=== PATIENT | male | born 1990 | race Caucasian/White ===

== ENCOUNTER 2017-05-04 21:24 | Emergency (ER) | payer SELFPAY ==
[~2017-05-04] VITALS: Ht 167.6 cm; Wt 65.8 kg
[~2017-05-04 21:24] MED LIST: CEPH500C PO; CIPR500T78 PO; FAMO20TA13 PO; HYDR-3812 PO; HYDR1TAB8 OP; ONDA-42 SL; TMSL.4C PO
[2017-05-04] MEDS ORDERED: BUPR1FIL3 (21:39)
--- NOTE | 2017-05-04 21:51 | ED Abdominal Pain ---
General Chief Complaint: Abdominal/GI Problems Stated Complaint: STOMACH PAIN Nursing Triage Note: RLQ PAIN SINCE WEDNESDAY, CONSTIPATION, WORSE AFTER EATING, WITH URINATION. HX GALLSTONES. Sepsis Screen: No Definite Risk Source of Information: Patient, RN Notes Reviewed Exam Limitations: No Limitations History of Present Illness Time Seen By Provider: 21:51 Initial Comments Patient presents c/ c/o persistent RLQ abdominal pain since Wednesday. Denies any known fever. NO N/V/D. More on the constipated side. States eating and urinating make the pain worse. Has known gallstones. (+) previous hx of kidneys stones as well. Timing/Duration: 2-3 Days Severity/Quality: Moderate (Told RN 03/31; told me 01/01) Location: RLQ Radiation: No Radiation Activities at Onset: None Modifying Factors: Worsens With Eating, Worsens With Urinating Associated Symptoms: No Fever/Chills, No Nausea/Vomiting Allergies and Home Medications Allergies Coded Allergies: No Known Drug Allergies (Unverified , 06/11/09) Home Medications Buprenorphine HCl/Naloxone HCl 1 Each Film, #21 (Reported) Diclofenac Sodium 50 Mg Tablet.dr, 50 MG PO Q6H PRN for ABDOMINAL PAIN, #30 Ref 0 Prescribed by: MIKE BRAVO on 05/04/172304 Tamsulosin HCl 0.4 Mg Cap, 0.4 MG PO DAILY, #10 Ref 0 Prescribed by: MIKE BRAVO on 05/04/172304 Review of Systems Constitutional: see HPI Gastrointestinal: See HPI, Abdominal Pain, Constipated, Denies Diarrhea, Denies Nausea, Denies Vomiting All Other Systems Reviewed Negative Unless Noted: Yes (Negative excepted noted.) Past Bbweqrb-Fegjka-Vhsevo Hx Patient Social History Alcohol Use: Denies Use Recreational Drug Use: No Type Used: Cigarettes 2nd Hand Smoke Exposure: Yes Recent Foreign Travel: No Contact w/Someone Who Travel: No Recent Infectious Disease Expo: No Recent Hopitalizations: No Immunizations Up To Date Tetanus Booster (TDap): Unknown Date of Influenza Vaccine: Sep 09, 2016 Seasonal Allergies Seasonal Allergies: No Surgeries HX Surgeries: Yes (KIDNEY STONE REMOVAL, URETERAL STENT,colonoscopy) Surgeries: Renal Respiratory Hx Respiratory Disorders: No Cardiovascular Hx Cardiac Disorders: No Neurological Hx Neurological Disorders: No Genitourinary Hx Genitourinary Disorders: Yes Genitourinary Disorders: Kidney Stones Gastrointestinal Hx Gastrointestinal Disorders: Yes Gastrointestinal Disorders: Gastroesophageal Reflux Musculoskeletal Hx Musculoskeletal Disorders: No Endocrine Hx Endocrine Disorders: No HEENT HX ENT Disorders: No Cancer Hx Cancer: No Psychosocial Hx Psychiatric Problems: No Integumentary HX Skin/Integumentary Disorder: No Blood Transfusions Hx Blood Disorders: No Adverse Reaction to a Blood Tr: No Family Medical History Significant Family History: No Pertinent Family Hx Physical Exam Vital Signs VS - Last 72 Hours, by Label 05/04/17 05/04/17 21:39 23:38 Temp 99.1 Pulse 85 81 Resp 18 18 B/P (MAP) 150/96 Pulse Ox 100 99 O2 Delivery Room Air Room Air Capillary Refill : Less Than 3 Seconds General Appearance: WD/WN, no apparent distress Respiratory: no respiratory distress Cardiovascular: regular rate, rhythm Gastrointestinal: No distended, No guarding, No rebound, tenderness (mild very low RLQ) Rectal: deferred Back: No CVA tenderness (R), No CVA tenderness (L) Neurologic/Psychiatric: no motor/sensory deficits, alert, normal mood/affect, oriented x 3 Skin: warm/dry, tattoos/piercings (extensive BUE) Progress/Results/Core Measures Results/Orders Lab Results Laboratory Tests Test 05/04/17 22:05 05/04/17 22:46 Range/Units White Blood Count 8.7 4.3-11.0 10^3/uL Red Blood Count 5.57 4.35-5.85 10^6/uL Hemoglobin 15.9 13.3-17.7 G/DL Hematocrit 46 40-54 % Mean Corpuscular Volume 83 80-99 FL Mean Corpuscular Hemoglobin 29 25-34 PG Mean Corpuscular Hemoglobin Concent 34 32-36 G/DL Red Cell Distribution Width 12.8 10.0-14.5 % Platelet Count 239 130-400 10^3/uL Mean Platelet Volume 11.7 H 7.4-10.4 FL Neutrophils (%) (Auto) 51 42-75 % Lymphocytes (%) (Auto) 39 12-44 % Monocytes (%) (Auto) 7 0-12 % Eosinophils (%) (Auto) 4 0-10 % Basophils (%) (Auto) 0 0-10 % Neutrophils # (Auto) 4.4 1.8-7.8 X 10^3 Lymphocytes # (Auto) 3.4 1.0-4.0 X 10^3 Monocytes # (Auto) 0.6 0.0-1.0 X 10^3 Eosinophils # (Auto) 0.4 H 0.0-0.3 10^3/uL Basophils # (Auto) 0.0 0.0-0.1 10^3/uL Sodium Level 144 135-145 MMOL/L Potassium Level 3.7 3.6-5.0 MMOL/L Chloride Level 106 98-107 MMOL/L Carbon Dioxide Level 26 21-32 MMOL/L Anion Gap 12 5-14 MMOL/L Blood Urea Nitrogen 10 7-18 MG/DL Creatinine 0.90 0.60-1.30 MG/DL Estimat Glomerular Filtration Rate > 60 BUN/Creatinine Ratio 11 0-20 Glucose Level 61 L 70-105 MG/DL Calcium Level 10.0 8.5-10.1 MG/DL Total Bilirubin 0.3 0.1-1.0 MG/DL Aspartate Amino Transf (AST/SGOT) 21 5-34 U/L Alanine Aminotransferase (ALT/SGPT) 14 0-55 U/L Alkaline Phosphatase 74 40-136 U/L Total Protein 8.3 H 6.4-8.2 GM/DL Albumin 4.8 H 3.2-4.5 GM/DL Urine Color YELLOW Urine Clarity CLEAR Urine pH 6.5 5-9 Urine Specific [place] 1.015 L 1.016-1.022 Urine Protein NEGATIVE NEGATIVE Urine Glucose (UA) NEGATIVE NEGATIVE Urine Ketones NEGATIVE NEGATIVE Urine Nitrite NEGATIVE NEGATIVE Urine Bilirubin NEGATIVE NEGATIVE Urine Urobilinogen NORMAL NORMAL MG/DL Urine Leukocyte Esterase NEGATIVE NEGATIVE Urine RBC (Auto) 2+ H NEGATIVE Urine RBC 10-25 H /HPF Urine WBC NONE /HPF Urine Squamous Epithelial Cells RARE /HPF Urine Crystals NONE /LPF Urine Bacteria NONE /HPF Urine Casts NONE /LPF Urine Mucus NEGATIVE /LPF Urine Culture Indicated NO My Orders Orders - MIKE BRAVO DO Ua Culture If Indicated (05/04/17 21:50) Saline Lock/Iv-Start (05/04/17 21:58) Cbc With Automated Diff (05/04/17 21:58) Comprehensive Metabolic Panel (05/04/17 21:58) Ns Iv 1000 Ml (Sodium Chloride 0.9%) (05/04/17 22:06) Ct Abdomen/Pelvis Wo (05/04/17 22:19) Ketorolac Injection (Toradol Injection) (05/04/17 23:15) Tamsulosin Capsule (Flomax Capsule) (05/04/17 23:15) Alfuzosin Tablet (Uroxatral Tablet) (05/05/17 18:00) Alfuzosin Tablet (Uroxatral Tablet) (05/04/17 23:08) Medications Given in ED Vital Signs/I&O Vital Sign - Last 12Hours 05/04/17 05/04/17 21:39 23:38 Temp 99.1 Pulse 85 81 Resp 18 18 B/P (MAP) 150/96 Pulse Ox 100 99 O2 Delivery Room Air Room Air Intake and Output 05/05/17 00:00 Intake Total 1000 ml Balance 1000 ml Blood Pressure Mean: 114 Diagnostic Imaging Diagonstic Imaging: CT Plain Films/CT/US/NM/MRI: abdomen, c-spine Reviewed: Reviewed [place] Study (right proximal 2 mm ureterolithiasis c / mild hydro; (+) cholelithiasis s/ cholecystitis) Departure Impression Impression: Primary Impression: Right ureteral stone Disposition: HOME, SELF-CARE Condition: Stable Departure-Patient Inst. Decision time for Depature: 23:02 Referrals: PB TELLES MD Patient Instructions: Kidney Stones in Adults Add. Discharge Instructions: All discharge instructions reviewed with patient and/or family. Voiced understanding. RECOMMEND FOLLOW UP WITH DR. TELLES FOR FURTHER EVALUATION OF ALL YOUR KIDNEY STONES. Scripts Diclofenac Sodium (Diclofenac Sodium) 50 Mg Tablet. 50 MG PO Q6H Y for ABDOMINAL PAIN, #30 TAB 0 Refills Prov: MIKE BRAVO DO 05/04/17 Tamsulosin HCl (Flomax) 0.4 Mg Cap 0.4 MG PO DAILY for KIDNEY STONE, #10 CAP 0 Refills Prov: MIKE BRAVO DO 05/04/17 MIKE BRAVO DO May 04, 2017 21:51
[2017-05-04] MEDS ORDERED: NS IV 1000 ML 1,000 ML IV ONE (22:06)
[2017-05-04 22:12] LABS: BASOPHILS % (AUTO) 0 % (0-10); EOSINOPHILS # (AUTO) 0.4 10^3/uL (0.0-0.3); EOSINOPHILS % (AUTO) 4 % (0-10); LYMPHOCYTES # (AUTO) 3.4 X 10^3 (1.0-4.0); LYMPHOCYTES % (AUTO) 39 % (12-44); MEAN CORPUSCULAR HEMOGLOBIN 29 PG (25-34); MEAN CORPUSCULAR HGB CONC 34 G/DL (32-36); MEAN CORPUSCULAR VOLUME 83 FL (80-99); MEAN PLATELET VOLUME 11.7 FL (7.4-10.4); MONOCYTES # (AUTO) 0.6 X 10^3 (0.0-1.0); MONOCYTES % (AUTO) 7 % (0-12); NEUTROPHILS # (AUTO) 4.4 X 10^3 (1.8-7.8); NEUTROPHILS % (AUTO) 51 % (42-75); PLATELET COUNT 239 10^3/uL (130-400); RED BLOOD COUNT 5.57 10^6/uL (4.35-5.85); RED CELL DISTRIBUTION WIDTH 12.8 % (10.0-14.5); WHITE BLOOD COUNT 8.7 10^3/uL (4.3-11.0)
[2017-05-04 22:34] LABS: ALANINE AMINOTRANSFERASE 14 U/L (0-55); ALBUMIN 4.8 GM/DL (3.2-4.5); ANION GAP 12 MMOL/L (5-14); ASPARTATE AMINO TRANSFERASE 21 U/L (5-34); BILIRUBIN,TOTAL 0.3 MG/DL (0.1-1.0); BLOOD UREA NITROGEN 10 MG/DL (7-18); BUN/CREATININE RATIO 11 (0-20); CARBON DIOXIDE 26 MMOL/L (21-32); CHLORIDE 106 MMOL/L (98-107); GFR ESTIMATED > 60; GLUCOSE 61 MG/DL (70-105); POTASSIUM 3.7 MMOL/L (3.6-5.0); SODIUM 144 MMOL/L (135-145); TOTAL PROTEIN 8.3 GM/DL (6.4-8.2)
[2017-05-04 22:56] LABS: BILIRUBIN,URINE NEGATIVE (NEGATIVE); KETONES,URINE NEGATIVE (NEGATIVE); LEUKOCYTE ESTERASE ,URINE NEGATIVE (NEGATIVE); NITRITE,URINE NEGATIVE (NEGATIVE); PH,URINE 6.5 (5-9); PROTEIN,URINE NEGATIVE (NEGATIVE); UROBILINOGEN,URINE NORMAL (NORMAL)
[2017-05-04] MEDS ORDERED: DICL50TA6 PO (23:05)
[2017-05-04] MEDS ORDERED: TAMS0.4C98 PO (23:05)
[2017-05-04 23:06] LABS: SQUAMOUS EPITHELIAL CELL,UR RARE /HPF
[2017-05-04] MEDS ORDERED: ALFUZOSIN HCL 10 MG TAB (UROXATRAL) PO ONE (23:08)
[2017-05-04] MEDS ORDERED: KETOROLAC 30 MG/ML VIAL IVP ONE (23:15)
[2017-05-04] MEDS ORDERED: TAMSULOSIN 0.4 MG (FLOMAX) CAP PO ONE (23:15)
[2017-05-04 23:38] VITALS: BP 126/84
--- NOTE | 2017-05-05 06:35 | Diagnostic Imaging Report ---
PROCEDURE: CT abdomen and pelvis without contrast. TECHNIQUE: Multiple contiguous axial images were obtained through the abdomen and pelvis without the use of intravenous contrast. INDICATION: Abdominal pain. COMPARISON: 04/17/2015. FINDINGS: Lung bases are clear. There are multiple sub-3 mm calculi present bilaterally. There is a 2 mm calculus in the proximal right ureter which is causing very mild hydronephrosis. Renal outlines are smooth. No perinephric fluid. The liver appears normal. Gallbladder and bile ducts show no obstruction or wall thickening. There are gallstones present. Bowel gas pattern appears normal. There is stool and gas throughout the colon to rectum. The appendix is visualized and normal. There is no free air or free fluid. IMPRESSION: 1. Nephrolithiasis bilaterally with mild hydronephrosis noted on the right. Overall appearance is quite similar to previous exam. 2. Cholelithiasis with no evidence of acute cholecystitis. These findings are in agreement with the preliminary report. Dictated by: Dictated on workstation # [id number]
[2017-05-05] MEDS ORDERED: ALFUZOSIN HCL 10 MG TAB (UROXATRAL) PO SCH (18:00)
== END 2017-05-04 23:38 | disposition home or self-care (01) ==
LOC: EDUNIT# 21:24 → ER 21:27
DX: N20.1 Calculus of ureter (principal); F17.210 Nicotine dependence, cigarettes, uncomplicated; Z87.442 Personal history of urinary calculi; Z96.0 Presence of urogenital implants
CPT/HCPCS: 36415; 74176; 80053; 81000; 85025

== ENCOUNTER 2017-05-09 23:55 | Emergency (ER) | payer SELFPAY ==
[~2017-05-09] VITALS: Ht 170.2 cm; Wt 68.0 kg
[~2017-05-09 23:55] MED LIST changes: +BUPR1FIL3; +DICL50TA6 PO; +TAMS0.4C98 PO
[2017-05-10 00:56] LABS: BILIRUBIN,URINE NEGATIVE (NEGATIVE); KETONES,URINE NEGATIVE (NEGATIVE); LEUKOCYTE ESTERASE ,URINE NEGATIVE (NEGATIVE); NITRITE,URINE NEGATIVE (NEGATIVE); PH,URINE 7 (5-9); PROTEIN,URINE NEGATIVE (NEGATIVE); UROBILINOGEN,URINE NORMAL (NORMAL)
--- NOTE | 2017-05-10 00:56 | ED General ---
General Chief Complaint: General Problems/Pain Stated Complaint: L HAND NUMBNESS TASTE OF IRON, FEELING HOT Nursing Triage Note: PT STATES HE STARTED HAVING L ARM NUMBNESS ABOUT 30 [employer]. ALSO STATES THAT SINCE HE GOT HERE HE HAS HAD SOME MID STERNAL CHEST PAIN AND L LEG NUMBNESS. Nursing Sepsis Screen: No Definite Risk Source of Information: Patient History of Present Illness Time Seen by Provider: 00:30 Initial Comments PT HAS A MULTITUDE OF COMPLAINTS, AND IS DEVELOPING MORE COMPLAINTS SINCE ARRIVAL TO ER, AND DURING EXAM PT SPEAKING VERY RAPIDLY, NON-STOP PT STATES IMMEDIATELY PRIOR TO ARRIVAL, HE WAS SITTING IN A CHAIR AND HIS ARMS "FELL ASLEEP" STARTED MOVING HIS ARM AND THE FEELING STARTED TO COME BACK, THEN IT STARTED TINGLING THE HE STARTED FEELING REALLY HOT, THEN HE STARTED HAVING AN IRON TASTE IN HIS MOUTH, THEN HE STARTED HAVING A STRONG URGE TO URINATE THEN HE STARTED FEELING REAL SHAKEY ALL OVER THEN WHILE IN WAITING ROOM, HE WHEN HE STOOD UP, HE HAD SOME TINGLING IN HIS LEFT LEG THEN HE STARTED HAVING KIDNEY STONE PAIN--PT STATES HE HAS BEEN PASSING A KIDNEY STONE, AND HAS BEEN ON FLOMAX FOR THE LAST 5 DAYS--SEEN HERE 05/04/17 FOR KIDNEY STONE THEN HE STARTED TO HAVE PAIN IN HIS CHEST AND FEELING SHORT OF BREATH PT STATES ALL SYMPTOMS HAVE RESOLVED, JUST FEELS SHAKEY AND STIFF AND SORE ALL OVER NOW. NO HISTORY OF SIMILAR NO RECENT ILLNESS FELT FINE ALL DAY--WORKED TODAY AND WAS FINE. PCP: EMELI Allergies and Home Medications Allergies Coded Allergies: No Known Drug Allergies (Unverified , 06/11/09) Home Medications Buprenorphine HCl/Naloxone HCl 1 Each Film, #21 (Reported) Diclofenac Sodium 50 Mg Tablet.dr, 50 MG PO Q6H PRN for ABDOMINAL PAIN, #30 Ref 0 Prescribed by: MIKE BRAVO on 05/04/172304 Tamsulosin HCl 0.4 Mg Cap, 0.4 MG PO DAILY, #10 Ref 0 Prescribed by: MIKE BRAVO on 05/04/172304 Constitutional: see HPI EENTM: no symptoms reported Respiratory: see HPI, short of breath Cardiovascular: see HPI, chest pain Gastrointestinal: no symptoms reported Genitourinary: see HPI Musculoskeletal: see HPI Skin: no symptoms reported Psychiatric/Neurological: See HPI, Anxiety Hematologic/Lymphatic: No Symptoms Reported Immunological/Allergic: no symptoms reported Past Rhmfcxb-Nvlfgt-Cszxvj Hx Patient Social History Alcohol Use: Occasionally Uses Recreational Drug Use: Yes (THC, RX MEDICATION ABUSE--PAIN PILLS, VYVANSE/ ADDERALL) Smoking Status: Current Everyday Smoker (1 PPD) Type Used: Cigarettes 2nd Hand Smoke Exposure: Yes Recent Foreign Travel: No Contact w/Someone Who Travel: No Recent Infectious Disease Expo: No Recent Hopitalizations: No Immunizations Up To Date Tetanus Booster (TDap): Unknown Date of Influenza Vaccine: Sep 09, 2016 Seasonal Allergies Seasonal Allergies: No Surgeries HX Surgeries: Yes (KIDNEY STONE REMOVAL, URETERAL STENT, COLONOSCOPY) Surgeries: Renal Respiratory Hx Respiratory Disorders: No Cardiovascular Hx Cardiac Disorders: No Neurological Hx Neurological Disorders: No Genitourinary Hx Genitourinary Disorders: Yes (KIDNEY 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 15) Genitourinary Disorders: Kidney Stones Gastrointestinal Hx Gastrointestinal Disorders: Yes (GALLSTONES NOTED ON CT SCAN) Gastrointestinal Disorders: Gastroesophageal Reflux, Gall Bladder Disease Musculoskeletal Hx Musculoskeletal Disorders: No Endocrine Hx Endocrine Disorders: No HEENT HX ENT Disorders: No Cancer Hx Cancer: No Psychosocial Hx Psychiatric Problems: Yes (SUBSTANCE ABUSE) Integumentary HX Skin/Integumentary Disorder: No Blood Transfusions Hx Blood Disorders: No Adverse Reaction to a Blood Tr: No Physical Exam Vital Signs Vital Sign - Last 12Hours 05/10/17 00:27 Pulse 108 Resp 16 B/P (MAP) 138/98 Capillary Refill : Less Than 3 Seconds General Appearance: No Apparent Distress, Anxious, Thin, Other (TALKS VERY RAPIDLY, NON-STOP) HEENT: PERRL/EOMI Neck: Full Range of Motion, Normal Inspection, Non Tender, Supple, Carotid Bruit Respiratory: Normal Breath Sounds, No Accessory Muscle Use, No Respiratory Distress, Other (MILD LOWER STERNAL TENDERNESS) Cardiovascular: No Edema, No JVD, No Murmur, Normal Peripheral Pulses, Tachycardia Gastrointestinal: Normal Bowel Sounds, No Organomegaly, No Pulsatile Mass, Non Tender, Soft Back: Normal Inspection Extremity: Normal Capillary Refill, Normal Inspection, Normal Range of Motion, Non Tender, No Calf Tenderness, No Pedal Edema Neurologic/Psychiatric: Alert, Oriented x3, No Motor/Sensory Deficits, clinical laboratory assistant II- XII Norm as Tested, No Abnormal Cerebellar Tests, Other (ANXIOUS) Skin: Normal Color, Warm/Dry, Tattoos/Piercings (EXTENSIVE TATTOOS) Progress/Results/Core Measures Results/Orders Lab Results Laboratory Tests Test 05/10/17 00:47 05/10/17 00:53 Range/Units Urine Color YELLOW Urine Clarity CLEAR Urine pH 7 5-9 Urine Specific [place] 1.010 L 1.016-1.022 Urine Protein NEGATIVE NEGATIVE Urine Glucose (UA) NEGATIVE NEGATIVE Urine Ketones NEGATIVE NEGATIVE Urine Nitrite NEGATIVE NEGATIVE Urine Bilirubin NEGATIVE NEGATIVE Urine Urobilinogen NORMAL NORMAL MG/DL Urine Leukocyte Esterase NEGATIVE NEGATIVE Urine RBC (Auto) NEGATIVE NEGATIVE Urine RBC NONE /HPF Urine WBC NONE /HPF Urine Squamous Epithelial Cells 0-2 /HPF Urine Crystals NONE /LPF Urine Bacteria NEGATIVE /HPF Urine Casts NONE /LPF Urine Mucus NEGATIVE /LPF Urine Culture Indicated NO Urine Opiates Screen NEGATIVE NEGATIVE Urine Oxycodone Screen NEGATIVE NEGATIVE Urine Methadone Screen NEGATIVE NEGATIVE Urine Propoxyphene Screen NEGATIVE NEGATIVE Urine Barbiturates Screen NEGATIVE NEGATIVE Ur Tricyclic Antidepressants Screen NEGATIVE NEGATIVE Urine Phencyclidine Screen NEGATIVE NEGATIVE Urine Amphetamines Screen NEGATIVE NEGATIVE Urine Methamphetamines Screen NEGATIVE NEGATIVE Urine Benzodiazepines Screen NEGATIVE NEGATIVE Urine Cocaine Screen NEGATIVE NEGATIVE Urine Cannabinoids Screen NEGATIVE NEGATIVE White Blood Count 7.4 4.3-11.0 10^3/uL Red Blood Count 5.06 4.35-5.85 10^6/uL Hemoglobin 14.5 13.3-17.7 G/DL Hematocrit 43 40-54 % Mean Corpuscular Volume 84 80-99 FL Mean Corpuscular Hemoglobin 29 25-34 PG Mean Corpuscular Hemoglobin Concent 34 32-36 G/DL Red Cell Distribution Width 12.8 10.0-14.5 % Platelet Count 196 130-400 10^3/uL Mean Platelet Volume 11.4 H 7.4-10.4 FL Neutrophils (%) (Auto) 51 42-75 % Lymphocytes (%) (Auto) 35 12-44 % Monocytes (%) (Auto) 8 0-12 % Eosinophils (%) (Auto) 6 0-10 % Basophils (%) (Auto) 1 0-10 % Neutrophils # (Auto) 3.7 1.8-7.8 X 10^3 Lymphocytes # (Auto) 2.6 1.0-4.0 X 10^3 Monocytes # (Auto) 0.6 0.0-1.0 X 10^3 Eosinophils # (Auto) 0.4 H 0.0-0.3 10^3/uL Basophils # (Auto) 0.0 0.0-0.1 10^3/uL Sodium Level 142 135-145 MMOL/L Potassium Level 3.4 L 3.6-5.0 MMOL/L Chloride Level 106 98-107 MMOL/L Carbon Dioxide Level 23 21-32 MMOL/L Anion Gap 13 5-14 MMOL/L Blood Urea Nitrogen 8 7-18 MG/DL Creatinine 0.85 0.60-1.30 MG/DL Estimat Glomerular Filtration Rate > 60 BUN/Creatinine Ratio 9 0-20 Glucose Level 106 H 70-105 MG/DL Calcium Level 9.6 8.5-10.1 MG/DL Magnesium Level 2.1 1.8-2.4 MG/DL Total Bilirubin 0.5 0.1-1.0 MG/DL Aspartate Amino Transf (AST/SGOT) 24 5-34 U/L Alanine Aminotransferase (ALT/SGPT) 16 0-55 U/L Alkaline Phosphatase 81 40-136 U/L Total Protein 7.7 6.4-8.2 GM/DL Albumin 4.8 H 3.2-4.5 GM/DL TSH [place] Testing 3.02 0.35-4.94 UIU/ML Serum Alcohol < 10 <10 MG/DL My Orders Orders - GALA ARMAS DO Alcohol (05/10/17 00:45) Cbc With Automated Diff (05/10/17 00:45) Comprehensive Metabolic Panel (05/10/17 00:45) Drug Screen Stat (Urine) (05/10/17 00:45) Magnesium (05/10/17 00:45) Thyroid Analyzer (05/10/17 00:45) Ua Culture If Indicated (05/10/17 00:45) Ekg Tracing (05/10/17 00:45) Vital Signs/I&O Vital Sign - Last 12Hours 05/10/17 00:27 Pulse 108 Resp 16 B/P (MAP) 138/98 Blood Pressure Mean: 111 Progress Note : Progress Note NO SYMPTOMS AT DISMISSAL AND PT IS CALMER, AND PT AGREES THAT OTHER SYMPTOMS WERE LIKELY DUE TO ANXIETY 'STATES INITIAL NUMBNESS AND TINGLING IN HIS ARM BEGAN WHILE HE WAS SITTING IN CHAIR AND HAD ELBOWS RESTING ON ARM RESTS AND HE WAS PLAYING WITH HIS PHONE FOR SOME TIME, WITH ARMS IN SAME POSITION ECG Initial ECG Impression Time: 01:01 Initial ECG Rate: 91 Initial ECG Rhythm: Normal Sinus Initial ECG Impression: Normal Initial ECG Comparisson: Unchanged Departure Impression Impression: Primary Impression: Anxiety Additional Impression: TRANSIENT ARM PARESTHESIA Disposition: 01 HOME, SELF-CARE Condition: Improved Departure-Patient Inst. Referrals: [facility] Patient Instructions: Anxiety, Adult (DC), Paresthesias (DC) Add. Discharge Instructions: FOLLOW UP WITH [facility] IF SYMPTOMS CONTINUE All discharge instructions reviewed with patient and/or family. Voiced understanding. GALA ARMAS DO May 10, 2017 00:56
[2017-05-10 01:01] LABS: BASOPHILS % (AUTO) 1 % (0-10); EOSINOPHILS # (AUTO) 0.4 10^3/uL (0.0-0.3); EOSINOPHILS % (AUTO) 6 % (0-10); LYMPHOCYTES # (AUTO) 2.6 X 10^3 (1.0-4.0); LYMPHOCYTES % (AUTO) 35 % (12-44); MEAN CORPUSCULAR HEMOGLOBIN 29 PG (25-34); MEAN CORPUSCULAR HGB CONC 34 G/DL (32-36); MEAN CORPUSCULAR VOLUME 84 FL (80-99); MEAN PLATELET VOLUME 11.4 FL (7.4-10.4); MONOCYTES # (AUTO) 0.6 X 10^3 (0.0-1.0); MONOCYTES % (AUTO) 8 % (0-12); NEUTROPHILS # (AUTO) 3.7 X 10^3 (1.8-7.8); NEUTROPHILS % (AUTO) 51 % (42-75); PLATELET COUNT 196 10^3/uL (130-400); RED BLOOD COUNT 5.06 10^6/uL (4.35-5.85); RED CELL DISTRIBUTION WIDTH 12.8 % (10.0-14.5); WHITE BLOOD COUNT 7.4 10^3/uL (4.3-11.0)
[2017-05-10 01:09] LABS: SQUAMOUS EPITHELIAL CELL,UR 0-2 /HPF
[2017-05-10 01:22] LABS: ALANINE AMINOTRANSFERASE 16 U/L (0-55); ALBUMIN 4.8 GM/DL (3.2-4.5); ANION GAP 13 MMOL/L (5-14); ASPARTATE AMINO TRANSFERASE 24 U/L (5-34); BILIRUBIN,TOTAL 0.5 MG/DL (0.1-1.0); BLOOD UREA NITROGEN 8 MG/DL (7-18); BUN/CREATININE RATIO 9 (0-20); CALCIUM 9.6 MG/DL (8.5-10.1); CARBON DIOXIDE 23 MMOL/L (21-32); CHLORIDE 106 MMOL/L (98-107); CREATININE SERUM 0.85 MG/DL (0.60-1.30); GFR ESTIMATED > 60; GLUCOSE 106 MG/DL (70-105); HEMOLYSIS 11 (-100-29); ICTERUS 0.4 (-100-1.9); LIPEMIA 10 (-100-49); MAGNESIUM 2.1 MG/DL (1.8-2.4); POTASSIUM 3.4 MMOL/L (3.6-5.0); SODIUM 142 MMOL/L (135-145); TOTAL PROTEIN 7.7 GM/DL (6.4-8.2)
[2017-05-10 01:23] LABS: ALCOHOL < 10 MG/DL (<10)
[2017-05-10 02:10] VITALS: BP 138/98
== END 2017-05-10 02:09 | disposition home or self-care (01) ==
LOC: EDUNIT# 23:55 → ER 23:58
DX: R20.2 Paresthesia of skin (principal); F17.210 Nicotine dependence, cigarettes, uncomplicated
CPT/HCPCS: 36415; 80053; 80306; 80320; 81000; 83735; 84443; 85025; 93005

== ENCOUNTER 2017-06-07 17:30 | Emergency (ER) | payer SELFPAY ==
[~2017-06-07] VITALS: Ht 170.2 cm; Wt 68.0 kg
[2017-06-07 17:51] LABS: BILIRUBIN,URINE NEGATIVE (NEGATIVE); KETONES,URINE NEGATIVE (NEGATIVE); LEUKOCYTE ESTERASE ,URINE NEGATIVE (NEGATIVE); NITRITE,URINE NEGATIVE (NEGATIVE); PH,URINE 7 (5-9); PROTEIN,URINE NEGATIVE (NEGATIVE); UROBILINOGEN,URINE NORMAL (NORMAL)
[2017-06-07 18:10] LABS: BASOPHILS # (AUTO) 0.1 10^3/uL (0.0-0.1); BASOPHILS % (AUTO) 0 % (0-10); EOSINOPHILS # (AUTO) 0.5 10^3/uL (0.0-0.3); EOSINOPHILS % (AUTO) 3 % (0-10); LYMPHOCYTES # (AUTO) 3.1 X 10^3 (1.0-4.0); LYMPHOCYTES % (AUTO) 18 % (12-44); MEAN CORPUSCULAR HEMOGLOBIN 29 PG (25-34); MEAN CORPUSCULAR HGB CONC 34 G/DL (32-36); MEAN CORPUSCULAR VOLUME 83 FL (80-99); MEAN PLATELET VOLUME 11.5 FL (7.4-10.4); MONOCYTES % (AUTO) 6 % (0-12); NEUTROPHILS # (AUTO) 12.9 X 10^3 (1.8-7.8); NEUTROPHILS % (AUTO) 73 % (42-75); PLATELET COUNT 231 10^3/uL (130-400); RED BLOOD COUNT 5.37 10^6/uL (4.35-5.85); RED CELL DISTRIBUTION WIDTH 12.8 % (10.0-14.5); WHITE BLOOD COUNT 17.5 10^3/uL (4.3-11.0)
[2017-06-07 18:30] LABS: ALANINE AMINOTRANSFERASE 16 U/L (0-55); ALBUMIN 4.9 GM/DL (3.2-4.5); ANION GAP 12 MMOL/L (5-14); ASPARTATE AMINO TRANSFERASE 21 U/L (5-34); BILIRUBIN,TOTAL 0.7 MG/DL (0.1-1.0); BLOOD UREA NITROGEN 6 MG/DL (7-18); BUN/CREATININE RATIO 7; CALCIUM 9.8 MG/DL (8.5-10.1); CARBON DIOXIDE 26 MMOL/L (21-32); CHLORIDE 102 MMOL/L (98-107); CREATININE SERUM 0.92 MG/DL (0.60-1.30); GFR ESTIMATED > 60; GLUCOSE 62 MG/DL (70-105); LIPASE 17 U/L (8-78); MAGNESIUM 1.9 MG/DL (1.8-2.4); POTASSIUM 3.1 MMOL/L (3.6-5.0); SODIUM 140 MMOL/L (135-145); TOTAL PROTEIN 8.2 GM/DL (6.4-8.2)
--- NOTE | 2017-06-07 18:34 | Diagnostic Imaging Report ---
EXAM: CHEST PA/LAT (2 VIEW) INDICATION: Chest pain. Shortness breath. COMPARISON: Chest radiograph 06/11/2009. FINDINGS: Normal heart size and pulmonary vascularity. No focal pulmonary opacity, pleural effusion or pneumothorax. No acute osseous findings. No significant change. IMPRESSION: Negative chest. Dictated by: Dictated on workstation # [id number]
[2017-06-07 18:35] LABS: BAND NEUTROPHILS 2 %; BASOPHILS % (MANUAL) 1 %; EOSINOPHILS % (MANUAL) 7 %; LYMPHOCYTES % (MANUAL) 19 %; NEUTROPHILS % (MANUAL) 65 %
[2017-06-07] MEDS ORDERED: NS IV 1000 ML 1,000 ML IV ONE (18:36)
--- NOTE | 2017-06-07 18:37 | ED General ---
General Chief Complaint: General Problems/Pain Stated Complaint: LOWER BACK AND ABDOMINAL PAINS Nursing Triage Note: PT AMBUALTED TO ROOM. PT STATES HE HAD A KIDNEY STONE APPROX 3 WEEKS AGO. TODAY PT COMPLAINS OF LOWER BACK AND ABD PAIN. SIMPSON FOR APPROX. 3 DAYS STRAIGHT. Nursing Sepsis Screen: No Definite Risk Source of Information: Patient Exam Limitations: No Limitations (ROCHELLE PHAN MD) History of Present Illness Time Seen by Provider: 17:42 Initial Comments This patient presents with complaints as outlined below. 1. Patient was diagnosed about 3 weeks ago with ureteral stone. He was diagnosed by CT. About 5 days after diagnosis he developed fever and felt like he passed the stone. He then developed some bilateral lower back pain that radiated around into the abdomen. That pain has persisted since then. He reports having significant discomfort especially with riding in a car. The fever only lasted one night. Patient also reports having a history of gallstones and has some pain and tenderness in the right upper quadrant and epigastrium on exam. He denies any hematuria or dysuria at present. He did have hematuria and dysuria around the time of his ureteral stone diagnosis. 2. Patient has been experiencing headache for about 3-4 days. It is unusual for him to have a headache for this long. 3. Over the past 3-4 days patient has had intermittent problems with left upper quadrant and left lower chest pain. He can identify no particular triggers or exacerbating factors. He has associated lightheadedness and dyspnea. Patient reports driving to [place] and returning about a week ago. He denies any lower extremity symptoms such as pain, swelling, or erythema. 4. Patient has a significant history of narcotic abuse. He is currently in the substance abuse treatment program at [facility] and is on Suboxone. He reports having some worsening issues with anxiety since discontinuing narcotics. 5. Review of patient's chart shows that the diagnosis of ureteral stone was actually made on May 04. He was seen in the ER for anxiety in the interim. (ROCHELLE PHAN MD) Initial Comments Patient also admits that his use of Colace as improved his constipation but he still only having a bowel movement every 3-4 days and it is usually rabbit pellet hardened in appearance. (ALICIA PARSONS) Allergies and Home Medications Allergies Coded Allergies: No Known Drug Allergies (Unverified , 06/11/09) Home Medications Buprenorphine HCl/Naloxone HCl 1 Each Film, #21 (Reported) Diclofenac Sodium 50 Mg Tablet.dr, 50 MG PO Q6H PRN for ABDOMINAL PAIN, #30 Ref 0 Prescribed by: MIKE BRAVO on 05/04/172304 Tamsulosin HCl 0.4 Mg Cap, 0.4 MG PO DAILY, #10 Ref 0 Prescribed by: MIKE BRAVO on 05/04/172304 Constitutional: see HPI EENTM: no symptoms reported Respiratory: see HPI Cardiovascular: see HPI Gastrointestinal: see HPI Genitourinary: see HPI Musculoskeletal: see HPI Skin: no symptoms reported Psychiatric/Neurological: See HPI Hematologic/Lymphatic: No Symptoms Reported (ROCHELLE PHAN MD) Past Xdsxpcp-Gkgphr-Sybvkh Hx Patient Social History Alcohol Use: Denies Use Recreational Drug Use: Yes (PAST HISTORY OF NARCOTIC DRUG USE) Smoking Status: Current Everyday Smoker Type Used: Cigarettes 2nd Hand Smoke Exposure: Yes Recent Foreign Travel: No Contact w/Someone Who Travel: No Recent Infectious Disease Expo: No Recent Hopitalizations: No (ROCHELLE PHAN MD) Immunizations Up To Date Tetanus Booster (TDap): Unknown Date of Influenza Vaccine: Sep 09, 2016 (ROCHELLE PHAN MD) Seasonal Allergies Seasonal Allergies: No (ROCHELLE PHAN MD) Surgeries HX Surgeries: Yes (KIDNEY STONE REMOVAL, URETERAL STENT, COLONOSCOPY) Surgeries: Renal (ROCHELLE PHAN MD) Respiratory Hx Respiratory Disorders: No (ROCHELLE PHAN MD) Cardiovascular Hx Cardiac Disorders: No (ROCHELLE PHAN MD) Neurological Hx Neurological Disorders: No (ROCHELLE PHAN MD) Genitourinary Hx Genitourinary Disorders: Yes (KIDNEY 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 15, ureteral stent placement and removal) Genitourinary Disorders: Kidney Stones (ROCHELLE PHAN MD) Gastrointestinal Hx Gastrointestinal Disorders: Yes (GALLSTONES NOTED ON CT SCAN) Gastrointestinal Disorders: Gastroesophageal Reflux, Gall Bladder Disease (ROCHELLE PHAN MD) Musculoskeletal Hx Musculoskeletal Disorders: No (ROCHELLE PHAN MD) Endocrine Hx Endocrine Disorders: No (ROCHELLE PHAN MD) HEENT HX ENT Disorders: No (ROCHELLE PHAN MD) Cancer Hx Cancer: No (ROCHELLE PHAN MD) Psychosocial Hx Psychiatric Problems: Yes (SUBSTANCE ABUSE) Behavioral Health Disorders: Anxiety (ROCHELLE PHAN MD) Integumentary HX Skin/Integumentary Disorder: No (ROCHELLE PHAN MD) Blood Transfusions Hx Blood Disorders: No Adverse Reaction to a Blood Tr: No (ROCHELLE PHAN MD) Physical Exam Vital Signs Vital Sign - Last 12Hours 06/07/17 17:42 Temp 98.6 Pulse 98 Resp 20 B/P (MAP) 135/90 Pulse Ox 100 O2 Delivery Room Air (ALICIA PARSONS) Vital Signs Capillary Refill : Less Than 3 Seconds (ROCHELLE PHAN MD) General Appearance: No Apparent Distress, WD/WN HEENT: PERRL/EOMI, Normal ENT Inspection Neck: Normal Inspection Respiratory: Chest Non Tender, Lungs Clear, Normal Breath Sounds, No Accessory Muscle Use, No Respiratory Distress Cardiovascular: Regular Rate, Rhythm, No Edema, No Murmur Gastrointestinal: Normal Bowel Sounds, No Organomegaly, Soft, Tenderness ( epigastrium and right upper quadrant) Extremity: Normal Capillary Refill, Normal Inspection, Non Tender, No Calf Tenderness, Other (negative Red) Neurologic/Psychiatric: Alert, Oriented x3, No Motor/Sensory Deficits, Normal Mood/Affect, melter loader II-XII Norm as Tested Skin: Normal Color, Warm/Dry, Tattoos/Piercings (heavily tattooed) (ROCHELLE PHAN MD) Gastrointestinal: Tenderness (epigastrium and right upper quadrant), Other (on exam right upper quadrant is mildly tender but Bauman sign negative. Lower right quadrant however is tender to deep palpation but no rebound tenderness. Epigastrium is only mildly tender.) (ALICIA PARSONS) Progress/Results/Core Measures Results/Orders Lab Results Laboratory Tests Test 06/07/17 17:45 06/07/17 18:02 Range/Units Urine Color YELLOW Urine Clarity CLEAR Urine pH 7 5-9 Urine Specific Parshall 1.010 L 1.016-1.022 Urine Protein NEGATIVE NEGATIVE Urine Glucose (UA) NEGATIVE NEGATIVE Urine Ketones NEGATIVE NEGATIVE Urine Nitrite NEGATIVE NEGATIVE Urine Bilirubin NEGATIVE NEGATIVE Urine Urobilinogen NORMAL NORMAL MG/DL Urine Leukocyte Esterase NEGATIVE NEGATIVE Urine RBC (Auto) NEGATIVE NEGATIVE Urine RBC NONE /HPF Urine WBC NONE /HPF Urine Crystals PRESENT H /LPF Urine Amorphous Sediment RARE GWENDOLYN URATES H /LPF Urine Bacteria NONE /HPF Urine Casts NONE /LPF Urine Mucus NEGATIVE /LPF Urine Culture Indicated NO White Blood Count 17.5 H 4.3-11.0 10^3/uL Red Blood Count 5.37 4.35-5.85 10^6/uL Hemoglobin 15.3 13.3-17.7 G/DL Hematocrit 45 40-54 % Mean Corpuscular Volume 83 80-99 FL Mean Corpuscular Hemoglobin 29 25-34 PG Mean Corpuscular Hemoglobin Concent 34 32-36 G/DL Red Cell Distribution Width 12.8 10.0-14.5 % Platelet Count 231 130-400 10^3/uL Mean Platelet Volume 11.5 H 7.4-10.4 FL Neutrophils (%) (Auto) 73 42-75 % Lymphocytes (%) (Auto) 18 12-44 % Monocytes (%) (Auto) 6 0-12 % Eosinophils (%) (Auto) 3 0-10 % Basophils (%) (Auto) 0 0-10 % Neutrophils # (Auto) 12.9 H 1.8-7.8 X 10^3 Lymphocytes # (Auto) 3.1 1.0-4.0 X 10^3 Monocytes # (Auto) 1.0 0.0-1.0 X 10^3 Eosinophils # (Auto) 0.5 H 0.0-0.3 10^3/uL Basophils # (Auto) 0.1 0.0-0.1 10^3/uL Neutrophils % (Manual) 65 % Lymphocytes % (Manual) 19 % Monocytes % (Manual) 6 % Eosinophils % (Manual) 7 % Basophils % (Manual) 1 % Band Neutrophils 2 % Blood Morphology Comment NORMAL D-Dimer < 0.27 0.00-0.49 UG/ML Sodium Level 140 135-145 MMOL/L Potassium Level 3.1 L 3.6-5.0 MMOL/L Chloride Level 102 98-107 MMOL/L Carbon Dioxide Level 26 21-32 MMOL/L Anion Gap 12 5-14 MMOL/L Blood Urea Nitrogen 6 L 7-18 MG/DL Creatinine 0.92 0.60-1.30 MG/DL Estimat Glomerular Filtration Rate > 60 BUN/Creatinine Ratio 7 Glucose Level 62 L 70-105 MG/DL Calcium Level 9.8 8.5-10.1 MG/DL Magnesium Level 1.9 1.8-2.4 MG/DL Total Bilirubin 0.7 0.1-1.0 MG/DL Aspartate Amino Transf (AST/SGOT) 21 5-34 U/L Alanine Aminotransferase (ALT/SGPT) 16 0-55 U/L Alkaline Phosphatase 81 40-136 U/L Total Protein 8.2 6.4-8.2 GM/DL Albumin 4.9 H 3.2-4.5 GM/DL Lipase 17 8-78 U/L (ALICIA PARSONS) My Orders Orders - ALICIA PARSONS Ct Abdomen/Pelvis W (06/07/17 18:36) Saline Lock/Iv-Start (06/07/17 18:36) Ns Iv 1000 Ml (Sodium Chloride 0.9%) (06/07/17 18:36) (ALICIA PARSONS) Medications Given in ED Current Medications Medications Dose Ordered Sig/Juan Route Start Time Stop Time Status Last Admin Dose Admin Iohexol 100 ml ONCE ONCE IV 06/07/17 18:45 06/07/17 18:51 DC 06/07/17 19:08 100 ML Sodium Chloride 100 ml ONCE ONCE IV 06/07/17 18:45 06/07/17 18:51 DC 06/07/17 19:08 80 ML Sodium Chloride 1,000 ml @ 0 mls/hr Q0M ONCE IV 06/07/17 18:36 06/07/17 18:38 DC 06/07/17 18:44 1,000 MLS/HR (ALICIA PARSONS) Vital Signs/I&O Vital Sign - Last 12Hours 06/07/17 17:42 Temp 98.6 Pulse 98 Resp 20 B/P (MAP) 135/90 Pulse Ox 100 O2 Delivery Room Air (ALICIA PARSONS) Blood Pressure Mean: 105 Progress Note : Time: 18:43 Progress Note Chest x-ray, labs, EKG, and telemetry were ordered. Care of this patient was transitioned to Dr. Parsons at shift change. A liter of IV fluids has been ordered as well. (ROCHELLE PHAN MD) Progress Note #1: Time: 19:15 Progress Note D-dimer rules out any kind of embolism however with his migrating pain and right quadrant tenderness the differential would be between possibly constipation or some other intra-abdominal process such as appendicitis. He has known cholelithiasis. He is not having any nausea however. His white count over 17 K with 73 neutrophils is marginally concerning so we will get a CT of his abdomen pelvis with contrast. Progress Note #2: Time: 20:31 Progress Note Patient has right upper quadrant pain without nausea and known cholelithiasis which seen again today on CT scan with mild dilatation of the duct 7 mm and some possible thickening as well as possible fluid in the pericolic gutter. He is willing to follow this up outpatient and has an appointment in 2 days on the with his PCP. We'll get an ultrasound to further characterize his gallbladder and bile duct. He has a white count of 17,000 but is otherwise very stable afebrile aseptic. We will send him home with some Bentyl. (ALICIA PARSONS) ECG Initial ECG Impression Date: Jun 07, 2017 Initial ECG Impression Time: 18:08 Initial ECG Rate: 95 Initial ECG Intervals: Normal Comment Normal sinus rhythm with no ST elevation or depression. No abnormal intervals or axis deviation. Probable LVH by automated read. (ROCHELLE PHAN MD) Diagnostic Imaging Diagonstic Imaging: Xray Plain Films/CT/US/NM/MRI: chest Comments VIA [facility]. [place], [place] NAME: TAVARES CRAIG [facility] REC#: [id number] PT STATUS: REG ER : 1990 PHYSICIAN: ROCHELLE PHAN MD ADMIT DATE: 06/07/17/ER Draft Date of Exam:06/07/17 CHEST PA/LAT (2 VIEW) EXAM: CHEST PA/LAT (2 VIEW) INDICATION: Chest pain. Shortness breath. COMPARISON: Chest radiograph 06/11/2009. FINDINGS: Normal heart size and pulmonary vascularity. No focal pulmonary opacity, pleural effusion or pneumothorax. No acute osseous findings. No significant change. IMPRESSION: Negative chest. Dictated on workstation # [id number] Dict: 06/07/17 183 Trans: 06/07/17 1834 [facility] [id number] Interpreted by: KAILASH OLIVEIRA MD Electronically signed by: Reviewed: Reviewed by Me Diagonstic Imaging: CT Plain Films/CT/US/NM/MRI: abdomen (pelvis with contrast) Comments NAME: TAVARES CRAIG [facility] REC#: [id number] PT STATUS: REG ER : 1990 PHYSICIAN: ALICIA PARSONS MD ADMIT DATE: 06/07/17/ER Draft Date of Exam:06/07/17 CT ABDOMEN/PELVIS W PROCEDURE: CT abdomen and pelvis with contrast. TECHNIQUE: Multiple contiguous axial images were obtained through the abdomen and pelvis after administration of intravenous contrast. INDICATION: Right lower quadrant pain. COMPARISON: 05/04/17. FINDINGS: Lower chest: The lung bases are clear. No pericardial or pleural effusion. Peritoneum: No free intraperitoneal air or fluid. Liver and biliary system: The liver is normal. Gallbladder is contracted with numerous gallstones present. Possible trace gallbladder wall thickening versus pericholecystic fluid. Common bile duct is borderline dilated measuring 0.7 cm. Spleen and Pancreas: Spleen is normal. The pancreas enhances normally without mass lesion or peripancreatic inflammatory changes. Adrenals: Normal. tract: The kidneys enhance normally without suspicious mass or obstruction. Urinary bladder is distended without wall thickening. Prostate is not enlarged. GI tract: Stomach is decompressed. No bowel obstruction. No pericolonic inflammatory changes. Normal appendix. Vasculature and Lymph nodes: Normal caliber aorta. No abdominal or pelvic lymphadenopathy. Musculoskeletal: No concerning osseous lesion. IMPRESSION: 1. Cholelithiasis with questionable pericholecystic fluid or gallbladder wall thickening. Consider right upper quadrant ultrasound for further characterization. 2. Borderline dilation of the common bile duct. ultrasound is suggested. 3. Normal appendix. 4. No bowel obstruction. Dictated on workstation # [id number] Dict: 06/07/171924 Trans: 06/07/171933 [facility] [id number] Interpreted by: OTONIEL BAY MD Electronically signed by: Reviewed: Reviewed by Me (ALICIA PARSONS) Departure Impression Impression: Primary Impression: Cholelithiasis Qualified Codes: K80.12 - Calculus of gallbladder with acute and chronic cholecystitis without obstruction Disposition: 01 HOME, SELF-CARE Condition: Stable Departure-Patient Inst. Decision time for Depature: 20:33 (ALICIA PARSONS) Referrals: [facility] (PCP/Family) Primary Care Physician Patient Instructions: Gallstones (DC) Add. Discharge Instructions: You should consider getting an ultrasound to further characterize whether or not your gallbladder needs to come out. Your white count could be associated with your tooth that has been hurting you for a few weeks or could be related to your gallbladder. I highly encourage you to drink plenty of fluids and keep your follow-up appointment with your doctor in 2 days. I spoke briefly to Dr. Clinton about your case and he would be more than willing to see you in the clinic. Call ultrasound at [facility] tomorrow morning after 8 to get a time to do the ultrasound or have your primary care physician set this up for you. Take the Bentyl half an hour before meals and one at night before he go to bed. Let your PCP or the surgeon know whether or not you felt this medicine has helped your symptoms. All discharge instructions reviewed with patient and/or family. Voiced understanding. Scripts Dicyclomine HCl (Bentyl) 10 Mg Capsule 10 MG PO QIDACHS for 14 Days, #60 CAP 0 Refills Prov: ALICIA PARSONS 06/07/17 Copy Copies To 1: EVA RIZZO JOSHUA T MD Jun 07, 2017 18:36 ALICIA PARSONS Jun 07, 2017 19:16
[2017-06-07] MEDS ORDERED: IOHEXOL 350 MG/ML 100 ML (OMNIPAQUE 350) VIAL IV ONE (18:45)
[2017-06-07] MEDS ORDERED: NS 100 ML (IVPB) BAG IV ONE (18:45)
--- NOTE | 2017-06-07 19:34 | Diagnostic Imaging Report ---
PROCEDURE: CT abdomen and pelvis with contrast. TECHNIQUE: Multiple contiguous axial images were obtained through the abdomen and pelvis after administration of intravenous contrast. INDICATION: Right lower quadrant pain. COMPARISON: 05/04/17. FINDINGS: Lower chest: The lung bases are clear. No pericardial or pleural effusion. Peritoneum: No free intraperitoneal air or fluid. Liver and biliary system: The liver is normal. Gallbladder is contracted with numerous gallstones present. Possible trace gallbladder wall thickening versus pericholecystic fluid. Common bile duct is borderline dilated measuring 0.7 cm. Spleen and Pancreas: Spleen is normal. The pancreas enhances normally without mass lesion or peripancreatic inflammatory changes. Adrenals: Normal. tract: The kidneys enhance normally without suspicious mass or obstruction. Urinary bladder is distended without wall thickening. Prostate is not enlarged. GI tract: Stomach is decompressed. No bowel obstruction. No pericolonic inflammatory changes. Normal appendix. Vasculature and Lymph nodes: Normal caliber aorta. No abdominal or pelvic lymphadenopathy. Musculoskeletal: No concerning osseous lesion. IMPRESSION: 1. Cholelithiasis with questionable pericholecystic fluid or gallbladder wall thickening. Consider right upper quadrant ultrasound for further characterization. 2. Borderline dilation of the common bile duct. Attention on ultrasound is suggested. 3. Normal appendix. 4. No bowel obstruction. Dictated by: Dictated on workstation # [id number]
[2017-06-07] MEDS ORDERED: DICY10CA59 PO (20:36)
[2017-06-07] MEDS ORDERED: KCL 20 MEQ TAB (K-DUR) PO ONE (20:45)
[2017-06-07 20:46] VITALS: BP 126/88
[2017-07-08] MEDS ORDERED: NAPR500T4 PO (03:03)
== END 2017-06-07 20:46 | disposition home or self-care (01) ==
LOC: EDUNIT# 17:30 → ER 17:32
DX: K80.20 Calculus of gallbladder without cholecystitis without obstruction (principal); F41.9 Anxiety disorder, unspecified; K21.9 Gastro-esophageal reflux disease without esophagitis; F17.210 Nicotine dependence, cigarettes, uncomplicated; Z87.19 Personal history of other diseases of the digestive system; Z87.442 Personal history of urinary calculi; Z96.0 Presence of urogenital implants
CPT/HCPCS: 36415; 71020; 74177; 80053; 81000; 83690; 83735; 85007; 85027; 85379; 93005; 93041; 96360

== ENCOUNTER 2017-06-12 00:31 | Emergency (ER) | payer SELFPAY ==
[~2017-06-12] VITALS: Ht 170.2 cm; Wt 68.0 kg
[~2017-06-12 00:31] MED LIST changes: +DICY10CA59 PO
[2017-06-12 02:19] LABS: BASOPHILS % (AUTO) 0 % (0-10); EOSINOPHILS # (AUTO) 0.6 10^3/uL (0.0-0.3); EOSINOPHILS % (AUTO) 6 % (0-10); LYMPHOCYTES # (AUTO) 3.2 X 10^3 (1.0-4.0); LYMPHOCYTES % (AUTO) 36 % (12-44); MEAN CORPUSCULAR HEMOGLOBIN 29 PG (25-34); MEAN CORPUSCULAR HGB CONC 34 G/DL (32-36); MEAN CORPUSCULAR VOLUME 84 FL (80-99); MEAN PLATELET VOLUME 11.4 FL (7.4-10.4); MONOCYTES # (AUTO) 0.6 X 10^3 (0.0-1.0); MONOCYTES % (AUTO) 7 % (0-12); NEUTROPHILS # (AUTO) 4.6 X 10^3 (1.8-7.8); NEUTROPHILS % (AUTO) 51 % (42-75); PLATELET COUNT 189 10^3/uL (130-400); RED BLOOD COUNT 4.98 10^6/uL (4.35-5.85); RED CELL DISTRIBUTION WIDTH 12.5 % (10.0-14.5)
[2017-06-12 02:37] LABS: ALANINE AMINOTRANSFERASE 10 U/L (0-55); ALBUMIN 4.3 GM/DL (3.2-4.5); ANION GAP 11 MMOL/L (5-14); ASPARTATE AMINO TRANSFERASE 15 U/L (5-34); BILIRUBIN,TOTAL 0.3 MG/DL (0.1-1.0); BLOOD UREA NITROGEN 10 MG/DL (7-18); BUN/CREATININE RATIO 12; CALCIUM 9.5 MG/DL (8.5-10.1); CARBON DIOXIDE 24 MMOL/L (21-32); CHLORIDE 106 MMOL/L (98-107); CREATININE SERUM 0.83 MG/DL (0.60-1.30); GFR ESTIMATED > 60; GLUCOSE 91 MG/DL (70-105); POTASSIUM 3.8 MMOL/L (3.6-5.0); SODIUM 141 MMOL/L (135-145); TOTAL PROTEIN 7.1 GM/DL (6.4-8.2)
[2017-06-12 02:43] LABS: TROPONIN I < 0.30 NG/ML (<0.30)
[2017-06-12] MEDS ORDERED: CYCL10TA9 PO (03:11)
[2017-06-12] MEDS ORDERED: RX-CYCLOBENZAPRINE 10 MG (FLEXERIL) TAB PPK#3 PO STA (03:11)
--- NOTE | 2017-06-12 03:11 | ED Chest Pain ---
General Chief Complaint: Chest Pain Stated Complaint: CP,PAIN IN LEFT ARM Nursing Triage Note: C/O CHEST PAIN, HEADACHE AND L ARM PAIN X 1 WEEK Nursing Sepsis Screen: No Definite Risk Exam Limitations: no limitations History of Present Illness Time seen by provider: 02:00 Initial Comments Here with complaint of left upper lateral chest wall pain that radiates to her shoulder, arm and neck. This is been going on over the last week. The pain that radiates of the neck also causes some posterior headache. Better with ibuprofen and rest. Denies any recent injury. Denies breathing problems, vomiting, sweating or other concerns. Timing/Duration: 1 week, intermittent Severity/Quality: moderate, aching Location: shoulder Radiation: arms, neck Activities at Onset: none Prior CP/Workup: no prior chest pain Modifying Factors: improves with other (ibuprofen) ASA po CHANNEL MARKETING SPECIALIST: No NTG SL CHANNEL MARKETING SPECIALIST: No Associated Symptoms: No abdominal pain, No diaphoresis, No nausea/vomiting, No shortness of breath, No weakness Allergies and Home Medications Allergies Coded Allergies: No Known Drug Allergies (Unverified , 06/11/09) Home Medications Buprenorphine HCl/Naloxone HCl 1 Each Film, #21 (Reported) Dicyclomine HCl 10 Mg Capsule, 10 MG PO QIDACHS for 14 Days, #60 Ref 0 Prescribed by: ALICIA HARRY on 06/07/172035 Review of Systems Constitutional: see HPI, No chills, No fever EENTM: No Symptoms Reported Respiratory: No Symptoms Reported Cardiovascular: See HPI Gastrointestinal: No Symptoms Reported Musculoskeletal: see HPI, joint pain, muscle pain, muscle stiffness Skin: no symptoms reported Psychiatric/Neurological: No Symptoms Reported Past Gulnrqa-Lkehbo-Znvrzi Hx Patient Social History Alcohol Use: Denies Use Recreational Drug Use: Yes Drug of Choice: HISTORY OF OPIATES Type Used: Cigarettes 2nd Hand Smoke Exposure: Yes Recent Foreign Travel: No Contact w/Someone Who Travel: No Recent Infectious Disease Expo: No Recent Hopitalizations: No Immunizations Up To Date Tetanus Booster (TDap): Unknown Date of Influenza Vaccine: Sep 09, 2016 Seasonal Allergies Seasonal Allergies: No Surgeries HX Surgeries: Yes (KIDNEY STONE REMOVAL, URETERAL STENT, COLONOSCOPY) Surgeries: Renal Respiratory Hx Respiratory Disorders: No Cardiovascular Hx Cardiac Disorders: No Neurological Hx Neurological Disorders: No Genitourinary Hx Genitourinary Disorders: Yes (KIDNEY 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 15, ureteral stent placement and removal) Genitourinary Disorders: Kidney Stones Gastrointestinal Hx Gastrointestinal Disorders: Yes (GALLSTONES NOTED ON CT SCAN) Gastrointestinal Disorders: Gastroesophageal Reflux, Gall Bladder Disease Musculoskeletal Hx Musculoskeletal Disorders: No Endocrine Hx Endocrine Disorders: No HEENT HX ENT Disorders: No Cancer Hx Cancer: No Psychosocial Hx Psychiatric Problems: Yes (SUBSTANCE ABUSE) Behavioral Health Disorders: Anxiety Integumentary HX Skin/Integumentary Disorder: No Blood Transfusions Hx Blood Disorders: No Adverse Reaction to a Blood Tr: No Reviewed Nursing Assessment Reviewed/Agree w Nursing PMH: Yes Family Medical History Significant Family History: No Pertinent Family Hx Physical Exam Vital Signs Vital Sign - Last 12Hours 06/12/17 00:38 Temp 98.6 Pulse 83 Resp 18 B/P (MAP) 144/94 Pulse Ox 99 Capillary Refill : Less Than 3 Seconds General Appearance: No Apparent Distress, WD/WN Neck: Non Tender, Supple Respiratory: Lungs Clear, Normal Breath Sounds Cardiovascular: Regular Rate, Rhythm, No Murmur Gastrointestinal: Non Tender, Soft Extremity: Normal Range of Motion, No Calf Tenderness, Other (mild tenderness to the pectoralis muscle and shoulder area on the left) Neurologic/Psychiatric: Alert, Oriented x3 Skin: Normal Color, Warm/Dry Progress/Results/Core Measures Results/Orders Lab Results Laboratory Tests Test 06/12/17 02:11 Range/Units White Blood Count 9.0 4.3-11.0 10^3/uL Red Blood Count 4.98 4.35-5.85 10^6/uL Hemoglobin 14.4 13.3-17.7 G/DL Hematocrit 42 40-54 % Mean Corpuscular Volume 84 80-99 FL Mean Corpuscular Hemoglobin 29 25-34 PG Mean Corpuscular Hemoglobin Concent 34 32-36 G/DL Red Cell Distribution Width 12.5 10.0-14.5 % Platelet Count 189 130-400 10^3/uL Mean Platelet Volume 11.4 H 7.4-10.4 FL Neutrophils (%) (Auto) 51 42-75 % Lymphocytes (%) (Auto) 36 12-44 % Monocytes (%) (Auto) 7 0-12 % Eosinophils (%) (Auto) 6 0-10 % Basophils (%) (Auto) 0 0-10 % Neutrophils # (Auto) 4.6 1.8-7.8 X 10^3 Lymphocytes # (Auto) 3.2 1.0-4.0 X 10^3 Monocytes # (Auto) 0.6 0.0-1.0 X 10^3 Eosinophils # (Auto) 0.6 H 0.0-0.3 10^3/uL Basophils # (Auto) 0.0 0.0-0.1 10^3/uL D-Dimer < 0.27 0.00-0.49 UG/ML Sodium Level 141 135-145 MMOL/L Potassium Level 3.8 3.6-5.0 MMOL/L Chloride Level 106 98-107 MMOL/L Carbon Dioxide Level 24 21-32 MMOL/L Anion Gap 11 5-14 MMOL/L Blood Urea Nitrogen 10 7-18 MG/DL Creatinine 0.83 0.60-1.30 MG/DL Estimat Glomerular Filtration Rate > 60 BUN/Creatinine Ratio 12 Glucose Level 91 70-105 MG/DL Calcium Level 9.5 8.5-10.1 MG/DL Total Bilirubin 0.3 0.1-1.0 MG/DL Aspartate Amino Transf (AST/SGOT) 15 5-34 U/L Alanine Aminotransferase (ALT/SGPT) 10 0-55 U/L Alkaline Phosphatase 76 40-136 U/L Troponin I < 0.30 <0.30 NG/ML Total Protein 7.1 6.4-8.2 GM/DL Albumin 4.3 3.2-4.5 GM/DL My Orders Orders - MALCOLM HENRY MD Ekg Tracing (06/12/17 01:58) Cbc With Automated Diff (06/12/17 01:58) Comprehensive Metabolic Panel (06/12/17 01:58) Troponin I (06/12/17 01:58) Chest Pa/Lat (2 View) (06/12/17 01:58) Fibrin Degradation Products (06/12/17 02:16) Vital Signs/I&O Vital Sign - Last 12Hours 06/12/17 00:38 Temp 98.6 Pulse 83 Resp 18 B/P (MAP) 144/94 Pulse Ox 99 Blood Pressure Mean: 111 Progress Note : Progress Note Seen and evaluated. X-ray, EKG and labs ordered. Patient took ibuprofen approximately 6 hours prior to arrival (800 mg). Monitor patient. 0305: No acute findings. Discharged home with return precautions. Patient verbalize understanding instructions and agreement with plan. ECG Initial ECG Impression Date: Jun 12, 2017 Initial ECG Impression Time: 02:05 Initial ECG Rate: 69 Initial ECG Rhythm: Normal Sinus Initial ECG Impression: Normal Initial ECG Comparisson: Unchanged Comment Sinus rhythm with normal axis. No evidence of ST elevation [place]. Similar to previous but improved rate. Interpreted by me. Diagnostic Imaging Diagonstic Imaging: Xray Plain Films/CT/US/NM/MRI: chest Comments No acute findings. Departure Impression Impression: Primary Impression: Left shoulder pain Qualified Codes: M25.512 - Pain in left shoulder Additional Impression: Chest pain Qualified Codes: R07.89 - Other chest pain Disposition: HOME, SELF-CARE Condition: Improved Departure-Patient Inst. Decision time for Depature: 03:10 Referrals: [facility] (PCP/Family) Primary Care Physician Patient Instructions: Chest Pain That Is Not Caused by the Heart (DC), Muscle Strain (DC) Add. Discharge Instructions: All discharge instructions reviewed with patient and/or family. Voiced understanding. You may take ibuprofen 800 mg every 8 hours as needed for pain. You may take Tylenol 1000 mg every 8 hours as needed for pain. Take other medications as prescribed. Follow-up with your Dr. in a few days for recheck. Return for worse pain, fever, vomiting, weakness, breathing problems or other concerns as needed. Scripts Cyclobenzaprine HCl (Cyclobenzaprine HCl) 10 Mg Tablet 10 MG PO Q8H Y for SPASMS, #10 TAB 0 Refills Prov: MALCOLM HENRY MD 06/12/17 MALCOLM HENRY MD Jun 12, 2017 03:11
[2017-06-12 03:18] VITALS: BP 140/90
--- NOTE | 2017-06-12 06:32 | Diagnostic Imaging Report ---
INDICATION: Left arm and chest pain x1 week PA and lateral chest Heart size and pulmonary vascularity are normal. Lungs are clear. There are no effusions or pneumothoraces. IMPRESSION: Negative chest Dictated by: Dictated on workstation # [id number]
== END 2017-06-12 03:17 | disposition home or self-care (01) ==
LOC: EDUNIT# 00:31 → ER 00:33
DX: R07.89 Other chest pain (principal); M25.512 Pain in left shoulder; K21.9 Gastro-esophageal reflux disease without esophagitis; F41.9 Anxiety disorder, unspecified; Z77.22 Contact with and (suspected) exposure to environmental tobacco smoke (acute) (chronic); Z87.442 Personal history of urinary calculi; Z96.0 Presence of urogenital implants
CPT/HCPCS: 36415; 71020; 80053; 84484; 85025; 85379; 93005

== ENCOUNTER 2017-06-12 18:26 | Emergency (ER) | payer SELFPAY ==
[~2017-06-12] VITALS: Ht 170.2 cm; Wt 65.8 kg
[~2017-06-12 18:26] MED LIST changes: +CYCL10TA9 PO
--- NOTE | 2017-06-12 18:44 | ED General ---
General Stated Complaint: L SIDE NUMBNESS/TINGLING Source of Information: Patient, EMS Exam Limitations: No Limitations History of Present Illness Time Seen by Provider: 18:42 Initial Comments To ER per EMS with reports of numbness and tingling affecting his whole body. This will be his third ER visit this week. He states he was driving home from [place] when he felt a cold sensation in the back of his head. Then his left arm went numb in his left leg went numb and felt cold as well. This then spread to the right side of his leg and then the right side of his chest and across his back. He also reports that he had some shortness of breath at the onset of this when he summoned EMS. At this time he feels back to normal from a respiratory standpoint without dyspnea, a little anxious and still slightly tingly. He does report Suboxone use filled at [facility] by Dr Watson as part of his outpatient treatment program and states he's not run out of any of these. Timing/Duration: 1-2 Days Severity: Moderate Allergies and Home Medications Allergies Coded Allergies: No Known Drug Allergies (Unverified , 06/11/09) Home Medications Buprenorphine HCl/Naloxone HCl 1 Each Film, #21 (Reported) Cyclobenzaprine HCl 10 Mg Tablet, 10 MG PO Q8H PRN for SPASMS, #10 Ref 0 Prescribed by: MALCOLM HENRY on 06/12/171 Dicyclomine HCl 10 Mg Capsule, 10 MG PO QIDACHS for 14 Days, #60 Ref 0 Prescribed by: ALICIA HARRY on 06/07/172035 Constitutional: see HPI EENTM: see HPI Respiratory: no symptoms reported Cardiovascular: no symptoms reported Genitourinary: no symptoms reported Musculoskeletal: no symptoms reported Skin: no symptoms reported Psychiatric/Neurological: See HPI Past Qbxoxwj-Lastyu-Osialr Hx Patient Social History Drug of Choice: HISTORY OF OPIATES Type Used: Cigarettes 2nd Hand Smoke Exposure: Yes Recent Hopitalizations: No Immunizations Up To Date Tetanus Booster (TDap): Unknown Date of Influenza Vaccine: Sep 09, 2016 Seasonal Allergies Seasonal Allergies: No Surgeries HX Surgeries: Yes (KIDNEY STONE REMOVAL, URETERAL STENT, COLONOSCOPY) Surgeries: Renal Respiratory Hx Respiratory Disorders: No Cardiovascular Hx Cardiac Disorders: No Neurological Hx Neurological Disorders: No Genitourinary Hx Genitourinary Disorders: Yes (KIDNEY 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 15, ureteral stent placement and removal) Genitourinary Disorders: Kidney Stones Gastrointestinal Hx Gastrointestinal Disorders: Yes (GALLSTONES NOTED ON CT SCAN) Gastrointestinal Disorders: Gastroesophageal Reflux, Gall Bladder Disease Musculoskeletal Hx Musculoskeletal Disorders: No Endocrine Hx Endocrine Disorders: No HEENT HX ENT Disorders: No Cancer Hx Cancer: No Psychosocial Hx Psychiatric Problems: Yes (SUBSTANCE ABUSE) Behavioral Health Disorders: Anxiety Integumentary HX Skin/Integumentary Disorder: No Blood Transfusions Hx Blood Disorders: No Adverse Reaction to a Blood Tr: No Family Medical History Significant Family History: No Pertinent Family Hx Physical Exam Vital Signs Vital Sign - Last 12Hours 06/12/17 19:20 Temp 98.1 Pulse 81 Resp 20 B/P (MAP) 135/93 Pulse Ox 100 O2 Delivery Room Air Capillary Refill : General Appearance: No Apparent Distress, WD/WN Eyes: Bilateral Eye EOMI, Bilateral Eye Normal Inspection, Bilateral Eye PERRL HEENT: PERRL/EOMI, TMs Normal Neck: Full Range of Motion, Normal Inspection Respiratory: No Accessory Muscle Use, No Respiratory Distress Cardiovascular: Regular Rate, Rhythm, Normal Peripheral Pulses Gastrointestinal: Non Tender, Soft Extremity: Normal Capillary Refill, Normal Inspection Neurologic/Psychiatric: Alert, Oriented x3 Skin: Normal Color, Warm/Dry Progress/Results/Core Measures Results/Orders Lab Results Laboratory Tests Test 06/12/17 19:00 06/12/17 19:31 Range/Units White Blood Count 11.2 H 4.3-11.0 10^3/uL Red Blood Count 4.93 4.35-5.85 10^6/uL Hemoglobin 14.2 13.3-17.7 G/DL Hematocrit 41 40-54 % Mean Corpuscular Volume 83 80-99 FL Mean Corpuscular Hemoglobin 29 25-34 PG Mean Corpuscular Hemoglobin Concent 35 32-36 G/DL Red Cell Distribution Width 12.6 10.0-14.5 % Platelet Count 195 130-400 10^3/uL Mean Platelet Volume 11.7 H 7.4-10.4 FL Neutrophils (%) (Auto) 77 H 42-75 % Lymphocytes (%) (Auto) 15 12-44 % Monocytes (%) (Auto) 6 0-12 % Eosinophils (%) (Auto) 2 0-10 % Basophils (%) (Auto) 0 0-10 % Neutrophils # (Auto) 8.6 H 1.8-7.8 X 10^3 Lymphocytes # (Auto) 1.7 1.0-4.0 X 10^3 Monocytes # (Auto) 0.7 0.0-1.0 X 10^3 Eosinophils # (Auto) 0.2 0.0-0.3 10^3/uL Basophils # (Auto) 0.0 0.0-0.1 10^3/uL Sodium Level 140 135-145 MMOL/L Potassium Level 3.6 3.6-5.0 MMOL/L Chloride Level 106 98-107 MMOL/L Carbon Dioxide Level 23 21-32 MMOL/L Anion Gap 11 5-14 MMOL/L Blood Urea Nitrogen 7 7-18 MG/DL Creatinine 0.82 0.60-1.30 MG/DL Estimat Glomerular Filtration Rate > 60 BUN/Creatinine Ratio 9 Glucose Level 94 70-105 MG/DL Calcium Level 9.5 8.5-10.1 MG/DL Total Bilirubin 0.6 0.1-1.0 MG/DL Aspartate Amino Transf (AST/SGOT) 17 5-34 U/L Alanine Aminotransferase (ALT/SGPT) 11 0-55 U/L Alkaline Phosphatase 73 40-136 U/L Total Protein 7.4 6.4-8.2 GM/DL Albumin 4.5 3.2-4.5 GM/DL Thyroid Stimulating Hormone (TSH) 2.75 0.35-4.94 UIU/ML Urine Color YELLOW Urine Clarity CLEAR Urine pH 8 5-9 Urine Specific [place] 1.015 L 1.016-1.022 Urine Protein NEGATIVE NEGATIVE Urine Glucose (UA) NEGATIVE NEGATIVE Urine Ketones NEGATIVE NEGATIVE Urine Nitrite NEGATIVE NEGATIVE Urine Bilirubin NEGATIVE NEGATIVE Urine Urobilinogen NORMAL NORMAL MG/DL Urine Leukocyte Esterase NEGATIVE NEGATIVE Urine RBC (Auto) NEGATIVE NEGATIVE Urine RBC NONE /HPF Urine WBC NONE /HPF Urine Squamous Epithelial Cells RARE /HPF Urine Crystals NONE /LPF Urine Bacteria NONE /HPF Urine Casts NONE /LPF Urine Mucus NEGATIVE /LPF Urine Culture Indicated NO Urine Opiates Screen NEGATIVE NEGATIVE Urine Oxycodone Screen NEGATIVE NEGATIVE Urine Methadone Screen NEGATIVE NEGATIVE Urine Propoxyphene Screen NEGATIVE NEGATIVE Urine Barbiturates Screen NEGATIVE NEGATIVE Ur Tricyclic Antidepressants Screen NEGATIVE NEGATIVE Urine Phencyclidine Screen NEGATIVE NEGATIVE Urine Amphetamines Screen NEGATIVE NEGATIVE Urine Methamphetamines Screen NEGATIVE NEGATIVE Urine Benzodiazepines Screen NEGATIVE NEGATIVE Urine Cocaine Screen NEGATIVE NEGATIVE Urine Cannabinoids Screen NEGATIVE NEGATIVE My Orders Orders - WILLIAM CRAIG APRN Cbc With Automated Diff (06/12/17 18:31) Thyroid Stimulating Hormone (06/12/17 18:31) Ua Culture If Indicated (06/12/17 18:31) Drug Screen Stat (Urine) (06/12/17 18:31) Saline Lock/Iv-Start (06/12/17 18:31) Comprehensive Metabolic Panel (06/12/17 18:31) Lorazepam Injection (Ativan Injection) (06/12/17 18:45) Ekg Tracing (06/12/17 19:35) Ct Head Wo (06/12/17 19:37) Vital Signs/I&O Vital Sign - Last 12Hours 06/12/17 19:20 Temp 98.1 Pulse 81 Resp 20 B/P (MAP) 135/93 Pulse Ox 100 O2 Delivery Room Air Departure Impression Impression: Primary Impression: Anxiety Additional Impression: Paresthesia Disposition: 01 HOME, SELF-CARE Condition: Stable Departure-Patient Inst. Decision time for Depature: 20:12 Referrals: [facility] (PCP/Family) Primary Care Physician Patient Instructions: NO INSTRUCTIONS GIVEN Add. Discharge Instructions: 1. Return to ER for any concerns 2. Follow-up with your doctor on Wednesday WILLIAM CRAIG APRN Jun 12, 2017 18:44
[2017-06-12] MEDS ORDERED: LORazepam INJ 2 MG/ML (ATIVAN) VIAL IVP ONE (18:45)
[2017-06-12 19:09] LABS: BASOPHILS % (AUTO) 0 % (0-10); EOSINOPHILS # (AUTO) 0.2 10^3/uL (0.0-0.3); EOSINOPHILS % (AUTO) 2 % (0-10); LYMPHOCYTES # (AUTO) 1.7 X 10^3 (1.0-4.0); LYMPHOCYTES % (AUTO) 15 % (12-44); MEAN CORPUSCULAR HEMOGLOBIN 29 PG (25-34); MEAN CORPUSCULAR HGB CONC 35 G/DL (32-36); MEAN CORPUSCULAR VOLUME 83 FL (80-99); MEAN PLATELET VOLUME 11.7 FL (7.4-10.4); MONOCYTES # (AUTO) 0.7 X 10^3 (0.0-1.0); MONOCYTES % (AUTO) 6 % (0-12); NEUTROPHILS # (AUTO) 8.6 X 10^3 (1.8-7.8); NEUTROPHILS % (AUTO) 77 % (42-75); PLATELET COUNT 195 10^3/uL (130-400); RED BLOOD COUNT 4.93 10^6/uL (4.35-5.85); RED CELL DISTRIBUTION WIDTH 12.6 % (10.0-14.5); WHITE BLOOD COUNT 11.2 10^3/uL (4.3-11.0)
[2017-06-12 19:37] LABS: BILIRUBIN,URINE NEGATIVE (NEGATIVE); KETONES,URINE NEGATIVE (NEGATIVE); LEUKOCYTE ESTERASE ,URINE NEGATIVE (NEGATIVE); NITRITE,URINE NEGATIVE (NEGATIVE); PH,URINE 8 (5-9); PROTEIN,URINE NEGATIVE (NEGATIVE); UROBILINOGEN,URINE NORMAL (NORMAL)
[2017-06-12 19:41] LABS: ALANINE AMINOTRANSFERASE 11 U/L (0-55); ALBUMIN 4.5 GM/DL (3.2-4.5); ANION GAP 11 MMOL/L (5-14); ASPARTATE AMINO TRANSFERASE 17 U/L (5-34); BILIRUBIN,TOTAL 0.6 MG/DL (0.1-1.0); BLOOD UREA NITROGEN 7 MG/DL (7-18); BUN/CREATININE RATIO 9; CALCIUM 9.5 MG/DL (8.5-10.1); CARBON DIOXIDE 23 MMOL/L (21-32); CHLORIDE 106 MMOL/L (98-107); CREATININE SERUM 0.82 MG/DL (0.60-1.30); GFR ESTIMATED > 60; GLUCOSE 94 MG/DL (70-105); POTASSIUM 3.6 MMOL/L (3.6-5.0); SODIUM 140 MMOL/L (135-145); TOTAL PROTEIN 7.4 GM/DL (6.4-8.2)
[2017-06-12 19:46] LABS: SQUAMOUS EPITHELIAL CELL,UR RARE /HPF
--- NOTE | 2017-06-12 20:00 | Diagnostic Imaging Report ---
PROCEDURE: CT head without contrast. TECHNIQUE: Multiple contiguous axial images were obtained through the brain without the use of intravenous contrast. INDICATION: Numbness and tingling in the left upper extremity radiating down the left leg. No priors. FINDINGS: There is no intracranial hemorrhage. There is no hydrocephalus. No cerebral edema, mass or mass effect. The ventricular system is nondilated and nondisplaced. There are no abnormal extra-axial fluid collections. The visualized orbits, sinuses and calvarium are unremarkable. There were no findings of focal or generalized cerebral edema. The ayoub-white matter differentiations are maintained. IMPRESSION: Unremarkable non contrast-enhanced CT head. Dictated by: Dictated on workstation # [id number]
[2017-06-12 20:01] LABS: THYROID STIMULATING HORMONE 2.75 UIU/ML (0.35-4.94)
[2017-06-12 20:19] VITALS: BP 134/100
== END 2017-06-12 20:19 | disposition home or self-care (01) ==
LOC: EDUNIT# 18:26 → ER 18:28
DX: F41.9 Anxiety disorder, unspecified (principal); R20.2 Paresthesia of skin; K21.9 Gastro-esophageal reflux disease without esophagitis; Z77.22 Contact with and (suspected) exposure to environmental tobacco smoke (acute) (chronic); Z87.442 Personal history of urinary calculi; Z96.0 Presence of urogenital implants
CPT/HCPCS: 36415; 70450; 80053; 80306; 81000; 84443; 85025; 93005

== ENCOUNTER 2017-06-19 05:25 | Emergency (ER) | payer SELFPAY ==
[~2017-06-19] VITALS: Ht 170.2 cm; Wt 65.8 kg
[2017-06-19] MEDS ORDERED: CITA20TA7 (05:40)
--- NOTE | 2017-06-19 06:36 | ED Lower Extremity ---
General Chief Complaint: Lower Extremity Stated Complaint: OVERALL BODY NUMBNESS,GETTING WORSE,PAINFUL Nursing Triage Note: PT DROVE SELF AND AMBULATED TO ED 7 REPORTING FEELING HIS NUMBNESS IN LEFT LEG IS NOT RESOLVING. 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 Instead he had a drive all the way back to [place] and get the other van. This made him very upset but as he was driving back to [place] he started having narrowed vision numbness in both his legs and hands felt rising up towards his chest with a cool tingling sensation. This made him very frightened so he had a washing machine loader and puller the van and sit for several minutes before he called back down given the van and resume driving. He says he was breathing fast and felt his heart was racing. He denies any chest pain or shortness of breath presently. He said he also noticed some times when riding in a van that his legs will start to feel numb with tingling sensations first his left than his right. He is concerned because he had a recent car trip for 15 hours. 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 He does smoke half pack per day no history of DVTs pulmonary embolisms in him or his immediate family. He is not on any blood thinners. He is not having any pain in the back of his calves. He says occasionally he does get some tenderness in his calves and they feel little swollen left more than right. He's been followed by his arm or care physician as well as last week was seen in the ER for this sensation and was ruled out for a DVT or other concerning symptoms and was told he might have a radiculopathy or other compressive neuropathy. He was seen this Wednesday by his PCP and started on citalopram which he started last night. He sees a counselor and she has been talking to him about panic disorder out of recognize and treat it with CBT. Allergies and Home Medications Allergies Coded Allergies: No Known Drug Allergies (Unverified , 06/11/09) Home Medications Buprenorphine HCl/Naloxone HCl 1 Each Film, #21 (Reported) Citalopram Hydrobromide 20 Mg Tablet, #30 (Reported) Dicyclomine HCl 10 Mg Capsule, 10 MG PO QIDACHS for 14 Days, #60 Ref 0 Prescribed by: ALICIA HARRY on 06/07/172035 Constitutional: No chills, No diaphoresis EENTM: No blurred vision, No double vision, No eye pain Respiratory: No short of breath, No wheezing Cardiovascular: No chest pain, No edema, No Hx of Intervention, No palpitations Gastrointestinal: No constipation, No diarrhea, No nausea Genitourinary: No discharge, No dysuria Musculoskeletal: No back pain, No joint pain Skin: No pruritus, No rash Psychiatric/Neurological: See HPI, Anxiety, Denies Headache, Denies Numbness, Paresthesia, Tingling Past Zijnkps-Poykdn-Zosxpi Hx Patient Social History Alcohol Use: Denies Use Recreational Drug Use: No (DENIES CURRENTLY) Drug of Choice: HISTORY OF OPIATES Type Used: Cigarettes 2nd Hand Smoke Exposure: Yes Recent Foreign Travel: No Contact w/Someone Who Travel: No Recent Infectious Disease Expo: No Recent Hopitalizations: No Immunizations Up To Date Tetanus Booster (TDap): Unknown Date of Influenza Vaccine: Sep 09, 2016 Seasonal Allergies Seasonal Allergies: No Surgeries HX Surgeries: Yes (KIDNEY STONE REMOVAL, URETERAL STENT, COLONOSCOPY) Surgeries: Renal Respiratory Hx Respiratory Disorders: No Cardiovascular Hx Cardiac Disorders: No Neurological Hx Neurological Disorders: No Genitourinary Hx Genitourinary Disorders: Yes (KIDNEY 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 15, ureteral stent placement and removal) Genitourinary Disorders: Kidney Stones Gastrointestinal Hx Gastrointestinal Disorders: Yes (GALLSTONES NOTED ON CT SCAN) Gastrointestinal Disorders: Gastroesophageal Reflux, Gall Bladder Disease Musculoskeletal Hx Musculoskeletal Disorders: No Endocrine Hx Endocrine Disorders: No HEENT HX ENT Disorders: No Cancer Hx Cancer: No Psychosocial Hx Psychiatric Problems: Yes (SUBSTANCE ABUSE) Behavioral Health Disorders: Anxiety Integumentary HX Skin/Integumentary Disorder: No Blood Transfusions Hx Blood Disorders: No Adverse Reaction to a Blood Tr: No Family Medical History Significant Family History: No Pertinent Family Hx Physical Exam Vital Signs Vital Sign - Last 12Hours 06/19/17 05:33 Temp 98.3 Pulse 88 Resp 16 B/P (MAP) 158/98 Pulse Ox 100 O2 Delivery Room Air Capillary Refill : Less Than 3 Seconds General Appearance: WD/WN, no apparent distress HEENT: PERRL/EOMI, pharynx normal Neck: non-tender, normal inspection Cardiovascular: normal peripheral pulses, regular rate, rhythm, no edema Respiratory: lungs clear, normal breath sounds Gastrointestinal: non tender, soft Back: normal inspection, no vertebral tenderness Hips: bilateral hip non-tender, bilateral hip normal inspection, bilateral hip normal range of motion Legs: bilateral leg non-tender, bilateral leg normal inspection, bilateral leg normal range of motion (Red sign negative, calves without tenderness or not he appearance. No erythema or discoloration.), bilateral leg no evidence of injury (left leg 34 cm at the calf and right calf is 34.5 cm.) Knees: bilateral knee non-tender, bilateral knee normal inspection, bilateral knee normal range of motion Ankles: bilateral ankle non-tender, bilateral ankle normal inspection, bilateral ankle normal range of motion Neurologic/Tendon: normal sensation, normal motor functions, normal tendon functions, responds to pain Neurologic/Psychiatric: no motor/sensory deficits, alert, oriented x 3, other ( mildly anxious) Skin: normal color, warm/dry Progress/Results/Core Measures Results/Orders Vital Signs/I&O Vital Sign - Last 12Hours 06/19/17 05:33 Temp 98.3 Pulse 88 Resp 16 B/P (MAP) 158/98 Pulse Ox 100 O2 Delivery Room Air Blood Pressure Mean: 118 Progress Note : Time: 06:37 Progress Note Extremely low clinical suspicion or likelihood of DVT. This been going on for over a week and there is no respiratory symptoms. He does however have a background of generalized anxiety disorder probable panic disorder. He has been initiated on citalopram for 1 day and we have encouraged him to continue this for several weeks before expecting great results. In the meantime we will give him an abortifacient for his panic disorder, Vistaril. He has been given appropriate return precautions and has already an appointment on the third, approximately 4-5 days from now with his PCP. It is not felt that he will benefit from a d-dimer or further testing as clinical symptoms are negative and there is no evidence of a hemodynamically significant clot that would be passing his lungs given he is satting 100% on room air and without chest pain or shortness of breath. The patient after being discussed and counseled is very satisfied with these explanations and willing to trial Vistaril and follow-up with his PCP. We have also recommended he get a pillow for his seat and the van as it seems that his symptoms of numbness and compressive neuropathy only occur while sitting on the van or toilet seat. They do not seem to occur in his own private vehicle. Finally because he is having increased incidence of tingling sensation in his legs we will trial him on 2 weeks of NSAIDs scheduled just to bring down any kind of inflammation that may have been excited and leading to his higher incidence of radiculopathy versus neuropathy. Departure Impression Impression: Primary Impression: Generalized anxiety disorder Additional Impressions: Panic attack as reaction to stress Compression neuropathy of left lower extremity Disposition: 01 HOME, SELF-CARE Condition: Stable Departure-Patient Inst. Decision time for Depature: 06:41 Referrals: [facility] (PCP/Family) Primary Care Physician Patient Instructions: Panic Disorder (DC) Add. Discharge Instructions: You appear to be experiencing generalized anxiety with occasional panic disorder. You should continue taking the citalopram as prescribed by your doctor and not expect great benefits for several weeks. In the meantime if you' re having a panic attack as denoted by narrowing tunnel vision, shortness of breath, heart racing, numbness and tingling in all 4 extremities then you should take a Vistaril (1) tablet every 6 hours as needed. If this makes you too sleepy you may also cut the tablet in half. Discuss this with your primary care physician at your June 24, 2017 appointment. If you're having numbness, tingling, and coolness in your lower extremities from sitting on an uncomfortable seat for too long then you should try using a pillow or changing position every 2-5 minutes. To try and combat this from happening we will start you on Naprosyn [id number] (220 mg) one capsule twice a day by mouth for the next 2 weeks. This should lower the incidence of your symptoms. I also encouraged you to stop smoking when you feel you can as this will decrease the inflammation in your body and hopefully lead to less of these compression neuropathy symptoms. He should return to the ER if you feel you're having an emergency such as a deep vein clot such as extreme pain, redness, knotty feeling in the back of your calf, shortness of breath or chest pain. This is not a symptom that will come and go. The best thing you can do to prevent clots in your leg is drink plenty of fluids and smoking. Finally I encouraged you to initiate an exercise program with a goal of getting 30 minutes of cardiovascular exercise a day for at least 5 days a week. This will increase your ability to tolerate your panic attacks as well as recover quicker from them. This will also help you with your compression neuropathy symptoms. There is also strong evidence to demonstrate that a routine exercise program will help with anxiety and depression symptoms. All discharge instructions reviewed with patient and/or family. Voiced understanding. Scripts Hydroxyzine Pamoate (Vistaril) 25 Mg Capsule 25 MG PO Q6H Y for ANXIETY for 14 Days, #10 CAP 0 Refills Prov: ALICIA HARRY 06/19/17 Copy Copies To 1: EVA RIZZO DO ALICIA HARRY Jun 19, 2017 06:36
[2017-06-19] MEDS ORDERED: HYDR25CA PO (06:50)
[2017-06-19 06:54] VITALS: BP 118/89
== END 2017-06-19 06:54 | disposition home or self-care (01) ==
LOC: EDUNIT# 05:25 → ER 05:28
DX: F41.0 Panic disorder [episodic paroxysmal anxiety] (principal); F43.9 Reaction to severe stress, unspecified; G57.92 Unspecified mononeuropathy of left lower limb; K21.9 Gastro-esophageal reflux disease without esophagitis; Z77.22 Contact with and (suspected) exposure to environmental tobacco smoke (acute) (chronic); Z87.442 Personal history of urinary calculi; Z96.0 Presence of urogenital implants
CPT/HCPCS: 99283

== ENCOUNTER 2017-07-08 02:49 | Emergency (ER) | payer SELFPAY ==
[~2017-07-08] VITALS: Ht 170.2 cm; Wt 65.8 kg
[~2017-07-08 02:49] MED LIST changes: +CITA20TA7; +HYDR25CA PO
[2017-07-08] MEDS ORDERED: LIDOCAINE 2% VISCOUS 15 ML UDC MM ONE (03:00)
[2017-07-08] MEDS ORDERED: RX-PENICILLIN V K 250MG TAB PPK#4 PO STA (03:00)
[2017-07-08] MEDS ORDERED: RX-NAPROXEN (NAPROSYN) 250 MG TAB PPK#4 PO STA (03:00)
[2017-07-08] MEDS ORDERED: LIDO15SO2 MM (03:03)
[2017-07-08] MEDS ORDERED: NAPR500T3 PO (03:03)
[2017-07-08] MEDS ORDERED: PENI500T PO (03:03)
--- NOTE | 2017-07-08 03:04 | ED EENT ---
History of Present Illness General Chief Complaint: Dental Problems/Pain Stated Complaint: DENTAL PAIN Source: patient, old records History of Present Illness Time seen by provider: 02:53 Initial Comments PT C/O AT LEAST 2 UPPER LEFT / BACK TEETH HURTING FOR A COUPLE OF DAYS, WORSE SINCE 1999 MISAEL HAS CHRONIC DENTAL PROBLEMS AND STATES THAT " COUPLE OF PIECES HAVE BROKE OFF FROM A COUPLE OF TEETH" DOES NOT HAVE A DENTIST AND HAS NOT SOUGHT DENTAL CARE AT ANY TIME, EVEN THOUGH HE IS ESTABLISHED IN [facility], BUT STATES HE HAS NEVER BEEN TO THE [facility] HAS NOT TAKEN ANYTHING FOR PAIN STATES PAIN IS A "9/10" AND "CAN'T SLEEP" DUE TO PAIN PT WITH 7 VISITS HERE IN 2017, AND THIS IS 4TH VISIT IN LAST MONTH, BUT FOR VARIOUS OTHER COMPLAINTS--MANY ANXIETY-RELATED. PCP: [facility] Allergies and Home Medications Allergies Coded Allergies: No Known Drug Allergies (Unverified , 06/11/09) Home Medications Buprenorphine HCl/Naloxone HCl 1 Each Film, #21 (Reported) Citalopram Hydrobromide 20 Mg Tablet, #30 (Reported) Dicyclomine HCl 10 Mg Capsule, 10 MG PO QIDACHS for 14 Days, #60 Ref 0 Prescribed by: ALICIA HARRY on 06/07/17 2036 Hydroxyzine Pamoate 25 Mg Capsule, 25 MG PO Q6H PRN for ANXIETY for 14 Days, # 10 Ref 0 Prescribed by: ALICIA HARRY on 06/19/17 0650 Lidocaine HCl 15 Ml Solution, 1-2 ML MM Q 1-2 HOURS, #100 Prescribed by: GALA ARMAS on 07/08/17 0303 Naproxen 500 Mg Tablet, 500 MG PO BID, #20 Prescribed by: GALA ARMAS on 07/08/17 0303 Penicillin V Potassium 500 Mg Tablet, 500 MG PO QID, #40 Prescribed by: GALA ARMAS on 07/08/17 0303 Review of Systems Constitutional: no symptoms reported Eyes: No Symptoms Reported Ears: No Symptoms Reported Nose: no symptoms reported Mouth: see HPI Throat: no symptoms reported Respiratory: no symptoms reported Cardiovascular: no symptoms reported Musculoskeletal: no symptoms reported Skin: no symptoms reported Neurological: No Symptoms Reported Past Slbfyuv-Hisffb-Kvqbsi Hx Patient Social History Alcohol Use: Denies Use Recreational Drug Use: Yes (THC, RX MEDS--OPIATES, VYVANSE/ADDERALL) 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, THC, VYVANSE/ADDERALL ABUSE Smoking Status: Current Everyday Smoker (1 PPD) Type Used: Cigarettes 2nd Hand Smoke Exposure: Yes Recent Foreign Travel: No Contact w/Someone Who Travel: No Recent Hopitalizations: No Immunizations Up To Date Tetanus Booster (TDap): Unknown Date of Influenza Vaccine: Sep 09, 2016 Seasonal Allergies Seasonal Allergies: No Surgeries HX Surgeries: Yes (KIDNEY STONE REMOVAL, URETERAL STENT, COLONOSCOPY) Surgeries: Renal Respiratory Hx Respiratory Disorders: No Cardiovascular Hx Cardiac Disorders: No Neurological Hx Neurological Disorders: No Genitourinary Hx Genitourinary Disorders: Yes (KIDNEY 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 15, ureteral stent placement and removal) Genitourinary Disorders: Kidney Stones Gastrointestinal Hx Gastrointestinal Disorders: Yes (GALLSTONES NOTED ON CT SCAN) Gastrointestinal Disorders: Gastroesophageal Reflux, Gall Bladder Disease Musculoskeletal Hx Musculoskeletal Disorders: No Endocrine Hx Endocrine Disorders: No HEENT HX ENT Disorders: Yes (EXTENSIVE DENTAL DECAY) Cancer Hx Cancer: No Psychosocial Hx Psychiatric Problems: Yes (SUBSTANCE ABUSE) Behavioral Health Disorders: Anxiety Integumentary HX Skin/Integumentary Disorder: No Blood Transfusions Hx Blood Disorders: No Adverse Reaction to a Blood Tr: No Family Medical History Significant Family History: No Pertinent Family Hx Physical Exam Vital Signs Vital Sign - Last 12Hours 07/08/17 02:52 Temp 97.6 Pulse 75 Resp 20 B/P (MAP) 153/110 Pulse Ox 99 O2 Delivery Room Air General Appearance: WD/WN, no apparent distress, other (SMILING, TALKING WITHOUT DIFFICULTY, DOES NOT APPEAR TO BE IN ANY DISCOMFORT WHATSOEVER. ) Eyes: bilateral eye normal inspection, bilateral eye PERRL, bilateral eye EOMI Ears: bilateral ear auricle normal, bilateral ear canal normal, bilateral ear TM normal Nose: normal inspection Mouth/Throat: pharynx normal, dental tenderness, No mandibular swelling, No maxillary swelling, No trismus, other (EXTENSIVE DENTAL DECAY--LEFT UPPER MOLARS WITH EXTENSIVE DECAY, AND MULTIPLE TEETH TENDER TO PERCUSSION, MILD ADJACENT GUM INFLAMMATION. 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 II-XII nml as tested, no motor/sensory deficits, alert, normal mood/affect, oriented x 3 Skin: normal color, warm/dry, tattoos/piercings (EXTENSIVE TATTOOS) Progress/Results/Core Measures Results/Orders My Orders Orders - GALA ARMAS DO Rx-Naproxen (Rx-Naprosyn) (07/08/17 03:00) Rx-Penicillin Vk Tablet (Rx-Pen-Vee K Ta (07/08/17 03:00) Lidocaine 2% Viscous 15 Ml (Xylocaine Vi (07/08/17 03:00) Vital Signs/I&O Vital Sign - Last 12Hours 07/08/17 02:52 Temp 97.6 Pulse 75 Resp 20 B/P (MAP) 153/110 Pulse Ox 99 O2 Delivery Room Air Departure Impression Impression: Primary Impression: Dental caries Disposition: 01 HOME, SELF-CARE Condition: Stable Departure-Patient Inst. Referrals: [facility] (PCP/Family) Primary Care Physician Patient Instructions: Dental Pain (DC), Tooth Decay, Adult (DC) Add. Discharge Instructions: FOLLOW UP WITH [facility] OR DENTIST OF CHOICE IN THE NEXT WEEK FOR FURTHER CARE--CALL IN AM FOR APPOINTMENT SOFT FOODS, AVOID ANYTHING THAT REQUIRES CHEWING AVOID HOT OR COLD FOODS/DRINKS All discharge instructions reviewed with patient and/or family. Voiced understanding. Scripts Penicillin V Potassium (Penicillin V Potassium) 500 Mg Tablet 500 MG PO QID for FOR INFECTION, #40 TAB Prov: GALA ARMAS DO 07/08/17 Naproxen (Naproxen) 500 Mg Tablet 500 MG PO BID, #20 TAB Prov: GALA ARMAS DO 07/08/17 Lidocaine HCl (Lidocaine HCl Viscous) 15 Ml Solution 1-2 ML MM Q 1-2 HOURS for Pain, #100 EA Prov: GALA ARMAS DO 07/08/17 GALA ARMAS DO Jul 08, 2017 03:03
[2017-07-08] MEDS ORDERED: PENICILLIN V K 250 MG TAB PO ONE ×2 (03:12→03:30)
[2017-07-08 03:26] VITALS: BP 152/102
== END 2017-07-08 03:26 | disposition home or self-care (01) ==
LOC: EDUNIT# 02:49 → ER 02:51
DX: K02.9 Dental caries, unspecified (principal); F17.210 Nicotine dependence, cigarettes, uncomplicated
CPT/HCPCS: 99283

== ENCOUNTER 2018-02-14 17:04 | Emergency (ER) | payer SELFPAY ==
[~2018-02-14] VITALS: Ht 170.2 cm; Wt 68.0 kg
[~2018-02-14 17:04] MED LIST changes: +ACHD5005 PO; -HYDR-3812 PO; +LIDO15SO2 MM; +NAPR-915 PO; +PENI500T PO
--- OUTSIDE RECORDS SUMMARY | 2018-02-14 17:10 | XMS REPORT ---
Author Author ANABELLA GARCIA [facility] Address [address] [place] [address] Care Team Providers Care Actuary Name Role Phone ANABELLA GARCIA Unavailable PROBLEMS Type Condition ICD9-CM Code KRO42-FN Code Onset Dates Condition Status SNOMED Code Problem Anxiety about health F41.8 Active 251816018 Problem Encounter for therapeutic drug level monitoring Z51.81 Active 263300688 Problem Uncomplicated opioid dependence F11.20 Active 61467647 Problem Substance abuse F19.10 Active 49272456 ALLERGIES No Information ENCOUNTERS Encounter Location Date Diagnosis [facility] [address] [place] [address] Jan, [facility] [address] [address] Jan, Uncomplicated opioid dependence F11.20 [facility] [address] [place] [address] Jan, Uncomplicated opioid dependence F11.20 [facility] [id number] [place] [address] 8470 Jan, Uncomplicated opioid dependence F11.20 [facility] [address] [place] [address] Jan, Uncomplicated opioid dependence F11.20 [facility] [address] [place] [address] Jan, [facility] [id number] [place] [address]12- 9584 Dec, Uncomplicated opioid dependence F11.20 [facility] [address] [place] [address] Dec, Uncomplicated opioid dependence F11.20 [facility] [id number] [place] [address] 82710- 8292 Dec, Uncomplicated opioid dependence F11.20 [facility] [id number] [place] [address] 96473- 7981 08 Dec, 2017 Uncomplicated opioid dependence F11.20 [facility] [address] [place] [address] Dec, Uncomplicated opioid dependence F11.20 [facility] [id number] [place] [address] 42047- 6964 Nov, Uncomplicated opioid dependence F11.20 [facility] [address] [place] [address] Nov, Uncomplicated opioid dependence F11.20 [facility] [address] [address] Nov, Uncomplicated opioid dependence F11.20 [facility] [address] [place] [address] Nov, Uncomplicated opioid dependence F11.20 [facility] [address] [address] Nov, Uncomplicated opioid dependence F11.20 [facility] [address] [place] [address] Nov, Uncomplicated opioid dependence F11.20 [facility] [address] [address] Nov, Uncomplicated opioid dependence F11.20 [facility] [address] [place] [address] Nov, Uncomplicated opioid dependence F11.20 [facility] [id number] [place] [address] 92877- 1673 Nov, Uncomplicated opioid dependence F11.20 [facility] [address] [place] [address] Nov, Uncomplicated opioid dependence F11.20 [facility] [address] [address] Oct, Uncomplicated opioid dependence F11.20 [facility] [address] [place] [address] Oct, Uncomplicated opioid dependence F11.20 [facility] [id number] [place] [address] 23574- 9161 Oct, Uncomplicated opioid dependence F11.20 [facility] [address] [place] [address] Oct, Uncomplicated opioid dependence F11.20 [facility] [id number] [place] [address] 68237 2546 Oct, Uncomplicated opioid dependence F11.20 [facility] [id number] [place] [address] 25398 2546 Oct, Uncomplicated opioid dependence F11.20 [facility] [id number] [place] [address] 92122- 4526 Oct, [facility] [id number] [place] [address] 23264- 4805 Oct, Uncomplicated opioid dependence F11.20 [facility] [id number] [place] [address] 23508- 5745 Sep, Uncomplicated opioid dependence F11.20 [facility] [address] [place] [address] Sep, Uncomplicated opioid dependence F11.20 [facility] [address] [address]- 6[address] Sep, Uncomplicated opioid dependence F11.20 [facility] [address] [place] [address] Sep, Uncomplicated opioid dependence F11.20 [facility] [id number] [place] [address] 38811- 1673 15 Sep, 2017 Uncomplicated opioid dependence F11.20 [facility] [id number] [place] [address] 24020 2547 Sep, Uncomplicated opioid dependence F11.20 [facility] [address] [place] [address] Sep, Uncomplicated opioid dependence F11.20 [facility] [id number] [place] [address] 19722- 9312 Aug, Uncomplicated opioid dependence F11.20 [facility] [address] [place] [address] Aug, Uncomplicated opioid dependence F11.20 [facility] [address] [place] [address] Aug, Uncomplicated opioid dependence F11.20 [facility] [address] [place] [address] Aug, [facility] [address] 24[address] Aug, Uncomplicated opioid dependence F11.20 [facility] [address] [place] [address] Aug, Uncomplicated opioid dependence F11.20 [facility] [address] [address] Aug, Uncomplicated opioid dependence F11.20 [facility] [address] [place] [address] Aug, Uncomplicated opioid dependence F11.20 [facility] [id number] [place] [address] 17319- 3593 Jul, Uncomplicated opioid dependence F11.20 [facility] [id number] [place] [address] 22423- 5543 Jul, Uncomplicated opioid dependence F11.20 [facility] [address] [place] [address] Jul, Uncomplicated opioid dependence F11.20 [facility] [id number] [place] [address] 59887- 6928 Jul, Uncomplicated opioid dependence F11.20 [facility] [address] 67[address] Jul, Uncomplicated opioid dependence F11.20 [facility] [address] [address] 79[address] Jun, Uncomplicated opioid dependence F11.20 [facility] [address] [place] [address] Jun, Uncomplicated opioid dependence F11.20 [facility] [address] 315[address] Jun, Uncomplicated opioid dependence F11.20 [facility] [id number] [place] [address] 60939- 0899 Jun, Encounter for therapeutic drug level monitoring Z51.81 and Anxiety about health F41.8 [facility] [id number] [place] [address] 82769- 8607 May, Uncomplicated opioid dependence F11.20 [facility] [id number] [place] [address] 97564- 7818 May, [facility] [id number] [place] [address] 85248- 5498 May, Encounter for dental examination Z01.20 [facility] [id number] [place] [address] 06879- 9064 May, Uncomplicated opioid dependence F11.20 ; Encounter for therapeutic drug level monitoring Z51.81 and Calculus of gallbladder and bile duct without cholecystitis or obstruction K80.70 [facility] [address] [place] [address] May, Uncomplicated opioid dependence F11.20 [facility] [id number] [place] [address] 95000- 9171 May, Uncomplicated opioid dependence F11.20 [facility] [id number] [place] [address] 48940- 1092 May, [facility] [address] [place] [address] May, Uncomplicated opioid dependence F11.20 [facility] [id number] [place] [address] 43811- 3970 Apr, Uncomplicated opioid dependence F11.20 [facility] [address] 7[address]75- 3028 Apr, Uncomplicated opioid dependence F11.20 [facility] [address] [place] [address] Apr, Uncomplicated opioid dependence F11.20 [facility] [id number] [place] [address] 83480- 8454 14 Apr, 2017 Encounter for therapeutic drug level monitoring Z51.81 [facility] [id number] [place] [address] 91782- 0847 14 Apr, 2017 Uncomplicated opioid dependence F11.20 [facility] [address] [place] [address] 09 Apr, 2017 Uncomplicated opioid dependence F11.20 [facility] [address] [place] [address] Apr, Uncomplicated opioid dependence F11.20 [facility] [id number] [place] [address] 28674- 7778 March, Uncomplicated opioid dependence F11.20 [facility] [address] [place] [address] March, Uncomplicated opioid dependence F11.20 [facility] [id number] [place] [address] 02597- 2670 March, Uncomplicated opioid dependence F11.20 [facility] [address] [place] [address] March, Uncomplicated opioid dependence F11.20 [facility] [address] [place] [address] March, Uncomplicated opioid dependence F11.20 [facility] [id number] [place] [address] 71803- 2529 March, [facility] [id number] [place] [address] 44457- 7876 March, [facility] [address] [place] [address] March, Uncomplicated opioid dependence F11.20 [facility] [id number] [place] [address] 50160- 4587 March, [facility] [address] [place] [address] March, Uncomplicated opioid dependence F11.20 [facility] [id number] [place] [address] 50710- 5958 March, Uncomplicated opioid dependence F11.20 [facility] [address] [place] [address] March, Uncomplicated opioid dependence F11.20 [facility] [address] [address] Feb, Uncomplicated opioid dependence F11.20 [facility] [id number] [place] [address] 50901- 6732 Feb, [facility] [address] [place] [address] Feb, Uncomplicated opioid dependence F11.20 [facility] [address] [place] [address] Feb, Uncomplicated opioid dependence F11.20 [facility] [id number] [place] [address] 73617- 9427 Feb, Encounter for therapeutic drug level monitoring Z51.81 and Uncomplicated opioid dependence F11.20 [facility] [address] [place] [address] Feb, Uncomplicated opioid dependence F11.20 [facility] [id number] [place] [address] 44863- 5955 Feb, [facility] [id number] [place] [address] 33209- 1738 Feb, Uncomplicated opioid dependence F11.20 [facility] [id number] [place] [address] 20386- 9244 Feb, Encounter for therapeutic drug level monitoring Z51.81 [facility] [address] [place] [address] Feb, Uncomplicated opioid dependence F11.20 [facility] [id number] [place] [address] 07220- 2160 Feb, Uncomplicated opioid dependence F11.20 and Encounter for therapeutic drug level monitoring Z51.81 [facility] [address] [place] [address] Feb, Uncomplicated opioid dependence F11.20 [facility] [id number] [place] [address] 35261- 2730 14 Feb, 2017 Uncomplicated opioid dependence F11.20 [facility] [address] [place] [address] Feb, Uncomplicated opioid dependence F11.20 [facility] [address] [place] [address] Feb, [facility] [id number] [place] [address] 40861- 2883 Feb, Uncomplicated opioid dependence F11.20 [facility] [address] [place] [address] Feb, Uncomplicated opioid dependence F11.20 [facility] [address] [place] [address] Feb, [facility] [id number] [place] [address] 65964- 3957 Feb, Uncomplicated opioid dependence F11.20 [facility] [address] [place] [address] Feb, Uncomplicated opioid dependence F11.20 [facility] [id number] [place] [address] 83815- 1682 Feb, Uncomplicated opioid dependence F11.20 [facility] [id number] [place] [address] 90434- 9336 Feb, [facility] [id number] [place] [address] 84906- 7140 Feb, Uncomplicated opioid dependence F11.20 and Substance abuse F19.10 [facility] [address] [place] [address] Feb, Substance abuse F19.10 [facility] [id number] [place] [address] 66612- 5590 Jan, Substance abuse F19.10 [facility] [id number] [place] [address] 72895- 9048 Jan, IMMUNIZATIONS No Known Immunizations SOCIAL HISTORY Never Assessed REASON FOR VISIT Suboxone RX (05/26-06/01) PLAN OF CARE VITAL SIGNS MEDICATIONS Medication Instructions Dosage Frequency Start Date End Date Duration Status Suboxone 8-2 MG Sublingual Once a day 1.5 application under the tongue and allow to dissolve 24h Feb, 07 days Active RESULTS No Results PROCEDURES No Known procedures INSTRUCTIONS MEDICATIONS ADMINISTERED No Known Medications MEDICAL (GENERAL) HISTORY Type Description Date Medical History chronic kidney stones Medical History Opioid Use Disorder - on Suboxone therapy Surgical History stent in kidney d/t kidney stones age 15 Hospitalization History ER visits for kidney stones Hospitalization History ER visit for panic attack 2016 Hospitalization History ER visit for chest pain; possible galbladder issue 2016
--- OUTSIDE RECORDS SUMMARY | 2018-02-14 17:11 | XMS REPORT ---
Author Author EVA RIZZO [facility] Address [address] [place] [address] Care Team Providers Care Mems Engineer Name Role Phone EVA RIZZO Unavailable PROBLEMS Type Condition ICD9-CM Code BQP38-LR Code Onset Dates Condition Status SNOMED Code Problem Anxiety about health F41.8 Active 347992109 Problem Encounter for therapeutic drug level monitoring Z51.81 Active 140095331 Problem Uncomplicated opioid dependence F11.20 Active 23626444 Problem Substance abuse F19.10 Active 98100441 ALLERGIES No Information SOCIAL HISTORY Never Assessed PLAN OF CARE VITAL SIGNS MEDICATIONS Unknown Medications RESULTS No Results PROCEDURES No Known procedures IMMUNIZATIONS No Known Immunizations MEDICAL (GENERAL) HISTORY Type Description Date Medical History chronic kidney stones Medical History Opioid Use Disorder - on Suboxone therapy Surgical History stent in kidney d/t kidney stones age 15 Hospitalization History ER visits for kidney stones Hospitalization History ER visit for panic attack 2017 Hospitalization History ER visit for chest pain; possible galbladder issue 2016
--- OUTSIDE RECORDS SUMMARY | 2018-02-14 17:11 | XMS REPORT ---
Author Author MICHELA IQBAL Organization [facility] Address [address] [place] [address] Care Team Providers Care Vaccine Specialist Name Role Phone MICHELA IQBAL Unavailable PROBLEMS Type Condition ICD9-CM Code GPN28-XF Code Onset Dates Condition Status SNOMED Code Problem Anxiety about health F41.8 Active 546448083 Problem Encounter for therapeutic drug level monitoring Z51.81 Active 671830836 Problem Uncomplicated opioid dependence F11.20 Active 49556330 Problem Substance abuse F19.10 Active 65697729 ALLERGIES No Information SOCIAL HISTORY Never Assessed PLAN OF CARE Activity Details Follow Up 2 - 3 Days Reason: VITAL SIGNS MEDICATIONS Unknown Medications RESULTS No Results PROCEDURES Procedure Date Ordered Result Body Site Psychotherapy, patient &/family, 30 minutes, established patient March 23, 2017 IMMUNIZATIONS No Known Immunizations MEDICAL (GENERAL) HISTORY [...]
--- OUTSIDE RECORDS SUMMARY | 2018-02-14 17:11 | XMS REPORT ---
Author Author ANABELLA GARCIA [facility] Address [address] [place] [address] Care Team Providers Care Coding Specialist Home Health Name Role Phone ANABELLA GARCIA Unavailable PROBLEMS Type Condition ICD9-CM Code NIB51-EM Code Onset Dates Condition Status SNOMED Code Problem Anxiety about health F41.8 Active 262391102 Problem Encounter for therapeutic drug level monitoring Z51.81 Active 491195627 Problem Uncomplicated opioid dependence F11.20 Active 78430376 Problem Substance abuse F19.10 Active 63884579 ALLERGIES No Information SOCIAL HISTORY Never Assessed PLAN OF CARE VITAL SIGNS MEDICATIONS Medication Instructions Dosage Frequency Start Date End Date Duration Status Suboxone 8-2 MG Sublingual Once a day 1.5 application under the tongue and allow to dissolve 24h Feb, 14 days Active RESULTS No Results PROCEDURES No [...]
--- OUTSIDE RECORDS SUMMARY | 2018-02-14 17:11 | XMS REPORT ---
Author Author MICHELA IQBAL Organization [facility] Address [address] [place] [address] Care Team Providers Care Food Products Sales Representative Name Role Phone MICHELA IQBAL Unavailable PROBLEMS Type Condition ICD9-CM Code IBT57-HW Code Onset Dates Condition Status SNOMED Code Problem Anxiety about health F41.8 Active 747440369 Problem Encounter for therapeutic drug level monitoring Z51.81 Active 372084456 Problem Uncomplicated opioid dependence F11.20 Active 72632363 Problem Substance abuse F19.10 Active 61509076 ALLERGIES No Information SOCIAL HISTORY Never Assessed PLAN OF CARE Activity Details Follow Up 1 Week Reason: VITAL SIGNS MEDICATIONS Unknown Medications RESULTS No Results PROCEDURES Procedure Date Ordered Result Body Site Psychotherapy, patient &/family, 30 minutes, established patient April 23, 2017 IMMUNIZATIONS No Known Immunizations MEDICAL [...]
--- OUTSIDE RECORDS SUMMARY | 2018-02-14 17:11 | XMS REPORT ---
Author Author MICHELA IQBAL Organization [facility] Address [address] [place] [address] Care Team Providers Care Fuel Cell Systems Engineer Name Role Phone MICHELA IQBAL Unavailable PROBLEMS Type Condition ICD9-CM Code XBM23-EF Code Onset Dates Condition Status SNOMED Code Problem Anxiety about health F41.8 Active 421082965 Problem Encounter for therapeutic drug level monitoring Z51.81 Active 218244067 Problem Uncomplicated opioid dependence F11.20 Active 30565680 Problem Substance abuse F19.10 Active 44772416 ALLERGIES No Information SOCIAL HISTORY Never Assessed PLAN OF CARE Activity Details Follow Up 2 - 3 Days Reason: VITAL SIGNS MEDICATIONS Unknown Medications RESULTS No Results PROCEDURES Procedure Date Ordered Result Body Site Psychotherapy, patient &/family, 30 minutes, established patient March 29, 2017 IMMUNIZATIONS No Known Immunizations MEDICAL (GENERAL) [...]
--- OUTSIDE RECORDS SUMMARY | 2018-02-14 17:11 | XMS REPORT ---
Author Author ANABELLA GARCIA [facility] Address [address] [place] [address] Care Team Providers Care Airset Caster Name Role Phone ANABELLA GARCIA Unavailable PROBLEMS Type Condition ICD9-CM Code HTG01-ZL Code Onset Dates Condition Status SNOMED Code Problem Anxiety about health F41.8 Active 515738207 Problem Encounter for therapeutic drug level monitoring Z51.81 Active 675060832 Problem Uncomplicated opioid dependence F11.20 Active 08165907 Problem Substance abuse F19.10 Active 71877923 ALLERGIES No Information SOCIAL HISTORY Never Assessed [...]
--- OUTSIDE RECORDS SUMMARY | 2018-02-14 17:11 | XMS REPORT ---
Author Author MICHELA IQBAL Organization [facility] Address [address] [place] [address] Care Team Providers Care Online Marketing Specialist Name Role Phone MICHELA IQBAL Unavailable PROBLEMS Type Condition ICD9-CM Code VVJ79-GX Code Onset Dates Condition Status SNOMED Code Problem Anxiety about health F41.8 Active 201346776 Problem Encounter for therapeutic drug level monitoring Z51.81 Active 979626603 Problem Uncomplicated opioid dependence F11.20 Active 78267595 Problem Substance abuse F19.10 Active 41531511 ALLERGIES No Information SOCIAL HISTORY Never Assessed PLAN OF CARE Activity Details Follow Up 1 Week Reason: VITAL SIGNS MEDICATIONS Unknown Medications RESULTS No Results PROCEDURES Procedure Date Ordered Result Body Site Psychotherapy, patient &/family, 30 minutes, established patient April 15, 2017 IMMUNIZATIONS No Known Immunizations MEDICAL (GENERAL) [...]
--- OUTSIDE RECORDS SUMMARY | 2018-02-14 17:12 | XMS REPORT ---
Author Author EVA RIZZO [facility] Address [address] [place] [address] Care Team Providers Care Disability Examiner Name Role Phone EVA RIZZO Unavailable PROBLEMS Type Condition ICD9-CM Code FAL32-QT Code Onset Dates Condition Status SNOMED Code Problem Anxiety about health F41.8 Active 487427081 Problem Encounter for therapeutic drug level monitoring Z51.81 Active 202213836 Problem Uncomplicated opioid dependence F11.20 Active 98268186 Problem Substance abuse F19.10 Active 85113337 ALLERGIES No Information SOCIAL HISTORY Never Assessed [...]
--- OUTSIDE RECORDS SUMMARY | 2018-02-14 17:12 | XMS REPORT ---
Author Author MICHELA IQBAL Organization [facility] Address [address] [place] [address] Care Team Providers Care Train Engineer Name Role Phone MICHELA IQBAL Unavailable PROBLEMS Type Condition ICD9-CM Code BYV31-GT Code Onset Dates Condition Status SNOMED Code Problem Anxiety about health F41.8 Active 702714560 Problem Encounter for therapeutic drug level monitoring Z51.81 Active 118227156 Problem Uncomplicated opioid dependence F11.20 Active 04142084 Problem Substance abuse F19.10 Active 65970789 ALLERGIES No Information SOCIAL HISTORY Never Assessed PLAN OF CARE Activity Details Follow Up 1 Week Reason: VITAL SIGNS MEDICATIONS Unknown Medications RESULTS No Results PROCEDURES Procedure Date Ordered Result Body Site Psychotherapy, patient &/family, 30 minutes, established patient April 05, 2017 IMMUNIZATIONS No Known Immunizations MEDICAL (GENERAL) [...]
--- OUTSIDE RECORDS SUMMARY | 2018-02-14 17:13 | XMS REPORT ---
Author Author MICHELA IQBAL Organization [facility] Address [address] [place] [address] Care Team Providers Care Biomedical Instrument Technician Name Role Phone MICHELA IQBAL Unavailable PROBLEMS Type Condition ICD9-CM Code WRD94-IF Code Onset Dates Condition Status SNOMED Code Problem Anxiety about health F41.8 Active 214244778 Problem Encounter for therapeutic drug level monitoring Z51.81 Active 159774271 Problem Uncomplicated opioid dependence F11.20 Active 01002930 Problem Substance abuse F19.10 Active 64352331 ALLERGIES No Information SOCIAL HISTORY Never Assessed PLAN OF CARE Activity Details Follow Up 2 - 3 Days Reason: VITAL SIGNS MEDICATIONS Unknown Medications RESULTS No Results PROCEDURES Procedure Date Ordered Result Body Site Psychotherapy, patient &/family, 60 minutes, established patient April 01, 2017 IMMUNIZATIONS No Known Immunizations MEDICAL (GENERAL) [...]
--- OUTSIDE RECORDS SUMMARY | 2018-02-14 17:13 | XMS REPORT ---
Author Author ANABELLA GARCIA [facility] Address [address] [place] [address] Care Team Providers Care Building Performance Consultant Name Role Phone ANABELLA GARCIA Unavailable PROBLEMS Type Condition ICD9-CM Code SWL12-VR Code Onset Dates Condition Status SNOMED Code Problem Anxiety about health F41.8 Active 076648748 Problem Encounter for therapeutic drug level monitoring Z51.81 Active 628186271 Problem Uncomplicated opioid dependence F11.20 Active 64659584 Problem Substance abuse F19.10 Active 73627414 ALLERGIES No Information ENCOUNTERS Encounter Location Date Diagnosis [facility] [address] [place] [address] Jan, [facility] [address] [address] Jan, Uncomplicated opioid dependence F11.20 [facility] [address] [place] [address] Jan, Uncomplicated opioid dependence F11.20 [facility] [id number] [place] [address] 59407- 6569 Jan, Uncomplicated opioid dependence F11.20 [facility] [address] [place] [address] Jan, Uncomplicated opioid dependence F11.20 [facility] [address] [place] [address] Jan, [facility] [id number] [place] [address] 39772[address] 3967 Dec, Uncomplicated opioid dependence F11.20 [facility] [address] [place] [address] Dec, Uncomplicated opioid dependence F11.20 [facility] [id number] [place] [address] 28760- 7427 Dec, Uncomplicated opioid dependence F11.20 [facility] [id number] [place] [address] 30095- 3849 08 Dec, 2017 Uncomplicated opioid dependence F11.20 [facility] [address] [place] [address] Dec, Uncomplicated opioid dependence F11.20 [facility] [id number] [place] [address] 36796[address] 6852 Nov, Uncomplicated opioid dependence F11.20 [facility] [address] [place] [address] Nov, Uncomplicated opioid dependence F11.20 [facility] [address] [address] Nov, Uncomplicated opioid dependence F11.20 [facility] [address] [place] [address] Nov, Uncomplicated opioid dependence F11.20 [facility] [address] [address] Nov, Uncomplicated opioid dependence F11.20 [facility] [address] [place] [address] Nov, Uncomplicated opioid dependence F11.20 [facility] [address] [address] Nov, Uncomplicated opioid dependence F11.20 [facility] [address] [place] [address] Nov, Uncomplicated opioid dependence F11.20 [facility] [id number] [place] [address]29- 0919 Nov, Uncomplicated opioid dependence F11.20 [facility] [address] [place] [address] Nov, Uncomplicated opioid dependence F11.20 [facility] [address] [address] Oct, Uncomplicated opioid dependence F11.20 [facility] [address] [place] [address] Oct, Uncomplicated opioid dependence F11.20 [facility] [id number] [place] [address] 44759- 1438 Oct, Uncomplicated opioid dependence F11.20 [facility] [address] [place] [address] Oct, Uncomplicated opioid dependence F11.20 [facility] [id number] [place] [address]28 2546 Oct, Uncomplicated opioid dependence F11.20 [facility] [id number] [place] [address] 89550 2546 Oct, Uncomplicated opioid dependence F11.20 [facility] [id number] [place] [address] 67748- 3266 Oct, [facility] [id number] [place] [address] 54948- 5689 Oct, Uncomplicated opioid dependence F11.20 [facility] [id number] [place] [address] 79212- 5496 Sep, Uncomplicated opioid dependence F11.20 [facility] [address] [place] [address] Sep, Uncomplicated opioid dependence F11.20 [facility] [address] 41953- 7754 Sep, Uncomplicated opioid dependence F11.20 [facility] [address] [place] [address] Sep, Uncomplicated opioid dependence F11.20 [facility] [id number] [place] [address] 36475- 6274 15 Sep, 2017 Uncomplicated opioid dependence F11.20 [facility] [id number] [place] [address] 73277 2540 Sep, Uncomplicated opioid dependence F11.20 [facility] [address] [place] [address] Sep, Uncomplicated opioid dependence F11.20 [facility] [id number] [place] [address] 65608- 7460 Aug, Uncomplicated opioid dependence F11.20 [facility] [address] [place] [address] Aug, Uncomplicated opioid dependence F11.20 [facility] [address] [place] [address] Aug, Uncomplicated opioid dependence F11.20 [facility] [address] [place] [address] Aug, [facility] [address] 02408[address] Aug, Uncomplicated opioid dependence F11.20 [facility] [address] [place] [address] Aug, Uncomplicated opioid dependence F11.20 [facility] [address] 94716- 4357 Aug, Uncomplicated opioid dependence F11.20 [facility] [address] [place] [address] Aug, Uncomplicated opioid dependence F11.20 [facility] [id number] [place] [address] 51007- 9325 Jul, Uncomplicated opioid dependence F11.20 [facility] [id number] [place] [address] 43392- 7074 Jul, Uncomplicated opioid dependence F11.20 [facility] [address] [place] [address] Jul, Uncomplicated opioid dependence F11.20 [facility] [id number] [place] [address] 61054- 8706 Jul, Uncomplicated opioid dependence F11.20 [facility] [address] 60855- 9308 Jul, Uncomplicated opioid dependence F11.20 [facility] [address] 53756- 5918 Jun, Uncomplicated opioid dependence F11.20 [facility] [address] [place] [address] Jun, Uncomplicated opioid dependence F11.20 [facility] [address] 47512- 4209 Jun, Uncomplicated opioid dependence F11.20 [facility] [id number] [place] [address] 61149- 7199 Jun, Encounter for therapeutic drug level monitoring Z51.81 and Anxiety about health F41.8 [facility] [id number] [place] [address] 93581- 3787 May, Uncomplicated opioid dependence F11.20 [facility] [id number] [place] [address] 95686- 4100 May, [facility] [id number] [place] [address] 85194- 5222 May, Encounter for dental examination Z01.20 [facility] [id number] [place] [address] 38572- 7868 May, Uncomplicated opioid dependence F11.20 ; Encounter for therapeutic drug level monitoring Z51.81 and Calculus of gallbladder and bile duct without cholecystitis or obstruction K80.70 [facility] [address] [place] [address] May, Uncomplicated opioid dependence F11.20 [facility] [id number] [place] [address] 62829- 9443 May, Uncomplicated opioid dependence F11.20 [facility] [id number] [place] [address] 51709- 3571 May, [facility] [address] [place] [address] May, Uncomplicated opioid dependence F11.20 [facility] [id number] [place] [address] 77484- 1086 Apr, Uncomplicated opioid dependence F11.20 [facility] [address] 03426- 8867 Apr, Uncomplicated opioid dependence F11.20 [facility] [address] [place] [address] Apr, Uncomplicated opioid dependence F11.20 [facility] [id number] [place] [address] 81388- 3176 14 Apr, 2017 Encounter for therapeutic drug level monitoring Z51.81 [facility] [id number] [place] [address] 49575- 8414 14 Apr, 2017 Uncomplicated opioid dependence F11.20 [facility] [address] [place] [address] 09 Apr, 2017 Uncomplicated opioid dependence F11.20 [facility] [address] [place] [address] Apr, Uncomplicated opioid dependence F11.20 [facility] [id number] [place] [address] 70733- 5371 March, Uncomplicated opioid dependence F11.20 [facility] [address] [place] [address] March, Uncomplicated opioid dependence F11.20 [facility] [id number] [place] [address] 95813- 6579 March, Uncomplicated opioid dependence F11.20 [facility] [address] [place] [address] March, Uncomplicated opioid dependence F11.20 [facility] [address] [place] [address] March, Uncomplicated opioid dependence F11.20 [facility] [id number] [place] [address] 86545- 5129 March, [facility] [id number] [place] [address] 50615- 2396 March, [facility] [address] [place] [address] March, Uncomplicated opioid dependence F11.20 [facility] [id number] [place] [address] 29817- 8333 March, [facility] [address] [place] [address] March, Uncomplicated opioid dependence F11.20 [facility] [id number] [place] [address] 95440- 3495 March, Uncomplicated opioid dependence F11.20 [facility] [address] [place] [address] March, Uncomplicated opioid dependence F11.20 [facility] [address] [address] Feb, Uncomplicated opioid dependence F11.20 [facility] [id number] [place] [address] 81970- 6422 Feb, [facility] [address] [place] [address] Feb, Uncomplicated opioid dependence F11.20 [facility] [address] [place] [address] Feb, Uncomplicated opioid dependence F11.20 [facility] [id number] [place] [address] 44263- 6629 Feb, Encounter for therapeutic drug level monitoring Z51.81 and Uncomplicated opioid dependence F11.20 [facility] [address] [place] [address] Feb, Uncomplicated opioid dependence F11.20 [facility] [id number] [place] [address] 44383- 0542 Feb, [facility] [id number] [place] [address] 72862- 0313 Feb, Uncomplicated opioid dependence F11.20 [facility] [id number] [place] [address] 80686- 2144 Feb, Encounter for therapeutic drug level monitoring Z51.81 [facility] [address] [place] [address] Feb, Uncomplicated opioid dependence F11.20 [facility] [id number] [place] [address] 69565- 5593 Feb, Uncomplicated opioid dependence F11.20 and Encounter for therapeutic drug level monitoring Z51.81 [facility] [address] [place] [address] Feb, Uncomplicated opioid dependence F11.20 [facility] [id number] [place] [address] 69605- 2865 14 Feb, 2017 Uncomplicated opioid dependence F11.20 [facility] [address] [place] [address] Feb, Uncomplicated opioid dependence F11.20 [facility] [address] [place] [address] Feb, [facility] [id number] [place] [address] 93183- 9908 Feb, Uncomplicated opioid dependence F11.20 [facility] [address] [place] [address] Feb, Uncomplicated opioid dependence F11.20 [facility] [address] [place] [address] Feb, [facility] [id number] [place] [address] 31184- 3468 Feb, Uncomplicated opioid dependence F11.20 [facility] [address] [place] [address] Feb, Uncomplicated opioid dependence F11.20 [facility] [id number] [place] [address] 91394- 1208 Feb, Uncomplicated opioid dependence F11.20 [facility] [id number] [place] [address] 06608- 3919 Feb, [facility] [id number] [place] [address] 25471- 6619 Feb, Uncomplicated opioid dependence F11.20 and Substance abuse F19.10 [facility] [address] [place] [address] Feb, Substance abuse F19.10 [facility] [id number] [place] [address] 02752- 6852 Jan, Substance abuse F19.10 [facility] [id number] [place] [address] 15257- 6121 Jan, IMMUNIZATIONS No Known Immunizations SOCIAL HISTORY Never Assessed REASON FOR VISIT Suboxone RX (05/19-05/25) PLAN OF CARE VITAL SIGNS MEDICATIONS Medication [...]
--- NOTE | 2018-02-14 19:10 | ED Headache ---
General Chief Complaint: Head/Cervical Problems Stated Complaint: HEADACHE X5 DAYS Nursing Triage Note: TO TRIAGE ROOM WITHOUT DIFFICULTY. COMPLAINS OF HEADACHE X5 DAYS ET IBUPROFEN NOT HELPING. Nursing Sepsis Screen: No Definite Risk Source: patient Exam Limitations: no limitations History of Present Illness Date Seen by Provider: Feb 14, 2018 Time Seen by Provider: 19:08 Initial Comments To ER with reports of right-sided neck ache, knots on the back of his head and a posterior headache for 4-5 days. No fevers chills nausea vomiting. Timing/Duration: 1 week Severity/Quality: moderate Location: occipital Allergies and Home Medications Allergies Coded Allergies: No Known Drug Allergies (Unverified , 06/11/09) Patient Home Medication List Home Medication List Reviewed: Yes Constitutional: see HPI Eyes: No Symptoms Reported Ears, Nose, Mouth, Throat: no symptoms reported Respiratory: no symptoms reported Cardiovascular: no symptoms reported Genitourinary: no symptoms reported Musculoskeletal: no symptoms reported Skin: no symptoms reported Psychiatric/Neurological: No Symptoms Reported Past Vyypaup-Ghbmdi-Gvubem Hx Patient Social History Alcohol Use: Denies Use Recreational Drug Use: Yes (PAST HX OF OPIOD ADDICTION) 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, THC, VYVANSE/ADDERALL ABUSE Smoking Status: Current Everyday Smoker Type Used: Cigarettes 2nd Hand Smoke Exposure: Yes Recent Foreign Travel: No Contact w/Someone Who Travel: No Recent Infectious Disease Expo: No Recent Hopitalizations: No Immunizations Up To Date Tetanus Booster (TDap): Unknown Date of Influenza Vaccine: Sep 09, 2016 Seasonal Allergies Seasonal Allergies: No Surgeries History of Surgeries: Yes (KIDNEY STONE REMOVAL, URETERAL STENT, COLONOSCOPY) Surgeries: Renal Respiratory History of Respiratory Disorde: No Cardiovascular History of Cardiac Disorders: No Neurological History of Neurological Disord: No Genitourinary History of Genitourinary Disor: Yes Genitourinary Disorders: Kidney Stones Gastrointestinal History of Gastrointestinal Di: Yes Gastrointestinal Disorders: Gastroesophageal Reflux, Gall Bladder Disease Musculoskeletal History of Musculoskeletal Dis: No Endocrine History of Endocrine Disorders: No HEENT History of HEENT Disorders: No Cancer History of Cancer: No Psychosocial History of Psychiatric Problem: Yes Behavioral Health Disorders: Anxiety Integumentary History of Skin or Integumenta: No Blood Transfusions History of Blood Disorders: No Adverse Reaction to a Blood Tr: No Family Medical History Significant Family History: No Pertinent Family Hx Physical Exam Vital Signs Vital Signs - First Documented 02/14/18 17:43 Temp 97.5 Pulse 74 Resp 18 B/P (MAP) 140/80 (100) Pulse Ox 100 Capillary Refill : Less Than 3 Seconds General Appearance: WD/WN, no apparent distress, other (no nuchal rigidity alert and oriented GCS 15) HEENT: PERRL/EOMI, normal ENT inspection Neck: non-tender, full range of motion Respiratory: no respiratory distress, no accessory muscle use Gastrointestinal: non tender Psychiatric: alert, oriented x 3 Crainal Nerves: normal hearing, normal speech, PERRL Skin: normal color, warm/dry Progress/Results/Core Measures Results/Orders Vital Signs/I&O Vital Sign - Last 12Hours 02/14/18 17:43 Temp 97.5 Pulse 74 Resp 18 B/P (MAP) 140/80 (100) Pulse Ox 100 Blood Pressure Mean: 100 Departure Impression Impression: Primary Impression: Tension type headache Disposition: 01 HOME, SELF-CARE Condition: Stable Departure-Patient Inst. Decision time for Depature: 19:12 Referrals: [facility] (PCP/Family) Primary Care Physician Patient Instructions: Headache, Adult (DC) Add. Discharge Instructions: 1. Return to ER for any concerns 2. Follow-up with your doctor next week on 3. All discharge instructions reviewed with patient and/or family. Voiced understanding. Scripts Cyclobenzaprine HCl (Cyclobenzaprine HCl) 5 Mg Tablet 5 MG PO TID Y for SPASMS, #20 TAB Prov: WILLIAM CRAIG [employer] LICENSE CLERK 02/14/18 Naproxen (Naprosyn) 500 Mg Tablet 500 MG PO BID Y for HEADACHE, #30 TAB Prov: WILLIAM CRAIG APRN 02/14/18 WILLIAM CRAIG APRN Feb 14, 2018 19:10
[2018-02-14] MEDS ORDERED: NAPR-1071 PO (19:14)
[2018-02-14] MEDS ORDERED: CYCL5TAB PO (19:14)
[2018-02-14 19:19] VITALS: BP 114/87
== END 2018-02-14 19:19 | disposition home or self-care (01) ==
LOC: EDUNIT# 17:04 → ER 17:06
DX: G44.209 Tension-type headache, unspecified, not intractable (principal); K21.9 Gastro-esophageal reflux disease without esophagitis; F41.9 Anxiety disorder, unspecified; Z87.19 Personal history of other diseases of the digestive system; Z77.22 Contact with and (suspected) exposure to environmental tobacco smoke (acute) (chronic); Z87.442 Personal history of urinary calculi; Z96.0 Presence of urogenital implants
CPT/HCPCS: 99282

== ENCOUNTER 2018-03-08 19:58 | Emergency (ER) | payer SELFPAY ==
[~2018-03-08] VITALS: Ht 170.2 cm; Wt 70.3 kg
[~2018-03-08 19:58] MED LIST changes: -CITA20TA7; +CITA20TA9; +CYCL5TAB PO; +NAPR-1071 PO
--- OUTSIDE RECORDS SUMMARY | 2018-03-08 20:05 | XMS REPORT ---
Author Author GALA BAZAN [facility] Address [address] [place] [address] Care Team Providers Care Supervisor [facility] Name Role Phone GALA BAZAN Unavailable PROBLEMS Type Condition ICD9-CM Code NHE44-KB Code Onset Dates Condition Status SNOMED Code Problem Anxiety about health F41.8 Active 352967971 Problem Encounter for therapeutic drug level monitoring Z51.81 Active 142800009 Problem Uncomplicated opioid dependence F11.20 Active 90813215 Problem Substance abuse F19.10 Active [id number] ALLERGIES No Information ENCOUNTERS Encounter Location Date Diagnosis [facility] [address] [place] [address] Feb, [facility] [address] [address] Feb, Uncomplicated opioid dependence F11.20 [facility] [address] [place] [address] Feb, Uncomplicated opioid dependence F11.20 [facility] [id number] [place] [address] 9627 Jan, Uncomplicated opioid dependence F11.20 [facility] [address] [place] [address] Jan, [facility] [id number] [place] [address] 06108[address] 4671 Jan, Uncomplicated opioid dependence F11.20 [facility] [address] [place] [address] Jan, Uncomplicated opioid dependence F11.20 [facility] [address] [address] Jan, Uncomplicated opioid dependence F11.20 [facility] [address] [place] [address] Jan, Uncomplicated opioid dependence F11.20 [facility] [id number] [place] [address] 63378- 9278 07 Jan, 2018 Uncomplicated opioid dependence F11.20 [facility] [address] [place] [address] Jan, Uncomplicated opioid dependence F11.20 [facility] [address] [place] [address] Jan, [facility] [id number] [place] [address] 1212 Dec, Uncomplicated opioid dependence F11.20 [facility] [address] [place] [address] Dec, Uncomplicated opioid dependence F11.20 [facility] [address] [address] 15 Dec, 2017 Uncomplicated opioid dependence F11.20 [facility] [address] [address] 08 Dec, 2017 Uncomplicated opioid dependence F11.20 [facility] [address] [place] [address] Dec, Uncomplicated opioid dependence F11.20 [facility] [address] [address] Nov, Uncomplicated opioid dependence F11.20 [facility] [address] [place] [address] Nov, Uncomplicated opioid dependence F11.20 [facility] [address] [address] Nov, Uncomplicated opioid dependence F11.20 [facility] [address] [place] [address] Nov, Uncomplicated opioid dependence F11.20 [facility] [address] [address] Nov, Uncomplicated opioid dependence F11.20 [facility] [address] [place] [address] Nov, Uncomplicated opioid dependence F11.20 [facility] [address] [address] Nov, Uncomplicated opioid dependence F11.20 [facility] [address] [place] [address] Nov, Uncomplicated opioid dependence F11.20 [facility] [id number] [place] [address] 8699 Nov, Uncomplicated opioid dependence F11.20 [facility] [address] [place] [address] Nov, Uncomplicated opioid dependence F11.20 [facility] [address] [address] Oct, Uncomplicated opioid dependence F11.20 [facility] [address] [place] [address] Oct, Uncomplicated opioid dependence F11.20 [facility] [id number] [place] [address] 05506- 6621 Oct, Uncomplicated opioid dependence F11.20 [facility] [address] [place] [address] Oct, Uncomplicated opioid dependence F11.20 [facility] [id number] [place] [address] 6[address]- [address] Oct, Uncomplicated opioid dependence F11.20 [facility] [id number] [place] [address] 61632- 2159 Oct, Uncomplicated opioid dependence F11.20 [facility] [id number] [place] [address] 88426- 5818 Oct, [facility] [address] [address] Oct, Uncomplicated opioid dependence F11.20 [facility] [address] [address] Sep, Uncomplicated opioid dependence F11.20 [facility] [address] [place] [address] Sep, Uncomplicated opioid dependence F11.20 [facility] [id number] [place] [address] 02939- 1278 Sep, Uncomplicated opioid dependence F11.20 [facility] [address] [place] [address] Sep, Uncomplicated opioid dependence F11.20 [facility] [id number] [place] [address] 07919- 7156 Sep, Uncomplicated opioid dependence F11.20 [facility] [id number] [place] [address] 03347- 3626 Sep, Uncomplicated opioid dependence F11.20 [facility] [address] [place] [address] Sep, Uncomplicated opioid dependence F11.20 [facility] [address] [address] Aug, Uncomplicated opioid dependence F11.20 [facility] [id number] [place] [address] 64782- 8406 Aug, Uncomplicated opioid dependence F11.20 [facility] [address] [place] [address] Aug, Uncomplicated opioid dependence F11.20 [facility] [address] [place] [address] Aug, [facility] [address] [address] Aug, Uncomplicated opioid dependence F11.20 [facility] [address] [place] [address] Aug, Uncomplicated opioid dependence F11.20 [facility] [id number] [place] [address] 05794- 2481 Aug, Uncomplicated opioid dependence F11.20 [facility] [address] [place] [address] Aug, Uncomplicated opioid dependence F11.20 [facility] [id number] [place] [address] 17762- 9643 Jul, Uncomplicated opioid dependence F11.20 [facility] [id number] [place] [address] 75883- 1884 Jul, Uncomplicated opioid dependence F11.20 [facility] [address] [place] [address] 15 Jul, 2017 Uncomplicated opioid dependence F11.20 [facility] [id number] [place] [address] 35793- 6046 Jul, Uncomplicated opioid dependence F11.20 [facility] [id number] [place] [address] 73835- 9118 Jul, Uncomplicated opioid dependence F11.20 [facility] [id number] [place] [address] 71452- 3529 Jun, Uncomplicated opioid dependence F11.20 [facility] [address] [place] [address] Jun, Uncomplicated opioid dependence F11.20 [facility] [id number] [place] [address] 48219[address] 1906 Jun, Uncomplicated opioid dependence F11.20 [facility] [id number] [place] [address] 98708- 8557 Jun, Encounter for therapeutic drug level monitoring Z51.81 and Anxiety about health F41.8 [facility] [id number] [place] [address] 25101- 1821 May, Uncomplicated opioid dependence F11.20 [facility] [id number] [place] [address] 64910- 3762 May, [facility] [id number] [place] [address] 73466- 7423 May, Encounter for dental examination Z01.20 [facility] [id number] [place] [address] 03892- 8140 May, Uncomplicated opioid dependence F11.20 ; Encounter for therapeutic drug level monitoring Z51.81 and Calculus of gallbladder and bile duct without cholecystitis or obstruction K80.70 [facility] [address] [place] [address] May, Uncomplicated opioid dependence F11.20 [facility] [id number] [place] [address] 94580- 7354 May, Uncomplicated opioid dependence F11.20 [facility] [address] [address] 10 May, 2017 [facility] [address] [place] [address] 05 May, 2017 Uncomplicated opioid dependence F11.20 [facility] [address] [place] [address] 66745- 2434 23 Apr, 2017 Uncomplicated opioid dependence F11.20 [facility] [id number] [place] [address] 58409- 6392 Apr, Uncomplicated opioid dependence F11.20 [facility] [address] [place] [address] Apr, Uncomplicated opioid dependence F11.20 [facility] [id number] [place] [address] 86471- 5728 14 Apr, 2017 Encounter for therapeutic drug level monitoring Z51.81 [facility] [id number] [place] [address] 90119- 9916 14 Apr, 2017 Uncomplicated opioid dependence F11.20 [facility] [address] [place] [address] Apr, Uncomplicated opioid dependence F11.20 [facility] [address] [place] [address] Apr, Uncomplicated opioid dependence F11.20 [facility] [id number] [place] [address] 76419- 4439 March, Uncomplicated opioid dependence F11.20 [facility] [address] [place] [address] March, Uncomplicated opioid dependence F11.20 [facility] [id number] [place] [address] 80671- 6541 March, Uncomplicated opioid dependence F11.20 [facility] [address] [place] [address] March, Uncomplicated opioid dependence F11.20 [facility] [address] [place] [address] March, Uncomplicated opioid dependence F11.20 [facility] [id number] [place] [address] 68586- 2037 March, [facility] [id number] [place] [address] 65312- 7676 March, [facility] [address] [place] [address] March, Uncomplicated opioid dependence F11.20 [facility] [id number] [place] [address] 69257- 8423 March, [facility] [address] [place] [address] March, Uncomplicated opioid dependence F11.20 [facility] [id number] [place] [address] 20644- 6964 March, Uncomplicated opioid dependence F11.20 [facility] [address] [place] [address] March, Uncomplicated opioid dependence F11.20 [facility] [id number] [place] [address] 48866- 2487 Feb, Uncomplicated opioid dependence F11.20 [facility] [id number] [place] [address] 26306- 4996 Feb, [facility] [address] [place] [address] Feb, Uncomplicated opioid dependence F11.20 [facility] [address] [place] [address] Feb, Uncomplicated opioid dependence F11.20 [facility] [id number] [place] [address] 08306- 7314 Feb, Encounter for therapeutic drug level monitoring Z51.81 and Uncomplicated opioid dependence F11.20 [facility] [address] [place] [address] Feb, Uncomplicated opioid dependence F11.20 [facility] [id number] [place] [address] 64437- 3040 Feb, [facility] [id number] [place] [address] 01771- 2642 Feb, Uncomplicated opioid dependence F11.20 [facility] [address] [place] [address] 61049- 5201 18 Feb, 2017 Encounter for therapeutic drug level monitoring Z51.81 [facility] [address] [place] [address] 17 Feb, 2017 Uncomplicated opioid dependence F11.20 [facility] [id number] [place] [address] 55033- 5847 17 Feb, 2017 Uncomplicated opioid dependence F11.20 and Encounter for therapeutic drug level monitoring Z51.81 [facility] [address] [place] [address] 14 Feb, 2017 Uncomplicated opioid dependence F11.20 [facility] [id number] [place] [address] 65652- 9095 14 Feb, 2017 Uncomplicated opioid dependence F11.20 [facility] [address] [place] [address] Feb, Uncomplicated opioid dependence F11.20 [facility] [address] [place] [address] Feb, [facility] [id number] [place] [address] 97841- 5288 Feb, Uncomplicated opioid dependence F11.20 [facility] [address] [place] [address] Feb, Uncomplicated opioid dependence F11.20 [facility] [address] [place] [address] Feb, [facility] [id number] [place] [address] 30112- 8352 Feb, Uncomplicated opioid dependence F11.20 [facility] [address] [place] [address] Feb, Uncomplicated opioid dependence F11.20 [facility] [id number] [place] [address] 25383- 1244 Feb, Uncomplicated opioid dependence F11.20 [facility] [id number] [place] [address] 96648- 6592 Feb, [facility] [id number] [place] [address] 93676- 8117 Feb, Uncomplicated opioid dependence F11.20 and Substance abuse F19.10 [facility] [address] [place] [address] Feb, Substance abuse F19.10 [facility] [address] [facility] [id number] [address] Jan, Substance abuse F19.10 [facility] [address] [facility] [id number] [place] [address] Jan, IMMUNIZATIONS No Known Immunizations SOCIAL HISTORY Never Assessed REASON FOR VISIT Dental Assessment PLAN OF CARE Activity Details Follow Up prn Reason:dental wellness VITAL SIGNS MEDICATIONS Unknown Medications RESULTS No Results PROCEDURES Procedure Date Ordered Result Body Site SCREENING OF A PATIENT June 10, 2017 Billing Notes on claim June 10, 2017 INSTRUCTIONS MEDICATIONS ADMINISTERED No Known Medications MEDICAL [...]
--- OUTSIDE RECORDS SUMMARY | 2018-03-08 20:05 | XMS REPORT ---
Author Author ANABELLA GARCIA Organization [facility] Address [address] [place] [address] Care Team Providers Care Interpretive Program Coordinator Name Role Phone ANABELLA GARCIA Unavailable PROBLEMS Type Condition ICD9-CM Code RXA15-OR Code Onset Dates Condition Status SNOMED Code Problem Anxiety about health F41.8 Active 087095511 Problem Encounter for therapeutic drug level monitoring Z51.81 Active 944712437 Problem Uncomplicated opioid dependence F11.20 Active 73746606 Problem Substance abuse F19.10 Active [id number] ALLERGIES No Information ENCOUNTERS Encounter Location Date Diagnosis [facility] [address] [place] [address] Feb, [facility] [id number] [place] [address] 19309[address] Feb, Uncomplicated opioid dependence F11.20 [facility] [address] [place] [address] Feb, Uncomplicated opioid dependence F11.20 [facility] [id number] [place] [address] 06585- 8835 Jan, Uncomplicated opioid dependence F11.20 [facility] [address] [place] [address] Jan, [facility] [id number] [place] [address] 12351- 4264 Jan, Uncomplicated opioid dependence F11.20 [facility] [address] [place] [address] Jan, Uncomplicated opioid dependence F11.20 [facility] [id number] [place] [address] 51166- 5688 Jan, Uncomplicated opioid dependence F11.20 [facility] [address] [place] [address] Jan, Uncomplicated opioid dependence F11.20 [facility] [id number] [place] [address] 54223- 1075 07 Jan, 2018 Uncomplicated opioid dependence F11.20 [facility] [address] [place] [address] Jan, Uncomplicated opioid dependence F11.20 [facility] [address] [place] [address] Jan, [facility] [id number] [place] [address] 46949- 4579 Dec, Uncomplicated opioid dependence F11.20 [facility] [address] [place] [address] Dec, Uncomplicated opioid dependence F11.20 [facility] [address] [address] 15 Dec, 2017 Uncomplicated opioid dependence F11.20 [facility] [address] [address] 08 Dec, 2017 Uncomplicated opioid dependence F11.20 [facility] [address] [place] [address] Dec, Uncomplicated opioid dependence F11.20 [facility] [address] 35361- 6381 Nov, Uncomplicated opioid dependence F11.20 [facility] [address] [place] [address] Nov, Uncomplicated opioid dependence F11.20 [facility] [address] 098[address] 6841 Nov, Uncomplicated opioid dependence F11.20 [facility] [address] [place] [address] Nov, Uncomplicated opioid dependence F11.20 [facility] [address] [address] Nov, Uncomplicated opioid dependence F11.20 [facility] [address] [place] [address] Nov, Uncomplicated opioid dependence F11.20 [facility] [address] 69[address]- 6220 Nov, Uncomplicated opioid dependence F11.20 [facility] [address] [place] [address] Nov, Uncomplicated opioid dependence F11.20 [facility] [id number] [place] [address] 80814- 7578 Nov, Uncomplicated opioid dependence F11.20 [facility] [address] [place] [address] Nov, Uncomplicated opioid dependence F11.20 [facility] [address] 57641- 1540 Oct, Uncomplicated opioid dependence F11.20 [facility] [address] [place] [address] Oct, Uncomplicated opioid dependence F11.20 [facility] [id number] [place] [address] 67610- 3469 Oct, Uncomplicated opioid dependence F11.20 [facility] [address] [place] [address] Oct, Uncomplicated opioid dependence F11.20 [facility] [id number] [place] [address] 77103- 5540 Oct, Uncomplicated opioid dependence F11.20 [facility] [id number] [place] [address] 73356- 8001 Oct, Uncomplicated opioid dependence F11.20 [facility] [id number] [place] [address] 87032- 3237 Oct, [facility] [address] [address] 2543 Oct, Uncomplicated opioid dependence F11.20 [facility] [id number] [place] [address] 80150- 1804 Sep, Uncomplicated opioid dependence F11.20 [facility] [address] [place] [address] Sep, Uncomplicated opioid dependence F11.20 [facility] [id number] [place] [address] 87030- 0338 Sep, Uncomplicated opioid dependence F11.20 [facility] [address] [place] [address] Sep, Uncomplicated opioid dependence F11.20 [facility] [id number] [place] [address] 10643- 1468 Sep, Uncomplicated opioid dependence F11.20 [facility] [id number] [place] [address] 96160- 7377 Sep, Uncomplicated opioid dependence F11.20 [facility] [address] [place] [address] Sep, Uncomplicated opioid dependence F11.20 [facility] [address] 72336- 6555 Aug, Uncomplicated opioid dependence F11.20 [facility] [id number] [place] [address] 12025- 5439 Aug, Uncomplicated opioid dependence F11.20 [facility] [address] [place] [address] Aug, Uncomplicated opioid dependence F11.20 [facility] [address] [place] [address] Aug, [facility] [address] 24803- 2666 Aug, Uncomplicated opioid dependence F11.20 [facility] [address] [place] [address] Aug, Uncomplicated opioid dependence F11.20 [facility] [id number] [place] [address] 34430- 6051 Aug, Uncomplicated opioid dependence F11.20 [facility] [address] [place] [address] Aug, Uncomplicated opioid dependence F11.20 [facility] [id number] [place] [address] 50006- 7754 Jul, Uncomplicated opioid dependence F11.20 [facility] [id number] [place] [address] 75127- 6413 Jul, Uncomplicated opioid dependence F11.20 [facility] [address] [place] [address] 15 Jul, 2017 Uncomplicated opioid dependence F11.20 [facility] [id number] [place] [address] 40323- 0511 Jul, Uncomplicated opioid dependence F11.20 [facility] [id number] [place] [address] 03130- 1096 Jul, Uncomplicated opioid dependence F11.20 [facility] [id number] [place] [address] 89390- 9463 Jun, Uncomplicated opioid dependence F11.20 [facility] [address] [place] [address] Jun, Uncomplicated opioid dependence F11.20 [facility] [id number] [place] [address] 59314- 3021 Jun, Uncomplicated opioid dependence F11.20 [facility] [id number] [place] [address] 99576- 9435 Jun, Encounter for therapeutic drug level monitoring Z51.81 and Anxiety about health F41.8 [facility] [id number] [place] [address] 96416- 3260 May, Uncomplicated opioid dependence F11.20 [facility] [id number] [place] [address] 87630- 1031 May, [facility] [id number] [place] [address] 13511- 5150 May, Encounter for dental examination Z01.20 [facility] [id number] [place] [address] 41750- 3860 May, Uncomplicated opioid dependence F11.20 ; Encounter for therapeutic drug level monitoring Z51.81 and Calculus of gallbladder and bile duct without cholecystitis or obstruction K80.70 [facility] [address] [place] [address] May, Uncomplicated opioid dependence F11.20 [facility] [id number] [place] [address] 57013- 3853 May, Uncomplicated opioid dependence F11.20 [facility] [address] [address] 10 May, 2017 [facility] [address] [place] [address] 05 May, 2017 Uncomplicated opioid dependence F11.20 [facility] [address] [place] [address] 01320- 3064 23 Apr, 2017 Uncomplicated opioid dependence F11.20 [facility] [id number] [place] [address] 48394- 9367 Apr, Uncomplicated opioid dependence F11.20 [facility] [address] [place] [address] Apr, Uncomplicated opioid dependence F11.20 [facility] [id number] [place] [address] 98587- 3935 14 Apr, 2017 Encounter for therapeutic drug level monitoring Z51.81 [facility] [id number] [place] [address] 48049- 3652 Apr, Uncomplicated opioid dependence F11.20 [facility] [address] [place] [address] Apr, Uncomplicated opioid dependence F11.20 [facility] [address] [place] [address] Apr, Uncomplicated opioid dependence F11.20 [facility] [id number] [place] [address] 32277- 4707 March, Uncomplicated opioid dependence F11.20 [facility] [address] [place] [address] March, Uncomplicated opioid dependence F11.20 [facility] [id number] [place] [address] 08890- 8845 March, Uncomplicated opioid dependence F11.20 [facility] [address] [place] [address] March, Uncomplicated opioid dependence F11.20 [facility] [address] [place] [address] March, Uncomplicated opioid dependence F11.20 [facility] [address] [place] [address] March, [facility] [id number] [place] [address] 23359- 0790 March, [facility] [address] [place] [address] March, Uncomplicated opioid dependence F11.20 [facility] [id number] [place] [address] 85899- 3992 March, [facility] [address] [place] [address] March, Uncomplicated opioid dependence F11.20 [facility] [id number] [place] [address] 42447- 1013 March, Uncomplicated opioid dependence F11.20 [facility] [address] [place] [address] March, Uncomplicated opioid dependence F11.20 [facility] [id number] [place] [address] 12021- 6310 Feb, Uncomplicated opioid dependence F11.20 [facility] [id number] [place] [address] 45614- 8274 Feb, [facility] [address] [place] [address] Feb, Uncomplicated opioid dependence F11.20 [facility] [address] [place] [address] Feb, Uncomplicated opioid dependence F11.20 [facility] [id number] [place] [address] 39132- 2541 Feb, Encounter for therapeutic drug level monitoring Z51.81 and Uncomplicated opioid dependence F11.20 [facility] [address] [place] [address] Feb, Uncomplicated opioid dependence F11.20 [facility] [id number] [place] [address] 50435- 1651 Feb, [facility] [id number] [place] [address] 94722- 4977 Feb, Uncomplicated opioid dependence F11.20 [facility] [address] [place] [address] 45114- 3406 18 Feb, 2017 Encounter for therapeutic drug level monitoring Z51.81 [facility] [address] [place] [address] 17 Feb, 2017 Uncomplicated opioid dependence F11.20 [facility] [id number] [place] [address] 52968- 6960 17 Feb, 2017 Uncomplicated opioid dependence F11.20 and Encounter for therapeutic drug level monitoring Z51.81 [facility] [address] [place] [address] 14 Feb, 2017 Uncomplicated opioid dependence F11.20 [facility] [id number] [place] [address] 84775- 7806 14 Feb, 2017 Uncomplicated opioid dependence F11.20 [facility] [address] [place] [address] Feb, Uncomplicated opioid dependence F11.20 [facility] [address] [place] [address] Feb, [facility] [id number] [place] [address] 10910- 8380 Feb, Uncomplicated opioid dependence F11.20 [facility] [address] [place] [address] Feb, Uncomplicated opioid dependence F11.20 [facility] [address] [place] [address] Feb, [facility] [id number] [place] [address] 35586- 4376 Feb, Uncomplicated opioid dependence F11.20 [facility] [address] [place] [address] Feb, Uncomplicated opioid dependence F11.20 [facility] [id number] [place] [address] 71730- 6596 Feb, Uncomplicated opioid dependence F11.20 [facility] [id number] [place] [address] 21578- 4274 Feb, [facility] [id number] [place] [address] 74067- 8954 Feb, Uncomplicated opioid dependence F11.20 and Substance abuse F19.10 [facility] [address] [place] [address] Feb, Substance abuse F19.10 [facility] [address] [facility] [id number] [address] Jan, Substance abuse F19.10 [facility] [address] [facility] [id number] [address] Jan, IMMUNIZATIONS No Known Immunizations SOCIAL HISTORY Never Assessed REASON FOR VISIT Suboxone RX (06/30-07/13) PLAN OF CARE VITAL SIGNS MEDICATIONS Medication [...]
--- OUTSIDE RECORDS SUMMARY | 2018-03-08 20:06 | XMS REPORT ---
Author Author MICHELA IQBAL Organization [facility] Address [address] [place] [address] Care Team Providers Care Diamond Sawer Name Role Phone MICHELA IQBAL Unavailable PROBLEMS Type Condition ICD9-CM Code JOB22-VY Code Onset Dates Condition Status SNOMED Code Problem Anxiety about health F41.8 Active 265014313 Problem Encounter for therapeutic drug level monitoring Z51.81 Active 823382318 Problem Uncomplicated opioid dependence F11.20 Active 36991919 Problem Substance abuse F19.10 Active [id number] ALLERGIES No Information ENCOUNTERS Encounter Location Date Diagnosis [facility] [address] [place] [address] Feb, [facility] [id number] [place] [address] 4718 Feb, Uncomplicated opioid dependence F11.20 [facility] [address] [place] [address] Feb, Uncomplicated opioid dependence F11.20 [facility] [id number] [place] [address]28- 2365 Jan, Uncomplicated opioid dependence F11.20 [facility] [address] [place] [address] Jan, [facility] [id number] [place] [address] 91233- 1329 Jan, Uncomplicated opioid dependence F11.20 [facility] [address] [place] [address] Jan, Uncomplicated opioid dependence F11.20 [facility] [id number] [place] [address] 25791[address] 8328 Jan, Uncomplicated opioid dependence F11.20 [facility] [address] [place] [address] Jan, Uncomplicated opioid dependence F11.20 [facility] [id number] [place] [address] 08452- 6671 07 Jan, 2018 Uncomplicated opioid dependence F11.20 [facility] [address] [place] [address] Jan, Uncomplicated opioid dependence F11.20 [facility] [address] [place] [address] Jan, [facility] [id number] [place] [address] 63986- 5257 Dec, Uncomplicated opioid dependence F11.20 [facility] [address] [place] [address] Dec, Uncomplicated opioid dependence F11.20 [facility] [address] [address] 15 Dec, 2017 Uncomplicated opioid dependence F11.20 [facility] [address] [address] 08 Dec, 2017 Uncomplicated opioid dependence F11.20 [facility] [address] [place] [address] Dec, Uncomplicated opioid dependence F11.20 [facility] [address] [address] Nov, Uncomplicated opioid dependence F11.20 [facility] [address] [place] [address] Nov, Uncomplicated opioid dependence F11.20 [facility] [address] [address] Nov, Uncomplicated opioid dependence F11.20 [facility] [address] [place] [address] Nov, Uncomplicated opioid dependence F11.20 [facility] [address] [address] Nov, Uncomplicated opioid dependence F11.20 [facility] [address] [place] [address] Nov, Uncomplicated opioid dependence F11.20 [facility] [address] 9[address] 8[address] Nov, Uncomplicated opioid dependence F11.20 [facility] [address] [place] [address] Nov, Uncomplicated opioid dependence F11.20 [facility] [id number] [place] [address] 04884- 0407 Nov, Uncomplicated opioid dependence F11.20 [facility] [address] [place] [address] Nov, Uncomplicated opioid dependence F11.20 [facility] [address] [address] Oct, Uncomplicated opioid dependence F11.20 [facility] [address] [place] [address] Oct, Uncomplicated opioid dependence F11.20 [facility] [id number] [place] [address] 04655- 4020 Oct, Uncomplicated opioid dependence F11.20 [facility] [address] [place] [address] Oct, Uncomplicated opioid dependence F11.20 [facility] [id number] [place] [address] 09716- 4704 Oct, Uncomplicated opioid dependence F11.20 [facility] [id number] [place] [address] 71804- 7585 Oct, Uncomplicated opioid dependence F11.20 [facility] [id number] [place] [address] 65598- 1087 Oct, [facility] [address] [address] 2547 Oct, Uncomplicated opioid dependence F11.20 [facility] [id number] [place] [address] 70368- 1211 Sep, Uncomplicated opioid dependence F11.20 [facility] [address] [place] [address] Sep, Uncomplicated opioid dependence F11.20 [facility] [id number] [place] [address] 91704- 4909 Sep, Uncomplicated opioid dependence F11.20 [facility] [address] [place] [address] Sep, Uncomplicated opioid dependence F11.20 [facility] [id number] [place] [address] 65661- 0391 Sep, Uncomplicated opioid dependence F11.20 [facility] [id number] [place] [address] 09709- 2137 Sep, Uncomplicated opioid dependence F11.20 [facility] [address] [place] [address] Sep, Uncomplicated opioid dependence F11.20 [facility] [address] 10655[address] 9485 Aug, Uncomplicated opioid dependence F11.20 [facility] [id number] [place] [address] 85080- 7804 Aug, Uncomplicated opioid dependence F11.20 [facility] [address] [place] [address] Aug, Uncomplicated opioid dependence F11.20 [facility] [address] [place] [address] Aug, [facility] [address] 85664[address] 8683 Aug, Uncomplicated opioid dependence F11.20 [facility] [address] [place] [address] Aug, Uncomplicated opioid dependence F11.20 [facility] [id number] [place] [address] 54635- 5211 Aug, Uncomplicated opioid dependence F11.20 [facility] [address] [place] [address] Aug, Uncomplicated opioid dependence F11.20 [facility] [id number] [place] [address] 48645- 9524 Jul, Uncomplicated opioid dependence F11.20 [facility] [id number] [place] [address] 43894- 5447 Jul, Uncomplicated opioid dependence F11.20 [facility] [address] [place] [address] 15 Jul, 2017 Uncomplicated opioid dependence F11.20 [facility] [id number] [place] [address] 14576- 8471 Jul, Uncomplicated opioid dependence F11.20 [facility] [id number] [place] [address] 58299- 8388 Jul, Uncomplicated opioid dependence F11.20 [facility] [id number] [place] [address] 84716- 2521 Jun, Uncomplicated opioid dependence F11.20 [facility] [address] [place] [address] Jun, Uncomplicated opioid dependence F11.20 [facility] [id number] [place] [address] 50190- 8111 Jun, Uncomplicated opioid dependence F11.20 [facility] [id number] [place] [address] 13545- 3572 Jun, Encounter for therapeutic drug level monitoring Z51.81 and Anxiety about health F41.8 [facility] [id number] [place] [address] 69735- 8050 May, Uncomplicated opioid dependence F11.20 [facility] [id number] [place] [address] 29140- 0480 May, [facility] [id number] [place] [address] 35085- 5672 May, Encounter for dental examination Z01.20 [facility] [id number] [place] [address] 39585- 4671 May, Uncomplicated opioid dependence F11.20 ; Encounter for therapeutic drug level monitoring Z51.81 and Calculus of gallbladder and bile duct without cholecystitis or obstruction K80.70 [facility] [address] [place] [address] May, Uncomplicated opioid dependence F11.20 [facility] [id number] [place] [address] 13046- 9278 May, Uncomplicated opioid dependence F11.20 [facility] [address] [address] 10 May, 2017 [facility] [address] [place] [address] 05 May, 2017 Uncomplicated opioid dependence F11.20 [facility] [address] [place] [address] 45092- 4245 23 Apr, 2017 Uncomplicated opioid dependence F11.20 [facility] [id number] [place] [address] 63714- 2862 Apr, Uncomplicated opioid dependence F11.20 [facility] [address] [place] [address] Apr, Uncomplicated opioid dependence F11.20 [facility] [id number] [place] [address] 38645- 9267 14 Apr, 2017 Encounter for therapeutic drug level monitoring Z51.81 [facility] [id number] [place] [address] 44896- 1284 Apr, Uncomplicated opioid dependence F11.20 [facility] [address] [place] [address] Apr, Uncomplicated opioid dependence F11.20 [facility] [address] [place] [address] Apr, Uncomplicated opioid dependence F11.20 [facility] [id number] [place] [address] 24020- 5402 March, Uncomplicated opioid dependence F11.20 [facility] [address] [place] [address] March, Uncomplicated opioid dependence F11.20 [facility] [id number] [place] [address] 31516- 1901 March, Uncomplicated opioid dependence F11.20 [facility] [address] [place] [address] March, Uncomplicated opioid dependence F11.20 [facility] [address] [place] [address] March, Uncomplicated opioid dependence F11.20 [facility] [address] [place] [address] March, [facility] [id number] [place] [address] 58336- 7936 March, [facility] [address] [place] [address] March, Uncomplicated opioid dependence F11.20 [facility] [id number] [place] [address] 91430- 5604 March, [facility] [address] [place] [address] March, Uncomplicated opioid dependence F11.20 [facility] [id number] [place] [address] 74281- 1341 March, Uncomplicated opioid dependence F11.20 [facility] [address] [place] [address] March, Uncomplicated opioid dependence F11.20 [facility] [id number] [place] [address] 52302- 7815 Feb, Uncomplicated opioid dependence F11.20 [facility] [id number] [place] [address] 12266- 4444 Feb, [facility] [address] [place] [address] Feb, Uncomplicated opioid dependence F11.20 [facility] [address] [place] [address] Feb, Uncomplicated opioid dependence F11.20 [facility] [id number] [place] [address] 45997- 1518 Feb, Encounter for therapeutic drug level monitoring Z51.81 and Uncomplicated opioid dependence F11.20 [facility] [address] [place] [address] Feb, Uncomplicated opioid dependence F11.20 [facility] [id number] [place] [address] 34153- 8988 Feb, [facility] [id number] [place] [address] 61489- 2129 Feb, Uncomplicated opioid dependence F11.20 [facility] [address] [place] [address] 70457- 8765 18 Feb, 2017 Encounter for therapeutic drug level monitoring Z51.81 [facility] [address] [place] [address] 17 Feb, 2017 Uncomplicated opioid dependence F11.20 [facility] [id number] [place] [address] 43418- 9081 17 Feb, 2017 Uncomplicated opioid dependence F11.20 and Encounter for therapeutic drug level monitoring Z51.81 [facility] [address] [place] [address] 14 Feb, 2017 Uncomplicated opioid dependence F11.20 [facility] [id number] [place] [address] 48608- 8987 14 Feb, 2017 Uncomplicated opioid dependence F11.20 [facility] [address] [place] [address] Feb, Uncomplicated opioid dependence F11.20 [facility] [address] [place] [address] Feb, [facility] [id number] [place] [address] 39456- 5282 Feb, Uncomplicated opioid dependence F11.20 [facility] [address] [place] [address] Feb, Uncomplicated opioid dependence F11.20 [facility] [address] [place] [address] Feb, [facility] [id number] [place] [address] 75904- 8424 Feb, Uncomplicated opioid dependence F11.20 [facility] [address] [place] [address] Feb, Uncomplicated opioid dependence F11.20 [facility] [id number] [place] [address] 41864- 5387 Feb, Uncomplicated opioid dependence F11.20 [facility] [id number] [place] [address] 76520- 3830 Feb, [facility] [id number] [place] [address] 60511- 5489 Feb, Uncomplicated opioid dependence F11.20 and Substance abuse F19.10 [facility] [address] [place] [address] Feb, Substance abuse F19.10 [facility] [address] [facility] [id number] [address] Jan, Substance abuse F19.10 [facility] [address] [facility] [id number] [address] Jan, IMMUNIZATIONS No Known Immunizations SOCIAL HISTORY Never Assessed REASON FOR VISIT SUBAB F/U PLAN OF CARE Activity Details Follow Up 1 Week Reason: VITAL SIGNS MEDICATIONS Unknown Medications RESULTS No Results PROCEDURES Procedure Date Ordered Result Body Site Psychotherapy, patient &/family, 30 minutes, established patient March 15, 2017 INSTRUCTIONS MEDICATIONS ADMINISTERED No Known Medications [...]
--- OUTSIDE RECORDS SUMMARY | 2018-03-08 20:06 | XMS REPORT ---
Author Author ANABELLA GARCIA [facility] Address [address] [place] [address] Care Team Providers Care Senior Qa Analyst Name Role Phone ANABELLA GARCIA Unavailable PROBLEMS Type Condition ICD9-CM Code PMU28-TL Code Onset Dates Condition Status SNOMED Code Problem Anxiety about health F41.8 Active 380870761 Problem Encounter for therapeutic drug level monitoring Z51.81 Active 943662336 Problem Uncomplicated opioid dependence F11.20 Active 65434692 Problem Substance abuse F19.10 Active 99550498 ALLERGIES No Known Allergies ENCOUNTERS Encounter Location Date Diagnosis [facility] [address] [place] [address] Feb, [facility] [id number] [place] [address] Feb, Uncomplicated opioid dependence F11.20 [facility] [address] [place] [address] Feb, Uncomplicated opioid dependence F11.20 [facility] [id number] [place] [address] 26897[address] 7732 Jan, Uncomplicated opioid dependence F11.20 [facility] [address] [place] [address] Jan, [facility] [id number] [place] [address] 98[address] Jan, Uncomplicated opioid dependence F11.20 [facility] [address] [place] [address] Jan, Uncomplicated opioid dependence F11.20 [facility] [id number] [place] [address] 52505- 8274 Jan, Uncomplicated opioid dependence F11.20 [facility] [address] [place] [address] Jan, Uncomplicated opioid dependence F11.20 [facility] [id number] [place] [address] 68816- 7116 07 Jan, 2018 Uncomplicated opioid dependence F11.20 [facility] [address] [place] [address] 07 Jan, 2018 Uncomplicated opioid dependence F11.20 [facility] [address] [place] [address] Jan, [facility] [id number] [place] [address] 09294[address] 8443 Dec, Uncomplicated opioid dependence F11.20 [facility] [address] [place] [address] Dec, Uncomplicated opioid dependence F11.20 [facility] [address] [address] 15 Dec, 2017 Uncomplicated opioid dependence F11.20 [facility] [id number] [place] [address] 97175[address] 6603 08 Dec, 2017 Uncomplicated opioid dependence F11.20 [facility] [address] [place] [address] Dec, Uncomplicated opioid dependence F11.20 [facility] [address] [address] Nov, Uncomplicated opioid dependence F11.20 [facility] [address] [place] [address] Nov, Uncomplicated opioid dependence F11.20 [facility] [id number] [place] [address] 91320- 8628 Nov, Uncomplicated opioid dependence F11.20 [facility] [address] [place] [address] Nov, Uncomplicated opioid dependence F11.20 [facility] [address] [address] Nov, Uncomplicated opioid dependence F11.20 [facility] [address] [place] [address] Nov, Uncomplicated opioid dependence F11.20 [facility] [address] 0[address] Nov, Uncomplicated opioid dependence F11.20 [facility] [address] [place] [address] Nov, Uncomplicated opioid dependence F11.20 [facility] [id number] [place] [address] 73958- 0406 Nov, Uncomplicated opioid dependence F11.20 [facility] [address] [place] [address] Nov, Uncomplicated opioid dependence F11.20 [facility] [id number] [place] [address] 07654- 0306 Oct, Uncomplicated opioid dependence F11.20 [facility] [address] [place] [address] Oct, Uncomplicated opioid dependence F11.20 [facility] [id number] [place] [address] 32471- 8535 Oct, Uncomplicated opioid dependence F11.20 [facility] [address] [place] [address] Oct, Uncomplicated opioid dependence F11.20 [facility] [id number] [place] [address] 73548- 7519 Oct, Uncomplicated opioid dependence F11.20 [facility] [id number] [place] [address] 39345- 4797 Oct, Uncomplicated opioid dependence F11.20 [facility] [id number] [place] [address] 42046- 7410 Oct, [facility] [address] 174[address] Oct, Uncomplicated opioid dependence F11.20 [facility] [id number] [place] [address] 15151- 9748 Sep, Uncomplicated opioid dependence F11.20 [facility] [address] [place] [address] Sep, Uncomplicated opioid dependence F11.20 [facility] [id number] [place] [address] 74831- 2548 Sep, Uncomplicated opioid dependence F11.20 [facility] [address] [place] [address] Sep, Uncomplicated opioid dependence F11.20 [facility] [id number] [place] [address] 61619- 9354 Sep, Uncomplicated opioid dependence F11.20 [facility] [id number] [place] [address] 52793- 9782 Sep, Uncomplicated opioid dependence F11.20 [facility] [address] [place] [address] Sep, Uncomplicated opioid dependence F11.20 [facility] [address] [address] Aug, Uncomplicated opioid dependence F11.20 [facility] [id number] [place] [address] 77565- 5946 Aug, Uncomplicated opioid dependence F11.20 [facility] [address] [place] [address] Aug, Uncomplicated opioid dependence F11.20 [facility] [address] [place] [address] Aug, [facility] [address] 38535[address] Aug, Uncomplicated opioid dependence F11.20 [facility] [address] [place] [address] Aug, Uncomplicated opioid dependence F11.20 [facility] [id number] [place] [address] 39269- 7607 Aug, Uncomplicated opioid dependence F11.20 [facility] [address] [place] [address] Aug, Uncomplicated opioid dependence F11.20 [facility] [id number] [place] [address] 23573- 3577 Jul, Uncomplicated opioid dependence F11.20 [facility] [id number] [place] [address] 04094- 4338 Jul, Uncomplicated opioid dependence F11.20 [facility] [address] [place] [address] 15 Jul, 2017 Uncomplicated opioid dependence F11.20 [facility] [id number] [place] [address] 16722- 8449 15 Jul, 2017 Uncomplicated opioid dependence F11.20 [facility] [id number] [place] [address] 16444- 6705 Jul, Uncomplicated opioid dependence F11.20 [facility] [address] 10144- 9215 Jun, Uncomplicated opioid dependence F11.20 [facility] [address] [place] [address] Jun, Uncomplicated opioid dependence F11.20 [facility] [id number] [place] [address] 60523- 3293 Jun, Uncomplicated opioid dependence F11.20 [facility] [address] 28291- 5074 Jun, Encounter for therapeutic drug level monitoring Z51.81 and Anxiety about health F41.8 [facility] [id number] [place] [address] 82095- 9637 May, Uncomplicated opioid dependence F11.20 [facility] [id number] [place] [address] 93990- 6456 May, [facility] [id number] [place] [address] 37471- 3866 May, Encounter for dental examination Z01.20 [facility] [id number] [place] [address] 01047- 3843 May, Uncomplicated opioid dependence F11.20 ; Encounter for therapeutic drug level monitoring Z51.81 and Calculus of gallbladder and bile duct without cholecystitis or obstruction K80.70 [facility] [address] [place] [address] May, Uncomplicated opioid dependence F11.20 [facility] [id number] [place] [address] 08323- 0852 May, Uncomplicated opioid dependence F11.20 [facility] [address] [address] 10 May, 2017 [facility] [address] [place] [address] 05 May, 2017 Uncomplicated opioid dependence F11.20 [facility] [address] [place] [address] 11151- 0704 23 Apr, 2017 Uncomplicated opioid dependence F11.20 [facility] [id number] [place] [address] 70985- 0435 Apr, Uncomplicated opioid dependence F11.20 [facility] [address] [place] [address] Apr, Uncomplicated opioid dependence F11.20 [facility] [id number] [place] [address] 90376- 5947 14 Apr, 2017 Encounter for therapeutic drug level monitoring Z51.81 [facility] [id number] [place] [address] 41196- 5351 Apr, Uncomplicated opioid dependence F11.20 [facility] [address] [place] [address] Apr, Uncomplicated opioid dependence F11.20 [facility] [address] [place] [address] Apr, Uncomplicated opioid dependence F11.20 [facility] [id number] [place] [address] 52698- 6031 March, Uncomplicated opioid dependence F11.20 [facility] [address] [place] [address] March, Uncomplicated opioid dependence F11.20 [facility] [id number] [place] [address] 89782- 1906 March, Uncomplicated opioid dependence F11.20 [facility] [address] [place] [address] March, Uncomplicated opioid dependence F11.20 [facility] [address] [place] [address] March, Uncomplicated opioid dependence F11.20 [facility] [address] [place] [address] March, [facility] [id number] [place] [address] 58398- 7934 March, [facility] [address] [place] [address] March, Uncomplicated opioid dependence F11.20 [facility] [id number] [place] [address] 37203- 3038 March, [facility] [address] [place] [address] March, Uncomplicated opioid dependence F11.20 [facility] [id number] [place] [address] 69179- 7209 March, Uncomplicated opioid dependence F11.20 [facility] [address] [place] [address] March, Uncomplicated opioid dependence F11.20 [facility] [id number] [place] [address] 89073- 7841 Feb, Uncomplicated opioid dependence F11.20 [facility] [id number] [place] [address] 32310- 0915 Feb, [facility] [address] [place] [address] Feb, Uncomplicated opioid dependence F11.20 [facility] [address] [place] [address] Feb, Uncomplicated opioid dependence F11.20 [facility] [id number] [place] [address] 86742- 5155 Feb, Encounter for therapeutic drug level monitoring Z51.81 and Uncomplicated opioid dependence F11.20 [facility] [address] [place] [address] Feb, Uncomplicated opioid dependence F11.20 [facility] [id number] [place] [address] 94886- 8505 Feb, [facility] [id number] [place] [address] 90284- 3706 Feb, Uncomplicated opioid dependence F11.20 [facility] [address] [place] [address] 79816- 4811 18 Feb, 2017 Encounter for therapeutic drug level monitoring Z51.81 [facility] [address] [place] [address] 17 Feb, 2017 Uncomplicated opioid dependence F11.20 [facility] [id number] [place] [address] 13401- 4919 17 Feb, 2017 Uncomplicated opioid dependence F11.20 and Encounter for therapeutic drug level monitoring Z51.81 [facility] [address] [place] [address] 14 Feb, 2017 Uncomplicated opioid dependence F11.20 [facility] [id number] [place] [address] 39677- 8155 14 Feb, 2017 Uncomplicated opioid dependence F11.20 [facility] [address] [place] [address] Feb, Uncomplicated opioid dependence F11.20 [facility] [address] [place] [address] Feb, [facility] [id number] [place] [address] 43451- 9512 Feb, Uncomplicated opioid dependence F11.20 [facility] [address] [place] [address] Feb, Uncomplicated opioid dependence F11.20 [facility] [address] [place] [address] Feb, [facility] [id number] [place] [address] 69212- 4974 Feb, Uncomplicated opioid dependence F11.20 [facility] [address] [place] [address] Feb, Uncomplicated opioid dependence F11.20 [facility] [id number] [place] [address] 82704- 8678 Feb, Uncomplicated opioid dependence F11.20 [facility] [id number] [place] [address] 86466- 9477 Feb, [facility] [id number] [place] [address] 19938- 5440 Feb, Uncomplicated opioid dependence F11.20 and Substance abuse F19.10 [facility] [address] [place] [address] 04 Feb, 2017 Substance abuse F19.10 [facility] [address] [facility] [id number] [address] Jan, Substance abuse F19.10 [facility] [address] [facility] [id number] [address] Jan, IMMUNIZATIONS No Known Immunizations SOCIAL HISTORY Never Assessed REASON FOR VISIT MAT f/u, pt recently in ER for chest pain; told possible galbladder problem PLAN OF CARE Activity Details Follow Up 3 Months Reason: VITAL SIGNS Height 67 in 2017-06-10 Weight 149 lbs 2017-06-10 Temperature 98.6 degrees Fahrenheit 2017-06-10 Heart Rate 84 bpm 2017-06-10 Respiratory Rate 20 2017-06-10 BMI 23.33 kg/m2 2017-06-10 Blood pressure systolic 126 mmHg 2017-06-10 Blood pressure diastolic 78 mmHg 2017-06-10 MEDICATIONS Medication Instructions Dosage Frequency Start Date End Date Duration Status Suboxone 8-2 MG Sublingual Once a day 1.5 application under the tongue and allow to dissolve 24h Feb, 13 days Active RESULTS Name Result Date Reference Range URINE DRUG SCREEN (IN HOUSE) 2017-06-10 Lot # [id number] Exp date 12/2018 Control + COCAINE neg AMPH neg MTD neg THC neg OPIATE neg BENZO neg PCP neg BAR neg OXY neg MAMP neg TCA n/a BUP + MDMA neg Ultrasound : Gallbladder 2017-07-01 PROCEDURES Procedure Date Ordered Result Body Site DRUG TEST PRSMV DIR OPT OBS June 10, 2017 INSTRUCTIONS MEDICATIONS ADMINISTERED No [...]
--- OUTSIDE RECORDS SUMMARY | 2018-03-08 20:07 | XMS REPORT ---
Author Author ANABELLA GARCIA Organization [facility] Address [address] [place] [address] Care Team Providers Care Bottle Blower Name Role Phone ANABELLA GARCIA Unavailable PROBLEMS Type Condition ICD9-CM Code ADC13-FC Code Onset Dates Condition Status SNOMED Code Problem Anxiety about health F41.8 Active 434983609 Problem Encounter for therapeutic drug level monitoring Z51.81 Active 679303677 Problem Uncomplicated opioid dependence F11.20 Active 43770062 Problem Substance abuse F19.10 Active [id number] ALLERGIES No Information ENCOUNTERS Encounter Location Date Diagnosis [facility] [id number] [place] [address] 67309- 3579 Jan, Uncomplicated opioid dependence F11.20 [facility] [address] [place] [address] Jan, Uncomplicated opioid dependence F11.20 [facility] [id number] [place] [address] 11047- 4745 Jan, Uncomplicated opioid dependence F11.20 [facility] [address] [place] [address] Jan, Uncomplicated opioid dependence F11.20 [facility] [id number] [place] [address] 81617- 3259 Jan, Uncomplicated opioid dependence F11.20 [facility] [address] [place] [address] Jan, Uncomplicated opioid dependence F11.20 [facility] [address] [place] [address] Jan, [facility] [id number] [place] [address] 99529- 0939 Dec, Uncomplicated opioid dependence F11.20 [facility] [address] [place] [address] Dec, Uncomplicated opioid dependence F11.20 [facility] [address] [address] 15 Dec, 2017 Uncomplicated opioid dependence F11.20 [facility] [id number] [place] [address] 71105- 4041 08 Dec, 2017 Uncomplicated opioid dependence F11.20 [facility] [address] [place] [address] Dec, Uncomplicated opioid dependence F11.20 [facility] [id number] [place] [address] 73437- 1488 Nov, Uncomplicated opioid dependence F11.20 [facility] [address] [place] [address] Nov, Uncomplicated opioid dependence F11.20 [facility] [id number] [place] [address] 78663- 4918 Nov, Uncomplicated opioid dependence F11.20 [facility] [address] [place] [address] Nov, Uncomplicated opioid dependence F11.20 [facility] [id number] [place] [address] 77745- 3383 Nov, Uncomplicated opioid dependence F11.20 [facility] [address] [place] [address] Nov, Uncomplicated opioid dependence F11.20 [facility] [id number] [place] [address] 03133- 3215 Nov, Uncomplicated opioid dependence F11.20 [facility] [address] [place] [address] Nov, Uncomplicated opioid dependence F11.20 [facility] [id number] [place] [address] 59016- 0559 Nov, Uncomplicated opioid dependence F11.20 [facility] [address] [place] [address] Nov, Uncomplicated opioid dependence F11.20 [facility] [id number] [place] [address] 33490- 5468 Oct, Uncomplicated opioid dependence F11.20 [facility] [address] [place] [address] Oct, Uncomplicated opioid dependence F11.20 [facility] [id number] [place] [address] 90611- 8026 Oct, Uncomplicated opioid dependence F11.20 [facility] [address] [place] [address] Oct, Uncomplicated opioid dependence F11.20 [facility] [id number] [place] [address] 28820 2546 Oct, Uncomplicated opioid dependence F11.20 [facility] [id number] [place] [address] 46703 2546 07 Oct, 2017 Uncomplicated opioid dependence F11.20 [facility] [id number] [place] [address] 24876 2546 Oct, [facility] [id number] [place] [address] 92454 2549 07 Oct, 2017 Uncomplicated opioid dependence F11.20 [facility] [id number] [place] [address] 35532 254 Sep, Uncomplicated opioid dependence F11.20 [facility] [address] [place] [address] Sep, Uncomplicated opioid dependence F11.20 [facility] [id number] [place] [address] 23038 2543 Sep, Uncomplicated opioid dependence F11.20 [facility] [address] [place] [address] Sep, Uncomplicated opioid dependence F11.20 [facility] [id number] [place] [address] 05020 2543 15 Sep, 2017 Uncomplicated opioid dependence F11.20 [facility] [id number] [place] [address] 18210 2546 Sep, Uncomplicated opioid dependence F11.20 [facility] [address] [place] [address] Sep, Uncomplicated opioid dependence F11.20 [facility] [id number] [place] [address] 78466- 2709 Aug, Uncomplicated opioid dependence F11.20 [facility] [address] 05974[address] 3667 Aug, Uncomplicated opioid dependence F11.20 [facility] [address] [place] [address] Aug, Uncomplicated opioid dependence F11.20 [facility] [address] [place] [address] Aug, [facility] [id number] [place] [address] 00968- 1437 Aug, Uncomplicated opioid dependence F11.20 [facility] [address] [place] [address] Aug, Uncomplicated opioid dependence F11.20 [facility] [id number] [place] [address] 06723- 8704 Aug, Uncomplicated opioid dependence F11.20 [facility] [address] [place] [address] Aug, Uncomplicated opioid dependence F11.20 [facility] [id number] [place] [address] 83896- 9087 Jul, Uncomplicated opioid dependence F11.20 [facility] [id number] [place] [address] 28589- 3845 22 Jul, 2017 Uncomplicated opioid dependence F11.20 [facility] [address] [place] [address] Jul, Uncomplicated opioid dependence F11.20 [facility] [id number] [place] [address] 19333- 2549 15 Jul, 2017 Uncomplicated opioid dependence F11.20 [facility] [address] 92299- 3853 07 Jul, 2017 Uncomplicated opioid dependence F11.20 [facility] [id number] [place] [address] 04440- 8586 Jun, Uncomplicated opioid dependence F11.20 [facility] [address] [place] [address] Jun, Uncomplicated opioid dependence F11.20 [facility] [id number] [place] [address] 42303- 2748 Jun, Uncomplicated opioid dependence F11.20 [facility] [id number] [place] [address] 53079- 9669 Jun, Encounter for therapeutic drug level monitoring Z51.81 and Anxiety about health F41.8 [facility] [id number] [place] [address] 74111- 8864 May, Uncomplicated opioid dependence F11.20 [facility] [id number] [place] [address] 67655- 3911 May, [facility] [id number] [place] [address] 70592- 3147 May, Encounter for dental examination Z01.20 [facility] [id number] [place] [address] 60874- 2066 May, Uncomplicated opioid dependence F11.20 ; Encounter for therapeutic drug level monitoring Z51.81 and Calculus of gallbladder and bile duct without cholecystitis or obstruction K80.70 [facility] [address] [place] [address] May, Uncomplicated opioid dependence F11.20 [facility] [id number] [place] [address] 84956- 1601 May, Uncomplicated opioid dependence F11.20 [facility] [id number] [place] [address] 10895- 4584 May, [facility] [address] [place] [address] May, Uncomplicated opioid dependence F11.20 [facility] [address] 62012- 2858 Apr, Uncomplicated opioid dependence F11.20 [facility] [address] 28984- 6051 Apr, Uncomplicated opioid dependence F11.20 [facility] [address] [place] [address] 20 Apr, 2017 Uncomplicated opioid dependence F11.20 [facility] [id number] [place] [address] 43372- 6188 14 Apr, 2017 Encounter for therapeutic drug level monitoring Z51.81 [facility] [id number] [place] [address] 54681- 1646 14 Apr, 2017 Uncomplicated opioid dependence F11.20 [facility] [address] [place] [address] 09 Apr, 2017 Uncomplicated opioid dependence F11.20 [facility] [address] [place] [address] Apr, Uncomplicated opioid dependence F11.20 [facility] [id number] [place] [address] 85074- 0209 March, Uncomplicated opioid dependence F11.20 [facility] [address] [place] [address] March, Uncomplicated opioid dependence F11.20 [facility] [id number] [place] [address] 81235- 3369 March, Uncomplicated opioid dependence F11.20 [facility] [address] [place] [address] March, Uncomplicated opioid dependence F11.20 [facility] [address] [place] [address] March, Uncomplicated opioid dependence F11.20 [facility] [id number] [place] [address] 54880- 0716 March, [facility] [id number] [place] [address] 00219- 9459 March, [facility] [address] [place] [address] March, Uncomplicated opioid dependence F11.20 [facility] [id number] [place] [address] 84773- 4540 March, [facility] [address] [place] [address] March, Uncomplicated opioid dependence F11.20 [facility] [address] [address] [address] 2628 March, Uncomplicated opioid dependence F11.20 [facility] [address] [place] [address] March, Uncomplicated opioid dependence F11.20 [facility] [id number] [place] [address] 93962- 7206 Feb, Uncomplicated opioid dependence F11.20 [facility] [id number] [place] [address] 10798- 0292 Feb, [facility] [address] [place] [address] Feb, Uncomplicated opioid dependence F11.20 [facility] [address] [place] [address] Feb, Uncomplicated opioid dependence F11.20 [facility] [id number] [place] [address] 11303- 2417 Feb, Encounter for therapeutic drug level monitoring Z51.81 and Uncomplicated opioid dependence F11.20 [facility] [address] [place] [address] Feb, Uncomplicated opioid dependence F11.20 [facility] [id number] [place] [address] 36867- 3306 Feb, [facility] [id number] [place] [address] 88596- 9085 Feb, Uncomplicated opioid dependence F11.20 [facility] [id number] [place] [address] 12923- 1537 Feb, Encounter for therapeutic drug level monitoring Z51.81 [facility] [address] [place] [address] Feb, Uncomplicated opioid dependence F11.20 [facility] [id number] [place] [address] 01758- 6161 Feb, Uncomplicated opioid dependence F11.20 and Encounter for therapeutic drug level monitoring Z51.81 [facility] [address] [place] [address] Feb, Uncomplicated opioid dependence F11.20 [facility] [id number] [place] [address] 84149- 2068 14 Feb, 2017 Uncomplicated opioid dependence F11.20 [facility] [address] [place] [address] 13 Feb, 2017 Uncomplicated opioid dependence F11.20 [facility] [address] [place] [address] 13 Feb, 2017 [facility] [id number] [place] [address] 59617- 9907 13 Feb, 2017 Uncomplicated opioid dependence F11.20 [facility] [address] [place] [address] Feb, Uncomplicated opioid dependence F11.20 [facility] [address] [place] [address] Feb, [facility] [id number] [place] [address] 85083- 9665 Feb, Uncomplicated opioid dependence F11.20 [facility] [address] [place] [address] Feb, Uncomplicated opioid dependence F11.20 [facility] [id number] [place] [address] 00135- 7782 Feb, Uncomplicated opioid dependence F11.20 [facility] [id number] [place] [address] 20172- 8611 Feb, [facility] [id number] [place] [address] 52702- 6071 Feb, Uncomplicated opioid dependence F11.20 and Substance abuse F19.10 [facility] [address] [place] [address] Feb, Substance abuse F19.10 [facility] [address] [place] [address] 79764- 3591 Jan, Substance abuse F19.10 [facility] [id number] [place] [address] 83440- 9652 Jan, IMMUNIZATIONS No Known Immunizations SOCIAL HISTORY Never Assessed REASON FOR VISIT reschedule appointment PLAN OF CARE VITAL SIGNS MEDICATIONS Unknown [...]
--- OUTSIDE RECORDS SUMMARY | 2018-03-08 20:07 | XMS REPORT ---
Author Author ANABELLA GARCIA Organization [facility] Address [address] [place] [address] Care Team Providers Care Vessel Scrapper Name Role Phone ANABELLA GARCIA Unavailable PROBLEMS Type Condition ICD9-CM Code UAU25-XR Code Onset Dates Condition Status SNOMED Code Problem Anxiety about health F41.8 Active 680558449 Problem Encounter for therapeutic drug level monitoring Z51.81 Active 279790656 Problem Uncomplicated opioid dependence F11.20 Active 72884308 Problem Substance abuse F19.10 Active 77821231 ALLERGIES No Information ENCOUNTERS Encounter Location Date Diagnosis [facility] [address] [place] [address] Feb, [facility] [id number] [place] [address] 24269- 7145 Feb, Uncomplicated opioid dependence F11.20 [facility] [address] [place] [address] Feb, Uncomplicated opioid dependence F11.20 [facility] [id number] [place] [address] 52457- 6618 Jan, Uncomplicated opioid dependence F11.20 [facility] [address] [place] [address] Jan, [facility] [id number] [place] [address] 49299- 1233 Jan, Uncomplicated opioid dependence F11.20 [facility] [address] [place] [address] Jan, Uncomplicated opioid dependence F11.20 [facility] [id number] [place] [address] 84435- 5306 Jan, Uncomplicated opioid dependence F11.20 [facility] [address] [place] [address] Jan, Uncomplicated opioid dependence F11.20 [facility] [id number] [place] [address] 22949- 6539 07 Jan, 2018 Uncomplicated opioid dependence F11.20 [facility] [address] [place] [address] Jan, Uncomplicated opioid dependence F11.20 [facility] [address] [place] [address] Jan, [facility] [id number] [place] [address] 67012- 3346 Dec, Uncomplicated opioid dependence F11.20 [facility] [address] [place] [address] Dec, Uncomplicated opioid dependence F11.20 [facility] [address] [address] 4[address] 15 Dec, 2017 Uncomplicated opioid dependence F11.20 [facility] [address] 85789- 2186 08 Dec, 2017 Uncomplicated opioid dependence F11.20 [facility] [address] [place] [address] Dec, Uncomplicated opioid dependence F11.20 [facility] [address] 958[address] 3078 Nov, Uncomplicated opioid dependence F11.20 [facility] [address] [place] [address] Nov, Uncomplicated opioid dependence F11.20 [facility] [address] 79717- 8444 Nov, Uncomplicated opioid dependence F11.20 [facility] [address] [place] [address] Nov, Uncomplicated opioid dependence F11.20 [facility] [address] 6[address]13- 2991 Nov, Uncomplicated opioid dependence F11.20 [facility] [address] [place] [address] Nov, Uncomplicated opioid dependence F11.20 [facility] [address] 58334- 7083 Nov, Uncomplicated opioid dependence F11.20 [facility] [address] [place] [address] Nov, Uncomplicated opioid dependence F11.20 [facility] [id number] [place] [address] 35661- 8050 Nov, Uncomplicated opioid dependence F11.20 [facility] [address] [place] [address] Nov, Uncomplicated opioid dependence F11.20 [facility] [address] 39675- 3164 Oct, Uncomplicated opioid dependence F11.20 [facility] [address] [place] [address] Oct, Uncomplicated opioid dependence F11.20 [facility] [id number] [place] [address] 36569- 5453 Oct, Uncomplicated opioid dependence F11.20 [facility] [address] [place] [address] Oct, Uncomplicated opioid dependence F11.20 [facility] [id number] [place] [address] 53647- 6555 Oct, Uncomplicated opioid dependence F11.20 [facility] [id number] [place] [address] 26122- 4157 Oct, Uncomplicated opioid dependence F11.20 [facility] [id number] [place] [address] 79518- 8974 Oct, [facility] [address] [address] 2542 Oct, Uncomplicated opioid dependence F11.20 [facility] [id number] [place] [address] 65991- 1737 Sep, Uncomplicated opioid dependence F11.20 [facility] [address] [place] [address] Sep, Uncomplicated opioid dependence F11.20 [facility] [id number] [place] [address] 47854- 0756 Sep, Uncomplicated opioid dependence F11.20 [facility] [address] [place] [address] Sep, Uncomplicated opioid dependence F11.20 [facility] [id number] [place] [address] 03214- 5037 Sep, Uncomplicated opioid dependence F11.20 [facility] [id number] [place] [address] 82983- 3776 Sep, Uncomplicated opioid dependence F11.20 [facility] [address] [place] [address] Sep, Uncomplicated opioid dependence F11.20 [facility] [address] [address]85[address] 4633 Aug, Uncomplicated opioid dependence F11.20 [facility] [id number] [place] [address] 30321- 1626 Aug, Uncomplicated opioid dependence F11.20 [facility] [address] [place] [address] Aug, Uncomplicated opioid dependence F11.20 [facility] [address] [place] [address] Aug, [facility] [address] 85085- 6981 Aug, Uncomplicated opioid dependence F11.20 [facility] [address] [place] [address] Aug, Uncomplicated opioid dependence F11.20 [facility] [id number] [place] [address] 18475- 8249 Aug, Uncomplicated opioid dependence F11.20 [facility] [address] [place] [address] Aug, Uncomplicated opioid dependence F11.20 [facility] [id number] [place] [address] 39861- 7445 Jul, Uncomplicated opioid dependence F11.20 [facility] [id number] [place] [address] 76909- 6543 Jul, Uncomplicated opioid dependence F11.20 [facility] [address] [place] [address] 15 Jul, 2017 Uncomplicated opioid dependence F11.20 [facility] [id number] [place] [address] 12276- 5802 Jul, Uncomplicated opioid dependence F11.20 [facility] [id number] [place] [address] 52555- 0858 Jul, Uncomplicated opioid dependence F11.20 [facility] [id number] [place] [address] 32594- 9587 Jun, Uncomplicated opioid dependence F11.20 [facility] [address] [place] [address] Jun, Uncomplicated opioid dependence F11.20 [facility] [id number] [place] [address] 86794- 7945 Jun, Uncomplicated opioid dependence F11.20 [facility] [id number] [place] [address] 07593- 2057 Jun, Encounter for therapeutic drug level monitoring Z51.81 and Anxiety about health F41.8 [facility] [id number] [place] [address] 77929- 6778 May, Uncomplicated opioid dependence F11.20 [facility] [id number] [place] [address] 51432- 7212 May, [facility] [id number] [place] [address] 95050- 1888 May, Encounter for dental examination Z01.20 [facility] [id number] [place] [address] 76303- 3686 May, Uncomplicated opioid dependence F11.20 ; Encounter for therapeutic drug level monitoring Z51.81 and Calculus of gallbladder and bile duct without cholecystitis or obstruction K80.70 [facility] [address] [place] [address] May, Uncomplicated opioid dependence F11.20 [facility] [id number] [place] [address] 99768- 6534 May, Uncomplicated opioid dependence F11.20 [facility] [address] [address] 10 May, 2017 [facility] [address] [place] [address] 05 May, 2017 Uncomplicated opioid dependence F11.20 [facility] [address] [place] [address] 80567- 0779 23 Apr, 2017 Uncomplicated opioid dependence F11.20 [facility] [id number] [place] [address] 21858- 8856 Apr, Uncomplicated opioid dependence F11.20 [facility] [address] [place] [address] Apr, Uncomplicated opioid dependence F11.20 [facility] [id number] [place] [address] 29045- 0378 14 Apr, 2017 Encounter for therapeutic drug level monitoring Z51.81 [facility] [id number] [place] [address] 93104- 3349 Apr, Uncomplicated opioid dependence F11.20 [facility] [address] [place] [address] Apr, Uncomplicated opioid dependence F11.20 [facility] [address] [place] [address] Apr, Uncomplicated opioid dependence F11.20 [facility] [id number] [place] [address] 88996- 4811 March, Uncomplicated opioid dependence F11.20 [facility] [address] [place] [address] March, Uncomplicated opioid dependence F11.20 [facility] [id number] [place] [address] 37194- 7519 March, Uncomplicated opioid dependence F11.20 [facility] [address] [place] [address] March, Uncomplicated opioid dependence F11.20 [facility] [address] [place] [address] March, Uncomplicated opioid dependence F11.20 [facility] [address] [place] [address] March, [facility] [id number] [place] [address] 42105- 3768 March, [facility] [address] [place] [address] March, Uncomplicated opioid dependence F11.20 [facility] [id number] [place] [address] 02507- 7366 March, [facility] [address] [place] [address] March, Uncomplicated opioid dependence F11.20 [facility] [id number] [place] [address] 60848- 5777 March, Uncomplicated opioid dependence F11.20 [facility] [address] [place] [address] March, Uncomplicated opioid dependence F11.20 [facility] [id number] [place] [address] 65027- 2459 Feb, Uncomplicated opioid dependence F11.20 [facility] [id number] [place] [address] 86123- 2615 Feb, [facility] [address] [place] [address] Feb, Uncomplicated opioid dependence F11.20 [facility] [address] [place] [address] Feb, Uncomplicated opioid dependence F11.20 [facility] [id number] [place] [address] 65729- 2974 Feb, Encounter for therapeutic drug level monitoring Z51.81 and Uncomplicated opioid dependence F11.20 [facility] [address] [place] [address] Feb, Uncomplicated opioid dependence F11.20 [facility] [id number] [place] [address] 98638- 0289 Feb, [facility] [id number] [place] [address] 56490- 2799 Feb, Uncomplicated opioid dependence F11.20 [facility] [address] [place] [address] 09030- 2743 18 Feb, 2017 Encounter for therapeutic drug level monitoring Z51.81 [facility] [address] [place] [address] 17 Feb, 2017 Uncomplicated opioid dependence F11.20 [facility] [id number] [place] [address] 53386- 9601 17 Feb, 2017 Uncomplicated opioid dependence F11.20 and Encounter for therapeutic drug level monitoring Z51.81 [facility] [address] [place] [address] 14 Feb, 2017 Uncomplicated opioid dependence F11.20 [facility] [id number] [place] [address] 21621- 7235 14 Feb, 2017 Uncomplicated opioid dependence F11.20 [facility] [address] [place] [address] Feb, Uncomplicated opioid dependence F11.20 [facility] [address] [place] [address] Feb, [facility] [id number] [place] [address] 35443- 6753 Feb, Uncomplicated opioid dependence F11.20 [facility] [address] [place] [address] Feb, Uncomplicated opioid dependence F11.20 [facility] [address] [place] [address] Feb, [facility] [id number] [place] [address] 11807- 8004 Feb, Uncomplicated opioid dependence F11.20 [facility] [address] [place] [address] Feb, Uncomplicated opioid dependence F11.20 [facility] [id number] [place] [address] 11823- 7016 Feb, Uncomplicated opioid dependence F11.20 [facility] [id number] [place] [address] 93631- 7076 Feb, [facility] [id number] [place] [address] 80832- 8659 Feb, Uncomplicated opioid dependence F11.20 and Substance abuse F19.10 [facility] [address] [place] [address] Feb, Substance abuse F19.10 [facility] [address] [facility] [id number] [address] Jan, Substance abuse F19.10 [facility] [address] [facility] [id number] Jan, IMMUNIZATIONS No Known Immunizations SOCIAL HISTORY Never Assessed REASON FOR VISIT Medication PLAN OF CARE VITAL SIGNS MEDICATIONS Medication Instructions Dosage Frequency Start Date End Date Duration Status Suboxone 8-2 MG Sublingual Once a day 1.5 application under the tongue and allow to dissolve 24h Feb, 13 days Active RESULTS No Results PROCEDURES No [...]
--- OUTSIDE RECORDS SUMMARY | 2018-03-08 20:08 | XMS REPORT ---
Author Author MICHELA IQBAL Organization [facility] Address [address] [place] [address] Care Team Providers Care Labor Delivery Rn Name Role Phone MICHELA IQBAL Unavailable PROBLEMS Type Condition ICD9-CM Code ZXX83-QG Code Onset Dates Condition Status SNOMED Code Problem Anxiety about health F41.8 Active 529541392 Problem Encounter for therapeutic drug level monitoring Z51.81 Active 626072169 Problem Uncomplicated opioid dependence F11.20 Active 21055724 Problem Substance abuse F19.10 Active [id number] ALLERGIES No Information ENCOUNTERS Encounter Location Date Diagnosis [facility] [address] [place] [address] Feb, [facility] [id number] [place] [address]2301- 6023 Feb, Uncomplicated opioid dependence F11.20 [facility] [address] [place] [address] Feb, Uncomplicated opioid dependence F11.20 [facility] [id number] [place] [address] 97821- 6700 Jan, Uncomplicated opioid dependence F11.20 [facility] [address] [place] [address] Jan, [facility] [id number] [place] [address] 52358- 1094 Jan, Uncomplicated opioid dependence F11.20 [facility] [address] [place] [address] Jan, Uncomplicated opioid dependence F11.20 [facility] [id number] [place] [address] 80812- 2846 Jan, Uncomplicated opioid dependence F11.20 [facility] [address] [place] [address] Jan, Uncomplicated opioid dependence F11.20 [facility] [id number] [place] [address] 11766- 1859 07 Jan, 2018 Uncomplicated opioid dependence F11.20 [facility] [address] [place] [address] Jan, Uncomplicated opioid dependence F11.20 [facility] [address] [place] [address] Jan, [facility] [id number] [place] [address] 04724- 6099 Dec, Uncomplicated opioid dependence F11.20 [facility] [address] [place] [address] Dec, Uncomplicated opioid dependence F11.20 [facility] [address] [address]- 6[address] 15 Dec, 2017 Uncomplicated opioid dependence F11.20 [facility] [address] 6[address]16- 9013 08 Dec, 2017 Uncomplicated opioid dependence F11.20 [facility] [address] [place] [address] Dec, Uncomplicated opioid dependence F11.20 [facility] [address] 91892- 0731 Nov, Uncomplicated opioid dependence F11.20 [facility] [address] [place] [address] Nov, Uncomplicated opioid dependence F11.20 [facility] [address] 8[address]- 2959 Nov, Uncomplicated opioid dependence F11.20 [facility] [address] [place] [address] Nov, Uncomplicated opioid dependence F11.20 [facility] [address] 01868- 3985 Nov, Uncomplicated opioid dependence F11.20 [facility] [address] [place] [address] Nov, Uncomplicated opioid dependence F11.20 [facility] [address] 13708- 9144 Nov, Uncomplicated opioid dependence F11.20 [facility] [address] [place] [address] Nov, Uncomplicated opioid dependence F11.20 [facility] [id number] [place] [address] 00025- 3238 Nov, Uncomplicated opioid dependence F11.20 [facility] [address] [place] [address] Nov, Uncomplicated opioid dependence F11.20 [facility] [address] 58046- 7662 Oct, Uncomplicated opioid dependence F11.20 [facility] [address] [place] [address] Oct, Uncomplicated opioid dependence F11.20 [facility] [id number] [place] [address] 46849- 8189 Oct, Uncomplicated opioid dependence F11.20 [facility] [address] [place] [address] Oct, Uncomplicated opioid dependence F11.20 [facility] [id number] [place] [address] 14401- 9424 Oct, Uncomplicated opioid dependence F11.20 [facility] [id number] [place] [address] 55042- 8116 Oct, Uncomplicated opioid dependence F11.20 [facility] [id number] [place] [address] 89403- 3164 Oct, [facility] [address] [address] 2549 Oct, Uncomplicated opioid dependence F11.20 [facility] [id number] [place] [address] 67937- 8011 Sep, Uncomplicated opioid dependence F11.20 [facility] [address] [place] [address] Sep, Uncomplicated opioid dependence F11.20 [facility] [id number] [place] [address] 44737- 0791 Sep, Uncomplicated opioid dependence F11.20 [facility] [address] [place] [address] Sep, Uncomplicated opioid dependence F11.20 [facility] [id number] [place] [address] 63943- 7039 Sep, Uncomplicated opioid dependence F11.20 [facility] [id number] [place] [address] 00877- 6859 Sep, Uncomplicated opioid dependence F11.20 [facility] [address] [place] [address] Sep, Uncomplicated opioid dependence F11.20 [facility] [address] 43272- 8816 Aug, Uncomplicated opioid dependence F11.20 [facility] [id number] [place] [address] 02341- 6638 Aug, Uncomplicated opioid dependence F11.20 [facility] [address] [place] [address] Aug, Uncomplicated opioid dependence F11.20 [facility] [address] [place] [address] Aug, [facility] [address] 99534- 9439 Aug, Uncomplicated opioid dependence F11.20 [facility] [address] [place] [address] Aug, Uncomplicated opioid dependence F11.20 [facility] [id number] [place] [address] 61846- 7530 Aug, Uncomplicated opioid dependence F11.20 [facility] [address] [place] [address] Aug, Uncomplicated opioid dependence F11.20 [facility] [id number] [place] [address] 11744- 6333 Jul, Uncomplicated opioid dependence F11.20 [facility] [id number] [place] [address] 95434- 4758 Jul, Uncomplicated opioid dependence F11.20 [facility] [address] [place] [address] 15 Jul, 2017 Uncomplicated opioid dependence F11.20 [facility] [id number] [place] [address] 04586- 4426 Jul, Uncomplicated opioid dependence F11.20 [facility] [id number] [place] [address] 06151- 9410 Jul, Uncomplicated opioid dependence F11.20 [facility] [id number] [place] [address] 92296- 4278 Jun, Uncomplicated opioid dependence F11.20 [facility] [address] [place] [address] Jun, Uncomplicated opioid dependence F11.20 [facility] [id number] [place] [address] 45218- 6385 Jun, Uncomplicated opioid dependence F11.20 [facility] [id number] [place] [address] 71441- 5790 Jun, Encounter for therapeutic drug level monitoring Z51.81 and Anxiety about health F41.8 [facility] [id number] [place] [address] 58585- 2331 May, Uncomplicated opioid dependence F11.20 [facility] [id number] [place] [address] 16598- 9866 May, [facility] [id number] [place] [address] 33946- 6778 May, Encounter for dental examination Z01.20 [facility] [id number] [place] [address] 70075- 0536 May, Uncomplicated opioid dependence F11.20 ; Encounter for therapeutic drug level monitoring Z51.81 and Calculus of gallbladder and bile duct without cholecystitis or obstruction K80.70 [facility] [address] [place] [address] May, Uncomplicated opioid dependence F11.20 [facility] [id number] [place] [address] 23688- 3405 May, Uncomplicated opioid dependence F11.20 [facility] [address] [address] 10 May, 2017 [facility] [address] [place] [address] 05 May, 2017 Uncomplicated opioid dependence F11.20 [facility] [id number] [place] [address] 24699- 2794 23 Apr, 2017 Uncomplicated opioid dependence F11.20 [facility] [id number] [place] [address] 71028- 2405 Apr, Uncomplicated opioid dependence F11.20 [facility] [address] [place] [address] Apr, Uncomplicated opioid dependence F11.20 [facility] [id number] [place] [address] 36869- 0763 14 Apr, 2017 Encounter for therapeutic drug level monitoring Z51.81 [facility] [id number] [place] [address] 65234- 1543 Apr, Uncomplicated opioid dependence F11.20 [facility] [address] [place] [address] Apr, Uncomplicated opioid dependence F11.20 [facility] [address] [place] [address] Apr, Uncomplicated opioid dependence F11.20 [facility] [id number] [place] [address] 75496- 2861 March, Uncomplicated opioid dependence F11.20 [facility] [address] [place] [address] March, Uncomplicated opioid dependence F11.20 [facility] [id number] [place] [address] 56331- 2424 March, Uncomplicated opioid dependence F11.20 [facility] [address] [place] [address] March, Uncomplicated opioid dependence F11.20 [facility] [address] [place] [address] March, Uncomplicated opioid dependence F11.20 [facility] [address] [place] [address] March, [facility] [place] [id number] [place] [address] 73586- 2214 March, [facility] [address] [place] [address] March, Uncomplicated opioid dependence F11.20 [facility] [id number] [place] [address] 37137- 6821 March, [facility] [address] [place] [address] March, Uncomplicated opioid dependence F11.20 [facility] [id number] [place] [address] 54156- 5535 March, Uncomplicated opioid dependence F11.20 [facility] [address] [place] [address] March, Uncomplicated opioid dependence F11.20 [facility] [id number] [place] [address] 81491- 3095 Feb, Uncomplicated opioid dependence F11.20 [facility] [id number] [place] [address] 58948- 1958 Feb, [facility] [address] [place] [address] Feb, Uncomplicated opioid dependence F11.20 [facility] [address] [place] [address] Feb, Uncomplicated opioid dependence F11.20 [facility] [id number] [place] [address] 46406- 1182 Feb, Encounter for therapeutic drug level monitoring Z51.81 and Uncomplicated opioid dependence F11.20 [facility] [address] [place] [address] Feb, Uncomplicated opioid dependence F11.20 [facility] [id number] [place] [address] 88168- 6423 Feb, [facility] [id number] [place] [address] 42324- 5972 Feb, Uncomplicated opioid dependence F11.20 [facility] [id number] [place] [address] 55663- 6714 18 Feb, 2017 Encounter for therapeutic drug level monitoring Z51.81 [facility] [address] [place] [address] 17 Feb, 2017 Uncomplicated opioid dependence F11.20 [facility] [id number] [place] [address] 04073- 7339 17 Feb, 2017 Uncomplicated opioid dependence F11.20 and Encounter for therapeutic drug level monitoring Z51.81 [facility] [address] [place] [address] 14 Feb, 2017 Uncomplicated opioid dependence F11.20 [facility] [id number] [place] [address] 68119- 5493 14 Feb, 2017 Uncomplicated opioid dependence F11.20 [facility] [address] [place] [address] Feb, Uncomplicated opioid dependence F11.20 [facility] [address] [place] [address] Feb, [facility] [id number] [place] [address] 91274- 6141 Feb, Uncomplicated opioid dependence F11.20 [facility] [address] [place] [address] Feb, Uncomplicated opioid dependence F11.20 [facility] [address] [place] [address] Feb, [facility] [id number] [place] [address] 34791- 0032 Feb, Uncomplicated opioid dependence F11.20 [facility] [address] [place] [address] Feb, Uncomplicated opioid dependence F11.20 [facility] [id number] [place] [address] 07137- 4023 Feb, Uncomplicated opioid dependence F11.20 [facility] [id number] [place] [address] 00555- 5457 Feb, [facility] [id number] [place] [address] 78505- 2392 Feb, Uncomplicated opioid dependence F11.20 and Substance abuse F19.10 [facility] [address] [place] [address] Feb, Substance abuse F19.10 [facility] [address] [facility] [id number] [address] Jan, Substance abuse F19.10 [facility] [address] [facility] [id number] [place] Jan, IMMUNIZATIONS No Known Immunizations SOCIAL HISTORY Never Assessed REASON FOR VISIT SUBAB-F/U PLAN OF CARE Activity Details Follow Up 1 Week Reason: VITAL SIGNS MEDICATIONS Unknown Medications RESULTS No Results PROCEDURES Procedure Date Ordered Result Body Site Psychotherapy, patient &/family, 30 minutes, established patient May 11, 2017 INSTRUCTIONS MEDICATIONS ADMINISTERED No Known Medications [...]
--- OUTSIDE RECORDS SUMMARY | 2018-03-08 20:09 | XMS REPORT | Continuity of Care Document ---
Author Author [facility] Organization [facility] Address Unknown Phone Unavailable Allergies Active Description Code Type Severity Reaction Onset Reported/Identified Relationship to Patient Clinical Status Yes No Known Drug Allergies [id number] Drug Allergy Mild N/A 06/11/2009 Medications There is no data. Problems Date Dx Coded Attending Type Code Diagnosis Diagnosed By 10/16/2009 Ot 530.11 REFLUX ESOPHAGITIS 10/16/2009 Ot 569.3 RECTAL ANAL HEMORRHAGE 04/17/2015 GALA ARMAS DO Ot 574.20 CHOLELITHIASIS NOS 04/17/2015 GALA ARMAS DO Ot 592.1 CALCULUS OF URETER 04/17/2015 GALA ARMAS DO Ot 789.00 ABDOMINAL PAIN, UNSPECIFIED SITE 10/11/2016 CAROLINE RADER Ot F17.210 NICOTINE DEPENDENCE, CIGARETTES, UNCOMPL 10/11/2016 CAROLINE RADER Ot K04.7 PERIAPICAL ABSCESS WITHOUT SINUS 10/11/2016 CAROLINE RADER Ot K08.9 DISORDER OF TEETH AND SUPPORTING STRUCTU 10/12/2016 CAROLINE RADER Ot F17.210 NICOTINE DEPENDENCE, CIGARETTES, UNCOMPL 10/12/2016 CAROLINE RADER Ot K04.7 PERIAPICAL ABSCESS WITHOUT SINUS 10/12/2016 CAROLINE RADER Ot K08.9 DISORDER OF TEETH AND SUPPORTING STRUCTU 10/13/2016 CAROLINE RADER Ot F17.210 NICOTINE DEPENDENCE, CIGARETTES, UNCOMPL 10/13/2016 CAROLINE RADER Ot K04.7 PERIAPICAL ABSCESS WITHOUT SINUS 10/13/2016 CAROLINE RADER Ot K08.9 DISORDER OF TEETH AND SUPPORTING STRUCTU 05/10/2017 GALA ARMAS DO Ot F17.210 NICOTINE DEPENDENCE, CIGARETTES, UNCOMPL 05/10/2017 GALA ARMAS DO Ot R20.0 ANESTHESIA OF SKIN 05/10/2017 GALA ARMAS DO Ot R20.2 PARESTHESIA OF SKIN 06/07/2017 ALICIA HARRY MD Ot F17.210 NICOTINE DEPENDENCE, CIGARETTES, UNCOMPL 06/07/2017 ALICIA HARRY MD Ot F41.9 ANXIETY DISORDER, UNSPECIFIED 06/07/2017 ALICIA HARRY MD Ot K21.9 GASTRO-ESOPHAGEAL REFLUX DISEASE WITHOUT 06/07/2017 ALICIA HARRY MD Ot K80.20 CALCULUS OF GALLBLADDER W/O CHOLECYSTITI 06/07/2017 ALICIA HARRY MD Ot M54.5 LOW BACK PAIN 06/07/2017 ALICIA HARRY MD Ot Z87.19 PERSONAL HISTORY OF OTHER DISEASES OF TH 06/07/2017 ALICIA HARRY MD Ot Z87.442 PERSONAL HISTORY OF URINARY CALCULI 06/07/2017 ALICIA HARRY MD Ot Z96.0 PRESENCE OF UROGENITAL IMPLANTS 06/12/2017 MALCOLM HENRY MD, Ot F41.9 ANXIETY DISORDER, UNSPECIFIED 06/12/2017 MALCOLM HENRY MD, Ot K21.9 GASTRO-ESOPHAGEAL REFLUX DISEASE WITHOUT 06/12/2017 MALCOLM HENRY MD Ot M25.512 PAIN IN LEFT SHOULDER 06/12/2017 MALCOLM HENRY MD Ot R07.89 OTHER CHEST PAIN 06/12/2017 MALCOLM HENRY MD Ot Z77.22 CNTCT W AND EXPSR TO ENVIRON TOBACCO SMO 06/12/2017 MALCOLM HENRY MD Ot Z87.442 PERSONAL HISTORY OF URINARY CALCULI 06/12/2017 MALCOLM HENRY MD Ot Z96.0 PRESENCE OF UROGENITAL IMPLANTS 06/12/2017 WILLIAM CRAIG APRN Ot F41.9 ANXIETY DISORDER, UNSPECIFIED 06/12/2017 WILLIAM CRAIG APRN Ot K21.9 GASTRO-ESOPHAGEAL REFLUX DISEASE WITHOUT 06/12/2017 WILLIAM CRAIG APRN Ot R20.0 ANESTHESIA OF SKIN 06/12/2017 WILLIAM CRAIG APRN Ot R20.2 PARESTHESIA OF SKIN 06/12/2017 WILLIAM CRAIG APRN Ot Z77.22 CNTCT W AND EXPSR TO ENVIRON TOBACCO SMO 06/12/2017 WILLIAM CRAIG APRN Ot Z87.442 PERSONAL HISTORY OF URINARY CALCULI 06/12/2017 WILLIAM CRAIG APRN Ot Z96.0 PRESENCE OF UROGENITAL IMPLANTS 06/19/2017 ALICIA HARRY MD Ot 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 WITHOUT AGORAPHOBIA 06/19/2017 ALICIA HARRY MD Ot F43.9 REACTION TO SEVERE STRESS, UNSPECIFIED 06/19/2017 ALICIA HARRY MD Ot G57.92 UNSPECIFIED MONONEUROPATHY OF LEFT LOWER 06/19/2017 ALICIA HARRY MD, Ot K21.9 GASTRO-ESOPHAGEAL REFLUX DISEASE WITHOUT 06/19/2017 ALICIA HARRY MD Ot R20.0 ANESTHESIA OF SKIN 06/19/2017 ALICIA HARRY MD Ot Z77.22 CNTCT W AND EXPSR TO ENVIRON TOBACCO SMO 06/19/2017 ALICIA HARRY MD Ot Z87.442 PERSONAL HISTORY OF URINARY CALCULI 06/19/2017 ALICIA HARRY MD Ot Z96.0 PRESENCE OF UROGENITAL IMPLANTS 07/09/2017 CHANDA DO, GALA K Ot F17.210 NICOTINE DEPENDENCE, CIGARETTES, UNCOMPL 07/09/2017 CHANDA DO, GALA K Ot K02.9 DENTAL CARIES, UNSPECIFIED 07/09/2017 CHANDA DO, GALA K Ot K08.9 DISORDER OF TEETH AND SUPPORTING STRUCTU 07/14/2017 CHANDA , GALA K Ot F17.210 NICOTINE DEPENDENCE, CIGARETTES, UNCOMPL 07/14/2017 CHANDA , GALA K Ot K02.9 DENTAL CARIES, UNSPECIFIED 07/14/2017 CHANDA DO GALA K Ot K08.9 DISORDER OF TEETH AND SUPPORTING STRUCTU 02/14/2018 WILLIAM CRAIG APRN Ot F41.9 ANXIETY DISORDER, UNSPECIFIED 02/14/2018 WILLIAM CRAIG APRN Ot G44.209 TENSION-TYPE HEADACHE, UNSPECIFIED, NOT 02/14/2018 WILLIAM CRAIG APRN Ot K21.9 GASTRO-ESOPHAGEAL REFLUX DISEASE WITHOUT 02/14/2018 WILLIAM CRAIG APRN Ot M54.2 CERVICALGIA 02/14/2018 WILLIAM CRAIG APRN Ot Z77.22 CNTCT W AND EXPSR TO ENVIRON TOBACCO SMO 02/14/2018 WILLIAM CRAIG APRN Ot Z87.19 PERSONAL HISTORY OF OTHER DISEASES OF TH 02/14/2018 WILLIAM CRAIG APRN Ot Z87.442 PERSONAL HISTORY OF URINARY CALCULI 02/14/2018 WILLIAM CRAIG APRN Ot Z96.0 PRESENCE OF UROGENITAL IMPLANTS 02/16/2018 WILLIAM CRAIG APRN Ot F41.9 ANXIETY DISORDER, UNSPECIFIED 02/16/2018 WILLIAM CRAIG APRN Ot G44.209 TENSION-TYPE HEADACHE, UNSPECIFIED, NOT 02/16/2018 WILLIAM CRAIG APRN Ot K21.9 GASTRO-ESOPHAGEAL REFLUX DISEASE WITHOUT 02/16/2018 WILLIAM CRAIG APRN Ot M54.2 CERVICALGIA 02/16/2018 WILLIAM CRAIG APRN Ot Z77.22 CNTCT W AND EXPSR TO ENVIRON TOBACCO SMO 02/16/2018 WILLIAM CRAIG APRN Ot Z87.19 PERSONAL HISTORY OF OTHER DISEASES OF 02/16/2018 WILLIAM CRAIG APRN Ot Z87.442 PERSONAL HISTORY OF URINARY CALCULI 02/16/2018 WILLIAM CRAIG APRN Ot Z96.0 PRESENCE OF UROGENITAL IMPLANTS Procedures There is no data. Results Test Result Range CBC With Differential/Platelet - 03/01/17 10:36 WBC 6.4 x10E3/uL 3.4-10.8 RBC 5.38 x10E6/uL 4.14-5.80 Hemoglobin 15.6 g/dL 12.6-17.7 Hematocrit 46.6 % 37.5-51.0 MCV 87 fL 79-97 MCH 29.0 pg 26.6-33.0 MCHC 33.5 g/dL 31.5-35.7 RDW 13.9 % 12.3-15.4 Platelets 220 x10E3/uL 150-379 Neutrophils 65 % Lymphs 27 % Monocytes 5 % Eos 3 % Basos 0 % Neutrophils (Absolute) 4.2 x10E3/uL 1.4-7.0 Lymphs (Absolute) 1.8 x10E3/uL 0.7-3.1 Monocytes(Absolute) 0.3 x10E3/uL 0.1-0.9 Eos (Absolute) 0.2 x10E3/uL 0.0-0.4 Baso (Absolute) 0.0 x10E3/uL 0.0-0.2 Immature Granulocytes 0 % Immature Grans (Abs) 0.0 x10E3/uL 0.0-0.1 Comp. Metabolic Panel (14) - 03/01/17 10:36 Glucose, Serum 98 mg/dL 65-99 BUN 11 mg/dL 6-20 Creatinine, Serum 0.83 mg/dL 0.76-1.27 eGFR If NonAfricn Am 121 mL/min/1.73 >59 eGFR If Africn Am 140 mL/min/1.73 >59 BUN/Creatinine Ratio 13 9-20 Sodium, Serum 143 mmol/L 134-144 Potassium, Serum 4.5 mmol/L 3.5-5.2 Chloride, Serum 101 mmol/L 96-106 Carbon Dioxide, Total 25 mmol/L 18-29 Calcium, Serum 10.2 mg/dL 8.7-10.2 Protein, Total, Serum 7.9 g/dL 6.0-8.5 Albumin, Serum 5.3 g/dL 3.5-5.5 Globulin, Total 2.6 g/dL 1.5-4.5 A/G Ratio 2.0 1.2-2.2 Bilirubin, Total 0.5 mg/dL 0.0-1.2 Alkaline Phosphatase, S 74 IU/L 39-117 AST (SGOT) 14 IU/L 0-40 ALT (SGPT) 10 IU/L 0-44 Hepatitis Panel (4) - 03/01/17 10:36 HBsAg Screen Negative Negative Hep A Ab, IgM Negative Negative Hep B Core Ab, IgM Negative Negative Hep C Virus Ab <0.1 s/co ratio 0.0-0.9 Prothrombin Time (PT) - 03/01/17 10:36 INR 1.0 0.8-1.2 Prothrombin Time 10.8 sec 9.1-12.0 Complete blood count (CBC) with automated white blood cell (WBC) differential - 05/04/17 22:05 Blood leukocytes automated count (number/volume) 8.7 10*3/uL 4.3-11.0 Blood erythrocytes automated count (number/volume) 5.57 10*6/uL 4.35-5.85 Venous blood hemoglobin measurement (mass/volume) 15.9 g/dL 13.3-17.7 Blood hematocrit (volume fraction) 46 % 40-54 Automated erythrocyte mean corpuscular volume 83 [foz_us] 80-99 Automated erythrocyte mean corpuscular hemoglobin (mass per erythrocyte) 29 pg 25-34 Automated erythrocyte mean corpuscular hemoglobin concentration measurement ( mass/volume) 34 g/dL 32-36 Automated erythrocyte distribution width ratio 12.8 % 10.0-14.5 Automated blood platelet count (count/volume) 239 10*3/uL 130-400 Automated blood platelet mean volume measurement 11.7 [foz_us] 7.4-10.4 Automated blood neutrophils/100 leukocytes 51 % 42-75 Automated blood lymphocytes/100 leukocytes 39 % 12-44 Blood monocytes/100 leukocytes 7 % 0-12 Automated blood eosinophils/100 leukocytes 4 % 0-10 Automated blood basophils/100 leukocytes 0 % 0-10 Blood neutrophils automated count (number/volume) 4.4 10*3 1.8-7.8 Blood lymphocytes automated count (number/volume) 3.4 10*3 1.0-4.0 Blood monocytes automated count (number/volume) 0.6 10*3 0.0-1.0 Automated eosinophil count 0.4 10*3/uL 0.0-0.3 Automated blood basophil count (count/volume) 0.0 10*3/uL 0.0-0.1 Comprehensive metabolic panel - 05/04/17 22:05 Serum or plasma sodium measurement (moles/volume) 144 mmol/L 135-145 Serum or plasma potassium measurement (moles/volume) 3.7 mmol/L 3.6-5.0 Serum or plasma chloride measurement (moles/volume) 106 mmol/L 98-107 Carbon dioxide 26 mmol/L 21-32 Serum or plasma anion gap determination (moles/volume) 12 mmol/L 5-14 Serum or plasma urea nitrogen measurement (mass/volume) 10 mg/dL 7-18 Serum or plasma creatinine measurement (mass/volume) 0.90 mg/dL 0.60-1.30 Serum or plasma urea nitrogen/creatinine mass ratio 11 0 -20 Serum or plasma creatinine measurement with calculation of estimated glomerular filtration rate > NRG Serum or plasma glucose measurement (mass/volume) 61 mg/dL 70-105 Serum or plasma calcium measurement (mass/volume) 10.0 mg/dL 8.5-10.1 Serum or plasma total bilirubin measurement (mass/volume) 0.3 mg/dL 0.1-1.0 Serum or plasma alkaline phosphatase measurement (enzymatic activity/volume) 74 U/L 40-136 Serum or plasma aspartate aminotransferase measurement (enzymatic activity/ volume) 21 U/L 5-34 Serum or plasma alanine aminotransferase measurement (enzymatic activity/volume ) 14 U/L 0-55 Serum or plasma protein measurement (mass/volume) 8.3 g/dL 6.4-8.2 Serum or plasma albumin measurement (mass/volume) 4.8 g/dL 3.2-4.5 Complete urinalysis with reflex to culture - 05/04/17 22:46 Urine color determination YELLOW NRG Urine clarity determination CLEAR NRG Urine pH measurement by test strip 6.5 5-9 Specific gravity of urine by test strip 1.015 1.016- 1.022 Urine protein assay by test strip, semi-quantitative NEGATIVE NEGATIVE Urine glucose detection by automated test strip NEGATIVE NEGATIVE Erythrocytes detection in urine sediment by light microscopy 2+ NEGATIVE Urine ketones detection by automated test strip NEGATIVE NEGATIVE Urine nitrite detection by test strip NEGATIVE NEGATIVE Urine total bilirubin detection by test strip NEGATIVE NEGATIVE Urine urobilinogen measurement by automated test strip (mass/volume) NORMAL NORMAL Urine leukocyte esterase detection by dipstick NEGATIVE NEGATIVE Automated urine sediment erythrocyte count by microscopy (number/high power field) [HPF] NRG Automated urine sediment leukocyte count by microscopy (number/high power field ) NONE NRG Bacteria detection in urine sediment by light microscopy NONE NRG Squamous epithelial cells detection in urine sediment by light microscopy RARE NRG Crystals detection in urine sediment by light microscopy NONE NRG Casts detection in urine sediment by light microscopy NONE NRG Mucus detection in urine sediment by light microscopy NEGATIVE NRG Complete urinalysis with reflex to culture NO NRG Urine drug screening test - 05/10/17 00:47 Urine phencyclidine detection by screening method NEGATIVE NEGATIVE Urine benzodiazepines detection by screening method NEGATIVE NEGATIVE Urine cocaine detection NEGATIVE NEGATIVE Urine amphetamines detection by screening method NEGATIVE NEGATIVE Urine methamphetamine detection by screening method NEGATIVE NEGATIVE Urine cannabinoids detection by screening method NEGATIVE NEGATIVE Urine opiates detection by screening method NEGATIVE NEGATIVE Urine barbiturates detection NEGATIVE NEGATIVE Screening urine tricyclic antidepressants detection NEGATIVE NEGATIVE Urine methadone detection by screening method NEGATIVE NEGATIVE Urine oxycodone detection NEGATIVE NEGATIVE Urine propoxyphene detection NEGATIVE NEGATIVE Complete urinalysis with reflex to culture - 05/10/17 00:47 Urine color determination YELLOW NRG Urine clarity determination CLEAR NRG Urine pH measurement by test strip 7 5-9 Specific gravity of urine by test strip 1.010 1.016- 1.022 Urine protein assay by test strip, semi-quantitative NEGATIVE NEGATIVE Urine glucose detection by automated test strip NEGATIVE NEGATIVE Erythrocytes detection in urine sediment by light microscopy NEGATIVE NEGATIVE Urine ketones detection by automated test strip NEGATIVE NEGATIVE Urine nitrite detection by test strip NEGATIVE NEGATIVE Urine total bilirubin detection by test strip NEGATIVE NEGATIVE Urine urobilinogen measurement by automated test strip (mass/volume) NORMAL NORMAL Urine leukocyte esterase detection by dipstick NEGATIVE NEGATIVE Automated urine sediment erythrocyte count by microscopy (number/high power field) NONE NRG Automated urine sediment leukocyte count by microscopy (number/high power field ) NONE NRG Bacteria detection in urine sediment by light microscopy NEGATIVE NRG Squamous epithelial cells detection in urine sediment by light microscopy 0-2 NRG Crystals detection in urine sediment by light microscopy NONE NRG Casts detection in urine sediment by light microscopy NONE NRG Mucus detection in urine sediment by light microscopy NEGATIVE NRG Complete urinalysis with reflex to culture NO NRG Complete blood count (CBC) with automated white blood cell (WBC) differential - 05/10/17 00:53 Blood leukocytes automated count (number/volume) 7.4 10*3/uL 4.3-11.0 Blood erythrocytes automated count (number/volume) 5.06 10*6/uL 4.35-5.85 Venous blood hemoglobin measurement (mass/volume) 14.5 g/dL 13.3-17.7 Blood hematocrit (volume fraction) 43 % 40-54 Automated erythrocyte mean corpuscular volume 84 [foz_us] 80-99 Automated erythrocyte mean corpuscular hemoglobin (mass per erythrocyte) 29 pg 25-34 Automated erythrocyte mean corpuscular hemoglobin concentration measurement ( mass/volume) 34 g/dL 32-36 Automated erythrocyte distribution width ratio 12.8 % 10.0-14.5 Automated blood platelet count (count/volume) 196 10*3/uL 130-400 Automated blood platelet mean volume measurement 11.4 [foz_us] 7.4-10.4 Automated blood neutrophils/100 leukocytes 51 % 42-75 Automated blood lymphocytes/100 leukocytes 35 % 12-44 Blood monocytes/100 leukocytes 8 % 0-12 Automated blood eosinophils/100 leukocytes 6 % 0-10 Automated blood basophils/100 leukocytes 1 % 0-10 Blood neutrophils automated count (number/volume) 3.7 10*3 1.8-7.8 Blood lymphocytes automated count (number/volume) 2.6 10*3 1.0-4.0 Blood monocytes automated count (number/volume) 0.6 10*3 0.0-1.0 Automated eosinophil count 0.4 10*3/uL 0.0-0.3 Automated blood basophil count (count/volume) 0.0 10*3/uL 0.0-0.1 Comprehensive metabolic panel - 05/10/17 00:53 Serum or plasma sodium measurement (moles/volume) 142 mmol/L 135-145 Serum or plasma potassium measurement (moles/volume) 3.4 mmol/L 3.6-5.0 Serum or plasma chloride measurement (moles/volume) 106 mmol/L 98-107 Carbon dioxide 23 mmol/L 21-32 Serum or plasma anion gap determination (moles/volume) 13 mmol/L 5-14 Serum or plasma urea nitrogen measurement (mass/volume) 8 mg/dL 7-18 Serum or plasma creatinine measurement (mass/volume) 0.85 mg/dL 0.60-1.30 Serum or plasma urea nitrogen/creatinine mass ratio 9 0- 20 Serum or plasma creatinine measurement with calculation of estimated glomerular filtration rate > NRG Serum or plasma glucose measurement (mass/volume) 106 mg/dL 70-105 Serum or plasma calcium measurement (mass/volume) 9.6 mg/dL 8.5-10.1 Serum or plasma total bilirubin measurement (mass/volume) 0.5 mg/dL 0.1-1.0 Serum or plasma alkaline phosphatase measurement (enzymatic activity/volume) 81 U/L 40-136 Serum or plasma aspartate aminotransferase measurement (enzymatic activity/ volume) 24 U/L 5-34 Serum or plasma alanine aminotransferase measurement (enzymatic activity/volume ) 16 U/L 0-55 Serum or plasma protein measurement (mass/volume) 7.7 g/dL 6.4-8.2 Serum or plasma albumin measurement (mass/volume) 4.8 g/dL 3.2-4.5 Magnesium - 05/10/17 00:53 Magnesium 2.1 mg/dL 1.8-2.4 Serum or plasma thyrotropin measurement by detection limit <=0.05 miu/l (units/ volume) - 05/10/17 00:53 Serum or plasma thyrotropin measurement by detection limit <=0.05 miu/l (units/ volume) 3.02 u[iU]/mL 0.35-4.94 Serum or plasma ethanol measurement (mass/volume) - 05/10/17 00:53 Serum or plasma ethanol measurement (mass/volume) < mg/dL <10 Complete urinalysis with reflex to culture - 06/07/17 17:45 Urine color determination YELLOW NRG Urine clarity determination CLEAR NRG Urine pH measurement by test strip 7 5-9 Specific gravity of urine by test strip 1.010 1.016- 1.022 Urine protein assay by test strip, semi-quantitative NEGATIVE NEGATIVE Urine glucose detection by automated test strip NEGATIVE NEGATIVE Erythrocytes detection in urine sediment by light microscopy NEGATIVE NEGATIVE Urine ketones detection by automated test strip NEGATIVE NEGATIVE Urine nitrite detection by test strip NEGATIVE NEGATIVE Urine total bilirubin detection by test strip NEGATIVE NEGATIVE Urine urobilinogen measurement by automated test strip (mass/volume) NORMAL NORMAL Urine leukocyte esterase detection by dipstick NEGATIVE NEGATIVE Automated urine sediment erythrocyte count by microscopy (number/high power field) NONE NRG Automated urine sediment leukocyte count by microscopy (number/high power field ) NONE NRG Bacteria detection in urine sediment by light microscopy NONE NRG Crystals detection in urine sediment by light microscopy PRESENT NRG Casts detection in urine sediment by light microscopy NONE NRG Mucus detection in urine sediment by light microscopy NEGATIVE NRG Complete urinalysis with reflex to culture NO NRG Amorphous sediment detection in urine sediment by light microscopy RARE GWENDOLYN URATES NRG Complete blood count (CBC) with automated white blood cell (WBC) differential - 06/07/17 18:02 Blood leukocytes automated count (number/volume) 17.5 10*3/uL 4.3-11.0 Blood erythrocytes automated count (number/volume) 5.37 10*6/uL 4.35-5.85 Venous blood hemoglobin measurement (mass/volume) 15.3 g/dL 13.3-17.7 Blood hematocrit (volume fraction) 45 % 40-54 Automated erythrocyte mean corpuscular volume 83 [foz_us] 80-99 Automated erythrocyte mean corpuscular hemoglobin (mass per erythrocyte) 29 pg 25-34 Automated erythrocyte mean corpuscular hemoglobin concentration measurement ( mass/volume) 34 g/dL 32-36 Automated erythrocyte distribution width ratio 12.8 % 10.0-14.5 Automated blood platelet count (count/volume) 231 10*3/uL 130-400 Automated blood platelet mean volume measurement 11.5 [foz_us] 7.4-10.4 Automated blood neutrophils/100 leukocytes 73 % 42-75 Automated blood lymphocytes/100 leukocytes 18 % 12-44 Blood monocytes/100 leukocytes 6 % 0-12 Automated blood eosinophils/100 leukocytes 3 % 0-10 Automated blood basophils/100 leukocytes 0 % 0-10 Blood neutrophils automated count (number/volume) 12.9 10*3 1.8-7.8 Blood lymphocytes automated count (number/volume) 3.1 10*3 1.0-4.0 Blood monocytes automated count (number/volume) 1.0 10*3 0.0-1.0 Automated eosinophil count 0.5 10*3/uL 0.0-0.3 Automated blood basophil count (count/volume) 0.1 10*3/uL 0.0-0.1 Fibrin D-dimer FEU measurement in platelet poor plasma (mass/volume) - 18:02 Fibrin D-dimer FEU measurement in platelet poor plasma (mass/volume) < ug/mL 0.00-0.49 Comprehensive metabolic panel - 06/07/17 18:02 Serum or plasma sodium measurement (moles/volume) 140 mmol/L 135-145 Serum or plasma potassium measurement (moles/volume) 3.1 mmol/L 3.6-5.0 Serum or plasma chloride measurement (moles/volume) 102 mmol/L 98-107 Carbon dioxide 26 mmol/L 21-32 Serum or plasma anion gap determination (moles/volume) 12 mmol/L 5-14 Serum or plasma urea nitrogen measurement (mass/volume) 6 mg/dL 7-18 Serum or plasma creatinine measurement (mass/volume) 0.92 mg/dL 0.60-1.30 Serum or plasma urea nitrogen/creatinine mass ratio 7 NRG Serum or plasma creatinine measurement with calculation of estimated glomerular filtration rate > NRG Serum or plasma glucose measurement (mass/volume) 62 mg/dL 70-105 Serum or plasma calcium measurement (mass/volume) 9.8 mg/dL 8.5-10.1 Serum or plasma total bilirubin measurement (mass/volume) 0.7 mg/dL 0.1-1.0 Serum or plasma alkaline phosphatase measurement (enzymatic activity/volume) 81 U/L 40-136 Serum or plasma aspartate aminotransferase measurement (enzymatic activity/ volume) 21 U/L 5-34 Serum or plasma alanine aminotransferase measurement (enzymatic activity/volume ) 16 U/L 0-55 Serum or plasma protein measurement (mass/volume) 8.2 g/dL 6.4-8.2 Serum or plasma albumin measurement (mass/volume) 4.9 g/dL 3.2-4.5 Magnesium - 06/07/17 18:02 Magnesium 1.9 mg/dL 1.8-2.4 Lipase - 06/07/17 18:02 Lipase 17 U/L 8-78 Blood manual differential performed detection - 06/07/17 18:02 Blood monocytes/100 leukocytes 6 % NRG Manual blood segmented neutrophils/100 leukocytes 65 % NRG Blood band neutrophils/100 leukocytes 2 % NRG Manual blood lymphocytes/100 leukocytes 19 % NRG Manual eosinophils/100 leukocytes in nose 7 % NRG Manual blood basophils/100 leukocytes 1 % NRG Blood erythrocyte morphology finding identification NORMAL NRG Complete blood count (CBC) with automated white blood cell (WBC) differential - 06/12/17 02:11 Blood leukocytes automated count (number/volume) 9.0 10*3/uL 4.3-11.0 Blood erythrocytes automated count (number/volume) 4.98 10*6/uL 4.35-5.85 Venous blood hemoglobin measurement (mass/volume) 14.4 g/dL 13.3-17.7 Blood hematocrit (volume fraction) 42 % 40-54 Automated erythrocyte mean corpuscular volume 84 [foz_us] 80-99 Automated erythrocyte mean corpuscular hemoglobin (mass per erythrocyte) 29 pg 25-34 Automated erythrocyte mean corpuscular hemoglobin concentration measurement ( mass/volume) 34 g/dL 32-36 Automated erythrocyte distribution width ratio 12.5 % 10.0-14.5 Automated blood platelet count (count/volume) 189 10*3/uL 130-400 Automated blood platelet mean volume measurement 11.4 [foz_us] 7.4-10.4 Automated blood neutrophils/100 leukocytes 51 % 42-75 Automated blood lymphocytes/100 leukocytes 36 % 12-44 Blood monocytes/100 leukocytes 7 % 0-12 Automated blood eosinophils/100 leukocytes 6 % 0-10 Automated blood basophils/100 leukocytes 0 % 0-10 Blood neutrophils automated count (number/volume) 4.6 10*3 1.8-7.8 Blood lymphocytes automated count (number/volume) 3.2 10*3 1.0-4.0 Blood monocytes automated count (number/volume) 0.6 10*3 0.0-1.0 Automated eosinophil count 0.6 10*3/uL 0.0-0.3 Automated blood basophil count (count/volume) 0.0 10*3/uL 0.0-0.1 Fibrin D-dimer FEU measurement in platelet poor plasma (mass/volume) - 02:11 Fibrin D-dimer FEU measurement in platelet poor plasma (mass/volume) < ug/mL 0.00-0.49 Comprehensive metabolic panel - 06/12/17 02:11 Serum or plasma sodium measurement (moles/volume) 141 mmol/L 135-145 Serum or plasma potassium measurement (moles/volume) 3.8 mmol/L 3.6-5.0 Serum or plasma chloride measurement (moles/volume) 106 mmol/L 98-107 Carbon dioxide 24 mmol/L 21-32 Serum or plasma anion gap determination (moles/volume) 11 mmol/L 5-14 Serum or plasma urea nitrogen measurement (mass/volume) 10 mg/dL 7-18 Serum or plasma creatinine measurement (mass/volume) 0.83 mg/dL 0.60-1.30 Serum or plasma urea nitrogen/creatinine mass ratio 12 NRG Serum or plasma creatinine measurement with calculation of estimated glomerular filtration rate > NRG Serum or plasma glucose measurement (mass/volume) 91 mg/dL 70-105 Serum or plasma calcium measurement (mass/volume) 9.5 mg/dL 8.5-10.1 Serum or plasma total bilirubin measurement (mass/volume) 0.3 mg/dL 0.1-1.0 Serum or plasma alkaline phosphatase measurement (enzymatic activity/volume) 76 U/L 40-136 Serum or plasma aspartate aminotransferase measurement (enzymatic activity/ volume) 15 U/L 5-34 Serum or plasma alanine aminotransferase measurement (enzymatic activity/volume ) 10 U/L 0-55 Serum or plasma protein measurement (mass/volume) 7.1 g/dL 6.4-8.2 Serum or plasma albumin measurement (mass/volume) 4.3 g/dL 3.2-4.5 Serum or plasma troponin i.cardiac measurement (mass/volume) - 06/12/17 02:11 Serum or plasma troponin i.cardiac measurement (mass/volume) < ng/ mL <0.30 Complete blood count (CBC) with automated white blood cell (WBC) differential - 06/12/17 19:00 Blood leukocytes automated count (number/volume) 11.2 10*3/uL 4.3-11.0 Blood erythrocytes automated count (number/volume) 4.93 10*6/uL 4.35-5.85 Venous blood hemoglobin measurement (mass/volume) 14.2 g/dL 13.3-17.7 Blood hematocrit (volume fraction) 41 % 40-54 Automated erythrocyte mean corpuscular volume 83 [foz_us] 80-99 Automated erythrocyte mean corpuscular hemoglobin (mass per erythrocyte) 29 pg 25-34 Automated erythrocyte mean corpuscular hemoglobin concentration measurement ( mass/volume) 35 g/dL 32-36 Automated erythrocyte distribution width ratio 12.6 % 10.0-14.5 Automated blood platelet count (count/volume) 195 10*3/uL 130-400 Automated blood platelet mean volume measurement 11.7 [foz_us] 7.4-10.4 Automated blood neutrophils/100 leukocytes 77 % 42-75 Automated blood lymphocytes/100 leukocytes 15 % 12-44 Blood monocytes/100 leukocytes 6 % 0-12 Automated blood eosinophils/100 leukocytes 2 % 0-10 Automated blood basophils/100 leukocytes 0 % 0-10 Blood neutrophils automated count (number/volume) 8.6 10*3 1.8-7.8 Blood lymphocytes automated count (number/volume) 1.7 10*3 1.0-4.0 Blood monocytes automated count (number/volume) 0.7 10*3 0.0-1.0 Automated eosinophil count 0.2 10*3/uL 0.0-0.3 Automated blood basophil count (count/volume) 0.0 10*3/uL 0.0-0.1 Comprehensive metabolic panel - 06/12/17 19:00 Serum or plasma sodium measurement (moles/volume) 140 mmol/L 135-145 Serum or plasma potassium measurement (moles/volume) 3.6 mmol/L 3.6-5.0 Serum or plasma chloride measurement (moles/volume) 106 mmol/L 98-107 Carbon dioxide 23 mmol/L 21-32 Serum or plasma anion gap determination (moles/volume) 11 mmol/L 5-14 Serum or plasma urea nitrogen measurement (mass/volume) 7 mg/dL 7-18 Serum or plasma creatinine measurement (mass/volume) 0.82 mg/dL 0.60-1.30 Serum or plasma urea nitrogen/creatinine mass ratio 9 NRG Serum or plasma creatinine measurement with calculation of estimated glomerular filtration rate > NRG Serum or plasma glucose measurement (mass/volume) 94 mg/dL 70-105 Serum or plasma calcium measurement (mass/volume) 9.5 mg/dL 8.5-10.1 Serum or plasma total bilirubin measurement (mass/volume) 0.6 mg/dL 0.1-1.0 Serum or plasma alkaline phosphatase measurement (enzymatic activity/volume) 73 U/L 40-136 Serum or plasma aspartate aminotransferase measurement (enzymatic activity/ volume) 17 U/L 5-34 Serum or plasma alanine aminotransferase measurement (enzymatic activity/volume ) 11 U/L 0-55 Serum or plasma protein measurement (mass/volume) 7.4 g/dL 6.4-8.2 Serum or plasma albumin measurement (mass/volume) 4.5 g/dL 3.2-4.5 THYROID STIMULATING HORMONE - 06/12/17 19:00 THYROID STIMULATING HORMONE 2.75 u[iU]/mL 0.35-4.94 Complete urinalysis with reflex to culture - 06/12/17 19:31 Urine color determination YELLOW NRG Urine clarity determination CLEAR NRG Urine pH measurement by test strip 8 5-9 Specific gravity of urine by test strip 1.015 1.016- 1.022 Urine protein assay by test strip, semi-quantitative NEGATIVE NEGATIVE Urine glucose detection by automated test strip NEGATIVE NEGATIVE Erythrocytes detection in urine sediment by light microscopy NEGATIVE NEGATIVE Urine ketones detection by automated test strip NEGATIVE NEGATIVE Urine nitrite detection by test strip NEGATIVE NEGATIVE Urine total bilirubin detection by test strip NEGATIVE NEGATIVE Urine urobilinogen measurement by automated test strip (mass/volume) NORMAL NORMAL Urine leukocyte esterase detection by dipstick NEGATIVE NEGATIVE Automated urine sediment erythrocyte count by microscopy (number/high power field) NONE NRG Automated urine sediment leukocyte count by microscopy (number/high power field ) NONE NRG Bacteria detection in urine sediment by light microscopy NONE NRG Squamous epithelial cells detection in urine sediment by light microscopy RARE NRG Crystals detection in urine sediment by light microscopy NONE NRG Casts detection in urine sediment by light microscopy NONE NRG Mucus detection in urine sediment by light microscopy NEGATIVE NRG Complete urinalysis with reflex to culture NO NRG Urine drug screening test - 06/12/17 19:31 Urine phencyclidine detection by screening method NEGATIVE NEGATIVE Urine benzodiazepines detection by screening method NEGATIVE NEGATIVE Urine cocaine detection NEGATIVE NEGATIVE Urine amphetamines detection by screening method NEGATIVE NEGATIVE Urine methamphetamine detection by screening method NEGATIVE NEGATIVE Urine cannabinoids detection by screening method NEGATIVE NEGATIVE Urine opiates detection by screening method NEGATIVE NEGATIVE Urine barbiturates detection NEGATIVE NEGATIVE Screening urine tricyclic antidepressants detection NEGATIVE NEGATIVE Urine methadone detection by screening method NEGATIVE NEGATIVE Urine oxycodone detection NEGATIVE NEGATIVE Urine propoxyphene detection NEGATIVE NEGATIVE Encounters ACCT No. Visit Date/Time Discharge Status Pt. 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 [facility] ER HEADACHE X5 DAYS [id number] 07/08/2017 02:51:00 07/08/2017 03:26:00 DIS Outpatient GALA ARMAS DO [facility] ER DENTAL PAIN [id number] 06/19/2017 05:28:00 06/19/2017 06:54:00 DIS Emergency ALICIA HARRY MD [facility] ER OVERALL BODY NUMBNESS, GETTING WORSE,PAINFUL [id number] 06/17/2017 09:15:00 06/17/2017 23:59:59 CLS [facility] ASUNCION LONGORIA, ANABELLA Vincent [facility] RAD K80.70 [id number] 06/12/2017 18:28:00 06/12/2017 20:19:00 DIS 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 [facility] ER L SIDE NUMBNESS/TINGLING [id number] 06/12/2017 00:33:00 06/12/2017 03:17:00 DIS Emergency ELAINE LONGORIA, MALCOLM Lai [facility] ER CP,PAIN IN LEFT ARM [id number] 06/07/2017 17:32:00 06/07/2017 20:46:00 DIS Emergency ALICIA HARRY MD [facility] ER LOWER BACK AND ABDOMINAL PAINS [id number] 05/09/2017 23:58:00 05/10/2017 02:09:00 DIS Emergency GALA ARMAS DO [facility] ER L HAND NUMBNESS TASTE OF IRON, FEELING HOT [id number] 05/04/2017 21:27:00 05/04/2017 23:38:00 DIS Emergency SHELLY LOPEZMIKE [facility] ER STOMACH PAIN [id number] 10/10/2016 22:46:00 10/11/2016 01:48:00 DIS Emergency CAROLINE RADER [facility] ER MOUTH PAIN, SWELLING [id number] 04/17/2015 08:08:00 04/17/2015 11:00:00 DIS Emergency GALA ARMAS DO [facility] ER RIGHT SIDE PAIN [id number] 04/17/2015 08:08:00 Document Registration [id number] 03/02/2017 14:09:00 Document Registration [id number] 12/23/2017 10:41:00 12/23/2017 23:59:00 DIS Outpatient UNLISTED, UNLISTED [id number] 04/08/2017 13:25:00 ACT Unknown [id number] 04/09/2017 16:42:06 ACT Document Registration [id number] 02/21/2018 09:00:00 02/21/2018 23:59:59 CLS Outpatient DARIO PENA LACK NAIDA
[2018-03-08 20:21] LABS: BILIRUBIN,URINE NEGATIVE (NEGATIVE); CLARITY,URINE CLEAR; COLOR,URINE YELLOW; GLUCOSE, URINE (UA) NEGATIVE (NEGATIVE); KETONES,URINE NEGATIVE (NEGATIVE); LEUKOCYTE ESTERASE ,URINE NEGATIVE (NEGATIVE); NITRITE,URINE NEGATIVE (NEGATIVE); PH,URINE 7 (5-9); PROTEIN,URINE NEGATIVE (NEGATIVE); UROBILINOGEN,URINE 1 MG/DL (NORMAL)
[2018-03-08 20:30] LABS: SQUAMOUS EPITHELIAL CELL,UR RARE /HPF
[2018-03-08 20:40] LABS: BASOPHILS # (AUTO) 0.1 10^3/uL (0.0-0.1); BASOPHILS % (AUTO) 1 % (0-10); EOSINOPHILS # (AUTO) 0.5 10^3/uL (0.0-0.3); EOSINOPHILS % (AUTO) 5 % (0-10); HEMATOCRIT 46 % (40-54); HEMOGLOBIN 16.4 G/DL (13.3-17.7); LYMPHOCYTES % (AUTO) 36 % (12-44); MEAN CORPUSCULAR HEMOGLOBIN 29 PG (25-34); MEAN CORPUSCULAR HGB CONC 36 G/DL (32-36); MEAN CORPUSCULAR VOLUME 82 FL (80-99); MEAN PLATELET VOLUME 11.8 FL (7.4-10.4); MONOCYTES # (AUTO) 0.6 X 10^3 (0.0-1.0); MONOCYTES % (AUTO) 6 % (0-12); NEUTROPHILS # (AUTO) 5.8 X 10^3 (1.8-7.8); NEUTROPHILS % (AUTO) 53 % (42-75); PLATELET COUNT 251 10^3/uL (130-400); RED BLOOD COUNT 5.59 10^6/uL (4.35-5.85); RED CELL DISTRIBUTION WIDTH 12.9 % (10.0-14.5); WHITE BLOOD COUNT 11.1 10^3/uL (4.3-11.0)
[2018-03-08] MEDS ORDERED: NS 100 ML (IVPB) BAG IV ONE (20:45)
[2018-03-08] MEDS ORDERED: IOHEXOL 350 MG/ML 100 ML (OMNIPAQUE 350) VIAL IV ONE (20:45)
[2018-03-08 21:00] LABS: ALANINE AMINOTRANSFERASE 12 U/L (0-55); ALBUMIN 5.4 GM/DL (3.2-4.5); ALKALINE PHOSPHATASE 85 U/L (40-136); AMYLASE 43 U/L (25-125); BILIRUBIN,TOTAL 0.7 MG/DL (0.1-1.0); BUN/CREATININE RATIO 7; CALCIUM 10.1 MG/DL (8.5-10.1); CARBON DIOXIDE 27 MMOL/L (21-32); CHLORIDE 104 MMOL/L (98-107); CREATININE SERUM 0.82 MG/DL (0.60-1.30); GFR ESTIMATED > 60; GLUCOSE 78 MG/DL (70-105); LIPASE 14 U/L (8-78); POTASSIUM 3.4 MMOL/L (3.6-5.0); SODIUM 141 MMOL/L (135-145); TOTAL PROTEIN 8.8 GM/DL (6.4-8.2)
--- NOTE | 2018-03-08 21:09 | Diagnostic Imaging Report ---
PROCEDURE: CT abdomen and pelvis with contrast. TECHNIQUE: Multiple contiguous axial images were obtained through the abdomen and pelvis after administration of intravenous contrast. INDICATION: Abdominal pain x5 days Lung bases are clear. Liver is normal. There are stones in the gallbladder. Pancreas is normal. Spleen is not enlarged. Kidneys and adrenals appear normal. Small bowel is not dilated. Colon is unremarkable. There is no intraperitoneal free air or free fluid. Appendix is normal. Urinary bladder is decompressed. IMPRESSION: Cholecystolithiasis Dictated by: Dictated on workstation # [id number]
--- NOTE | 2018-03-08 21:17 | ED Abdominal Pain ---
General Chief Complaint: General Problems/Pain Stated Complaint: PAIN FROM CHEST TO BLADDER AND LOWER BACK Nursing Triage Note: c/o L sided abdomen pain going to R side. lower back pain going to lower back x 5 days. denies taking medication for pain Sepsis Screen: No Definite Risk Source of Information: Patient Exam Limitations: No Limitations History of Present Illness Date Seen by Provider: Mar 08, 2018 Time Seen by Provider: 20:18 Initial Comments PT STATES HE BEGAN HAVING ABDOMINAL PAIN 5-6 DAYS AGO PAIN STARTED IN LLQ, THEN MOVED TO RLQ, THEN HAS MOVED AROUND IN SPOTS ALL OVER ABDOMEN. STATES THEN HE HAS HAD PAIN FROM HIS CHEST TO HIS BLADDER, AND FROM HIS LOWER BACK TO HIS LEFT BUTTOCK STATES WHEN HE WAS SITTING DOWN AND TRYING TO HAVE A BM, HE HAD MID LOWER PARASPINAL MUSCLE PAIN STATES PAIN MOVES ALL OVER HIS TRUNK --BOTH FRONT AND BACK, AND IS "HOT BURNING , THROBBING" PT STATES HE IS CURRENTLY NOT HAVING ANY PAIN NO NAUSEA/VOMITING NO FEVER NO PROBLEMS URINATING PT STATES HE HAS CHRONIC CONSTIPATION, AND OCCASIONALLY TAKES COLACE ( STATES IS SUPPOSED TO TAKE IT EVERY DAY, BUT FREQUENTLY FORGETS OR SIMPLY DOES NOT TAKE IT) --TOOK YESTERDAY AND TODAY WITHOUT IMPROVEMENT. LAST BM WAS LAST WEDNESDAY OR WEDNESDAY--WHICH IS 5-6 DAYS AGO. PT TAKES SUBOXONE DAILY FOR NARCOTIC ABUSE/ADDICTION PCP: EMELI Allergies and Home Medications Allergies Coded Allergies: No Known Drug Allergies (Unverified , 06/11/09) Home Medications Hyoscyamine Sulfate 0.125 Mg Tab.subl, 1-2 TAB SL Q4H Prescribed by: GALA ARMAS on 03/08/182119 Ondansetron 4 Mg Tab.rapdis, 4 MG PO Q4H Prescribed by: GALA ARMAS on 03/08/182119 Pantoprazole Sodium 40 Mg Tablet.dr, 40 MG PO DAILY Prescribed by: GALA ARMAS on 03/08/182119 Patient Home Medication List Home Medication List Reviewed: Yes Review of Systems Constitutional: no symptoms reported Respiratory: No Symptoms Reported Cardiovascular: No Symptoms Reported Gastrointestinal: See HPI, Constipated; Denies Diarrhea, Denies Nausea, Denies Poor Appetite, Denies Poor Fluid Intake, Denies Vomiting Genitourinary: No Symptoms Reported Musculoskeletal: see HPI, back pain Skin: no symptoms reported Psychiatric/Neurological: No Symptoms Reported Endocrine: No Symptoms Reported Hematologic/Lymphatic: No Symptoms Reported Past Xrevoka-Mlolgr-Ewpwko Hx Patient Social History Alcohol Use: Occasionally Uses Recreational Drug Use: Yes (CURRENTLY ON SUBOXONE FOR POLYSUBSTANCE ABUSE-- OXYCODONE/OXYCONTIN, HYDROCODONE, VYVANSE, ADDERALL, THC) 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, THC, VYVANSE/ADDERALL ABUSE Smoking Status: Current Everyday Smoker (1 PPD) Type Used: Cigarettes (1 PPD) 2nd Hand Smoke Exposure: Yes Recent Foreign Travel: No Contact w/Someone Who Travel: No Recent Infectious Disease Expo: No Recent Hopitalizations: No Physical Abuse: No Sexual Abuse: No Immunizations Up To Date Tetanus Booster (TDap): Unknown Date of Influenza Vaccine: Sep 09, 2016 Seasonal Allergies Seasonal Allergies: No Past Medical History Surgeries: Yes (KIDNEY STONE REMOVAL, URETERAL STENT, COLONOSCOPY) Renal Respiratory: No Cardiac: No Neurological: No Genitourinary: Yes (KIDNEY 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 15) Kidney Stones Gastrointestinal: Yes (GALLSTONES NOTED ON CT) Gastroesophageal Reflux, Gall Bladder Disease Musculoskeletal: No Endocrine: No HEENT: No Cancer: No Psychosocial: Yes (POLYSUBSTANCE ABUSE) Anxiety Nursing Suicide Risk Score: 0 Integumentary: No Blood Disorders: No Adverse Reaction/Blood Tranf: No Family Medical History No Pertinent Family Hx Physical Exam Vital Signs Vital Signs - First Documented 03/08/18 20:08 Temp 98.0 Pulse 92 Resp 18 B/P (MAP) 145/92 (109) Pulse Ox 98 Capillary Refill : Less Than 3 Seconds General Appearance: WD/WN, no apparent distress, other (CONSTANT MOVEMENTS, TALKS FAST AND AT LENGTH. DOES NOT APPEAR TO BE IN ANY DISCOMFORT ) Respiratory: chest non-tender, normal breath sounds, no respiratory distress, no accessory muscle use Cardiovascular: regular rate, rhythm, no murmur Gastrointestinal: normal bowel sounds, soft, no organomegaly, no pulsatile mass ; No distended, No guarding, No rebound; tenderness (SLIGHT EPIGASTRIC AND RUQ TENDERNESS) Back: normal inspection, no CVA tenderness Neurologic/Psychiatric: cook starch II-XII nml as tested, no motor/sensory deficits, alert, normal mood/affect, oriented x 3 Skin: normal color, warm/dry, tattoos/piercings (EXTENSIVE TATTOOS) Progress/Results/Core Measures Lab Results Laboratory Tests Test 03/08/18 20:10 03/08/18 20:30 Range/Units Urine Color YELLOW Urine Clarity CLEAR Urine pH 7 5-9 Urine Specific [place] 1.010 L 1.016-1.022 Urine Protein NEGATIVE NEGATIVE Urine Glucose (UA) NEGATIVE NEGATIVE Urine Ketones NEGATIVE NEGATIVE Urine Nitrite NEGATIVE NEGATIVE Urine Bilirubin NEGATIVE NEGATIVE Urine Urobilinogen 1 NORMAL MG/DL Urine Leukocyte Esterase NEGATIVE NEGATIVE Urine RBC (Auto) NEGATIVE NEGATIVE Urine RBC NONE /HPF Urine WBC NONE /HPF Urine Squamous Epithelial Cells RARE /HPF Urine Crystals NONE /LPF Urine Bacteria NONE /HPF Urine Casts NONE /LPF Urine Mucus NEGATIVE /LPF Urine Culture Indicated NO White Blood Count 11.1 H 4.3-11.0 10^3/uL Red Blood Count 5.59 4.35-5.85 10^6/uL Hemoglobin 16.4 13.3-17.7 G/DL Hematocrit 46 40-54 % Mean Corpuscular Volume 82 80-99 FL Mean Corpuscular Hemoglobin 29 25-34 PG Mean Corpuscular Hemoglobin Concent 36 32-36 G/DL Red Cell Distribution Width 12.9 10.0-14.5 % Platelet Count 251 130-400 10^3/uL Mean Platelet Volume 11.8 H 7.4-10.4 FL Neutrophils (%) (Auto) 53 42-75 % Lymphocytes (%) (Auto) 36 12-44 % Monocytes (%) (Auto) 6 0-12 % Eosinophils (%) (Auto) 5 0-10 % Basophils (%) (Auto) 1 0-10 % Neutrophils # (Auto) 5.8 1.8-7.8 X 10^3 Lymphocytes # (Auto) 4.0 1.0-4.0 X 10^3 Monocytes # (Auto) 0.6 0.0-1.0 X 10^3 Eosinophils # (Auto) 0.5 H 0.0-0.3 10^3/uL Basophils # (Auto) 0.1 0.0-0.1 10^3/uL Sodium Level 141 135-145 MMOL/L Potassium Level 3.4 L 3.6-5.0 MMOL/L Chloride Level 104 98-107 MMOL/L Carbon Dioxide Level 27 21-32 MMOL/L Anion Gap 10 5-14 MMOL/L Blood Urea Nitrogen 6 L 7-18 MG/DL Creatinine 0.82 0.60-1.30 MG/DL Estimat Glomerular Filtration Rate > 60 BUN/Creatinine Ratio 7 Glucose Level 78 70-105 MG/DL Calcium Level 10.1 8.5-10.1 MG/DL Total Bilirubin 0.7 0.1-1.0 MG/DL Aspartate Amino Transf (AST/SGOT) 20 5-34 U/L Alanine Aminotransferase (ALT/SGPT) 12 0-55 U/L Alkaline Phosphatase 85 40-136 U/L Total Protein 8.8 H 6.4-8.2 GM/DL Albumin 5.4 H 3.2-4.5 GM/DL Amylase Level 43 25-125 U/L Lipase 14 8-78 U/L Serum Alcohol < 10 <10 MG/DL My Orders Orders - GALA ARMAS DO Drug Screen Stat (Urine) (03/08/18 20:18) Saline Lock/Iv-Start (03/08/18 20:23) Alcohol (03/08/18 20:23) Amylase (03/08/18 20:23) Cbc With Automated Diff (03/08/18 20:23) Comprehensive Metabolic Panel (03/08/18 20:23) Lipase (03/08/18 20:23) Ct Abdomen/Pelvis W (03/08/18 20:39) Iohexol Injection (Omnipaque 350 Mg/Ml 1 (03/08/18 20:45) Ns (Ivpb) (Sodium Chloride 0.9% Ivpb Bag (03/08/18 20:45) Medications Given in ED Current Medications Medications Dose Ordered Sig/Juan Route Start Time Stop Time Status Last Admin Dose Admin Iohexol 100 ml ONCE ONCE IV 03/08/18 20:45 03/08/18 20:46 UNV 03/08/18 20:50 100 ML Sodium Chloride 100 ml ONCE ONCE IV 03/08/18 20:45 03/08/18 20:46 UNV 03/08/18 20:51 100 ML Vital Signs/I&O 03/08/18 20:08 Temp 98.0 Pulse 92 Resp 18 B/P (MAP) 145/92 (109) Pulse Ox 98 Blood Pressure Mean: 109 Progress Note : Progress Note NO PAIN OR OTHER SYMPTOMS FOR REMAINDER OF ER STAY Comments CT ABDOMEN/PELVIS--CHOLECYSTOLITHIASIS, PER RADIOLOGIST REPORT @ 2111 Reviewed: Reviewed by Me Departure Impression Primary Impression: Cholelithiasis Additional Impression: Chronic constipation Disposition: 01 HOME, SELF-CARE Condition: Stable Departure-Patient Inst. Referrals: [facility] (PCP/Family) Primary Care Physician Patient Instructions: Constipation, Adult (DC), Gallstones (DC) Add. Discharge Instructions: CLEAR LIQUIDS,AND NO FOOD, UNTIL YOU HAVE CLEANED OUT YOUR BOWELS--WATER, BROTH , JELLO, GATORADE TAKE MIRALAX 1 CAPFUL IN 8 OZ OF WATER EVERY 1-2 HOURS UNTIL YOUR STOOLS ARE WATERY AND YOUR BOWELS ARE CLEANED OUT AFTER THAT, BEGAN TAKING MIRALAX DAILY FOLLOW UP WITH DR. PHILIPPE, SURGEON, FOR FURTHER EVALUATION OF GALLBLADDER All discharge instructions reviewed with patient and/or family. Voiced understanding. Scripts Pantoprazole Sodium (Protonix) 40 Mg Tablet.dr 40 MG PO DAILY, #15 TAB Prov: GALA ARMAS DO 03/08/18 Ondansetron (Zofran Odt) 4 Mg Tab.rapdis 4 MG PO Q4H for Nausea/Vomiting, #10 TAB Prov: GALA ARMAS DO 03/08/18 Hyoscyamine Sulfate (Levsin-Sl) 0.125 Mg Tab.subl 1-2 TAB SL Q4H for Abdominal Pain, #10 TAB Prov: GALA ARMAS DO 03/08/18 GALA ARMAS DO Mar 08, 2018 21:17
[2018-03-08] MEDS ORDERED: ONDA4TAB8 PO (21:20)
[2018-03-08] MEDS ORDERED: HYOS0.1283 SL (21:20)
[2018-03-08] MEDS ORDERED: PANT40TA2 PO (21:20)
[2018-03-08 21:23] LABS: AMPHETAMINE SCREEN, URINE NEGATIVE (NEGATIVE); BARBITURATE SCREEN URINE NEGATIVE (NEGATIVE); BENZODIAZEPINES SCREEN URINE NEGATIVE (NEGATIVE); CANNABINOID SCREEN, URINE NEGATIVE (NEGATIVE); COCAINE SCREEN URINE NEGATIVE (NEGATIVE); METHADONE STAT NEGATIVE (NEGATIVE); METHAMPHETAMINE SCREEN URINE S NEGATIVE (NEGATIVE); OPIATE SCREEN URINE NEGATIVE (NEGATIVE); OXYCODONE STAT POSITIVE (NEGATIVE); PROPOXYPHENE STAT NEGATIVE (NEGATIVE); TRICYCLIC ANTIDEPRESSANTS SCRE NEGATIVE (NEGATIVE)
[2018-03-08 21:43] VITALS: BP 145/92
== END 2018-03-08 21:42 | disposition home or self-care (01) ==
LOC: EDUNIT# 19:58 → ER 20:00
DX: K80.20 Calculus of gallbladder without cholecystitis without obstruction (principal); K21.9 Gastro-esophageal reflux disease without esophagitis; F41.9 Anxiety disorder, unspecified; F19.10 Other psychoactive substance abuse, uncomplicated; F17.210 Nicotine dependence, cigarettes, uncomplicated; Z96.0 Presence of urogenital implants
CPT/HCPCS: 36415; 74177; 80053; 80306; 80320; 81000; 82150; 83690; 85025

== ENCOUNTER 2018-05-06 21:22 | Emergency (ER) | payer SELFPAY ==
[~2018-05-06] VITALS: Ht 170.2 cm; Wt 72.6 kg
[~2018-05-06 21:22] MED LIST changes: +HYOS0.1283 SL; +ONDA4TAB8 PO; +PANT40TA2 PO
--- OUTSIDE RECORDS SUMMARY | 2018-05-06 21:28 | XMS REPORT ---
Author Author MICHELA IQBAL [facility] Address [address] [place] [address] Care Team Providers Care [employer] C[employer] Developer Name Role Phone MICHELA IQBAL Unavailable PROBLEMS Type Condition ICD9-CM Code HGI12-YH Code Onset Dates Condition Status SNOMED Code Problem Anxiety about health F41.8 Active 285431928 Problem Encounter for therapeutic drug level monitoring Z51.81 Active 030699700 Problem Uncomplicated opioid dependence F11.20 Active 24440448 Problem Substance abuse F19.10 Active [id number] ALLERGIES No Information ENCOUNTERS Encounter Location Date Diagnosis [facility] [address] [place] [address] March, [facility] [address] [address] March, Uncomplicated opioid dependence F11.20 [facility] [id number] [place] [address]019[address] 2555 March, [facility] [address] [address] March, Uncomplicated opioid dependence F11.20 and Anxiety about health F41.8 [facility] [id number] [place] [address] 4434 Feb, Uncomplicated opioid dependence F11.20 [facility] [id number] [place] [address] 25586- 3969 Feb, Uncomplicated opioid dependence F11.20 [facility] [address] [place] [address] Feb, Uncomplicated opioid dependence F11.20 [facility] [id number] [place] [address] 48835- 8270 Feb, Uncomplicated opioid dependence F11.20 [facility] [address] [place] [address] Feb, Uncomplicated opioid dependence F11.20 [facility] [id number] [place] [address] 52[address] 2406 Feb, Uncomplicated opioid dependence F11.20 [facility] [id number] [place] [address]014 2546 Feb, Uncomplicated opioid dependence F11.20 [facility] [address] [place] [address] Feb, Uncomplicated opioid dependence F11.20 [facility] [id number] [place] [address] 71519[address] 1518 Jan, Uncomplicated opioid dependence F11.20 [facility] [address] [place] [address] Jan, [facility] [id number] [place] [address] 37[address] 0667 Jan, Uncomplicated opioid dependence F11.20 [facility] [address] [place] [address] Jan, Uncomplicated opioid dependence F11.20 [facility] [id number] [place] [address] 76059- 9946 Jan, Uncomplicated opioid dependence F11.20 [facility] [address] [place] [address] Jan, Uncomplicated opioid dependence F11.20 [facility] [id number] [place] [address] 66222- 0261 Jan, Uncomplicated opioid dependence F11.20 [facility] [address] [place] [address] Jan, Uncomplicated opioid dependence F11.20 [facility] [address] [place] [address] Jan, [facility] [id number] [place] [address] 56572- 8190 Dec, Uncomplicated opioid dependence F11.20 [facility] [address] [place] [address] Dec, Uncomplicated opioid dependence F11.20 [facility] [id number] [place] [address] 85126- 1005 15 Dec, 2017 Uncomplicated opioid dependence F11.20 [facility] [address] [address] 08 Dec, 2017 Uncomplicated opioid dependence F11.20 [facility] [address] [place] [address] 08 Dec, 2017 Uncomplicated opioid dependence F11.20 [facility] [address] [address] Nov, Uncomplicated opioid dependence F11.20 [facility] [address] [place] [address] Nov, Uncomplicated opioid dependence F11.20 [facility] [id number] [place] [address] 58359- 6149 Nov, Uncomplicated opioid dependence F11.20 [facility] [address] [place] [address] Nov, Uncomplicated opioid dependence F11.20 [facility] [id number] [place] [address] 05314- 7602 Nov, Uncomplicated opioid dependence F11.20 [facility] [address] [place] [address] Nov, Uncomplicated opioid dependence F11.20 [facility] [id number] [place] [address] 03629- 6650 Nov, Uncomplicated opioid dependence F11.20 [facility] [address] [place] [address] Nov, Uncomplicated opioid dependence F11.20 [facility] [id number] [place] [address] 73242- 2880 Nov, Uncomplicated opioid dependence F11.20 [facility] [address] [place] [address] Nov, Uncomplicated opioid dependence F11.20 [facility] [id number] [place] [address] 53624- 4643 Oct, Uncomplicated opioid dependence F11.20 [facility] [address] [place] [address] Oct, Uncomplicated opioid dependence F11.20 [facility] [id number] [place] [address] 74408- 7165 Oct, Uncomplicated opioid dependence F11.20 [facility] [address] [place] [address] Oct, Uncomplicated opioid dependence F11.20 [facility] [address] 00161[address] 4210 Oct, Uncomplicated opioid dependence F11.20 [facility] [address] 71233- 5[address] 07 Oct, 2017 Uncomplicated opioid dependence F11.20 [facility] [address] 04545[address] 4[address] Oct, [facility] [address] 43090- 4061 Oct, Uncomplicated opioid dependence F11.20 [facility] [address] 04935- 2509 Sep, Uncomplicated opioid dependence F11.20 [facility] [address] [place] [address] Sep, Uncomplicated opioid dependence F11.20 [facility] [address] 79696- 6769 Sep, Uncomplicated opioid dependence F11.20 [facility] [address] [place] [address] Sep, Uncomplicated opioid dependence F11.20 [facility] [id number] [place] [address] 58091- 7036 15 Sep, 2017 Uncomplicated opioid dependence F11.20 [facility] [address] 84135- 1643 Sep, Uncomplicated opioid dependence F11.20 [facility] [address] [place] [address] Sep, Uncomplicated opioid dependence F11.20 [facility] [address] 49014- 0758 Aug, Uncomplicated opioid dependence F11.20 [facility] [id number] [place] [address] 48264- 7568 Aug, Uncomplicated opioid dependence F11.20 [facility] [address] [place] [address] Aug, Uncomplicated opioid dependence F11.20 [facility] [address] [place] [address] Aug, [facility] [id number] [place] [address] 58401- 3459 Aug, Uncomplicated opioid dependence F11.20 [facility] [address] [place] [address] Aug, Uncomplicated opioid dependence F11.20 [facility] [id number] [place] [address] 43798- 1262 Aug, Uncomplicated opioid dependence F11.20 [facility] [address] [place] [address] Aug, Uncomplicated opioid dependence F11.20 [facility] [id number] [place] [address] 67544- 7445 29 Jul, 2017 Uncomplicated opioid dependence F11.20 [facility] [id number] [place] [address] 91256- 8320 Jul, Uncomplicated opioid dependence F11.20 [facility] [address] [place] [address] 15 Jul, 2017 Uncomplicated opioid dependence F11.20 [facility] [id number] [place] [address] 41015- 9371 15 Jul, 2017 Uncomplicated opioid dependence F11.20 [facility] [id number] [place] [address] 21485- 3314 07 Jul, 2017 Uncomplicated opioid dependence F11.20 [facility] [id number] [place] [address] 91653- 1640 Jun, Uncomplicated opioid dependence F11.20 [facility] [address] [place] [address] Jun, Uncomplicated opioid dependence F11.20 [facility] [id number] [place] [address] 55664- 6378 Jun, Uncomplicated opioid dependence F11.20 [facility] [id number] [place] [address] 85595- 0899 Jun, Encounter for therapeutic drug level monitoring Z51.81 and Anxiety about health F41.8 [facility] [address] 31630- 0791 May, Uncomplicated opioid dependence F11.20 [facility] [id number] [place] [address] 12044- 0837 May, [facility] [address] 01527- 3927 May, Encounter for dental examination Z01.20 [facility] [id number] [place] [address] 62515- 2722 May, Uncomplicated opioid dependence F11.20 ; Encounter for therapeutic drug level monitoring Z51.81 and Calculus of gallbladder and bile duct without cholecystitis or obstruction K80.70 [facility] [address] [place] [address] May, Uncomplicated opioid dependence F11.20 [facility] [id number] [place] [address] 94236- 1604 May, Uncomplicated opioid dependence F11.20 [facility] [id number] [place] [address] 24867 2540 May, [facility] [address] [place] [address] May, Uncomplicated opioid dependence F11.20 [facility] [id number] [place] [address] 52766- 9154 Apr, Uncomplicated opioid dependence F11.20 [facility] [id number] [place] [address] 43528- 3476 Apr, Uncomplicated opioid dependence F11.20 [facility] [address] [place] [address] Apr, Uncomplicated opioid dependence F11.20 [facility] [id number] [place] [address] 36208- 2017 14 Apr, 2017 Encounter for therapeutic drug level monitoring Z51.81 [facility] [id number] [place] [address] 89937- 7968 14 Apr, 2017 Uncomplicated opioid dependence F11.20 [facility] [address] [place] [address] 09 Apr, 2017 Uncomplicated opioid dependence F11.20 [facility] [address] [place] [address] Apr, Uncomplicated opioid dependence F11.20 [facility] [id number] [place] [address] 28761- 7654 March, Uncomplicated opioid dependence F11.20 [facility] [address] [place] [address] March, Uncomplicated opioid dependence F11.20 [facility] [id number] [place] [address] 30987- 3633 March, Uncomplicated opioid dependence F11.20 [facility] [address] [place] [address] March, Uncomplicated opioid dependence F11.20 [facility] [address] [place] [address] March, Uncomplicated opioid dependence F11.20 [facility] [id number] [place] [address] 73829- 6166 March, [facility] [id number] [place] [address] 14611- 5575 March, [facility] [address] [place] [address] March, Uncomplicated opioid dependence F11.20 [facility] [id number] [place] [address] 50872- 5419 March, [facility] [address] [place] [address] March, Uncomplicated opioid dependence F11.20 [facility] [id number] [place] [address] 87278- 4076 March, Uncomplicated opioid dependence F11.20 [facility] [address] [place] [address] March, Uncomplicated opioid dependence F11.20 [facility] [id number] [place] [address] 59487- 2974 Feb, Uncomplicated opioid dependence F11.20 [facility] [id number] [place] [address] 46745- 9466 Feb, [facility] [address] [place] [address] Feb, Uncomplicated opioid dependence F11.20 [facility] [address] [place] [address] Feb, Uncomplicated opioid dependence F11.20 [facility] [id number] [place] [address] 88405- 6932 Feb, Encounter for therapeutic drug level monitoring Z51.81 and Uncomplicated opioid dependence F11.20 [facility] [address] [place] [address] Feb, Uncomplicated opioid dependence F11.20 [facility] [id number] [place] [address] 33221- 6708 Feb, [facility] [id number] [place] [address] 72008- 8649 Feb, Uncomplicated opioid dependence F11.20 [facility] [id number] [place] [address] 16537- 9931 Feb, Encounter for therapeutic drug level monitoring Z51.81 [facility] [address] [place] [address] Feb, Uncomplicated opioid dependence F11.20 [facility] [id number] [place] [address] 70096- 1576 Feb, Uncomplicated opioid dependence F11.20 and Encounter for therapeutic drug level monitoring Z51.81 [facility] [address] [place] [address] 14 Feb, 2017 Uncomplicated opioid dependence F11.20 [facility] [id number] [place] [address] 95080- 7159 14 Feb, 2017 Uncomplicated opioid dependence F11.20 [facility] [address] [place] [address] Feb, Uncomplicated opioid dependence F11.20 [facility] [address] [place] [address] Feb, [facility] [id number] [place] [address] 18258- 1342 Feb, Uncomplicated opioid dependence F11.20 [facility] [address] [place] [address] Feb, Uncomplicated opioid dependence F11.20 [facility] [address] [place] [address] Feb, [facility] [id number] [place] [address] 861358- 8262 Feb, Uncomplicated opioid dependence F11.20 [facility] [address] [place] [address] Feb, Uncomplicated opioid dependence F11.20 [facility] [id number] [place] [address] 73991- 2663 Feb, Uncomplicated opioid dependence F11.20 [facility] [id number] [place] [address] 046002- 9560 Feb, [facility] [id number] [place] [address] 47202- 5917 Feb, Uncomplicated opioid dependence F11.20 and Substance abuse F19.10 [facility] [address] [place] [address] Feb, Substance abuse F19.10 [facility] [id number] [place] [address] 20003- 4694 Jan, Substance abuse F19.10 [facility] [id number] [place] [address] 30675- 4126 Jan, IMMUNIZATIONS No Known Immunizations SOCIAL HISTORY Never Assessed REASON FOR VISIT SUBAB F/U PLAN OF CARE Activity Details Follow Up 2 - 3 Days Reason: VITAL SIGNS MEDICATIONS Unknown Medications RESULTS Name Result Date Reference Range URINE DRUG SCREEN (IN HOUSE) 2017-09-24 Lot # [id number] Exp date 05/2019 Control + COCAINE Negative AMPH Negative MTD Negative THC Negative OPIATE Negative BENZO Negative PCP Negative BAR Negative OXY Negative MAMP Negative TCA N/A BUP Positive MDMA Negative PROCEDURES Procedure Date Ordered Result Body Site DRUG TEST PRSMV DIR OPT OBS Sep 24, 2017 Psychotherapy, patient &/family, 30 minutes, established patient Sep 24, 2017 INSTRUCTIONS MEDICATIONS ADMINISTERED No Known Medications [...]
--- OUTSIDE RECORDS SUMMARY | 2018-05-06 21:28 | XMS REPORT ---
Author Author ANABELLA GARCIA [facility] Address [address] [place] [address] Care Team Providers Care Toggler Name Role Phone ANABELLA GARCIA Unavailable PROBLEMS Type Condition ICD9-CM Code DQB78-JU Code Onset Dates Condition Status SNOMED Code Problem Anxiety about health F41.8 Active 917360838 Problem Encounter for therapeutic drug level monitoring Z51.81 Active 276796228 Problem Uncomplicated opioid dependence F11.20 Active 38388631 Problem Substance abuse F19.10 Active 02489015 ALLERGIES No Information ENCOUNTERS Encounter Location Date Diagnosis [facility] [address] [place] [address] March, [facility] [address] [address] March, Uncomplicated opioid dependence F11.20 [facility] [id number] [place] [address] 37633- 7005 March, [facility] [address] [address] March, Uncomplicated opioid dependence F11.20 and Anxiety about health F41.8 [facility] [id number] [place] [address] 76434- 0809 Feb, Uncomplicated opioid dependence F11.20 [facility] [id number] [place] [address] 73175- 1280 Feb, Uncomplicated opioid dependence F11.20 [facility] [address] [place] [address] Feb, Uncomplicated opioid dependence F11.20 [facility] [id number] [place] [address] 56291- 6091 Feb, Uncomplicated opioid dependence F11.20 [facility] [address] [place] [address] Feb, Uncomplicated opioid dependence F11.20 [facility] [id number] [place] [address] 01685- 6632 Feb, Uncomplicated opioid dependence F11.20 [facility] [id number] [place] [address] 52173 2546 Feb, Uncomplicated opioid dependence F11.20 [facility] [address] [place] [address] Feb, Uncomplicated opioid dependence F11.20 [facility] [id number] [place] [address] 92507- 4313 Jan, Uncomplicated opioid dependence F11.20 [facility] [address] [place] [address] Jan, [facility] [id number] [place] [address] 43597- 3663 Jan, Uncomplicated opioid dependence F11.20 [facility] [address] [place] [address] Jan, Uncomplicated opioid dependence F11.20 [facility] [id number] [place] [address] 81688- 4693 Jan, Uncomplicated opioid dependence F11.20 [facility] [address] [place] [address] Jan, Uncomplicated opioid dependence F11.20 [facility] [id number] [place] [address] 53561- 7817 Jan, Uncomplicated opioid dependence F11.20 [facility] [address] [place] [address] Jan, Uncomplicated opioid dependence F11.20 [facility] [address] [place] [address] Jan, [facility] [id number] [place] [address] 34010- 6565 Dec, Uncomplicated opioid dependence F11.20 [facility] [address] [place] [address] Dec, Uncomplicated opioid dependence F11.20 [facility] [id number] [place] [address] 79878- 9601 15 Dec, 2017 Uncomplicated opioid dependence F11.20 [facility] [address] 91879- 4[address] 08 Dec, 2017 Uncomplicated opioid dependence F11.20 [facility] [address] [place] [address] 08 Dec, 2017 Uncomplicated opioid dependence F11.20 [facility] [address] [address]- [address]687 Nov, Uncomplicated opioid dependence F11.20 [facility] [address] [place] [address] Nov, Uncomplicated opioid dependence F11.20 [facility] [id number] [place] [address] 21542- 9302 Nov, Uncomplicated opioid dependence F11.20 [facility] [address] [place] [address] Nov, Uncomplicated opioid dependence F11.20 [facility] [id number] [place] [address] 00978- 8631 Nov, Uncomplicated opioid dependence F11.20 [facility] [address] [place] [address] Nov, Uncomplicated opioid dependence F11.20 [facility] [id number] [place] [address] 97171- 2589 Nov, Uncomplicated opioid dependence F11.20 [facility] [address] [place] [address] Nov, Uncomplicated opioid dependence F11.20 [facility] [id number] [place] [address] 52482- 8025 Nov, Uncomplicated opioid dependence F11.20 [facility] [address] [place] [address] Nov, Uncomplicated opioid dependence F11.20 [facility] [id number] [place] [address] 42720- 1158 Oct, Uncomplicated opioid dependence F11.20 [facility] [address] [place] [address] Oct, Uncomplicated opioid dependence F11.20 [facility] [id number] [place] [address] 54937- 8525 Oct, Uncomplicated opioid dependence F11.20 [facility] [address] [place] [address] Oct, Uncomplicated opioid dependence F11.20 [facility] [address] 97823[address] 9[address] Oct, Uncomplicated opioid dependence F11.20 [facility] [address] 66058- 0663 07 Oct, 2017 Uncomplicated opioid dependence F11.20 [facility] [address] 39626- [address] Oct, [facility] [address] 43665- 1524 Oct, Uncomplicated opioid dependence F11.20 [facility] [address] 52955- 9719 Sep, Uncomplicated opioid dependence F11.20 [facility] [address] [place] [address] Sep, Uncomplicated opioid dependence F11.20 [facility] [address] 41472- 7570 Sep, Uncomplicated opioid dependence F11.20 [facility] [address] [place] [address] Sep, Uncomplicated opioid dependence F11.20 [facility] [id number] [place] [address] 20479- 6571 15 Sep, 2017 Uncomplicated opioid dependence F11.20 [facility] [address] 69242- 3046 Sep, Uncomplicated opioid dependence F11.20 [facility] [address] [place] [address] Sep, Uncomplicated opioid dependence F11.20 [facility] [address] 16496- 2832 Aug, Uncomplicated opioid dependence F11.20 [facility] [id number] [place] [address] 38285- 6937 Aug, Uncomplicated opioid dependence F11.20 [facility] [address] [place] [address] Aug, Uncomplicated opioid dependence F11.20 [facility] [address] [place] [address] Aug, [facility] [id number] [place] [address] 18046- 4357 Aug, Uncomplicated opioid dependence F11.20 [facility] [address] [place] [address] Aug, Uncomplicated opioid dependence F11.20 [facility] [id number] [place] [address] 21767- 3165 Aug, Uncomplicated opioid dependence F11.20 [facility] [address] [place] [address] Aug, Uncomplicated opioid dependence F11.20 [facility] [id number] [place] [address] 63289- 9639 29 Jul, 2017 Uncomplicated opioid dependence F11.20 [facility] [id number] [place] [address] 85462- 4954 Jul, Uncomplicated opioid dependence F11.20 [facility] [address] [place] [address] 15 Jul, 2017 Uncomplicated opioid dependence F11.20 [facility] [id number] [place] [address] 42572- 2397 15 Jul, 2017 Uncomplicated opioid dependence F11.20 [facility] [id number] [place] [address] 54378- 2196 07 Jul, 2017 Uncomplicated opioid dependence F11.20 [facility] [id number] [place] [address] 44691- 0720 Jun, Uncomplicated opioid dependence F11.20 [facility] [address] [place] [address] Jun, Uncomplicated opioid dependence F11.20 [facility] [address] [place] [address] 32902- 2580 Jun, Uncomplicated opioid dependence F11.20 [facility] [id number] [place] [address] 07622- 9629 Jun, Encounter for therapeutic drug level monitoring Z51.81 and Anxiety about health F41.8 [facility] [address] 20823- 4332 May, Uncomplicated opioid dependence F11.20 [facility] [id number] [place] [address] 67556- 2604 May, [facility] [address] 91855- 7567 May, Encounter for dental examination Z01.20 [facility] [id number] [place] [address] 21009- 4417 May, Uncomplicated opioid dependence F11.20 ; Encounter for therapeutic drug level monitoring Z51.81 and Calculus of gallbladder and bile duct without cholecystitis or obstruction K80.70 [facility] [address] [place] [address] May, Uncomplicated opioid dependence F11.20 [facility] [id number] [place] [address] 57538- 8621 May, Uncomplicated opioid dependence F11.20 [facility] [id number] [place] [address] 49126 2540 May, [facility] [address] [place] [address] May, Uncomplicated opioid dependence F11.20 [facility] [id number] [place] [address] 54237- 3831 Apr, Uncomplicated opioid dependence F11.20 [facility] [address] [place] [address] 86692- 9408 Apr, Uncomplicated opioid dependence F11.20 [facility] [address] [place] [address] Apr, Uncomplicated opioid dependence F11.20 [facility] [address] [place] [address] 32328- 8152 14 Apr, 2017 Encounter for therapeutic drug level monitoring Z51.81 [facility] [id number] [place] [address] 36162- 4728 14 Apr, 2017 Uncomplicated opioid dependence F11.20 [facility] [address] [place] [address] 09 Apr, 2017 Uncomplicated opioid dependence F11.20 [facility] [address] [place] [address] Apr, Uncomplicated opioid dependence F11.20 [facility] [id number] [place] [address] 10358- 5563 March, Uncomplicated opioid dependence F11.20 [facility] [address] [place] [address] March, Uncomplicated opioid dependence F11.20 [facility] [id number] [place] [address] 14444- 9667 March, Uncomplicated opioid dependence F11.20 [facility] [address] [place] [address] March, Uncomplicated opioid dependence F11.20 [facility] [address] [place] [address] March, Uncomplicated opioid dependence F11.20 [facility] [id number] [place] [address] 16752- 9843 March, [facility] [id number] [place] [address] 35006- 3568 March, [facility] [address] [place] [address] March, Uncomplicated opioid dependence F11.20 [facility] [id number] [place] [address] 18702- 8090 March, [facility] [address] [place] [address] March, Uncomplicated opioid dependence F11.20 [facility] [id number] [place] [address] 58220- 9324 March, Uncomplicated opioid dependence F11.20 [facility] [address] [place] [address] March, Uncomplicated opioid dependence F11.20 [facility] [id number] [place] [address] 20948- 9071 Feb, Uncomplicated opioid dependence F11.20 [facility] [id number] [place] [address] 28776- 4139 Feb, [facility] [address] [place] [address] Feb, Uncomplicated opioid dependence F11.20 [facility] [address] [place] [address] Feb, Uncomplicated opioid dependence F11.20 [facility] [id number] [place] [address] 95663- 8000 Feb, Encounter for therapeutic drug level monitoring Z51.81 and Uncomplicated opioid dependence F11.20 [facility] [address] [place] [address] Feb, Uncomplicated opioid dependence F11.20 [facility] [id number] [place] [address] 64136- 5264 Feb, [facility] [id number] [place] [address] 00078- 7283 Feb, Uncomplicated opioid dependence F11.20 [facility] [address] [place] [address] 52482- 1751 Feb, Encounter for therapeutic drug level monitoring Z51.81 [facility] [address] [place] [address] Feb, Uncomplicated opioid dependence F11.20 [facility] [address] [place] [address] 42274- 8203 Feb, Uncomplicated opioid dependence F11.20 and Encounter for therapeutic drug level monitoring Z51.81 [facility] [address] [place] [address] 14 Feb, 2017 Uncomplicated opioid dependence F11.20 [facility] [id number] [place] [address] 69727- 9480 14 Feb, 2017 Uncomplicated opioid dependence F11.20 [facility] [address] [place] [address] Feb, Uncomplicated opioid dependence F11.20 [facility] [address] [place] [address] Feb, [facility] [id number] [place] [address] 56499- 8300 Feb, Uncomplicated opioid dependence F11.20 [facility] [address] [place] [address] Feb, Uncomplicated opioid dependence F11.20 [facility] [address] [place] [address] Feb, [facility] [id number] [place] [address] 64457- 7858 Feb, Uncomplicated opioid dependence F11.20 [facility] [address] [place] [address] Feb, Uncomplicated opioid dependence F11.20 [facility] [id number] [place] [address] 02987- 7174 Feb, Uncomplicated opioid dependence F11.20 [facility] [id number] [place] [address] 20332- 6322 Feb, [facility] [id number] [place] [address] 99606- 7975 Feb, Uncomplicated opioid dependence F11.20 and Substance abuse F19.10 [facility] [address] [place] [address] Feb, Substance abuse F19.10 [facility] [id number] [place] [address] 17255- 5486 Jan, Substance abuse F19.10 [facility] [id number] [place] [address] 41398- 7513 Jan, IMMUNIZATIONS No Known Immunizations SOCIAL HISTORY Never Assessed REASON FOR VISIT Suboxone RX (09/24-10/01) PLAN OF CARE VITAL SIGNS MEDICATIONS Medication Instructions Dosage Frequency Start Date End Date Duration Status Suboxone 8-2 MG Sublingual Once a day. CHARGE TO [facility] 1.5 application under the tongue and allow to dissolve Feb, 8 days Active RESULTS No Results PROCEDURES No [...]
--- OUTSIDE RECORDS SUMMARY | 2018-05-06 21:29 | XMS REPORT ---
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 Name Role Phone MICHELA IQBAL Unavailable PROBLEMS Type Condition ICD9-CM Code BUE16-EV Code Onset Dates Condition Status SNOMED Code Problem Anxiety about health F41.8 Active 496870754 Problem Encounter for therapeutic drug level monitoring Z51.81 Active 661137024 Problem Uncomplicated opioid dependence F11.20 Active 98895727 Problem Substance abuse F19.10 Active [id number] ALLERGIES No Information ENCOUNTERS Encounter Location Date Diagnosis [facility] [id number] [place] [address] 26479- 5257 March, Uncomplicated opioid dependence F11.20 [facility] [id number] [place] [address] 04276- 5582 March, Uncomplicated opioid dependence F11.20 [facility] [address] [place] [address] March, Uncomplicated opioid dependence F11.20 [facility] [id number] [place] [address] 31740- 1297 March, Uncomplicated opioid dependence F11.20 [facility] [id number] [place] [address] 07712- 3353 March, [facility] [id number] [place] [address] 03132- 5444 March, Uncomplicated opioid dependence F11.20 and Anxiety about health F41.8 [facility] [id number] [place] [address] 88317- 3798 Feb, Uncomplicated opioid dependence F11.20 [facility] [id number] [place] [address] 94046- 5803 Feb, Uncomplicated opioid dependence F11.20 [facility] [address] [place] [address] Feb, Uncomplicated opioid dependence F11.20 [facility] [id number] [place] [address] 61323- 7029 Feb, Uncomplicated opioid dependence F11.20 [facility] [address] [place] [address] Feb, Uncomplicated opioid dependence F11.20 [facility] [address] 07273- 2451 Feb, Uncomplicated opioid dependence F11.20 [facility] [address] 42387- 9688 Feb, Uncomplicated opioid dependence F11.20 [facility] [address] [place] [address] Feb, Uncomplicated opioid dependence F11.20 [facility] [address] 06102- 3208 Jan, Uncomplicated opioid dependence F11.20 [facility] [address] [place] [address] Jan, [facility] [address] 40728- 9143 Jan, Uncomplicated opioid dependence F11.20 [facility] [address] [place] [address] Jan, Uncomplicated opioid dependence F11.20 [facility] [address] 49248- 2408 Jan, Uncomplicated opioid dependence F11.20 [facility] [address] [place] [address] Jan, Uncomplicated opioid dependence F11.20 [facility] [address] 13581- 8099 07 Jan, 2018 Uncomplicated opioid dependence F11.20 [facility] [address] [place] [address] 07 Jan, 2018 Uncomplicated opioid dependence F11.20 [facility] [address] [place] [address] Jan, [facility] [id number] [place] [address] 27612- 8060 Dec, Uncomplicated opioid dependence F11.20 [facility] [address] [place] [address] Dec, Uncomplicated opioid dependence F11.20 [facility] [id number] [place] [address] 18847- 5086 Dec, Uncomplicated opioid dependence F11.20 [facility] [id number] [place] [address] 69642- 4114 Dec, Uncomplicated opioid dependence F11.20 [facility] [address] [place] [address] Dec, Uncomplicated opioid dependence F11.20 [facility] [id number] [place] [address] 60914- 3054 Nov, Uncomplicated opioid dependence F11.20 [facility] [address] [place] [address] Nov, Uncomplicated opioid dependence F11.20 [facility] [id number] [place] [address] 34449- 9970 Nov, Uncomplicated opioid dependence F11.20 [facility] [address] [place] [address] Nov, Uncomplicated opioid dependence F11.20 [facility] [id number] [place] [address] 29144- 4149 Nov, Uncomplicated opioid dependence F11.20 [facility] [address] [place] [address] Nov, Uncomplicated opioid dependence F11.20 [facility] [id number] [place] [address] 22518- 0400 Nov, Uncomplicated opioid dependence F11.20 [facility] [address] [place] [address] Nov, Uncomplicated opioid dependence F11.20 [facility] [id number] [place] [address] 24607- 0307 Nov, Uncomplicated opioid dependence F11.20 [facility] [address] [place] [address] Nov, Uncomplicated opioid dependence F11.20 [facility] [address] 54301- 6318 Oct, Uncomplicated opioid dependence F11.20 [facility] [address] [place] [address] Oct, Uncomplicated opioid dependence F11.20 [facility] [address] 54139- 3804 Oct, Uncomplicated opioid dependence F11.20 [facility] [address] [place] [address] Oct, Uncomplicated opioid dependence F11.20 [facility] [address] 44020- 1293 Oct, Uncomplicated opioid dependence F11.20 [facility] [address] 42461- 0811 Oct, Uncomplicated opioid dependence F11.20 [facility] [address] 54829- 2185 Oct, [facility] [address] 10081- 4390 Oct, Uncomplicated opioid dependence F11.20 [facility] [address] 45707- 2846 Sep, Uncomplicated opioid dependence F11.20 [facility] [address] [place] [address] Sep, Uncomplicated opioid dependence F11.20 [facility] [id number] [place] [address] 08735- 5659 Sep, Uncomplicated opioid dependence F11.20 [facility] [address] [place] [address] Sep, Uncomplicated opioid dependence F11.20 [facility] [id number] [place] [address] 29473- 1748 Sep, Uncomplicated opioid dependence F11.20 [facility] [address] [place] [address] 46414- 6886 Sep, Uncomplicated opioid dependence F11.20 [facility] [address] [place] [address] Sep, Uncomplicated opioid dependence F11.20 [facility] [id number] [place] [address] 61357- 1585 Aug, Uncomplicated opioid dependence F11.20 [facility] [id number] [place] [address] 41195- 3452 Aug, Uncomplicated opioid dependence F11.20 [facility] [address] [place] [address] Aug, Uncomplicated opioid dependence F11.20 [facility] [address] [place] [address] Aug, [facility] [id number] [place] [address] 53346- 5750 Aug, Uncomplicated opioid dependence F11.20 [facility] [address] [place] [address] Aug, Uncomplicated opioid dependence F11.20 [facility] [id number] [place] [address] 88962- 7279 Aug, Uncomplicated opioid dependence F11.20 [facility] [address] [place] [address] Aug, Uncomplicated opioid dependence F11.20 [facility] [id number] [place] [address] 25840- 8746 Jul, Uncomplicated opioid dependence F11.20 [facility] [id number] [place] [address] 75285- 4426 Jul, Uncomplicated opioid dependence F11.20 [facility] [address] [place] [address] Jul, Uncomplicated opioid dependence F11.20 [facility] [id number] [place] [address] 91012- 0189 Jul, Uncomplicated opioid dependence F11.20 [facility] [id number] [place] [address] 53325- 9365 Jul, Uncomplicated opioid dependence F11.20 [facility] [id number] [place] [address] 42574- 0335 Jun, Uncomplicated opioid dependence F11.20 [facility] [address] [place] [address] Jun, Uncomplicated opioid dependence F11.20 [facility] [address] [place] [address] 94855- 5515 Jun, Uncomplicated opioid dependence F11.20 [facility] [id number] [place] [address] 00951- 1886 Jun, Encounter for therapeutic drug level monitoring Z51.81 and Anxiety about health F41.8 [facility] [address] [place] [address] 44020- 4149 May, Uncomplicated opioid dependence F11.20 [facility] [address] [place] [address] 91377- 8331 May, [facility] [id number] [place] [address] 22784- 8739 May, Encounter for dental examination Z01.20 [facility] [address] [place] [address] 60887- 9777 May, Uncomplicated opioid dependence F11.20 ; Encounter for therapeutic drug level monitoring Z51.81 and Calculus of gallbladder and bile duct without cholecystitis or obstruction K80.70 [facility] [address] [place] [address] May, Uncomplicated opioid dependence F11.20 [facility] [address] [place] [address] 91686- 7807 May, Uncomplicated opioid dependence F11.20 [facility] [address] [place] [address] 74275- 5163 May, [facility] [address] [place] [address] May, Uncomplicated opioid dependence F11.20 [facility] [address] [address] 1292 Apr, Uncomplicated opioid dependence F11.20 [facility] [id number] [place] [address] 90174- 1563 Apr, Uncomplicated opioid dependence F11.20 [facility] [address] [place] [address] Apr, Uncomplicated opioid dependence F11.20 [facility] [id number] [place] [address] 21892- 4623 14 Apr, 2017 Encounter for therapeutic drug level monitoring Z51.81 [facility] [id number] [place] [address] 70629- 7282 Apr, Uncomplicated opioid dependence F11.20 [facility] [address] [place] [address] Apr, Uncomplicated opioid dependence F11.20 [facility] [address] [place] [address] Apr, Uncomplicated opioid dependence F11.20 [facility] [id number] [place] [address] 94765- 6583 March, Uncomplicated opioid dependence F11.20 [facility] [address] [place] [address] March, Uncomplicated opioid dependence F11.20 [facility] [id number] [place] [address] 16597- 3059 March, Uncomplicated opioid dependence F11.20 [facility] [address] [place] [address] March, Uncomplicated opioid dependence F11.20 [facility] [address] [place] [address] March, Uncomplicated opioid dependence F11.20 [facility] [id number] [place] [address] 33532- 8003 March, [facility] [id number] [place] [address] 21038- 1415 March, [facility] [address] [place] [address] March, Uncomplicated opioid dependence F11.20 [facility] [address] [address] March, [facility] [address] [place] [address] March, Uncomplicated opioid dependence F11.20 [facility] [address] [place] [address] 12570- 8601 March, Uncomplicated opioid dependence F11.20 [facility] [address] [place] [address] March, Uncomplicated opioid dependence F11.20 [facility] [id number] [place] [address] 09605- 8299 Feb, Uncomplicated opioid dependence F11.20 [facility] [id number] [place] [address] 19347- 1842 Feb, [facility] [address] [place] [address] Feb, Uncomplicated opioid dependence F11.20 [facility] [address] [place] [address] Feb, Uncomplicated opioid dependence F11.20 [facility] [id number] [place] [address] 21973- 7831 Feb, Encounter for therapeutic drug level monitoring Z51.81 and Uncomplicated opioid dependence F11.20 [facility] [address] [place] [address] Feb, Uncomplicated opioid dependence F11.20 [facility] [address] [place] [address] 30642 2542 Feb, [facility] [id number] [place] [address] 67236 2547 Feb, Uncomplicated opioid dependence F11.20 [facility] [id number] [place] [address] 74678- 4206 Feb, Encounter for therapeutic drug level monitoring Z51.81 [facility] [address] [place] [address] Feb, Uncomplicated opioid dependence F11.20 [facility] [id number] [place] [address] 10920- 4216 17 Feb, 2017 Uncomplicated opioid dependence F11.20 and Encounter for therapeutic drug level monitoring Z51.81 [facility] [address] [place] [address] 14 Feb, 2017 Uncomplicated opioid dependence F11.20 [facility] [id number] [place] [address] 84781- 3432 14 Feb, 2017 Uncomplicated opioid dependence F11.20 [facility] [address] [place] [address] Feb, Uncomplicated opioid dependence F11.20 [facility] [address] [place] [address] Feb, [facility] [address] 68378- 0319 Feb, Uncomplicated opioid dependence F11.20 [facility] [address] [place] [address] Feb, Uncomplicated opioid dependence F11.20 [facility] [address] [place] [address] Feb, [facility] [id number] [place] [address] 57357- 9059 Feb, Uncomplicated opioid dependence F11.20 [facility] [address] [place] [address] Feb, Uncomplicated opioid dependence F11.20 [facility] [id number] [place] [address] 83705- 9625 Feb, Uncomplicated opioid dependence F11.20 [facility] [id number] [place] [address] 23428- 2674 Feb, [facility] [id number] [place] [address] 01070- 6537 Feb, Uncomplicated opioid dependence F11.20 and Substance abuse F19.10 [facility] [address] [place] [address] Feb, Substance abuse F19.10 [facility] [id number] [place] [address] 14719- 8416 Jan, Substance abuse F19.10 [facility] [address] [facility] [id number] [place] [address] Jan, IMMUNIZATIONS No Known Immunizations SOCIAL HISTORY Never Assessed REASON FOR VISIT SUBAB-F/U PLAN OF CARE Activity Details Follow Up 1 Week Reason: VITAL SIGNS MEDICATIONS Unknown Medications RESULTS No Results PROCEDURES Procedure Date Ordered Result Body Site Psychotherapy, patient &/family, 30 minutes, established patient Nov 09, 2017 INSTRUCTIONS MEDICATIONS ADMINISTERED No Known Medications [...]
--- OUTSIDE RECORDS SUMMARY | 2018-05-06 21:29 | XMS REPORT ---
Author Author ANABELLA GARCIA [facility] Address [address] 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 Name Role Phone ANABELLA GARCIA Unavailable PROBLEMS Type Condition ICD9-CM Code TVA74-IR Code Onset Dates Condition Status SNOMED Code Problem Anxiety about health F41.8 Active 858551225 Problem Encounter for therapeutic drug level monitoring Z51.81 Active 310859422 Problem Uncomplicated opioid dependence F11.20 Active 73036327 Problem Substance abuse F19.10 Active 93743440 ALLERGIES No Information ENCOUNTERS Encounter Location Date Diagnosis [facility] [address] [place] [address] Apr, [facility] [id number] [place] [address] 99258- 3642 March, Uncomplicated opioid dependence F11.20 [facility] [id number] [place] [address] 33730- 9740 March, Uncomplicated opioid dependence F11.20 [facility] [address] [place] [address] March, Uncomplicated opioid dependence F11.20 [facility] [id number] [place] [address] 89002- 5465 March, Uncomplicated opioid dependence F11.20 [facility] [id number] [place] [address] 89669- 7527 March, [facility] [id number] [place] [address] 90413- 6372 March, Uncomplicated opioid dependence F11.20 and Anxiety about health F41.8 [facility] [id number] [place] [address] 79379- 0425 Feb, Uncomplicated opioid dependence F11.20 [facility] [address] [place] [address] 23654- 7808 Feb, Uncomplicated opioid dependence F11.20 [facility] [address] [place] [address] Feb, Uncomplicated opioid dependence F11.20 [facility] [id number] [place] [address] 58041- 6339 Feb, Uncomplicated opioid dependence F11.20 [facility] [address] [place] [address] Feb, Uncomplicated opioid dependence F11.20 [facility] [id number] [place] [address] 99315- 5746 Feb, Uncomplicated opioid dependence F11.20 [facility] [id number] [place] [address] 35608- 9743 Feb, Uncomplicated opioid dependence F11.20 [facility] [address] [place] [address] Feb, Uncomplicated opioid dependence F11.20 [facility] [id number] [place] [address] 64338- 3914 Jan, Uncomplicated opioid dependence F11.20 [facility] [address] [place] [address] Jan, [facility] [id number] [place] [address] 76419- 5509 Jan, Uncomplicated opioid dependence F11.20 [facility] [address] [place] [address] Jan, Uncomplicated opioid dependence F11.20 [facility] [id number] [place] [address] 92823- 1510 Jan, Uncomplicated opioid dependence F11.20 [facility] [address] [place] [address] Jan, Uncomplicated opioid dependence F11.20 [facility] [id number] [place] [address] 17717- 3165 Jan, Uncomplicated opioid dependence F11.20 [facility] [address] [place] [address] Jan, Uncomplicated opioid dependence F11.20 [facility] [address] [place] [address] Jan, [facility] [id number] [place] [address] 42359- 3955 Dec, Uncomplicated opioid dependence F11.20 [facility] [address] [place] [address] Dec, Uncomplicated opioid dependence F11.20 [facility] [address] 26745- 4551 Dec, Uncomplicated opioid dependence F11.20 [facility] [address] 15648- 8625 Dec, Uncomplicated opioid dependence F11.20 [facility] [address] [place] [address] Dec, Uncomplicated opioid dependence F11.20 [facility] [address] 57416- 5753 Nov, Uncomplicated opioid dependence F11.20 [facility] [address] [place] [address] Nov, Uncomplicated opioid dependence F11.20 [facility] [address] 29588- 1084 Nov, Uncomplicated opioid dependence F11.20 [facility] [address] [place] [address] Nov, Uncomplicated opioid dependence F11.20 [facility] [id number] [place] [address] 38858- 0744 Nov, Uncomplicated opioid dependence F11.20 [facility] [address] [place] [address] Nov, Uncomplicated opioid dependence F11.20 [facility] [id number] [place] [address] 93485- 4431 Nov, Uncomplicated opioid dependence F11.20 [facility] [address] [place] [address] Nov, Uncomplicated opioid dependence F11.20 [facility] [address] [place] [address] Nov, Uncomplicated opioid dependence F11.20 [facility] [address] [place] [address] Nov, Uncomplicated opioid dependence F11.20 [facility] [id number] [place] [address] 33550- 8351 Oct, Uncomplicated opioid dependence F11.20 [facility] [address] [place] [address] Oct, Uncomplicated opioid dependence F11.20 [facility] [address] 14119- 2890 Oct, Uncomplicated opioid dependence F11.20 [facility] [address] [place] [address] Oct, Uncomplicated opioid dependence F11.20 [facility] [id number] [place] [address] 89477- 7955 Oct, Uncomplicated opioid dependence F11.20 [facility] [id number] [place] [address] 14956- 1001 Oct, Uncomplicated opioid dependence F11.20 [facility] [id number] [place] [address] 51393- 2888 Oct, [facility] [id number] [place] [address] 94830- 8620 Oct, Uncomplicated opioid dependence F11.20 [facility] [id number] [place] [address] 59024- 6208 Sep, Uncomplicated opioid dependence F11.20 [facility] [address] [place] [address] Sep, Uncomplicated opioid dependence F11.20 [facility] [address] 61685- 9705 Sep, Uncomplicated opioid dependence F11.20 [facility] [address] [place] [address] Sep, Uncomplicated opioid dependence F11.20 [facility] [address] 65443- 7247 Sep, Uncomplicated opioid dependence F11.20 [facility] [id number] [place] [address] 67253- 8653 Sep, Uncomplicated opioid dependence F11.20 [facility] [address] [place] [address] Sep, Uncomplicated opioid dependence F11.20 [facility] [id number] [place] [address] 07679- 9881 Aug, Uncomplicated opioid dependence F11.20 [facility] [address] 91432- 9419 Aug, Uncomplicated opioid dependence F11.20 [facility] [address] [place] [address] Aug, Uncomplicated opioid dependence F11.20 [facility] [address] [place] [address] Aug, [facility] [address] 77019- 1571 Aug, Uncomplicated opioid dependence F11.20 [facility] [address] [place] [address] Aug, Uncomplicated opioid dependence F11.20 [facility] [id number] [place] [address] 94752- 3438 Aug, Uncomplicated opioid dependence F11.20 [facility] [address] [place] [address] Aug, Uncomplicated opioid dependence F11.20 [facility] [id number] [place] [address] 68628- 3737 Jul, Uncomplicated opioid dependence F11.20 [facility] [id number] [place] [address] 47976- 5336 Jul, Uncomplicated opioid dependence F11.20 [facility] [address] [place] [address] Jul, Uncomplicated opioid dependence F11.20 [facility] [id number] [place] [address] 48459- 1103 Jul, Uncomplicated opioid dependence F11.20 [facility] [address] [place] [address] 84034- 7130 Jul, Uncomplicated opioid dependence F11.20 [facility] [id number] [place] [address] 81230- 2745 Jun, Uncomplicated opioid dependence F11.20 [facility] [address] [place] [address] Jun, Uncomplicated opioid dependence F11.20 [facility] [id number] [place] [address] 01575- 0241 Jun, Uncomplicated opioid dependence F11.20 [facility] [id number] [place] [address] 97037- 4565 Jun, Encounter for therapeutic drug level monitoring Z51.81 and Anxiety about health F41.8 [facility] [id number] [place] [address] 60465- 3483 May, Uncomplicated opioid dependence F11.20 [facility] [id number] [place] [address] 33407- 8720 May, [facility] [id number] [place] [address] 63389- 7690 May, Encounter for dental examination Z01.20 [facility] [id number] [place] [address] 53339- 4652 May, Uncomplicated opioid dependence F11.20 ; Encounter for therapeutic drug level monitoring Z51.81 and Calculus of gallbladder and bile duct without cholecystitis or obstruction K80.70 [facility] [address] [place] [address] May, Uncomplicated opioid dependence F11.20 [facility] [id number] [place] [address] 10961- 8506 May, Uncomplicated opioid dependence F11.20 [facility] [id number] [place] [address] 95343- 0199 May, [facility] [address] [place] [address] May, Uncomplicated opioid dependence F11.20 [facility] [address] [address] Apr, Uncomplicated opioid dependence F11.20 [facility] [id number] [place] [address] 53417- 1962 Apr, Uncomplicated opioid dependence F11.20 [facility] [address] [place] [address] Apr, Uncomplicated opioid dependence F11.20 [facility] [id number] [place] [address] 71023- 7479 14 Apr, 2017 Encounter for therapeutic drug level monitoring Z51.81 [facility] [id number] [place] [address] 96638- 6521 Apr, Uncomplicated opioid dependence F11.20 [facility] [address] [place] [address] Apr, Uncomplicated opioid dependence F11.20 [facility] [address] [place] [address] Apr, Uncomplicated opioid dependence F11.20 [facility] [id number] [place] [address] 57664- 8123 March, Uncomplicated opioid dependence F11.20 [facility] [address] [place] [address] March, Uncomplicated opioid dependence F11.20 [facility] [id number] [place] [address] 98989- 7202 March, Uncomplicated opioid dependence F11.20 [facility] [address] [place] [address] March, Uncomplicated opioid dependence F11.20 [facility] [address] [place] [address] March, Uncomplicated opioid dependence F11.20 [facility] [id number] [place] [address] 13681- 6333 March, [facility] [id number] [place] [address] 53889- 9805 March, [facility] [address] [place] [address] March, Uncomplicated opioid dependence F11.20 [facility] [id number] [place] [address] 68797- 3175 March, [facility] [address] [place] [address] March, Uncomplicated opioid dependence F11.20 [facility] [id number] [place] [address] 80045- 4148 March, Uncomplicated opioid dependence F11.20 [facility] [address] [place] [address] March, Uncomplicated opioid dependence F11.20 [facility] [address] 12539- 7946 Feb, Uncomplicated opioid dependence F11.20 [facility] [id number] [place] [address] 12955- 7070 Feb, [facility] [address] [place] [address] Feb, Uncomplicated opioid dependence F11.20 [facility] [address] [place] [address] Feb, Uncomplicated opioid dependence F11.20 [facility] [id number] [place] [address] 03123- 9187 Feb, Encounter for therapeutic drug level monitoring Z51.81 and Uncomplicated opioid dependence F11.20 [facility] [address] [place] [address] Feb, Uncomplicated opioid dependence F11.20 [facility] [id number] [place] [address] 19632- 9227 Feb, [facility] [id number] [place] [address] 88656- 2498 Feb, Uncomplicated opioid dependence F11.20 [facility] [id number] [place] [address] 64620- 2839 Feb, Encounter for therapeutic drug level monitoring Z51.81 [facility] [address] [place] [address] Feb, Uncomplicated opioid dependence F11.20 [facility] [id number] [place] [address] 19773- 6820 17 Feb, 2017 Uncomplicated opioid dependence F11.20 and Encounter for therapeutic drug level monitoring Z51.81 [facility] [address] [place] [address] 14 Feb, 2017 Uncomplicated opioid dependence F11.20 [facility] [id number] [place] [address] 43073- 4178 14 Feb, 2017 Uncomplicated opioid dependence F11.20 [facility] [address] [place] [address] Feb, Uncomplicated opioid dependence F11.20 [facility] [address] [place] [address] Feb, [facility] [address] 70952- 4221 Feb, Uncomplicated opioid dependence F11.20 [facility] [address] [place] [address] Feb, Uncomplicated opioid dependence F11.20 [facility] [address] [place] [address] Feb, [facility] [address] 15972- 4416 Feb, Uncomplicated opioid dependence F11.20 [facility] [address] [place] [address] Feb, Uncomplicated opioid dependence F11.20 [facility] [id number] [place] [address] 61110 2548 Feb, Uncomplicated opioid dependence F11.20 [facility] [id number] [place] [address] 30397 2544 Feb, [facility] [address] 20338 2549 Feb, Uncomplicated opioid dependence F11.20 and Substance abuse F19.10 [facility] [address] [place] [address] Feb, Substance abuse F19.10 [facility] [address] [address] Jan, Substance abuse F19.10 [facility] [address] [facility] [id number] [place] [address] Jan, IMMUNIZATIONS No Known Immunizations SOCIAL HISTORY Never Assessed REASON FOR VISIT Suboxone rx (10/21-10/27) PLAN OF CARE VITAL SIGNS MEDICATIONS Medication Instructions Dosage Frequency Start Date End Date Duration Status Suboxone 8-2 MG Sublingual Once a day. CHARGE TO [facility] [employer].5 application under the tongue and allow to dissolve Feb, 7 days Active RESULTS No Results PROCEDURES No [...]
--- OUTSIDE RECORDS SUMMARY | 2018-05-06 21:30 | XMS REPORT ---
Author Author MICHELA IQBAL [facility] Address [address] [place] [address] Care Team Providers Care Hand Paster Name Role Phone MICHELA IQBAL Unavailable PROBLEMS Type Condition ICD9-CM Code XDR92-SG Code Onset Dates Condition Status SNOMED Code Problem Anxiety about health F41.8 Active 639376697 Problem Encounter for therapeutic drug level monitoring Z51.81 Active 756113412 Problem Uncomplicated opioid dependence F11.20 Active 63312331 Problem Substance abuse F19.10 Active 38237791 ALLERGIES No Information ENCOUNTERS Encounter Location Date Diagnosis [facility] [address] [place] [address] March, [facility] [address] [address] March, Uncomplicated opioid dependence F11.20 and Anxiety about health F41.8 [facility] [id number] [place] [address] 48288- 5273 Feb, Uncomplicated opioid dependence F11.20 [facility] [id number] [place] [address] 62919- 8954 Feb, Uncomplicated opioid dependence F11.20 [facility] [address] [place] [address] Feb, Uncomplicated opioid dependence F11.20 [facility] [id number] [place] [address] 70604- 0097 Feb, Uncomplicated opioid dependence F11.[address] [facility] [address] [place] [address] Feb, Uncomplicated opioid dependence F11.20 [facility] [id number] [place] [address] 22750- 4917 Feb, Uncomplicated opioid dependence F11.20 [facility] [id number] [place] [address] 18730- 4470 Feb, Uncomplicated opioid dependence F11.20 [facility] [address] [place] [address] Feb, Uncomplicated opioid dependence F11.20 [facility] [id number] [place] [address] 07567- 6270 Jan, Uncomplicated opioid dependence F11.20 [facility] [address] [place] [address] Jan, [facility] [id number] [place] [address] 29945- 1085 Jan, Uncomplicated opioid dependence F11.20 [facility] [address] [place] [address] Jan, Uncomplicated opioid dependence F11.20 [facility] [id number] [place] [address] 25516- 2290 Jan, Uncomplicated opioid dependence F11.20 [facility] [address] [place] [address] Jan, Uncomplicated opioid dependence F11.20 [facility] [id number] [place] [address] 40362- 3467 Jan, Uncomplicated opioid dependence F11.20 [facility] [address] [place] [address] Jan, Uncomplicated opioid dependence F11.20 [facility] [address] [place] [address] Jan, [facility] [id number] [place] [address] 77129- 1092 Dec, Uncomplicated opioid dependence F11.20 [facility] [address] [place] [address] Dec, Uncomplicated opioid dependence F11.20 [facility] [id number] [place] [address] 21214- 3418 15 Dec, 2017 Uncomplicated opioid dependence F11.20 [facility] [id number] [place] [address] 14727- 0333 08 Dec, 2017 Uncomplicated opioid dependence F11.20 [facility] [address] [place] [address] 08 Dec, 2017 Uncomplicated opioid dependence F11.20 [facility] [address] [address] Nov, Uncomplicated opioid dependence F11.20 [facility] [address] [place] [address] Nov, Uncomplicated opioid dependence F11.20 [facility] [address] [address] Nov, Uncomplicated opioid dependence F11.20 [facility] [address] [place] [address] Nov, Uncomplicated opioid dependence F11.20 [facility] [address] 40382[address] Nov, Uncomplicated opioid dependence F11.20 [facility] [address] [place] [address] Nov, Uncomplicated opioid dependence F11.20 [facility] [address] [address] Nov, Uncomplicated opioid dependence F11.20 [facility] [address] [place] [address] Nov, Uncomplicated opioid dependence F11.20 [facility] [id number] [place] [address] 67828- 0606 Nov, Uncomplicated opioid dependence F11.20 [facility] [address] [place] [address] Nov, Uncomplicated opioid dependence F11.20 [facility] [id number] [place] [address] 09464- 5941 Oct, Uncomplicated opioid dependence F11.20 [facility] [address] [place] [address] Oct, Uncomplicated opioid dependence F11.20 [facility] [id number] [place] [address] 21903- 9235 Oct, Uncomplicated opioid dependence F11.20 [facility] [address] [place] [address] Oct, Uncomplicated opioid dependence F11.20 [facility] [id number] [place] [address] 09749- 0817 Oct, Uncomplicated opioid dependence F11.20 [facility] [id number] [place] [address] 57956- 0331 Oct, Uncomplicated opioid dependence F11.20 [facility] [address] [address] Oct, [facility] [id number] [place] [address] 56243- 1113 Oct, Uncomplicated opioid dependence F11.20 [facility] [id number] [place] [address] 30479- 8773 Sep, Uncomplicated opioid dependence F11.[address] [facility] [address] [place] [address] Sep, Uncomplicated opioid dependence F11.20 [facility] [id number] [place] [address] 14240- 9910 Sep, Uncomplicated opioid dependence F11.[address] [facility] [address] [place] [address] Sep, Uncomplicated opioid dependence F11.20 [facility] [id number] [place] [address] 50791- 4250 Sep, Uncomplicated opioid dependence F11.20 [facility] [id number] [place] [address] 97884- 5199 Sep, Uncomplicated opioid dependence F11.[address] [facility] [address] [place] [address] Sep, Uncomplicated opioid dependence F11.20 [facility] [id number] [place] [address] 06735- 0289 Aug, Uncomplicated opioid dependence F11.20 [facility] [id number] [place] [address] 63550- 7077 Aug, Uncomplicated opioid dependence F11.[address] [facility] [address] [place] [address] Aug, Uncomplicated opioid dependence F11.[address] [facility] [address] [place] [address] Aug, [facility] [address] 01103[address]14 Aug, Uncomplicated opioid dependence F11.[address] [facility] [address] [place] [address] Aug, Uncomplicated opioid dependence F11.20 [facility] [address] 89920- 5719 Aug, Uncomplicated opioid dependence F11.[address] [facility] [address] [place] [address] Aug, Uncomplicated opioid dependence F11.20 [facility] [address] 83650[address] 6198 Jul, Uncomplicated opioid dependence F11.20 [facility] [address] 37161[address] 7889 Jul, Uncomplicated opioid dependence F11.[address] [facility] [address] [place] [address] Jul, Uncomplicated opioid dependence F11.20 [facility] [address] 44719[address] 9511 Jul, Uncomplicated opioid dependence F11.20 [facility] [address] 14940- 8851 Jul, Uncomplicated opioid dependence F11.20 [facility] [address] 37974- [address] Jun, Uncomplicated opioid dependence F11.[address] [facility] [address] [place] [address] Jun, Uncomplicated opioid dependence F11.20 [facility] [address] 30097- 8477 Jun, Uncomplicated opioid dependence F11.20 [facility] [address] 01964[address] 5233 Jun, Encounter for therapeutic drug level monitoring Z51.81 and Anxiety about health F41.8 [facility] [id number] [place] [address] 01296- 7148 May, Uncomplicated opioid dependence F11.20 [facility] [id number] [place] [address] 58698- [address] May, [facility] [address] 20070[address] 6480 May, Encounter for dental examination Z01.20 [facility] [id number] [place] [address] 01619- 5687 May, Uncomplicated opioid dependence F11.20 ; Encounter for therapeutic drug level monitoring Z51.81 and Calculus of gallbladder and bile duct without cholecystitis or obstruction K80.70 [facility] [address] [place] [address] May, Uncomplicated opioid dependence F11.20 [facility] [id number] [place] [address] 23779- 6034 May, Uncomplicated opioid dependence F11.20 [facility] [address] 09284- 9328 May, [facility] [address] [place] [address] May, Uncomplicated opioid dependence F11.20 [facility] [id number] [place] [address] 29262- 5225 Apr, Uncomplicated opioid dependence F11.20 [facility] [id number] [place] [address] 00570- 9596 Apr, Uncomplicated opioid dependence F11.20 [facility] [address] [place] [address] Apr, Uncomplicated opioid dependence F11.20 [facility] [id number] [place] [address] 34707- 1497 14 Apr, 2017 Encounter for therapeutic drug level monitoring Z51.81 [facility] [id number] [place] [address] 31509- 2306 14 Apr, 2017 Uncomplicated opioid dependence F11.20 [facility] [address] [place] [address] Apr, Uncomplicated opioid dependence F11.20 [facility] [address] [place] [address] Apr, Uncomplicated opioid dependence F11.20 [facility] [id number] [place] [address] 70311- 9641 March, Uncomplicated opioid dependence F11.20 [facility] [address] [place] [address] March, Uncomplicated opioid dependence F11.20 [facility] [id number] [place] [address] 73540- 0325 March, Uncomplicated opioid dependence F11.20 [facility] [address] [place] [address] March, Uncomplicated opioid dependence F11.20 [facility] [address] [place] [address] March, Uncomplicated opioid dependence F11.20 [facility] [id number] [place] [address] 63830- 9018 March, [facility] [id number] [place] [address] 44081- 6332 March, [facility] [address] [place] [address] March, Uncomplicated opioid dependence F11.20 [facility] [id number] [place] [address] 75438- 7764 March, [facility] [address] [place] [address] March, Uncomplicated opioid dependence F11.20 [facility] [id number] [place] [address] 68180- 8534 March, Uncomplicated opioid dependence F11.20 [facility] [address] [place] [address] March, Uncomplicated opioid dependence F11.20 [facility] [id number] [place] [address] 05578- 4196 Feb, Uncomplicated opioid dependence F11.20 [facility] [id number] [place] [address] 10172- 6860 Feb, [facility] [address] [place] [address] Feb, Uncomplicated opioid dependence F11.20 [facility] [address] [place] [address] Feb, Uncomplicated opioid dependence F11.20 [facility] [id number] [place] [address] 04601- 4464 Feb, Encounter for therapeutic drug level monitoring Z51.81 and Uncomplicated opioid dependence F11.20 [facility] [address] [place] [address] Feb, Uncomplicated opioid dependence F11.20 [facility] [id number] [place] [address] 61856- 2072 Feb, [facility] [id number] [place] [address] 83829- 7487 Feb, Uncomplicated opioid dependence F11.20 [facility] [id number] [place] [address] 59966- 7606 Feb, Encounter for therapeutic drug level monitoring Z51.81 [facility] [address] [place] [address] Feb, Uncomplicated opioid dependence F11.20 [facility] [id number] [place] [address] 44684- 0023 Feb, Uncomplicated opioid dependence F11.20 and Encounter for therapeutic drug level monitoring Z51.81 [facility] [address] [place] [address] 14 Feb, 2017 Uncomplicated opioid dependence F11.20 [facility] [address] 79597- 8475 14 Feb, 2017 Uncomplicated opioid dependence F11.20 [facility] [address] [place] [address] Feb, Uncomplicated opioid dependence F11.20 [facility] [address] [place] [address] Feb, [facility] [address] [place] [address] 54959- 3501 Feb, Uncomplicated opioid dependence F11.20 [facility] [address] [place] [address] Feb, Uncomplicated opioid dependence F11.20 [facility] [address] [place] [address] Feb, [facility] [id number] [place] [address] 20706- 9149 Feb, Uncomplicated opioid dependence F11.20 [facility] [address] [place] [address] Feb, Uncomplicated opioid dependence F11.20 [facility] [address] 48962- 1834 Feb, Uncomplicated opioid dependence F11.20 [facility] [id number] [place] [address] 72419- 0627 Feb, [facility] [id number] [place] [address] 55964- 5073 Feb, Uncomplicated opioid dependence F11.20 and Substance abuse F19.[address] [facility] [address] [place] [address] Feb, Substance abuse F19.10 [facility] [id number] [place] [address] 03825- 4146 Jan, Substance abuse F19.10 [facility] [id number] [place] [address] 15024- 4336 Jan, IMMUNIZATIONS No Known Immunizations SOCIAL HISTORY Never Assessed REASON FOR VISIT SUBAB F/U PLAN OF CARE Activity Details Follow Up 1 Week Reason: VITAL SIGNS MEDICATIONS Unknown Medications RESULTS No Results PROCEDURES Procedure Date Ordered Result Body Site Psychotherapy, patient &/family, 60 minutes, established patient Aug 23, 2017 INSTRUCTIONS MEDICATIONS ADMINISTERED No Known Medications MEDICAL (GENERAL) HISTORY Type Description Date Medical History chronic kidney stones Medical History Opioid Use Disorder - on Suboxone therapy Surgical History stent in kidney d/t kidney stones age 15 Hospitalization History ER visits for kidney stones Hospitalization History ER visit for panic attack 2017 Hospitalization History ER visit for chest pain; possible galbladder issue 2017
--- OUTSIDE RECORDS SUMMARY | 2018-05-06 21:31 | XMS REPORT ---
Author Author MICHELA IQBAL [facility] Address [address] [place] [address] Care Team Providers Care Pathologist Assistant Name Role Phone MICHELA IQBAL Unavailable PROBLEMS Type Condition ICD9-CM Code [id number] Code Onset Dates Condition Status SNOMED Code Problem Anxiety about health F41.8 Active 124089355 Problem Encounter for therapeutic drug level monitoring Z51.81 Active 506933112 Problem Uncomplicated opioid dependence F11.20 Active 94439710 Problem Substance abuse F19.10 Active 86211406 ALLERGIES No Information ENCOUNTERS Encounter Location Date Diagnosis [facility] [address] [place] [address] Feb, [facility] [address] [address] Feb, [facility] [id number] [place] [address] 36260- 3651 Feb, Uncomplicated opioid dependence F11.20 [facility] [address] [place] [address] Feb, Uncomplicated opioid dependence F11.20 [facility] [id number] [place] [address] 59029- 3676 Feb, Uncomplicated opioid dependence F11.20 [facility] [address] [address] Feb, Uncomplicated opioid dependence F11.20 [facility] [address] [place] [address] Feb, Uncomplicated opioid dependence F11.20 [facility] [address] [address] Jan, Uncomplicated opioid dependence F11.20 [facility] [address] [place] [address] Jan, [facility] [facility] [id number] [place] [address] 23848[address] 3724 Jan, Uncomplicated opioid dependence F11.20 [facility] [address] [place] [address] Jan, Uncomplicated opioid dependence F11.20 [facility] [id number] [place] [address] 02642[address] 4897 14 Jan, 2018 Uncomplicated opioid dependence F11.20 [facility] [address] [place] [address] 14 Jan, 2018 Uncomplicated opioid dependence F11.20 [facility] [address] [address] Jan, Uncomplicated opioid dependence F11.20 [facility] [address] [place] [address] Jan, Uncomplicated opioid dependence F11.20 [facility] [address] [place] [address] Jan, [facility] [address] [address] Dec, Uncomplicated opioid dependence F11.20 [facility] [address] [place] [address] Dec, Uncomplicated opioid dependence F11.20 [facility] [id number] [place] [address] 83245- 4783 15 Dec, 2017 Uncomplicated opioid dependence F11.20 [facility] [id number] [place] [address] 48155- 8899 08 Dec, 2017 Uncomplicated opioid dependence F11.20 [facility] [address] [place] [address] 08 Dec, 2017 Uncomplicated opioid dependence F11.20 [facility] [address] [address] Nov, Uncomplicated opioid dependence F11.20 [facility] [address] [place] [address] Nov, Uncomplicated opioid dependence F11.20 [facility] [id number] [place] [address] 62741- 0756 Nov, Uncomplicated opioid dependence F11.20 [facility] [address] [place] [address] Nov, Uncomplicated opioid dependence F11.20 [facility] [id number] [place] [address] 84008- 1373 Nov, Uncomplicated opioid dependence F11.20 [facility] [address] [place] [address] Nov, Uncomplicated opioid dependence F11.20 [facility] [address] [address] Nov, Uncomplicated opioid dependence F11.20 [facility] [address] [place] [address] Nov, Uncomplicated opioid dependence F11.20 [facility] [id number] [place] [address] 92610- 8013 Nov, Uncomplicated opioid dependence F11.20 [facility] [address] [place] [address] Nov, Uncomplicated opioid dependence F11.20 [facility] [address] [address] Oct, Uncomplicated opioid dependence F11.20 [facility] [address] [place] [address] Oct, Uncomplicated opioid dependence F11.20 [facility] [id number] [place] [address] 20435- 6546 Oct, Uncomplicated opioid dependence F11.20 [facility] [address] [place] [address] Oct, Uncomplicated opioid dependence F11.20 [facility] [id number] [place] [address] 21316- 6049 Oct, Uncomplicated opioid dependence F11.20 [facility] [address] [address] Oct, Uncomplicated opioid dependence F11.20 [facility] [address] [address] Oct, [facility] [id number] [place] [address] 22510- 3310 Oct, Uncomplicated opioid dependence F11.20 [facility] [address] 237[address] 60[address] Sep, Uncomplicated opioid dependence F11.20 [facility] [address] [place] [address] Sep, Uncomplicated opioid dependence F11.20 [facility] [address] [address] 3[address] Sep, Uncomplicated opioid dependence F11.20 [facility] [address] [place] [address] Sep, Uncomplicated opioid dependence F11.20 [facility] [address] 25[address] Sep, Uncomplicated opioid dependence F11.20 [facility] [address] 46[address] Sep, Uncomplicated opioid dependence F11.20 [facility] [address] [place] [address] Sep, Uncomplicated opioid dependence F11.20 [facility] [address] [address] Aug, Uncomplicated opioid dependence F11.20 [facility] [id number] [place] [address] 16572- 4990 Aug, Uncomplicated opioid dependence F11.20 [facility] [address] [place] [address] Aug, Uncomplicated opioid dependence F11.20 [facility] [address] [place] [address] Aug, [facility] [address] [address] Aug, Uncomplicated opioid dependence F11.20 [facility] [address] [place] [address] Aug, Uncomplicated opioid dependence F11.20 [facility] [address] [place] [address] Aug, Uncomplicated opioid dependence F11.20 [facility] [address] [place] [address] Aug, Uncomplicated opioid dependence F11.20 [facility] [id number] [place] [address] 51713- 7972 Jul, Uncomplicated opioid dependence F11.20 [facility] [address] 327[address]- [address] Jul, Uncomplicated opioid dependence F11.20 [facility] [address] [place] [address] Jul, Uncomplicated opioid dependence F11.20 [facility] [address] 19[address]- 8307 Jul, Uncomplicated opioid dependence F11.20 [facility] [id number] [place] [address] 03857- 7264 Jul, Uncomplicated opioid dependence F11.20 [facility] [id number] [place] [address] 92077- 5639 Jun, Uncomplicated opioid dependence F11.20 [facility] [address] [place] [address] Jun, Uncomplicated opioid dependence F11.20 [facility] [id number] [place] [address] 00470- 9875 Jun, Uncomplicated opioid dependence F11.20 [facility] [id number] [place] [address] 03795- 6770 Jun, Encounter for therapeutic drug level monitoring Z51.81 and Anxiety about health F41.8 [facility] [id number] [place] [address] 84426- 2027 May, Uncomplicated opioid dependence F11.20 [facility] [id number] [place] [address] 07355- 6722 May, [facility] [address] [address] May, Encounter for dental examination Z01.20 [facility] [address] [place] [address] 18243- 8482 May, Uncomplicated opioid dependence F11.20 ; Encounter for therapeutic drug level monitoring Z51.81 and Calculus of gallbladder and bile duct without cholecystitis or obstruction K80.70 [facility] [address] [place] [address] 17 May, 2017 Uncomplicated opioid dependence F11.20 [facility] [id number] [place] [address] 58620- 0357 May, Uncomplicated opioid dependence F11.20 [facility] [id number] [place] [address] 27700- 3818 May, [facility] [address] [place] [address] May, Uncomplicated opioid dependence F11.20 [facility] [id number] [place] [address] 35785- 5883 Apr, Uncomplicated opioid dependence F11.20 [facility] [id number] [place] [address] 64677- 0503 Apr, Uncomplicated opioid dependence F11.20 [facility] [address] [place] [address] Apr, Uncomplicated opioid dependence F11.20 [facility] [id number] [place] [address] 50944- 1255 Apr, Encounter for therapeutic drug level monitoring Z51.81 [facility] [id number] [place] [address] 13372- 8832 Apr, Uncomplicated opioid dependence F11.20 [facility] [address] [place] [address] Apr, Uncomplicated opioid dependence F11.20 [facility] [address] [place] [address] Apr, Uncomplicated opioid dependence F11.20 [facility] [address] [place] [address] 78464- 8374 March, Uncomplicated opioid dependence F11.20 [facility] [address] [place] [address] March, Uncomplicated opioid dependence F11.20 [facility] [id number] [place] [address] 61637- 0177 March, Uncomplicated opioid dependence F11.20 [facility] [address] [place] [address] March, Uncomplicated opioid dependence F11.20 [facility] [address] [place] [address] March, Uncomplicated opioid dependence F11.20 [facility] [id number] [place] [address] 52008- 8580 March, [facility] [address] [address]- [address] March, [facility] [address] [place] [address] March, Uncomplicated opioid dependence F11.20 [facility] [id number] [place] [address] 45866- 1194 March, [facility] [address] [place] [address] March, Uncomplicated opioid dependence F11.20 [facility] [id number] [place] [address] 61564- 9509 March, Uncomplicated opioid dependence F11.20 [facility] [address] [place] [address] March, Uncomplicated opioid dependence F11.20 [facility] [id number] [place] [address] 13952- 4271 Feb, Uncomplicated opioid dependence F11.20 [facility] [id number] [place] [address] 63771- 7712 Feb, [facility] [address] [place] [address] Feb, Uncomplicated opioid dependence F11.20 [facility] [address] [place] [address] Feb, Uncomplicated opioid dependence F11.20 [facility] [id number] [place] [address] 02880- 4728 Feb, Encounter for therapeutic drug level monitoring Z51.81 and Uncomplicated opioid dependence F11.20 [facility] [address] [place] [address] Feb, Uncomplicated opioid dependence F11.20 [facility] [address] [place] [address] 22197- 2225 Feb, [facility] [id number] [place] [address] [phone] 18 Feb, 2017 Uncomplicated opioid dependence F11.20 [facility] [id number] [place] [address] 89016- 2547 18 Feb, 2017 Encounter for therapeutic drug level monitoring Z51.81 [facility] [address] [place] [address] 17 Feb, 2017 Uncomplicated opioid dependence F11.20 [facility] [id number] [place] [address] 21733- 7179 Feb, Uncomplicated opioid dependence F11.20 and Encounter for therapeutic drug level monitoring Z51.81 [facility] [address] [place] [address] Feb, Uncomplicated opioid dependence F11.20 [facility] [id number] [place] [address] 76184- 9749 14 Feb, 2017 Uncomplicated opioid dependence F11.20 [facility] [address] [place] [address] Feb, Uncomplicated opioid dependence F11.20 [facility] [address] [place] [address] Feb, [facility] [id number] [place] [address] 40167 2545 Feb, Uncomplicated opioid dependence F11.20 [facility] [address] [place] [address] Feb, Uncomplicated opioid dependence F11.20 [facility] [address] [place] [address] Feb, [facility] [id number] [place] [address] 00231- 1394 Feb, Uncomplicated opioid dependence F11.20 [facility] [address] [place] [address] Feb, Uncomplicated opioid dependence F11.20 [facility] [address] [place] [address] 52684- 5753 Feb, Uncomplicated opioid dependence F11.20 [facility] [id number] [place] [address] 49298- 6588 Feb, [facility] [id number] [place] [address] 47920- 2564 Feb, Uncomplicated opioid dependence F11.20 and Substance abuse F19.10 [facility] [address] [place] [address] Feb, Substance abuse F19.10 [facility] [address] [place] [address] 45200- 4967 Jan, Substance abuse F19.10 [facility] [address] [place] [address] 79172- 0023 Jan, IMMUNIZATIONS No Known Immunizations SOCIAL HISTORY Never Assessed REASON FOR VISIT [place] PLAN UPDATE PLAN OF CARE Activity Details Follow Up 1 Week Reason: VITAL SIGNS MEDICATIONS Unknown Medications RESULTS No Results PROCEDURES Procedure Date Ordered Result Body Site Psychotherapy, patient &/family, 30 minutes, established patient June 07, 2017 INSTRUCTIONS MEDICATIONS ADMINISTERED No Known Medications [...]
[2018-05-06 21:32] VITALS: BP 144/95
--- OUTSIDE RECORDS SUMMARY | 2018-05-06 21:32 | XMS REPORT ---
Author Author ANABELLA GARCIA Organization [facility] Address [address] [place] [address] Care Team Providers Care Guest Services Coordinator Name Role Phone ANABELLA GARCIA Unavailable PROBLEMS Type Condition ICD9-CM Code WSQ42-US Code Onset Dates Condition Status SNOMED Code Problem Anxiety about health F41.8 Active 270253005 Problem Encounter for therapeutic drug level monitoring Z51.81 Active 577070388 Problem Uncomplicated opioid dependence F11.20 Active 10122707 Problem Substance abuse F19.10 Active 19357307 ALLERGIES No Information ENCOUNTERS Encounter Location Date Diagnosis [facility] [id number] [place] [address] 86530- 2542 March, Uncomplicated opioid dependence F11.20 [facility] [id number] [place] [address] 87509- 2336 March, Uncomplicated opioid dependence F11.20 [facility] [address] [place] [address] March, Uncomplicated opioid dependence F11.20 [facility] [id number] [place] [address] 72161- 2724 March, Uncomplicated opioid dependence F11.20 [facility] [id number] [place] [address] 51544- 1965 March, [facility] [id number] [place] [address] 76623- 0377 March, Uncomplicated opioid dependence F11.20 and Anxiety about health F41.8 [facility] [id number] [place] [address] 98967- 1577 Feb, Uncomplicated opioid dependence F11.20 [facility] [id number] [place] [address] 39958- 4466 Feb, Uncomplicated opioid dependence F11.20 [facility] [address] [place] [address] Feb, Uncomplicated opioid dependence F11.20 [facility] [id number] [place] [address] 07385- 8369 Feb, Uncomplicated opioid dependence F11.20 [facility] [address] [place] [address] Feb, Uncomplicated opioid dependence F11.20 [facility] [address] 61228- 9557 Feb, Uncomplicated opioid dependence F11.20 [facility] [address] 41786- 9326 Feb, Uncomplicated opioid dependence F11.20 [facility] [address] [place] [address] Feb, Uncomplicated opioid dependence F11.20 [facility] [address] 33676[address] 5998 Jan, Uncomplicated opioid dependence F11.20 [facility] [address] [place] [address] Jan, [facility] [address] 69367- 3650 Jan, Uncomplicated opioid dependence F11.20 [facility] [address] [place] [address] Jan, Uncomplicated opioid dependence F11.20 [facility] [address] 26189- 8714 Jan, Uncomplicated opioid dependence F11.20 [facility] [address] [place] [address] Jan, Uncomplicated opioid dependence F11.20 [facility] [address] 27101- 3735 07 Jan, 2018 Uncomplicated opioid dependence F11.20 [facility] [address] [place] [address] 07 Jan, 2018 Uncomplicated opioid dependence F11.20 [facility] [address] [place] [address] Jan, [facility] [id number] [place] [address] 48372- 9743 Dec, Uncomplicated opioid dependence F11.20 [facility] [address] [place] [address] Dec, Uncomplicated opioid dependence F11.20 [facility] [id number] [place] [address] 96381- 1767 Dec, Uncomplicated opioid dependence F11.20 [facility] [id number] [place] [address] 01923- 3160 Dec, Uncomplicated opioid dependence F11.20 [facility] [address] [place] [address] Dec, Uncomplicated opioid dependence F11.20 [facility] [id number] [place] [address] 74479- 2373 Nov, Uncomplicated opioid dependence F11.20 [facility] [address] [place] [address] Nov, Uncomplicated opioid dependence F11.20 [facility] [id number] [place] [address] 67362- 8689 Nov, Uncomplicated opioid dependence F11.20 [facility] [address] [place] [address] Nov, Uncomplicated opioid dependence F11.20 [facility] [id number] [place] [address] 81014- 0120 Nov, Uncomplicated opioid dependence F11.20 [facility] [address] [place] [address] Nov, Uncomplicated opioid dependence F11.20 [facility] [id number] [place] [address] 50302- 5331 Nov, Uncomplicated opioid dependence F11.20 [facility] [address] [place] [address] Nov, Uncomplicated opioid dependence F11.20 [facility] [id number] [place] [address] 77844- 9076 Nov, Uncomplicated opioid dependence F11.20 [facility] [address] [place] [address] Nov, Uncomplicated opioid dependence F11.20 [facility] [address] 74302- 0774 Oct, Uncomplicated opioid dependence F11.20 [facility] [address] [place] [address] Oct, Uncomplicated opioid dependence F11.20 [facility] [address] 84147- 0733 Oct, Uncomplicated opioid dependence F11.20 [facility] [address] [place] [address] Oct, Uncomplicated opioid dependence F11.20 [facility] [address] 01476- 5259 Oct, Uncomplicated opioid dependence F11.20 [facility] [address] 55732- 8660 Oct, Uncomplicated opioid dependence F11.20 [facility] [address] 08464- 0660 Oct, [facility] [address] 33799- 0286 Oct, Uncomplicated opioid dependence F11.20 [facility] [address] 87882- 1074 Sep, Uncomplicated opioid dependence F11.20 [facility] [address] [place] [address] Sep, Uncomplicated opioid dependence F11.20 [facility] [id number] [place] [address] 94835- 8781 Sep, Uncomplicated opioid dependence F11.20 [facility] [address] [place] [address] Sep, Uncomplicated opioid dependence F11.20 [facility] [id number] [place] [address] 79567- 9613 Sep, Uncomplicated opioid dependence F11.20 [facility] [address] [place] [address] 15218- 7517 Sep, Uncomplicated opioid dependence F11.20 [facility] [address] [place] [address] Sep, Uncomplicated opioid dependence F11.20 [facility] [id number] [place] [address] 65333- 5986 Aug, Uncomplicated opioid dependence F11.20 [facility] [id number] [place] [address] 81518- 5186 Aug, Uncomplicated opioid dependence F11.20 [facility] [address] [place] [address] Aug, Uncomplicated opioid dependence F11.20 [facility] [address] [place] [address] Aug, [facility] [id number] [place] [address] 92781- 0847 Aug, Uncomplicated opioid dependence F11.20 [facility] [address] [place] [address] Aug, Uncomplicated opioid dependence F11.20 [facility] [id number] [place] [address] 37779- 5501 Aug, Uncomplicated opioid dependence F11.20 [facility] [address] [place] [address] Aug, Uncomplicated opioid dependence F11.20 [facility] [id number] [place] [address] 16554- 9584 Jul, Uncomplicated opioid dependence F11.20 [facility] [id number] [place] [address] 32329- 0462 Jul, Uncomplicated opioid dependence F11.20 [facility] [address] [place] [address] Jul, Uncomplicated opioid dependence F11.20 [facility] [id number] [place] [address] 45732- 5714 Jul, Uncomplicated opioid dependence F11.20 [facility] [id number] [place] [address] 91341- 9395 Jul, Uncomplicated opioid dependence F11.20 [facility] [address] [place] [address] 40628- 0444 Jun, Uncomplicated opioid dependence F11.20 [facility] [address] [place] [address] Jun, Uncomplicated opioid dependence F11.20 [facility] [address] [place] [address] 04983- 6360 Jun, Uncomplicated opioid dependence F11.20 [facility] [id number] [place] [address] 06602- 4233 Jun, Encounter for therapeutic drug level monitoring Z51.81 and Anxiety about health F41.8 [facility] [address] [place] [address] 89245- 7655 May, Uncomplicated opioid dependence F11.20 [facility] [address] [place] [address] 78703- 8864 May, [facility] [id number] [place] [address] 94528- 6693 May, Encounter for dental examination Z01.20 [facility] [address] [place] [address] 52581- 8368 May, Uncomplicated opioid dependence F11.20 ; Encounter for therapeutic drug level monitoring Z51.81 and Calculus of gallbladder and bile duct without cholecystitis or obstruction K80.70 [facility] [address] [place] [address] May, Uncomplicated opioid dependence F11.20 [facility] [address] [place] [address] 96560- 6084 May, Uncomplicated opioid dependence F11.20 [facility] [address] [place] [address] 71730- 0301 May, [facility] [address] [place] [address] May, Uncomplicated opioid dependence F11.20 [facility] [address] [address] 7[address] Apr, Uncomplicated opioid dependence F11.20 [facility] [id number] [place] [address] 28284- 4130 Apr, Uncomplicated opioid dependence F11.20 [facility] [address] [place] [address] Apr, Uncomplicated opioid dependence F11.20 [facility] [id number] [place] [address] 07224- 7927 14 Apr, 2017 Encounter for therapeutic drug level monitoring Z51.81 [facility] [id number] [place] [address] 19543- 5206 Apr, Uncomplicated opioid dependence F11.20 [facility] [address] [place] [address] Apr, Uncomplicated opioid dependence F11.20 [facility] [address] [place] [address] Apr, Uncomplicated opioid dependence F11.20 [facility] [id number] [place] [address] 33282- 6883 March, Uncomplicated opioid dependence F11.20 [facility] [address] [place] [address] March, Uncomplicated opioid dependence F11.20 [facility] [id number] [place] [address] 79114- 4341 March, Uncomplicated opioid dependence F11.20 [facility] [address] [place] [address] March, Uncomplicated opioid dependence F11.20 [facility] [address] [place] [address] March, Uncomplicated opioid dependence F11.20 [facility] [id number] [place] [address] 02999- 3638 March, [facility] [id number] [place] [address] 89085- 9616 March, [facility] [address] [place] [address] March, Uncomplicated opioid dependence F11.20 [facility] [address] [address] 7400 March, [facility] [address] [place] [address] March, Uncomplicated opioid dependence F11.20 [facility] [address] [place] [address] 88863- 2738 March, Uncomplicated opioid dependence F11.20 [facility] [address] [place] [address] March, Uncomplicated opioid dependence F11.20 [facility] [id number] [place] [address] 78887- 2762 Feb, Uncomplicated opioid dependence F11.20 [facility] [id number] [place] [address] 14128- 0030 Feb, [facility] [address] [place] [address] Feb, Uncomplicated opioid dependence F11.20 [facility] [address] [place] [address] Feb, Uncomplicated opioid dependence F11.20 [facility] [id number] [place] [address] 85606- 6693 Feb, Encounter for therapeutic drug level monitoring Z51.81 and Uncomplicated opioid dependence F11.20 [facility] [address] [place] [address] Feb, Uncomplicated opioid dependence F11.20 [facility] [address] [place] [address] 15714 2543 Feb, [facility] [id number] [place] [address] 82241 2547 Feb, Uncomplicated opioid dependence F11.20 [facility] [id number] [place] [address] 59784- 6785 Feb, Encounter for therapeutic drug level monitoring Z51.81 [facility] [address] [place] [address] Feb, Uncomplicated opioid dependence F11.20 [facility] [id number] [place] [address] 42360- 7376 17 Feb, 2017 Uncomplicated opioid dependence F11.20 and Encounter for therapeutic drug level monitoring Z51.81 [facility] [address] [place] [address] 14 Feb, 2017 Uncomplicated opioid dependence F11.20 [facility] [id number] [place] [address] 86992- 4085 14 Feb, 2017 Uncomplicated opioid dependence F11.20 [facility] [address] [place] [address] Feb, Uncomplicated opioid dependence F11.20 [facility] [address] [place] [address] Feb, [facility] [address] 78388- 8294 Feb, Uncomplicated opioid dependence F11.20 [facility] [address] [place] [address] Feb, Uncomplicated opioid dependence F11.20 [facility] [address] [place] [address] Feb, [facility] [id number] [place] [address] 17044- 5256 Feb, Uncomplicated opioid dependence F11.20 [facility] [address] [place] [address] Feb, Uncomplicated opioid dependence F11.20 [facility] [id number] [place] [address] 49468- 1346 Feb, Uncomplicated opioid dependence F11.20 [facility] [id number] [place] [address] 37233- 2298 Feb, [facility] [id number] [place] [address] 79617- 7307 Feb, Uncomplicated opioid dependence F11.20 and Substance abuse F19.10 [facility] [address] [place] [address] Feb, Substance abuse F19.10 [facility] [id number] [place] [address] 14377- 6098 Jan, Substance abuse F19.10 [facility] [address] [facility] [id number] [address] Jan, IMMUNIZATIONS No Known Immunizations SOCIAL HISTORY Never Assessed REASON FOR VISIT Suboxone RX (11/18-11/24) PLAN OF CARE VITAL SIGNS MEDICATIONS Medication Instructions Dosage Frequency Start Date End Date Duration Status Suboxone 8-2 MG Sublingual Once a day 1.5 film under the tongue and allow to dissolve 24h Nov, 7 days Active RESULTS No Results PROCEDURES [...]
--- OUTSIDE RECORDS SUMMARY | 2018-05-06 21:33 | XMS REPORT ---
Author Author MICHELA IQBAL [facility] Address [address] [place] [address] Care Team Providers Care Vp Care Management Name Role Phone MICHELA IQBAL Unavailable PROBLEMS Type Condition ICD9-CM Code NQF22-VI Code Onset Dates Condition Status SNOMED Code Problem Anxiety about health F41.8 Active 813171539 Problem Encounter for therapeutic drug level monitoring Z51.81 Active 785747783 Problem Uncomplicated opioid dependence F11.20 Active 80906407 Problem Substance abuse F19.10 Active 41882838 ALLERGIES No Information ENCOUNTERS Encounter Location Date Diagnosis [facility] [address] [place] [address] March, [facility] [address] [address] March, Uncomplicated opioid dependence F11.20 [facility] [id number] [place] [address] 86379- 4445 March, [facility] [address] [address] March, Uncomplicated opioid dependence F11.20 and Anxiety about health F41.8 [facility] [id number] [place] [address] 17452- 7847 Feb, Uncomplicated opioid dependence F11.20 [facility] [id number] [place] [address] 27449- 9520 Feb, Uncomplicated opioid dependence F11.20 [facility] [address] [place] [address] Feb, Uncomplicated opioid dependence F11.20 [facility] [id number] [place] [address] 17513- 1439 Feb, Uncomplicated opioid dependence F11.20 [facility] [address] [place] [address] Feb, Uncomplicated opioid dependence F11.20 [facility] [id number] [place] [address] 98898- 7342 Feb, Uncomplicated opioid dependence F11.20 [facility] [id number] [place] [address] 13915 2546 Feb, Uncomplicated opioid dependence F11.20 [facility] [address] [place] [address] Feb, Uncomplicated opioid dependence F11.20 [facility] [id number] [place] [address] 74616- 4032 Jan, Uncomplicated opioid dependence F11.20 [facility] [address] [place] [address] Jan, [facility] [id number] [place] [address] 46308- 0344 Jan, Uncomplicated opioid dependence F11.20 [facility] [address] [place] [address] Jan, Uncomplicated opioid dependence F11.20 [facility] [id number] [place] [address] 41824- 9560 Jan, Uncomplicated opioid dependence F11.20 [facility] [address] [place] [address] Jan, Uncomplicated opioid dependence F11.20 [facility] [id number] [place] [address] 92164- 5039 Jan, Uncomplicated opioid dependence F11.20 [facility] [address] [place] [address] Jan, Uncomplicated opioid dependence F11.20 [facility] [address] [place] [address] Jan, [facility] [id number] [place] [address] 81746- 1527 Dec, Uncomplicated opioid dependence F11.20 [facility] [address] [place] [address] Dec, Uncomplicated opioid dependence F11.20 [facility] [id number] [place] [address] 47491- 6867 15 Dec, 2017 Uncomplicated opioid dependence F11.20 [facility] [address] [address] 08 Dec, 2017 Uncomplicated opioid dependence F11.20 [facility] [address] [place] [address] 08 Dec, 2017 Uncomplicated opioid dependence F11.20 [facility] [address] 0[address] 4787 Nov, Uncomplicated opioid dependence F11.20 [facility] [address] [place] [address] Nov, Uncomplicated opioid dependence F11.20 [facility] [id number] [place] [address] 49824- 9381 Nov, Uncomplicated opioid dependence F11.20 [facility] [address] [place] [address] Nov, Uncomplicated opioid dependence F11.20 [facility] [id number] [place] [address] 29563- 7347 Nov, Uncomplicated opioid dependence F11.20 [facility] [address] [place] [address] Nov, Uncomplicated opioid dependence F11.20 [facility] [id number] [place] [address] 00905- 1864 Nov, Uncomplicated opioid dependence F11.20 [facility] [address] [place] [address] Nov, Uncomplicated opioid dependence F11.20 [facility] [id number] [place] [address] 03454- 7880 Nov, Uncomplicated opioid dependence F11.20 [facility] [address] [place] [address] Nov, Uncomplicated opioid dependence F11.20 [facility] [id number] [place] [address] 70246- 3488 Oct, Uncomplicated opioid dependence F11.20 [facility] [address] [place] [address] Oct, Uncomplicated opioid dependence F11.20 [facility] [id number] [place] [address] 24037- 8961 Oct, Uncomplicated opioid dependence F11.20 [facility] [address] [place] [address] Oct, Uncomplicated opioid dependence F11.20 [facility] [address] [address] Oct, Uncomplicated opioid dependence F11.20 [facility] [address] 16034[address] 8[address] 07 Oct, 2017 Uncomplicated opioid dependence F11.20 [facility] [address] 7[address] 1439 Oct, [facility] [address] 8[address] 3[address] Oct, Uncomplicated opioid dependence F11.20 [facility] [address] [address] Sep, Uncomplicated opioid dependence F11.20 [facility] [address] [place] [address] Sep, Uncomplicated opioid dependence F11.20 [facility] [address] [address]- 5976 Sep, Uncomplicated opioid dependence F11.20 [facility] [address] [place] [address] Sep, Uncomplicated opioid dependence F11.20 [facility] [id number] [place] [address] 03487- 3521 15 Sep, 2017 Uncomplicated opioid dependence F11.20 [facility] [address] 43715- 7516 Sep, Uncomplicated opioid dependence F11.20 [facility] [address] [place] [address] Sep, Uncomplicated opioid dependence F11.20 [facility] [address] 43850- 0336 Aug, Uncomplicated opioid dependence F11.20 [facility] [id number] [place] [address] 59434- 0892 Aug, Uncomplicated opioid dependence F11.20 [facility] [address] [place] [address] Aug, Uncomplicated opioid dependence F11.20 [facility] [address] [place] [address] Aug, [facility] [id number] [place] [address] 96288- 8679 Aug, Uncomplicated opioid dependence F11.20 [facility] [address] [place] [address] Aug, Uncomplicated opioid dependence F11.20 [facility] [id number] [place] [address] 65243- 9174 Aug, Uncomplicated opioid dependence F11.20 [facility] [address] [place] [address] Aug, Uncomplicated opioid dependence F11.20 [facility] [id number] [place] [address] 31233- 4096 29 Jul, 2017 Uncomplicated opioid dependence F11.20 [facility] [id number] [place] [address] 92089- 1918 Jul, Uncomplicated opioid dependence F11.20 [facility] [address] [place] [address] 15 Jul, 2017 Uncomplicated opioid dependence F11.20 [facility] [id number] [place] [address] 92528- 8897 15 Jul, 2017 Uncomplicated opioid dependence F11.20 [facility] [id number] [place] [address] 79825- 8609 07 Jul, 2017 Uncomplicated opioid dependence F11.20 [facility] [id number] [place] [address] 84109- 4219 Jun, Uncomplicated opioid dependence F11.20 [facility] [address] [place] [address] Jun, Uncomplicated opioid dependence F11.20 [facility] [address] [place] [address] 43776- 7891 Jun, Uncomplicated opioid dependence F11.20 [facility] [id number] [place] [address] 55219- 5954 Jun, Encounter for therapeutic drug level monitoring Z51.81 and Anxiety about health F41.8 [facility] [address] 85269- 9053 May, Uncomplicated opioid dependence F11.20 [facility] [id number] [place] [address] 02202- 7494 May, [facility] [address] 12[address]- 0496 May, Encounter for dental examination Z01.20 [facility] [id number] [place] [address] 95886- 7772 May, Uncomplicated opioid dependence F11.20 ; Encounter for therapeutic drug level monitoring Z51.81 and Calculus of gallbladder and bile duct without cholecystitis or obstruction K80.70 [facility] [address] [place] [address] May, Uncomplicated opioid dependence F11.20 [facility] [id number] [place] [address] 52755- 5102 May, Uncomplicated opioid dependence F11.20 [facility] [id number] [place] [address] 85133 2540 May, [facility] [address] [place] [address] May, Uncomplicated opioid dependence F11.20 [facility] [id number] [place] [address] 05939- 0225 Apr, Uncomplicated opioid dependence F11.20 [facility] [id number] [place] [address] 66123- 0729 Apr, Uncomplicated opioid dependence F11.20 [facility] [address] [place] [address] Apr, Uncomplicated opioid dependence F11.20 [facility] [address] [place] [address] 97910- 7503 14 Apr, 2017 Encounter for therapeutic drug level monitoring Z51.81 [facility] [id number] [place] [address] 64024- 9999 14 Apr, 2017 Uncomplicated opioid dependence F11.20 [facility] [address] [place] [address] 09 Apr, 2017 Uncomplicated opioid dependence F11.20 [facility] [address] [place] [address] Apr, Uncomplicated opioid dependence F11.20 [facility] [id number] [place] [address] 61892- 5412 March, Uncomplicated opioid dependence F11.20 [facility] [address] [place] [address] March, Uncomplicated opioid dependence F11.20 [facility] [id number] [place] [address] 74327- 1090 March, Uncomplicated opioid dependence F11.20 [facility] [address] [place] [address] March, Uncomplicated opioid dependence F11.20 [facility] [address] [place] [address] March, Uncomplicated opioid dependence F11.20 [facility] [id number] [place] [address] 97240- 7156 March, [facility] [id number] [place] [address] 82603- 1419 March, [facility] [address] [place] [address] March, Uncomplicated opioid dependence F11.20 [facility] [id number] [place] [address] 01704- 1455 March, [facility] [address] [place] [address] March, Uncomplicated opioid dependence F11.20 [facility] [id number] [place] [address] 89830- 5894 March, Uncomplicated opioid dependence F11.20 [facility] [address] [place] [address] March, Uncomplicated opioid dependence F11.20 [facility] [id number] [place] [address] 40194- 3636 Feb, Uncomplicated opioid dependence F11.20 [facility] [id number] [place] [address] 22542- 2897 Feb, [facility] [address] [place] [address] Feb, Uncomplicated opioid dependence F11.20 [facility] [address] [place] [address] Feb, Uncomplicated opioid dependence F11.20 [facility] [id number] [place] [address] 93535- 2066 Feb, Encounter for therapeutic drug level monitoring Z51.81 and Uncomplicated opioid dependence F11.20 [facility] [address] [place] [address] Feb, Uncomplicated opioid dependence F11.20 [facility] [id number] [place] [address] 41045- 7628 Feb, [facility] [id number] [place] [address] 21570- 1505 Feb, Uncomplicated opioid dependence F11.20 [facility] [id number] [place] [address] 62317- 1738 Feb, Encounter for therapeutic drug level monitoring Z51.81 [facility] [address] [place] [address] Feb, Uncomplicated opioid dependence F11.20 [facility] [id number] [place] [address] 61453- 3449 Feb, Uncomplicated opioid dependence F11.20 and Encounter for therapeutic drug level monitoring Z51.81 [facility] [address] [place] [address] 14 Feb, 2017 Uncomplicated opioid dependence F11.20 [facility] [id number] [place] [address] 48916- 0278 14 Feb, 2017 Uncomplicated opioid dependence F11.20 [facility] [address] [place] [address] Feb, Uncomplicated opioid dependence F11.20 [facility] [address] [place] [address] Feb, [facility] [id number] [place] [address] 09873- 2984 Feb, Uncomplicated opioid dependence F11.20 [facility] [address] [place] [address] Feb, Uncomplicated opioid dependence F11.20 [facility] [address] [place] [address] Feb, [facility] [id number] [place] [address] 404738- 4447 Feb, Uncomplicated opioid dependence F11.20 [facility] [address] [place] [address] Feb, Uncomplicated opioid dependence F11.20 [facility] [id number] [place] [address] 42876- 6085 Feb, Uncomplicated opioid dependence F11.20 [facility] [id number] [place] [address] 37800- 6010 Feb, [facility] [id number] [place] [address] 70475- 3852 Feb, Uncomplicated opioid dependence F11.20 and Substance abuse F19.10 [facility] [address] [place] [address] Feb, Substance abuse F19.10 [facility] [id number] [place] [address] 06165- 2657 Jan, Substance abuse F19.10 [facility] [id number] [place] [address] 94701- 0887 Jan, IMMUNIZATIONS No Known Immunizations SOCIAL HISTORY Never Assessed REASON FOR VISIT SUBAB F/U PLAN OF CARE Activity Details Follow Up 1 Week Reason: VITAL SIGNS MEDICATIONS Unknown Medications RESULTS Name Result Date Reference Range URINE DRUG SCREEN (IN HOUSE) 2017-08-30 Lot # [id number] Exp date 04/2019 Control + COCAINE Negative AMPH Negative MTD Negative THC Negative OPIATE Negative BENZO Negative PCP Negative BAR Negative OXY Negative MAMP Negative TCA N/A BUP Positive MDMA Negative PROCEDURES Procedure Date Ordered Result Body Site DRUG TEST PRSMV DIR OPT OBS Aug 30, 2017 Psychotherapy, patient &/family, 30 minutes, established patient Aug 30, 2017 INSTRUCTIONS MEDICATIONS ADMINISTERED No Known Medications [...]
--- OUTSIDE RECORDS SUMMARY | 2018-05-06 21:34 | XMS REPORT ---
Author Author ANABELLA GARCIA Organization [facility] Address [address] [place] [address] Care Team Providers Care Tray Line Worker Name Role Phone ANABELLA GARCIA Unavailable PROBLEMS Type Condition ICD9-CM Code [id number] Code Onset Dates Condition Status SNOMED Code Problem Anxiety about health F41.8 Active 605903172 Problem Encounter for therapeutic drug level monitoring Z51.81 Active 689829519 Problem Uncomplicated opioid dependence F11.20 Active 98916037 Problem Substance abuse F19.10 Active [id number] ALLERGIES No Known Allergies ENCOUNTERS Encounter Location Date Diagnosis [facility] [address] [place] [address] Feb, [facility] [address] [address] Feb, Uncomplicated opioid dependence F11.20 [facility] [id number] [place] [address]149[address] 7430 Feb, Uncomplicated opioid dependence F11.20 [facility] [address] [place] [address] Feb, Uncomplicated opioid dependence F11.20 [facility] [id number] [place] [address] 72986- 7573 Jan, Uncomplicated opioid dependence F11.20 [facility] [address] [place] [address] Jan, [facility] [id number] [place] [address] 45584- 4985 Jan, Uncomplicated opioid dependence F11.20 [facility] [address] [place] [address] Jan, Uncomplicated opioid dependence F11.20 [facility] [id number] [place] [address] 22885- 3544 Jan, Uncomplicated opioid dependence F11.20 [facility] [address] [place] [address] 14 Jan, 2018 Uncomplicated opioid dependence F11.20 [facility] [id number] [place] [address] 63954- 79[address] 07 Jan, 2018 Uncomplicated opioid dependence F11.20 [facility] [address] [place] [address] 07 Jan, 2018 Uncomplicated opioid dependence F11.20 [facility] [address] [place] [address] 06 Jan, 2018 [facility] [id number] [place] [address] Dec, Uncomplicated opioid dependence F11.20 [facility] [address] [place] [address] Dec, Uncomplicated opioid dependence F11.20 [facility] [id number] [place] [address] 92910- 2950 15 Dec, 2017 Uncomplicated opioid dependence F11.20 [facility] [id number] [place] [address] 48669- 9369 08 Dec, 2017 Uncomplicated opioid dependence F11.20 [facility] [address] [place] [address] 08 Dec, 2017 Uncomplicated opioid dependence F11.20 [facility] [id number] [place] [address] 99220- 4380 Nov, Uncomplicated opioid dependence F11.20 [facility] [address] [place] [address] Nov, Uncomplicated opioid dependence F11.20 [facility] [id number] [place] [address] 48073- 5057 Nov, Uncomplicated opioid dependence F11.20 [facility] [address] [place] [address] Nov, Uncomplicated opioid dependence F11.20 [facility] [id number] [place] [address] 74933- 6902 Nov, Uncomplicated opioid dependence F11.20 [facility] [address] [place] [address] Nov, Uncomplicated opioid dependence F11.20 [facility] [id number] [place] [address] 72870- 5929 Nov, Uncomplicated opioid dependence F11.20 [facility] [address] [place] [address] Nov, Uncomplicated opioid dependence F11.20 [facility] [address] [address] Nov, Uncomplicated opioid dependence F11.20 [facility] [address] [place] [address] Nov, Uncomplicated opioid dependence F11.20 [facility] [address] [address] Oct, Uncomplicated opioid dependence F11.20 [facility] [address] [place] [address] Oct, Uncomplicated opioid dependence F11.20 [facility] [address] [address] Oct, Uncomplicated opioid dependence F11.20 [facility] [address] [place] [address] Oct, Uncomplicated opioid dependence F11.20 [facility] [id number] [place] [address] 02175[address] 2515 Oct, Uncomplicated opioid dependence F11.20 [facility] [id number] [place] [address] 38587- 5800 Oct, Uncomplicated opioid dependence F11.20 [facility] [id number] [place] [address] 13764- 2870 Oct, [facility] [address] [address] Oct, Uncomplicated opioid dependence F11.20 [facility] [id number] [place] [address] 08579- 4260 Sep, Uncomplicated opioid dependence F11.20 [facility] [address] [place] [address] Sep, Uncomplicated opioid dependence F11.20 [facility] [id number] [place] [address] 74116[address] 64[address] Sep, Uncomplicated opioid dependence F11.20 [facility] [address] [place] [address] Sep, Uncomplicated opioid dependence F11.20 [facility] [id number] [place] [address] 60045- 5279 Sep, Uncomplicated opioid dependence F11.20 [facility] [address] 86[address] Sep, Uncomplicated opioid dependence F11.20 [facility] [address] [place] [address] Sep, Uncomplicated opioid dependence F11.20 [facility] [address] [address] Aug, Uncomplicated opioid dependence F11.20 [facility] [address] 1944[address] Aug, Uncomplicated opioid dependence F11.20 [facility] [address] [place] [address] Aug, Uncomplicated opioid dependence F11.20 [facility] [address] [place] [address] Aug, [facility] [id number] [place] [address] 82989- 9930 Aug, Uncomplicated opioid dependence F11.20 [facility] [address] [place] [address] Aug, Uncomplicated opioid dependence F11.20 [facility] [id number] [place] [address] 19405- 0917 Aug, Uncomplicated opioid dependence F11.20 [facility] [address] [place] [address] Aug, Uncomplicated opioid dependence F11.20 [facility] [id number] [place] [address] 68709- 2009 Jul, Uncomplicated opioid dependence F11.20 [facility] [address] [place] [address] 63977- 3881 Jul, Uncomplicated opioid dependence F11.20 [facility] [address] [place] [address] Jul, Uncomplicated opioid dependence F11.20 [facility] [id number] [place] [address] 33581- 5491 Jul, Uncomplicated opioid dependence F11.20 [facility] [id number] [place] [address] 77712- 6415 Jul, Uncomplicated opioid dependence F11.20 [facility] [id number] [place] [address] 34672- 1793 Jun, Uncomplicated opioid dependence F11.20 [facility] [address] [place] [address] Jun, Uncomplicated opioid dependence F11.20 [facility] [id number] [place] [address] 60096- 0144 Jun, Uncomplicated opioid dependence F11.20 [facility] [id number] [place] [address] 83113- 3617 Jun, Encounter for therapeutic drug level monitoring Z51.81 and Anxiety about health F41.8 [facility] [id number] [place] [address] 80717- 1518 May, Uncomplicated opioid dependence F11.20 [facility] [id number] [place] [address] 50257- 9363 May, [facility] [id number] [place] [address] 34679- 8021 May, Encounter for dental examination Z01.20 [facility] [id number] [place] [address] 31472- 8037 May, Uncomplicated opioid dependence F11.20 ; Encounter for therapeutic drug level monitoring Z51.81 and Calculus of gallbladder and bile duct without cholecystitis or obstruction K80.70 [facility] [address] [place] [address] May, Uncomplicated opioid dependence F11.20 [facility] [id number] [place] [address] 51730- 9164 13 May, 2017 Uncomplicated opioid dependence F11.20 [facility] [id number] [place] [address] 95892- 5375 10 May, 2017 [facility] [address] [place] [address] 05 May, 2017 Uncomplicated opioid dependence F11.20 [facility] [id number] [place] [address] 09256- 7566 Apr, Uncomplicated opioid dependence F11.20 [facility] [id number] [place] [address] 95529- 3407 Apr, Uncomplicated opioid dependence F11.20 [facility] [address] [place] [address] Apr, Uncomplicated opioid dependence F11.20 [facility] [id number] [place] [address] 36070- 2218 14 Apr, 2017 Encounter for therapeutic drug level monitoring Z51.81 [facility] [id number] [place] [address] 89113- 2855 Apr, Uncomplicated opioid dependence F11.20 [facility] [address] [place] [address] Apr, Uncomplicated opioid dependence F11.20 [facility] [address] [place] [address] Apr, Uncomplicated opioid dependence F11.20 [facility] [id number] [place] [address] 62660- 9051 March, Uncomplicated opioid dependence F11.20 [facility] [address] [place] [address] March, Uncomplicated opioid dependence F11.20 [facility] [id number] [place] [address] 65500- 5979 March, Uncomplicated opioid dependence F11.20 [facility] [address] [place] [address] March, Uncomplicated opioid dependence F11.20 [facility] [address] [place] [address] March, Uncomplicated opioid dependence F11.20 [facility] [id number] [place] [address] 32658- 7117 March, [facility] [id number] [place] [address] 77206- 4013 March, [facility] [address] [place] [address] March, Uncomplicated opioid dependence F11.20 [facility] [id number] [place] [address] 00114- 7560 March, [facility] [address] [place] [address] March, Uncomplicated opioid dependence F11.20 [facility] [id number] [place] [address] 42513- 8967 March, Uncomplicated opioid dependence F11.20 [facility] [address] [place] [address] March, Uncomplicated opioid dependence F11.20 [facility] [id number] [place] [address] 82927- 6463 Feb, Uncomplicated opioid dependence F11.20 [facility] [id number] [place] [address] 54948- 8182 Feb, [facility] [address] [place] [address] Feb, Uncomplicated opioid dependence F11.20 [facility] [address] [place] [address] Feb, Uncomplicated opioid dependence F11.20 [facility] [address] [place] [address] 20441- 0679 Feb, Encounter for therapeutic drug level monitoring Z51.81 and Uncomplicated opioid dependence F11.20 [facility] [address] [place] [address] Feb, Uncomplicated opioid dependence F11.20 [facility] [address] [place] [address] 37049- 9301 Feb, [facility] [id number] [place] [address] 08147- 9455 18 Feb, 2017 Uncomplicated opioid dependence F11.20 [facility] [id number] [place] [address] 21418- 5328 18 Feb, 2017 Encounter for therapeutic drug level monitoring Z51.81 [facility] [address] [place] [address] 17 Feb, 2017 Uncomplicated opioid dependence F11.20 [facility] [id number] [place] [address] 14619- 7489 17 Feb, 2017 Uncomplicated opioid dependence F11.20 and Encounter for therapeutic drug level monitoring Z51.81 [facility] [address] [place] [address] 14 Feb, 2017 Uncomplicated opioid dependence F11.20 [facility] [id number] [place] [address] 87249- 9429 14 Feb, 2017 Uncomplicated opioid dependence F11.20 [facility] [address] [place] [address] Feb, Uncomplicated opioid dependence F11.20 [facility] [address] [place] [address] Feb, [facility] [address] 37298- [address]87 Feb, Uncomplicated opioid dependence F11.20 [facility] [address] [place] [address] Feb, Uncomplicated opioid dependence F11.20 [facility] [address] [place] [address] Feb, [facility] [id number] [place] [address] 2540 Feb, Uncomplicated opioid dependence F11.20 [facility] [address] [place] [address] Feb, Uncomplicated opioid dependence F11.20 [facility] [id number] [place] [address] 66368 2541 Feb, Uncomplicated opioid dependence F11.20 [facility] [id number] [place] [address] 24059- 2514 10 Feb, 2017 [facility] [address] [facility] [id number] [place] [address] 10 Feb, 2017 Uncomplicated opioid dependence F11.20 and Substance abuse F19.10 [facility] [address] [place] [address] 04 Feb, 2017 Substance abuse F19.10 [facility] [address] [facility] [id number] [address] Jan, Substance abuse F19.10 [facility] [address] [facility] [id number] [address] Jan, IMMUNIZATIONS No Known Immunizations SOCIAL HISTORY Never Assessed REASON FOR VISIT Leg pain/numbness-states it comes and goes, F/u before gallbladder ultrasound. - KANDI Gusman PLAN OF CARE Activity Details Follow Up 2 Months Reason: VITAL SIGNS Height 67 in 2017-06-24 Weight 149 lbs 2017-06-24 Temperature 98.4 degrees Fahrenheit 2017-06-24 Heart Rate 70 bpm 2017-06-24 Respiratory Rate 16 2017-06-24 BMI 23.33 kg/m2 2017-06-24 Blood pressure systolic 118 mmHg 2017-06-24 Blood pressure diastolic 78 mmHg 2017-06-24 MEDICATIONS Medication Instructions Dosage Frequency Start Date End Date Duration Status Suboxone 8-2 MG Sublingual Once a day 1.5 application under the tongue and allow to dissolve 24h Feb, 13 days Active Celexa 20 mg Orally Once a day. Take 0.5 tab daily x7 days then increase to 1 tab daily 1 tablet May, 30 day(s) Active RESULTS No Results PROCEDURES No Known [...]
--- OUTSIDE RECORDS SUMMARY | 2018-05-06 21:35 | XMS REPORT ---
Author Author ANABELLA GARCIA Organization [facility] Address [address] [place] [address] Care Team Providers Care Endodontics Dentist Name Role Phone ANABELLA GARCIA Unavailable PROBLEMS Type Condition ICD9-CM Code FGH41-ZR Code Onset Dates Condition Status SNOMED Code Problem Anxiety about health F41.8 Active 092574137 Problem Encounter for therapeutic drug level monitoring Z51.81 Active 851831606 Problem Uncomplicated opioid dependence F11.20 Active 86621817 Problem Substance abuse F19.10 Active [id number] ALLERGIES No Information ENCOUNTERS Encounter Location Date Diagnosis [facility] [address] [place] [address] Feb, [facility] [id number] [place] [address] 83323- 5203 Feb, Uncomplicated opioid dependence F11.20 [facility] [address] [place] [address] Feb, Uncomplicated opioid dependence F11.20 [facility] [id number] [place] [address] 03109- 4162 Feb, Uncomplicated opioid dependence F11.20 [facility] [id number] [place] [address] 31988- 0178 Feb, Uncomplicated opioid dependence F11.20 [facility] [address] [place] [address] Feb, Uncomplicated opioid dependence F11.20 [facility] [id number] [place] [address] 53994- 7287 Jan, Uncomplicated opioid dependence F11.20 [facility] [address] [place] [address] Jan, [facility] [id number] [place] [address] 34628- 3885 Jan, Uncomplicated opioid dependence F11.20 [facility] [address] [place] [address] Jan, Uncomplicated opioid dependence F11.20 [facility] [id number] [place] [address] 24568- 2503 Jan, Uncomplicated opioid dependence F11.20 [facility] [address] [place] [address] 14 Jan, 2018 Uncomplicated opioid dependence F11.20 [facility] [address] 015[address] 1680 Jan, Uncomplicated opioid dependence F11.20 [facility] [address] [place] [address] 07 Jan, 2018 Uncomplicated opioid dependence F11.20 [facility] [address] [place] [address] Jan, [facility] [id number] [place] [address] 64672- 4713 Dec, Uncomplicated opioid dependence F11.20 [facility] [address] [place] [address] Dec, Uncomplicated opioid dependence F11.20 [facility] [id number] [place] [address] 23403- 2720 15 Dec, 2017 Uncomplicated opioid dependence F11.20 [facility] [id number] [place] [address] 71844- 2086 08 Dec, 2017 Uncomplicated opioid dependence F11.20 [facility] [address] [place] [address] Dec, Uncomplicated opioid dependence F11.20 [facility] [id number] [place] [address] 64375- 2288 Nov, Uncomplicated opioid dependence F11.20 [facility] [address] [place] [address] Nov, Uncomplicated opioid dependence F11.20 [facility] [id number] [place] [address] 80031- 0828 Nov, Uncomplicated opioid dependence F11.20 [facility] [address] [place] [address] Nov, Uncomplicated opioid dependence F11.20 [facility] [id number] [place] [address] 10599- 6034 Nov, Uncomplicated opioid dependence F11.20 [facility] [address] [place] [address] Nov, Uncomplicated opioid dependence F11.20 [facility] [address] 73334- 3032 Nov, Uncomplicated opioid dependence F11.20 [facility] [address] [place] [address] Nov, Uncomplicated opioid dependence F11.20 [facility] [address] 40517- 3613 Nov, Uncomplicated opioid dependence F11.20 [facility] [address] [place] [address] Nov, Uncomplicated opioid dependence F11.20 [facility] [address] 13122- 8224 Oct, Uncomplicated opioid dependence F11.20 [facility] [address] [place] [address] Oct, Uncomplicated opioid dependence F11.20 [facility] [address] 24414- 5527 Oct, Uncomplicated opioid dependence F11.20 [facility] [address] [place] [address] Oct, Uncomplicated opioid dependence F11.20 [facility] [id number] [place] [address] 94549- 6274 Oct, Uncomplicated opioid dependence F11.20 [facility] [address] 70412- 5936 Oct, Uncomplicated opioid dependence F11.20 [facility] [address] 40241- 8318 Oct, [facility] [address] 39078- 7398 Oct, Uncomplicated opioid dependence F11.20 [facility] [id number] [place] [address] 06306- 2439 Sep, Uncomplicated opioid dependence F11.20 [facility] [address] [place] [address] Sep, Uncomplicated opioid dependence F11.20 [facility] [id number] [place] [address] 77942- 0266 Sep, Uncomplicated opioid dependence F11.20 [facility] [address] [place] [address] Sep, Uncomplicated opioid dependence F11.20 [facility] [address] 40723- 8037 Sep, Uncomplicated opioid dependence F11.20 [facility] [id number] [place] [address] 59780- 7866 Sep, Uncomplicated opioid dependence F11.20 [facility] [address] [place] [address] Sep, Uncomplicated opioid dependence F11.20 [facility] [id number] [place] [address] 40774- 4779 Aug, Uncomplicated opioid dependence F11.20 [facility] [id number] [place] [address] 95268- 5001 Aug, Uncomplicated opioid dependence F11.20 [facility] [address] [place] [address] Aug, Uncomplicated opioid dependence F11.20 [facility] [address] [place] [address] Aug, [facility] [id number] [place] [address] 00593- 1593 Aug, Uncomplicated opioid dependence F11.20 [facility] [address] [place] [address] Aug, Uncomplicated opioid dependence F11.20 [facility] [id number] [place] [address] 90233- 2263 Aug, Uncomplicated opioid dependence F11.20 [facility] [address] [place] [address] Aug, Uncomplicated opioid dependence F11.20 [facility] [id number] [place] [address] 53967- 0403 Jul, Uncomplicated opioid dependence F11.20 [facility] [id number] [place] [address] 78799- 5646 Jul, Uncomplicated opioid dependence F11.20 [facility] [address] [place] [address] Jul, Uncomplicated opioid dependence F11.20 [facility] [id number] [place] [address] 51459- 4745 Jul, Uncomplicated opioid dependence F11.20 [facility] [id number] [place] [address] 87899- 2127 Jul, Uncomplicated opioid dependence F11.20 [facility] [address] 54101- 2793 Jun, Uncomplicated opioid dependence F11.20 [facility] [address] [place] [address] Jun, Uncomplicated opioid dependence F11.20 [facility] [address] 06967- 4555 Jun, Uncomplicated opioid dependence F11.20 [facility] [id number] [place] [address] 33881- 2593 Jun, Encounter for therapeutic drug level monitoring Z51.81 and Anxiety about health F41.8 [facility] [id number] [place] [address] 55611- 6340 May, Uncomplicated opioid dependence F11.20 [facility] [address] 37140- 5746 May, [facility] [id number] [place] [address] 59153- 9610 May, Encounter for dental examination Z01.20 [facility] [id number] [place] [address] 99689- 2546 May, Uncomplicated opioid dependence F11.20 ; Encounter for therapeutic drug level monitoring Z51.81 and Calculus of gallbladder and bile duct without cholecystitis or obstruction K80.70 [facility] [address] [place] [address] May, Uncomplicated opioid dependence F11.20 [facility] [id number] [place] [address] 63119 2546 May, Uncomplicated opioid dependence F11.20 [facility] [id number] [place] [address] 10368 2546 May, [facility] [address] [place] [address] May, Uncomplicated opioid dependence F11.20 [facility] [id number] [place] [address] 13295- 4401 Apr, Uncomplicated opioid dependence F11.20 [facility] [id number] [place] [address] 05691- 9980 Apr, Uncomplicated opioid dependence F11.20 [facility] [address] [place] [address] Apr, Uncomplicated opioid dependence F11.20 [facility] [id number] [place] [address] 80767- 0854 Apr, Encounter for therapeutic drug level monitoring Z51.81 [facility] [id number] [place] [address] 86541- 3875 Apr, Uncomplicated opioid dependence F11.20 [facility] [address] [place] [address] Apr, Uncomplicated opioid dependence F11.20 [facility] [address] [place] [address] Apr, Uncomplicated opioid dependence F11.20 [facility] [id number] [place] [address] 78446 2541 March, Uncomplicated opioid dependence F11.20 [facility] [address] [place] [address] March, Uncomplicated opioid dependence F11.20 [facility] [id number] [place] [address] 44464- 6262 March, Uncomplicated opioid dependence F11.20 [facility] [address] [place] [address] March, Uncomplicated opioid dependence F11.20 [facility] [address] [place] [address] March, Uncomplicated opioid dependence F11.20 [facility] [id number] [place] [address] 17348- 7873 March, [facility] [id number] [place] [address] 57979- 8085 March, [facility] [address] [place] [address] March, Uncomplicated opioid dependence F11.20 [facility] [id number] [place] [address] 97160- 7332 March, [facility] [address] [place] [address] March, Uncomplicated opioid dependence F11.20 [facility] [id number] [place] [address] 64449- 7983 March, Uncomplicated opioid dependence F11.20 [facility] [address] [place] [address] March, Uncomplicated opioid dependence F11.20 [facility] [address] [place] [address] 73258- 2266 Feb, Uncomplicated opioid dependence F11.20 [facility] [id number] [place] [address] 16811- 0293 Feb, [facility] [address] [place] [address] Feb, Uncomplicated opioid dependence F11.20 [facility] [address] [place] [address] Feb, Uncomplicated opioid dependence F11.20 [facility] [id number] [place] [address] 88311- 0266 Feb, Encounter for therapeutic drug level monitoring Z51.81 and Uncomplicated opioid dependence F11.20 [facility] [address] [place] [address] 20 Feb, 2017 Uncomplicated opioid dependence F11.20 [facility] [id number] [place] [address] 63084 2546 Feb, [facility] [id number] [place] [address] 09107 2546 18 Feb, 2017 Uncomplicated opioid dependence F11.20 [facility] [address] [address] 2546 18 Feb, 2017 Encounter for therapeutic drug level monitoring Z51.81 [facility] [address] [place] [address] 17 Feb, 2017 Uncomplicated opioid dependence F11.20 [facility] [address] 38286- 2216 17 Feb, 2017 Uncomplicated opioid dependence F11.20 and Encounter for therapeutic drug level monitoring Z51.81 [facility] [address] [place] [address] 14 Feb, 2017 Uncomplicated opioid dependence F11.20 [facility] [address] 86599- 1521 14 Feb, 2017 Uncomplicated opioid dependence F11.20 [facility] [address] [place] [address] Feb, Uncomplicated opioid dependence F11.20 [facility] [address] [place] [address] 13 Feb, 2017 [facility] [id number] [place] [address] 17838 2546 Feb, Uncomplicated opioid dependence F11.20 [facility] [address] [place] [address] Feb, Uncomplicated opioid dependence F11.20 [facility] [address] [place] [address] Feb, [facility] [id number] [place] [address] 17257 2546 Feb, Uncomplicated opioid dependence F11.20 [facility] [address] [place] [address] Feb, Uncomplicated opioid dependence F11.20 [facility] [id number] [address] Feb, Uncomplicated opioid dependence F11.20 [facility] [address] [place] [address] Feb, [facility] [address] [place] [address] Feb, Uncomplicated opioid dependence F11.20 and Substance abuse F19.10 [facility] [address] [place] [address] Feb, Substance abuse F19.10 [facility] [id number] [place] [address] 31056- 1740 Jan, Substance abuse F19.10 [facility] [address] [place] [address] Jan, IMMUNIZATIONS No Known Immunizations SOCIAL HISTORY Never Assessed REASON FOR VISIT Suboxone RX (08/13-08/19) PLAN OF CARE VITAL SIGNS MEDICATIONS Medication Instructions Dosage Frequency Start Date End Date Duration Status Suboxone 8-2 MG Sublingual Once a day 1.5 application under the tongue and allow to dissolve 24h Feb, Jul, 7 days Active RESULTS No Results PROCEDURES [...]
--- OUTSIDE RECORDS SUMMARY | 2018-05-06 21:35 | XMS REPORT ---
Author Author ANABELLA GARCIA Organization [facility] Address [address] [place] [address] Care Team Providers Care Relief Manager Name Role Phone ANABELLA GARCIA Unavailable PROBLEMS Type Condition ICD9-CM Code QVA13-XC Code Onset Dates Condition Status SNOMED Code Problem Anxiety about health F41.8 Active 893904630 Problem Encounter for therapeutic drug level monitoring Z51.81 Active 878652893 Problem Uncomplicated opioid dependence F11.20 Active 39009331 Problem Substance abuse F19.10 Active [id number] ALLERGIES No Information ENCOUNTERS Encounter Location Date Diagnosis [facility] [address] [address] Feb, Uncomplicated opioid dependence F11.20 [facility] [id number] [place] [address] 5927 Feb, Uncomplicated opioid dependence F11.20 [facility] [address] [place] [address] Feb, Uncomplicated opioid dependence F11.20 [facility] [id number] [place] [address] 78681- 3845 Jan, Uncomplicated opioid dependence F11.20 [facility] [address] [place] [address] Jan, [facility] [id number] [place] [address] 45363- 4397 Jan, Uncomplicated opioid dependence F11.20 [facility] [address] [place] [address] Jan, Uncomplicated opioid dependence F11.20 [facility] [id number] [place] [address] 13875- 0211 Jan, Uncomplicated opioid dependence F11.20 [facility] [address] [place] [address] Jan, Uncomplicated opioid dependence F11.20 [facility] [id number] [place] [address] 26191- 9588 07 Jan, 2018 Uncomplicated opioid dependence F11.20 [facility] [address] [place] [address] 07 Jan, 2018 Uncomplicated opioid dependence F11.20 [facility] [address] [place] [address] Jan, [facility] [address] [address] Dec, Uncomplicated opioid dependence F11.20 [facility] [address] [place] [address] Dec, Uncomplicated opioid dependence F11.20 [facility] [address] [address] 15 Dec, 2017 Uncomplicated opioid dependence F11.20 [facility] [address] [address] 08 Dec, 2017 Uncomplicated opioid dependence F11.20 [facility] [address] [place] [address] 08 Dec, 2017 Uncomplicated opioid dependence F11.20 [facility] [id number] [place] [address] 523[address] Nov, Uncomplicated opioid dependence F11.20 [facility] [address] [place] [address] Nov, Uncomplicated opioid dependence F11.20 [facility] [address] [address] Nov, Uncomplicated opioid dependence F11.20 [facility] [address] [place] [address] Nov, Uncomplicated opioid dependence F11.20 [facility] [address] [address] Nov, Uncomplicated opioid dependence F11.20 [facility] [address] [place] [address] Nov, Uncomplicated opioid dependence F11.20 [facility] [id number] [place] [address] 85603- 0809 Nov, Uncomplicated opioid dependence F11.20 [facility] [address] [place] [address] Nov, Uncomplicated opioid dependence F11.20 [facility] [id number] [place] [address] 28500- 7814 Nov, Uncomplicated opioid dependence F11.20 [facility] [address] [place] [address] Nov, Uncomplicated opioid dependence F11.20 [facility] [id number] [place] [address] 69644- 0415 Oct, Uncomplicated opioid dependence F11.20 [facility] [address] [place] [address] Oct, Uncomplicated opioid dependence F11.20 [facility] [id number] [place] [address] 09768- 9504 Oct, Uncomplicated opioid dependence F11.20 [facility] [address] [place] [address] Oct, Uncomplicated opioid dependence F11.20 [facility] [address] 79[address]- 8765 Oct, Uncomplicated opioid dependence F11.20 [facility] [id number] [place] [address] 93892- 0247 Oct, Uncomplicated opioid dependence F11.20 [facility] [id number] [place] [address] 44511[address] 6440 Oct, [facility] [id number] [place] [address] 58193- 2545 Oct, Uncomplicated opioid dependence F11.20 [facility] [id number] [place] [address] 95813- 9569 Sep, Uncomplicated opioid dependence F11.20 [facility] [address] [place] [address] Sep, Uncomplicated opioid dependence F11.20 [facility] [address] [place] [address] Sep, Uncomplicated opioid dependence F11.20 [facility] [address] [place] [address] Sep, Uncomplicated opioid dependence F11.20 [facility] [id number] [place] [address] 61149- 3522 Sep, Uncomplicated opioid dependence F11.20 [facility] [address] 7[address] Sep, Uncomplicated opioid dependence F11.20 [facility] [address] [place] [address] Sep, Uncomplicated opioid dependence F11.20 [facility] [address] 0[address] Aug, Uncomplicated opioid dependence F11.20 [facility] [address] 35323- 8278 Aug, Uncomplicated opioid dependence F11.20 [facility] [address] [place] [address] Aug, Uncomplicated opioid dependence F11.20 [facility] [address] [place] [address] Aug, [facility] [address] [address] Aug, Uncomplicated opioid dependence F11.20 [facility] [address] [place] [address] Aug, Uncomplicated opioid dependence F11.20 [facility] [address] 28639- 1812 Aug, Uncomplicated opioid dependence F11.20 [facility] [address] [place] [address] Aug, Uncomplicated opioid dependence F11.20 [facility] [address] 0[address] 9[address] Jul, Uncomplicated opioid dependence F11.20 [facility] [address] 29[address] 5612 Jul, Uncomplicated opioid dependence F11.20 [facility] [address] [place] [address] Jul, Uncomplicated opioid dependence F11.20 [facility] [id number] [place] [address] 84300- 9368 Jul, Uncomplicated opioid dependence F11.20 [facility] [id number] [place] [address] 80083- 6897 Jul, Uncomplicated opioid dependence F11.20 [facility] [address] 85243- 3089 Jun, Uncomplicated opioid dependence F11.20 [facility] [address] [place] [address] Jun, Uncomplicated opioid dependence F11.20 [facility] [id number] [place] [address] 45160- 7917 Jun, Uncomplicated opioid dependence F11.20 [facility] [address] 66[address]37 Jun, Encounter for therapeutic drug level monitoring Z51.81 and Anxiety about health F41.8 [facility] [address] [address] May, Uncomplicated opioid dependence F11.20 [facility] [id number] [place] [address] 56375- 0562 May, [facility] [id number] [place] [address] 94859- 4022 May, Encounter for dental examination Z01.20 [facility] [id number] [place] [address] 86150- 0094 May, Uncomplicated opioid dependence F11.20 ; Encounter for therapeutic drug level monitoring Z51.81 and Calculus of gallbladder and bile duct without cholecystitis or obstruction K80.70 [facility] [address] [place] [address] May, Uncomplicated opioid dependence F11.20 [facility] [id number] [place] [address] 79427- 6102 13 May, 2017 Uncomplicated opioid dependence F11.20 [facility] [id number] [place] [address] 86465- 5490 10 May, 2017 [facility] [address] [place] [address] 05 May, 2017 Uncomplicated opioid dependence F11.20 [facility] [id number] [place] [address] 85649- 8483 Apr, Uncomplicated opioid dependence F11.20 [facility] [id number] [place] [address] 16526- 5399 Apr, Uncomplicated opioid dependence F11.20 [facility] [address] [place] [address] Apr, Uncomplicated opioid dependence F11.20 [facility] [id number] [place] [address] 89282- 1426 14 Apr, 2017 Encounter for therapeutic drug level monitoring Z51.81 [facility] [id number] [place] [address] 31658- 2656 14 Apr, 2017 Uncomplicated opioid dependence F11.20 [facility] [address] [place] [address] Apr, Uncomplicated opioid dependence F11.20 [facility] [address] [place] [address] Apr, Uncomplicated opioid dependence F11.20 [facility] [id number] [place] [address] 82842- 2508 March, Uncomplicated opioid dependence F11.20 [facility] [address] [place] [address] March, Uncomplicated opioid dependence F11.20 [facility] [id number] [place] [address] 16890- 2206 March, Uncomplicated opioid dependence F11.20 [facility] [address] [place] [address] March, Uncomplicated opioid dependence F11.20 [facility] [address] [place] [address] March, Uncomplicated opioid dependence F11.20 [facility] [id number] [place] [address] 49869- 7449 March, [facility] [id number] [place] [address] 46372- 7396 March, [facility] [address] [place] [address] March, Uncomplicated opioid dependence F11.20 [facility] [id number] [place] [address] 03601- 0927 March, [facility] [address] [place] [address] March, Uncomplicated opioid dependence F11.20 [facility] [id number] [place] [address] 17253- 3330 March, Uncomplicated opioid dependence F11.20 [facility] [address] [place] [address] March, Uncomplicated opioid dependence F11.20 [facility] [id number] [place] [address] 00226- 5158 Feb, Uncomplicated opioid dependence F11.20 [facility] [id number] [place] [address] 18277- 0826 Feb, [facility] [address] [place] [address] Feb, Uncomplicated opioid dependence F11.20 [facility] [address] [place] [address] Feb, Uncomplicated opioid dependence F11.20 [facility] [id number] [place] [address] 60695- 5488 Feb, Encounter for therapeutic drug level monitoring Z51.81 and Uncomplicated opioid dependence F11.20 [facility] [address] [place] [address] Feb, Uncomplicated opioid dependence F11.20 [facility] [id number] [place] [address] 65179- 2666 Feb, [facility] [id number] [place] [address] 63573- 3694 Feb, Uncomplicated opioid dependence F11.20 [facility] [id number] [place] [address] 06599- 7627 18 Feb, 2017 Encounter for therapeutic drug level monitoring Z51.81 [facility] [address] [place] [address] 17 Feb, 2017 Uncomplicated opioid dependence F11.20 [facility] [id number] [place] [address] 27107- 8920 17 Feb, 2017 Uncomplicated opioid dependence F11.20 and Encounter for therapeutic drug level monitoring Z51.81 [facility] [address] [place] [address] 14 Feb, 2017 Uncomplicated opioid dependence F11.20 [facility] [address] 94305- 0445 14 Feb, 2017 Uncomplicated opioid dependence F11.20 [facility] [address] [place] [address] Feb, Uncomplicated opioid dependence F11.20 [facility] [address] [place] [address] Feb, [facility] [id number] [place] [address] 69001- 7518 Feb, Uncomplicated opioid dependence F11.20 [facility] [address] [place] [address] Feb, Uncomplicated opioid dependence F11.20 [facility] [address] [place] [address] Feb, [facility] [id number] [place] [address] 13944 2543 Feb, Uncomplicated opioid dependence F11.20 [facility] [address] [place] [address] Feb, Uncomplicated opioid dependence F11.20 [facility] [id number] [place] [address] 81805- 6184 Feb, Uncomplicated opioid dependence F11.20 [facility] [id number] [place] [address] 90670- 6223 Feb, [facility] [address] [place] [address]- 1314 Feb, Uncomplicated opioid dependence F11.20 and Substance abuse F19.10 [facility] [address] [place] [address] Feb, Substance abuse F19.10 [facility] [address] [facility] [id number] [address] Jan, Substance abuse F19.10 [facility] [id number] [address] Jan, IMMUNIZATIONS No Known Immunizations SOCIAL HISTORY Never Assessed REASON FOR VISIT Note/Suboxone RX (07/30-08/05) PLAN OF CARE VITAL SIGNS MEDICATIONS Medication Instructions Dosage Frequency Start Date End Date Duration Status Suboxone 8-2 MG Sublingual Once a day 1.5 application under the tongue and allow to dissolve 24h Feb, 7 days Active RESULTS No Results [...]
--- OUTSIDE RECORDS SUMMARY | 2018-05-06 21:35 | XMS REPORT ---
Author Author ANABELLA GARCIA Organization [facility] Address [address] [place] [address] Care Team Providers Care Fiber Glass Worker Name Role Phone ANABELLA GARCIA Unavailable PROBLEMS Type Condition ICD9-CM Code BNE05-YN Code Onset Dates Condition Status SNOMED Code Problem Anxiety about health F41.8 Active 202987748 Problem Encounter for therapeutic drug level monitoring Z51.81 Active 293947119 Problem Uncomplicated opioid dependence F11.20 Active 83294516 Problem Substance abuse F19.10 Active [id number] ALLERGIES No Information ENCOUNTERS Encounter Location Date Diagnosis [facility] [address] [place] [address] Feb, [facility] [id number] [place] [address] 78819- 5493 Feb, Uncomplicated opioid dependence F11.20 [facility] [address] [place] [address] Feb, Uncomplicated opioid dependence F11.20 [facility] [id number] [place] [address] 32559- 8059 Feb, Uncomplicated opioid dependence F11.20 [facility] [id number] [place] [address] 29482- 7994 Feb, Uncomplicated opioid dependence F11.20 [facility] [address] [place] [address] Feb, Uncomplicated opioid dependence F11.20 [facility] [id number] [place] [address] 08442[address] 4030 Jan, Uncomplicated opioid dependence F11.20 [facility] [address] [place] [address] Jan, [facility] [id number] [place] [address] 49695[address] 9583 Jan, Uncomplicated opioid dependence F11.20 [facility] [address] [place] [address] Jan, Uncomplicated opioid dependence F11.20 [facility] [id number] [place] [address] 49511- 7427 Jan, Uncomplicated opioid dependence F11.20 [facility] [address] [place] [address] 14 Jan, 2018 Uncomplicated opioid dependence F11.20 [facility] [address] [address] Jan, Uncomplicated opioid dependence F11.20 [facility] [address] [place] [address] 07 Jan, 2018 Uncomplicated opioid dependence F11.20 [facility] [address] [place] [address] Jan, [facility] [id number] [place] [address] 84389- 4613 Dec, Uncomplicated opioid dependence F11.20 [facility] [address] [place] [address] Dec, Uncomplicated opioid dependence F11.20 [facility] [id number] [place] [address] 32170- 9085 15 Dec, 2017 Uncomplicated opioid dependence F11.20 [facility] [id number] [place] [address] 03613- 7962 08 Dec, 2017 Uncomplicated opioid dependence F11.20 [facility] [address] [place] [address] Dec, Uncomplicated opioid dependence F11.20 [facility] [id number] [place] [address] 45174- 4338 Nov, Uncomplicated opioid dependence F11.20 [facility] [address] [place] [address] Nov, Uncomplicated opioid dependence F11.20 [facility] [id number] [place] [address] 19068- 7543 Nov, Uncomplicated opioid dependence F11.20 [facility] [address] [place] [address] Nov, Uncomplicated opioid dependence F11.20 [facility] [id number] [place] [address] 21878- 7413 Nov, Uncomplicated opioid dependence F11.20 [facility] [address] [place] [address] Nov, Uncomplicated opioid dependence F11.20 [facility] [address] 0[address]65- 1799 Nov, Uncomplicated opioid dependence F11.20 [facility] [address] [place] [address] Nov, Uncomplicated opioid dependence F11.20 [facility] [address] 61813[address] 2368 Nov, Uncomplicated opioid dependence F11.20 [facility] [address] [place] [address] Nov, Uncomplicated opioid dependence F11.20 [facility] [address] 85327[address] 8041 Oct, Uncomplicated opioid dependence F11.20 [facility] [address] [place] [address] Oct, Uncomplicated opioid dependence F11.20 [facility] [address] 20870[address] 0364 Oct, Uncomplicated opioid dependence F11.20 [facility] [address] [place] [address] Oct, Uncomplicated opioid dependence F11.20 [facility] [id number] [place] [address] 90548- 3890 Oct, Uncomplicated opioid dependence F11.20 [facility] [address] 95853- 5234 Oct, Uncomplicated opioid dependence F11.20 [facility] [address] 77299[address] 1223 Oct, [facility] [address] 24282- 4161 Oct, Uncomplicated opioid dependence F11.20 [facility] [id number] [place] [address] 07666- 0719 Sep, Uncomplicated opioid dependence F11.20 [facility] [address] [place] [address] Sep, Uncomplicated opioid dependence F11.20 [facility] [id number] [place] [address] 27263- 3946 Sep, Uncomplicated opioid dependence F11.20 [facility] [address] [place] [address] Sep, Uncomplicated opioid dependence F11.20 [facility] [address] 39733- 2388 Sep, Uncomplicated opioid dependence F11.20 [facility] [id number] [place] [address] 91040- 8957 Sep, Uncomplicated opioid dependence F11.20 [facility] [address] [place] [address] Sep, Uncomplicated opioid dependence F11.20 [facility] [id number] [place] [address] 00871- 5724 Aug, Uncomplicated opioid dependence F11.20 [facility] [id number] [place] [address] 93862- 6065 Aug, Uncomplicated opioid dependence F11.20 [facility] [address] [place] [address] Aug, Uncomplicated opioid dependence F11.20 [facility] [address] [place] [address] Aug, [facility] [id number] [place] [address] 95478- 3130 Aug, Uncomplicated opioid dependence F11.20 [facility] [address] [place] [address] Aug, Uncomplicated opioid dependence F11.20 [facility] [id number] [place] [address] 63152- 4411 Aug, Uncomplicated opioid dependence F11.20 [facility] [address] [place] [address] Aug, Uncomplicated opioid dependence F11.20 [facility] [id number] [place] [address] 73487- 0429 Jul, Uncomplicated opioid dependence F11.20 [facility] [id number] [place] [address] 96926- 8575 Jul, Uncomplicated opioid dependence F11.20 [facility] [address] [place] [address] Jul, Uncomplicated opioid dependence F11.20 [facility] [id number] [place] [address] 27729- 4204 Jul, Uncomplicated opioid dependence F11.20 [facility] [id number] [place] [address] 15806- 7203 Jul, Uncomplicated opioid dependence F11.20 [facility] [address] 67092- 7340 Jun, Uncomplicated opioid dependence F11.20 [facility] [address] [place] [address] Jun, Uncomplicated opioid dependence F11.20 [facility] [address] 44585- 0543 Jun, Uncomplicated opioid dependence F11.20 [facility] [id number] [place] [address] 24623- 5663 Jun, Encounter for therapeutic drug level monitoring Z51.81 and Anxiety about health F41.8 [facility] [id number] [place] [address] 31671- 7543 May, Uncomplicated opioid dependence F11.20 [facility] [address] 07665- 6133 May, [facility] [id number] [place] [address] 33659- 2824 May, Encounter for dental examination Z01.20 [facility] [id number] [place] [address] 95841- 2546 May, Uncomplicated opioid dependence F11.20 ; Encounter for therapeutic drug level monitoring Z51.81 and Calculus of gallbladder and bile duct without cholecystitis or obstruction K80.70 [facility] [address] [place] [address] May, Uncomplicated opioid dependence F11.20 [facility] [id number] [place] [address] 87852 2546 May, Uncomplicated opioid dependence F11.20 [facility] [id number] [place] [address] 83312 2546 May, [facility] [address] [place] [address] May, Uncomplicated opioid dependence F11.20 [facility] [id number] [place] [address] 58052- 8895 Apr, Uncomplicated opioid dependence F11.20 [facility] [id number] [place] [address] 08040- 6182 Apr, Uncomplicated opioid dependence F11.20 [facility] [address] [place] [address] Apr, Uncomplicated opioid dependence F11.20 [facility] [id number] [place] [address] 97714- 9082 Apr, Encounter for therapeutic drug level monitoring Z51.81 [facility] [id number] [place] [address] 27009- 6795 Apr, Uncomplicated opioid dependence F11.20 [facility] [address] [place] [address] Apr, Uncomplicated opioid dependence F11.20 [facility] [address] [place] [address] Apr, Uncomplicated opioid dependence F11.20 [facility] [id number] [place] [address] 47460 2549 March, Uncomplicated opioid dependence F11.20 [facility] [address] [place] [address] March, Uncomplicated opioid dependence F11.20 [facility] [id number] [place] [address] 57068- 0719 March, Uncomplicated opioid dependence F11.20 [facility] [address] [place] [address] March, Uncomplicated opioid dependence F11.20 [facility] [address] [place] [address] March, Uncomplicated opioid dependence F11.20 [facility] [id number] [place] [address] 13552- 6365 March, [facility] [id number] [place] [address] 86282- 8736 March, [facility] [address] [place] [address] March, Uncomplicated opioid dependence F11.20 [facility] [id number] [place] [address] 47305- 8658 March, [facility] [address] [place] [address] March, Uncomplicated opioid dependence F11.20 [facility] [id number] [place] [address] 84455- 6455 March, Uncomplicated opioid dependence F11.20 [facility] [address] [place] [address] March, Uncomplicated opioid dependence F11.20 [facility] [id number] [place] [address] 60996- 8474 Feb, Uncomplicated opioid dependence F11.20 [facility] [id number] [place] [address] 05703- 3298 Feb, [facility] [address] [place] [address] Feb, Uncomplicated opioid dependence F11.20 [facility] [address] [place] [address] Feb, Uncomplicated opioid dependence F11.20 [facility] [id number] [place] [address] 02664- 6423 Feb, Encounter for therapeutic drug level monitoring Z51.81 and Uncomplicated opioid dependence F11.20 [facility] [address] [place] [address] 20 Feb, 2017 Uncomplicated opioid dependence F11.20 [facility] [id number] [place] [address] 36211 2546 Feb, [facility] [id number] [place] [address] 76850 2546 18 Feb, 2017 Uncomplicated opioid dependence F11.20 [facility] [address] 13172 2546 18 Feb, 2017 Encounter for therapeutic drug level monitoring Z51.81 [facility] [address] [place] [address] 17 Feb, 2017 Uncomplicated opioid dependence F11.20 [facility] [address] 54341- 2936 17 Feb, 2017 Uncomplicated opioid dependence F11.20 and Encounter for therapeutic drug level monitoring Z51.81 [facility] [address] [place] [address] 14 Feb, 2017 Uncomplicated opioid dependence F11.20 [facility] [address] 91768- 9290 14 Feb, 2017 Uncomplicated opioid dependence F11.20 [facility] [address] [place] [address] Feb, Uncomplicated opioid dependence F11.20 [facility] [address] [place] [address] 13 Feb, 2017 [facility] [id number] [place] [address] 53723 2546 Feb, Uncomplicated opioid dependence F11.20 [facility] [address] [place] [address] Feb, Uncomplicated opioid dependence F11.20 [facility] [address] [place] [address] Feb, [facility] [id number] [place] [address] 40208 2546 Feb, Uncomplicated opioid dependence F11.20 [facility] [address] [place] [address] Feb, Uncomplicated opioid dependence F11.20 [facility] [id number] [address] Feb, Uncomplicated opioid dependence F11.20 [facility] [address] [place] [address] Feb, [facility] [address] [place] [address] Feb, Uncomplicated opioid dependence F11.20 and Substance abuse F19.10 [facility] [address] [place] [address] Feb, Substance abuse F19.10 [facility] [id number] [place] [address] 76338- 5536 Jan, Substance abuse F19.10 [facility] [address] [address] Jan, IMMUNIZATIONS No Known Immunizations SOCIAL HISTORY Never Assessed REASON FOR VISIT Suboxone RX (08/06-08/12) PLAN OF CARE VITAL SIGNS MEDICATIONS Medication [...]
--- OUTSIDE RECORDS SUMMARY | 2018-05-06 21:36 | XMS REPORT ---
Author Author MICHELA IQBAL [facility] Address [address] [place] [address] Care Team Providers [employer] Name Role Phone MICHELA IQBAL Unavailable PROBLEMS Type Condition ICD9-CM Code EOQ68-XX Code Onset Dates Condition Status SNOMED Code Problem Anxiety about health F41.8 Active 738577197 Problem Encounter for therapeutic drug level monitoring Z51.81 Active 551186767 Problem Uncomplicated opioid dependence F11.20 Active 06331995 Problem Substance abuse F19.10 Active 14533218 ALLERGIES No Information ENCOUNTERS Encounter Location Date Diagnosis [facility] [id number] [place] [address] 24522- 5362 March, Uncomplicated opioid dependence F11.20 [facility] [id number] [place] [address] 47502- 3871 March, Uncomplicated opioid dependence F11.20 [facility] [address] [place] [address] March, Uncomplicated opioid dependence F11.20 [facility] [id number] [place] [address] 03702- 9616 March, Uncomplicated opioid dependence F11.20 [facility] [id number] [place] [address] 80771- 7385 March, [facility] [id number] [place] [address] 76447- 6897 March, Uncomplicated opioid dependence F11.20 and Anxiety about health F41.8 [facility] [id number] [place] [address] 96424- 7359 Feb, Uncomplicated opioid dependence F11.20 [facility] [id number] [place] [address] 67624- 9388 Feb, Uncomplicated opioid dependence F11.20 [facility] [address] [place] [address] Feb, Uncomplicated opioid dependence F11.20 [facility] [id number] [place] [address] 25923- 0207 Feb, Uncomplicated opioid dependence F11.20 [facility] [address] [place] [address] Feb, Uncomplicated opioid dependence F11.20 [facility] [address] 56922- 5385 Feb, Uncomplicated opioid dependence F11.20 [facility] [address] 20505- 4222 Feb, Uncomplicated opioid dependence F11.20 [facility] [address] [place] [address] Feb, Uncomplicated opioid dependence F11.20 [facility] [address] 03377- 4364 Jan, Uncomplicated opioid dependence F11.20 [facility] [address] [place] [address] Jan, [facility] [address] 26499- 7574 Jan, Uncomplicated opioid dependence F11.20 [facility] [address] [place] [address] Jan, Uncomplicated opioid dependence F11.20 [facility] [address] 62894- 9639 Jan, Uncomplicated opioid dependence F11.20 [facility] [address] [place] [address] Jan, Uncomplicated opioid dependence F11.20 [facility] [address] 45712- 9039 07 Jan, 2018 Uncomplicated opioid dependence F11.20 [facility] [address] [place] [address] 07 Jan, 2018 Uncomplicated opioid dependence F11.20 [facility] [address] [place] [address] Jan, [facility] [address] [place] [address] 56142- 6261 Dec, Uncomplicated opioid dependence F11.20 [facility] [address] [place] [address] Dec, Uncomplicated opioid dependence F11.20 [facility] [id number] [place] [address] 24121- 1309 Dec, Uncomplicated opioid dependence F11.20 [facility] [id number] [place] [address] 23827- 3135 Dec, Uncomplicated opioid dependence F11.20 [facility] [address] [place] [address] Dec, Uncomplicated opioid dependence F11.20 [facility] [id number] [place] [address] 23404- 4796 Nov, Uncomplicated opioid dependence F11.20 [facility] [address] [place] [address] Nov, Uncomplicated opioid dependence F11.20 [facility] [id number] [place] [address] 80584- 2582 Nov, Uncomplicated opioid dependence F11.20 [facility] [address] [place] [address] Nov, Uncomplicated opioid dependence F11.20 [facility] [id number] [place] [address] 88452- 7547 Nov, Uncomplicated opioid dependence F11.20 [facility] [address] [place] [address] Nov, Uncomplicated opioid dependence F11.20 [facility] [id number] [place] [address] 88932- 5091 Nov, Uncomplicated opioid dependence F11.20 [facility] [address] [place] [address] Nov, Uncomplicated opioid dependence F11.20 [facility] [id number] [place] [address] 05678- 9327 Nov, Uncomplicated opioid dependence F11.20 [facility] [address] [place] [address] Nov, Uncomplicated opioid dependence F11.20 [facility] [address] 70012- 9273 Oct, Uncomplicated opioid dependence F11.20 [facility] [address] [place] [address] Oct, Uncomplicated opioid dependence F11.20 [facility] [address] 67129- 6592 Oct, Uncomplicated opioid dependence F11.20 [facility] [address] [place] [address] Oct, Uncomplicated opioid dependence F11.20 [facility] [address] 40955- 3502 Oct, Uncomplicated opioid dependence F11.20 [facility] [address] 68274- 3094 Oct, Uncomplicated opioid dependence F11.20 [facility] [address] 74271- 4651 Oct, [facility] [address] 53691- 7599 Oct, Uncomplicated opioid dependence F11.20 [facility] [address] 41472- 3135 Sep, Uncomplicated opioid dependence F11.20 [facility] [address] [place] [address] Sep, Uncomplicated opioid dependence F11.20 [facility] [id number] [place] [address] 03000- 8025 Sep, Uncomplicated opioid dependence F11.20 [facility] [address] [place] [address] Sep, Uncomplicated opioid dependence F11.20 [facility] [id number] [place] [address] 14643- 4663 Sep, Uncomplicated opioid dependence F11.20 [facility] [address] [place] [address] 74251- 2587 Sep, Uncomplicated opioid dependence F11.20 [facility] [address] [place] [address] Sep, Uncomplicated opioid dependence F11.20 [facility] [id number] [place] [address] 50012- 1928 Aug, Uncomplicated opioid dependence F11.20 [facility] [id number] [place] [address] 15832- 0218 Aug, Uncomplicated opioid dependence F11.20 [facility] [address] [place] [address] Aug, Uncomplicated opioid dependence F11.20 [facility] [address] [place] [address] Aug, [facility] [id number] [place] [address] 35190- 1524 Aug, Uncomplicated opioid dependence F11.20 [facility] [address] [place] [address] Aug, Uncomplicated opioid dependence F11.20 [facility] [id number] [place] [address] 99680- 5904 Aug, Uncomplicated opioid dependence F11.20 [facility] [address] [place] [address] Aug, Uncomplicated opioid dependence F11.20 [facility] [id number] [place] [address] 34064- 0633 Jul, Uncomplicated opioid dependence F11.20 [facility] [id number] [place] [address] 92497- 0072 Jul, Uncomplicated opioid dependence F11.20 [facility] [address] [place] [address] Jul, Uncomplicated opioid dependence F11.20 [facility] [id number] [place] [address] 59617- 7699 Jul, Uncomplicated opioid dependence F11.20 [facility] [id number] [place] [address] 08893- 8995 Jul, Uncomplicated opioid dependence F11.20 [facility] [address] [place] [address] 34791- 3117 Jun, Uncomplicated opioid dependence F11.20 [facility] [address] [place] [address] Jun, Uncomplicated opioid dependence F11.20 [facility] [address] [place] [address] 13771- 7651 Jun, Uncomplicated opioid dependence F11.20 [facility] [id number] [place] [address] 01212- 8115 Jun, Encounter for therapeutic drug level monitoring Z51.81 and Anxiety about health F41.8 [facility] [address] [place] [address] 81941- 2637 May, Uncomplicated opioid dependence F11.20 [facility] [address] [place] [address] 71132- 3858 May, [facility] [id number] [place] [address] 41013- 0170 May, Encounter for dental examination Z01.20 [facility] [address] [place] [address] 28837- 5476 May, Uncomplicated opioid dependence F11.20 ; Encounter for therapeutic drug level monitoring Z51.81 and Calculus of gallbladder and bile duct without cholecystitis or obstruction K80.70 [facility] [address] [place] [address] May, Uncomplicated opioid dependence F11.20 [facility] [address] [place] [address] 85145- 5581 May, Uncomplicated opioid dependence F11.20 [facility] [address] [place] [address] 47550- 9178 May, [facility] [address] [place] [address] May, Uncomplicated opioid dependence F11.20 [facility] [address] [address]- 7318 Apr, Uncomplicated opioid dependence F11.20 [facility] [id number] [place] [address] 20451- 6957 Apr, Uncomplicated opioid dependence F11.20 [facility] [address] [place] [address] Apr, Uncomplicated opioid dependence F11.20 [facility] [id number] [place] [address] 90338- 1576 14 Apr, 2017 Encounter for therapeutic drug level monitoring Z51.81 [facility] [id number] [place] [address] 57167- 8496 Apr, Uncomplicated opioid dependence F11.20 [facility] [address] [place] [address] Apr, Uncomplicated opioid dependence F11.20 [facility] [address] [place] [address] Apr, Uncomplicated opioid dependence F11.20 [facility] [id number] [place] [address] 78477- 3921 March, Uncomplicated opioid dependence F11.20 [facility] [address] [place] [address] March, Uncomplicated opioid dependence F11.20 [facility] [id number] [place] [address] 50042- 5643 March, Uncomplicated opioid dependence F11.20 [facility] [address] [place] [address] March, Uncomplicated opioid dependence F11.20 [facility] [address] [place] [address] March, Uncomplicated opioid dependence F11.20 [facility] [id number] [place] [address] 70716- 7655 March, [facility] [id number] [place] [address] 24103- 3102 March, [facility] [address] [place] [address] March, Uncomplicated opioid dependence F11.20 [facility] [address] [address]- 9889 March, [facility] [address] [place] [address] March, Uncomplicated opioid dependence F11.20 [facility] [address] [place] [address] 15002- 7230 March, Uncomplicated opioid dependence F11.20 [facility] [address] [place] [address] March, Uncomplicated opioid dependence F11.20 [facility] [id number] [place] [address] 67424- 4877 Feb, Uncomplicated opioid dependence F11.20 [facility] [id number] [place] [address] 17352- 9108 Feb, [facility] [address] [place] [address] Feb, Uncomplicated opioid dependence F11.20 [facility] [address] [place] [address] Feb, Uncomplicated opioid dependence F11.20 [facility] [id number] [place] [address] 99705- 9250 Feb, Encounter for therapeutic drug level monitoring Z51.81 and Uncomplicated opioid dependence F11.20 [facility] [address] [place] [address] Feb, Uncomplicated opioid dependence F11.20 [facility] [address] [place] [address] 46974 2542 Feb, [facility] [id number] [place] [address] 43029 2544 Feb, Uncomplicated opioid dependence F11.20 [facility] [id number] [place] [address] 94240- 1186 Feb, Encounter for therapeutic drug level monitoring Z51.81 [facility] [address] [place] [address] Feb, Uncomplicated opioid dependence F11.20 [facility] [id number] [place] [address] 58914- 7177 17 Feb, 2017 Uncomplicated opioid dependence F11.20 and Encounter for therapeutic drug level monitoring Z51.81 [facility] [address] [place] [address] 14 Feb, 2017 Uncomplicated opioid dependence F11.20 [facility] [id number] [place] [address] 20465- 8322 14 Feb, 2017 Uncomplicated opioid dependence F11.20 [facility] [address] [place] [address] Feb, Uncomplicated opioid dependence F11.20 [facility] [address] [place] [address] Feb, [facility] [address] 46104- 7847 Feb, Uncomplicated opioid dependence F11.20 [facility] [address] [place] [address] Feb, Uncomplicated opioid dependence F11.20 [facility] [address] [place] [address] Feb, [facility] [id number] [place] [address] 75823- 7158 Feb, Uncomplicated opioid dependence F11.20 [facility] [address] [place] [address] Feb, Uncomplicated opioid dependence F11.20 [facility] [id number] [place] [address] 77638- 7152 Feb, Uncomplicated opioid dependence F11.20 [facility] [id number] [place] [address] 18788- 6836 Feb, [facility] [id number] [place] [address] 50643- 3527 Feb, Uncomplicated opioid dependence F11.20 and Substance abuse F19.10 [facility] [address] [place] [address] Feb, Substance abuse F19.10 [facility] [id number] [place] [address] 35891- 0358 Jan, Substance abuse F19.10 [facility] [address] [facility] [id number] [place] [address] Jan, IMMUNIZATIONS No Known Immunizations SOCIAL HISTORY Never Assessed REASON FOR VISIT SUBAB F/U PLAN OF CARE Activity Details Follow Up 1 Week Reason: VITAL SIGNS MEDICATIONS Unknown Medications RESULTS No Results PROCEDURES Procedure Date Ordered Result Body Site Psychotherapy, patient &/family, 30 minutes, established patient Nov 17, 2017 INSTRUCTIONS MEDICATIONS ADMINISTERED No Known Medications [...]
--- OUTSIDE RECORDS SUMMARY | 2018-05-06 21:36 | XMS REPORT ---
Author Author ANABELLA GARCIA Organization [facility] Address [address] [place] [address] Care Team Providers Care Duct Layer Name Role Phone ANABELLA GARCIA Unavailable PROBLEMS Type Condition ICD9-CM Code FQB22-YY Code Onset Dates Condition Status SNOMED Code Problem Anxiety about health F41.8 Active 271716466 Problem Encounter for therapeutic drug level monitoring Z51.81 Active 594263021 Problem Uncomplicated opioid dependence F11.20 Active 09912178 Problem Substance abuse F19.10 Active [id number] ALLERGIES No Information ENCOUNTERS Encounter Location Date Diagnosis [facility] [id number] [place] [address] 10682- 5669 March, Uncomplicated opioid dependence F11.20 [facility] [id number] [place] [address] 82853- 9458 March, Uncomplicated opioid dependence F11.20 [facility] [address] [place] [address] March, Uncomplicated opioid dependence F11.20 [facility] [id number] [place] [address] 63463- 3604 March, Uncomplicated opioid dependence F11.20 [facility] [id number] [place] [address] 41960- 1539 March, [facility] [id number] [place] [address] 84653- 2567 March, Uncomplicated opioid dependence F11.20 and Anxiety about health F41.8 [facility] [id number] [place] [address] 26955- 1042 Feb, Uncomplicated opioid dependence F11.20 [facility] [id number] [place] [address] 17159- 7418 Feb, Uncomplicated opioid dependence F11.20 [facility] [address] [place] [address] Feb, Uncomplicated opioid dependence F11.20 [facility] [id number] [place] [address] 45139- 9818 Feb, Uncomplicated opioid dependence F11.20 [facility] [address] [place] [address] Feb, Uncomplicated opioid dependence F11.20 [facility] [address] 56333- 9669 Feb, Uncomplicated opioid dependence F11.20 [facility] [address] 58011- 1625 Feb, Uncomplicated opioid dependence F11.20 [facility] [address] [place] [address] Feb, Uncomplicated opioid dependence F11.20 [facility] [address] 68915- 4763 Jan, Uncomplicated opioid dependence F11.20 [facility] [address] [place] [address] Jan, [facility] [address] 64551- 6248 Jan, Uncomplicated opioid dependence F11.20 [facility] [address] [place] [address] Jan, Uncomplicated opioid dependence F11.20 [facility] [address] 50418- 6980 Jan, Uncomplicated opioid dependence F11.20 [facility] [address] [place] [address] Jan, Uncomplicated opioid dependence F11.20 [facility] [address] 14160- 7748 07 Jan, 2018 Uncomplicated opioid dependence F11.20 [facility] [address] [place] [address] 07 Jan, 2018 Uncomplicated opioid dependence F11.20 [facility] [address] [place] [address] Jan, [facility] [address] [place] [address] 18376- 0370 Dec, Uncomplicated opioid dependence F11.20 [facility] [address] [place] [address] Dec, Uncomplicated opioid dependence F11.20 [facility] [id number] [place] [address] 20983- 0251 Dec, Uncomplicated opioid dependence F11.20 [facility] [id number] [place] [address] 53693- 9326 Dec, Uncomplicated opioid dependence F11.20 [facility] [address] [place] [address] Dec, Uncomplicated opioid dependence F11.20 [facility] [id number] [place] [address] 77799- 3160 Nov, Uncomplicated opioid dependence F11.20 [facility] [address] [place] [address] Nov, Uncomplicated opioid dependence F11.20 [facility] [id number] [place] [address] 93057- 6644 Nov, Uncomplicated opioid dependence F11.20 [facility] [address] [place] [address] Nov, Uncomplicated opioid dependence F11.20 [facility] [id number] [place] [address] 39648- 3870 Nov, Uncomplicated opioid dependence F11.20 [facility] [address] [place] [address] Nov, Uncomplicated opioid dependence F11.20 [facility] [id number] [place] [address] 17331- 2021 Nov, Uncomplicated opioid dependence F11.20 [facility] [address] [place] [address] Nov, Uncomplicated opioid dependence F11.20 [facility] [id number] [place] [address] 41068- 5704 Nov, Uncomplicated opioid dependence F11.20 [facility] [address] [place] [address] Nov, Uncomplicated opioid dependence F11.20 [facility] [address] 67770- 2126 Oct, Uncomplicated opioid dependence F11.20 [facility] [address] [place] [address] Oct, Uncomplicated opioid dependence F11.20 [facility] [address] 39947- 0167 Oct, Uncomplicated opioid dependence F11.20 [facility] [address] [place] [address] Oct, Uncomplicated opioid dependence F11.20 [facility] [address] 53840- 4441 Oct, Uncomplicated opioid dependence F11.20 [facility] [address] 56746- 8237 Oct, Uncomplicated opioid dependence F11.20 [facility] [address] 06651- 6254 Oct, [facility] [address] 80395- 3071 Oct, Uncomplicated opioid dependence F11.20 [facility] [address] 89597- 4683 Sep, Uncomplicated opioid dependence F11.20 [facility] [address] [place] [address] Sep, Uncomplicated opioid dependence F11.20 [facility] [id number] [place] [address] 41582- 6499 Sep, Uncomplicated opioid dependence F11.20 [facility] [address] [place] [address] Sep, Uncomplicated opioid dependence F11.20 [facility] [id number] [place] [address] 41472- 4069 Sep, Uncomplicated opioid dependence F11.20 [facility] [address] [place] [address] 31923- 6552 Sep, Uncomplicated opioid dependence F11.20 [facility] [address] [place] [address] Sep, Uncomplicated opioid dependence F11.20 [facility] [id number] [place] [address] 39504- 8356 Aug, Uncomplicated opioid dependence F11.20 [facility] [id number] [place] [address] 71434- 2995 Aug, Uncomplicated opioid dependence F11.20 [facility] [address] [place] [address] Aug, Uncomplicated opioid dependence F11.20 [facility] [address] [place] [address] Aug, [facility] [id number] [place] [address] 92861- 2242 Aug, Uncomplicated opioid dependence F11.20 [facility] [address] [place] [address] Aug, Uncomplicated opioid dependence F11.20 [facility] [id number] [place] [address] 12001- 4576 Aug, Uncomplicated opioid dependence F11.20 [facility] [address] [place] [address] Aug, Uncomplicated opioid dependence F11.20 [facility] [id number] [place] [address] 34944- 9773 Jul, Uncomplicated opioid dependence F11.20 [facility] [id number] [place] [address] 81682- 9009 Jul, Uncomplicated opioid dependence F11.20 [facility] [address] [place] [address] Jul, Uncomplicated opioid dependence F11.20 [facility] [id number] [place] [address] 83788- 7364 Jul, Uncomplicated opioid dependence F11.20 [facility] [id number] [place] [address] 54370- 6086 Jul, Uncomplicated opioid dependence F11.20 [facility] [address] [place] [address] 74726- 9890 Jun, Uncomplicated opioid dependence F11.20 [facility] [address] [place] [address] Jun, Uncomplicated opioid dependence F11.20 [facility] [address] [place] [address] 25569- 0638 Jun, Uncomplicated opioid dependence F11.20 [facility] [id number] [place] [address] 25532- 9316 Jun, Encounter for therapeutic drug level monitoring Z51.81 and Anxiety about health F41.8 [facility] [address] [place] [address] 53751- 2172 May, Uncomplicated opioid dependence F11.20 [facility] [address] [place] [address] 74240- 0433 May, [facility] [id number] [place] [address] 96183- 1660 May, Encounter for dental examination Z01.20 [facility] [address] [place] [address] 98284- 0669 May, Uncomplicated opioid dependence F11.20 ; Encounter for therapeutic drug level monitoring Z51.81 and Calculus of gallbladder and bile duct without cholecystitis or obstruction K80.70 [facility] [address] [place] [address] May, Uncomplicated opioid dependence F11.20 [facility] [address] [place] [address] 83739- 9387 May, Uncomplicated opioid dependence F11.20 [facility] [address] [place] [address] 60268- 7744 May, [facility] [address] [place] [address] May, Uncomplicated opioid dependence F11.20 [facility] [address] [address]- 5376 Apr, Uncomplicated opioid dependence F11.20 [facility] [id number] [place] [address] 33428- 9652 Apr, Uncomplicated opioid dependence F11.20 [facility] [address] [place] [address] Apr, Uncomplicated opioid dependence F11.20 [facility] [id number] [place] [address] 15035- 5564 14 Apr, 2017 Encounter for therapeutic drug level monitoring Z51.81 [facility] [id number] [place] [address] 71588- 4546 Apr, Uncomplicated opioid dependence F11.20 [facility] [address] [place] [address] Apr, Uncomplicated opioid dependence F11.20 [facility] [address] [place] [address] Apr, Uncomplicated opioid dependence F11.20 [facility] [id number] [place] [address] 45500- 0771 March, Uncomplicated opioid dependence F11.20 [facility] [address] [place] [address] March, Uncomplicated opioid dependence F11.20 [facility] [id number] [place] [address] 27026- 7600 March, Uncomplicated opioid dependence F11.20 [facility] [address] [place] [address] March, Uncomplicated opioid dependence F11.20 [facility] [address] [place] [address] March, Uncomplicated opioid dependence F11.20 [facility] [id number] [place] [address] 63391- 4692 March, [facility] [id number] [place] [address] 78898- 5889 March, [facility] [address] [place] [address] March, Uncomplicated opioid dependence F11.20 [facility] [address] [address] 8023 March, [facility] [address] [place] [address] March, Uncomplicated opioid dependence F11.20 [facility] [address] [place] [address] 88327- 7055 March, Uncomplicated opioid dependence F11.20 [facility] [address] [place] [address] March, Uncomplicated opioid dependence F11.20 [facility] [id number] [place] [address] 27956- 5784 Feb, Uncomplicated opioid dependence F11.20 [facility] [id number] [place] [address] 66782- 8190 Feb, [facility] [address] [place] [address] Feb, Uncomplicated opioid dependence F11.20 [facility] [address] [place] [address] Feb, Uncomplicated opioid dependence F11.20 [facility] [id number] [place] [address] 29512- 3991 Feb, Encounter for therapeutic drug level monitoring Z51.81 and Uncomplicated opioid dependence F11.20 [facility] [address] [place] [address] Feb, Uncomplicated opioid dependence F11.20 [facility] [address] [place] [address] 71972 254 Feb, [facility] [id number] [place] [address] 30798 2540 Feb, Uncomplicated opioid dependence F11.20 [facility] [id number] [place] [address] 82650- 8801 Feb, Encounter for therapeutic drug level monitoring Z51.81 [facility] [address] [place] [address] Feb, Uncomplicated opioid dependence F11.20 [facility] [id number] [place] [address] 28624- 1507 17 Feb, 2017 Uncomplicated opioid dependence F11.20 and Encounter for therapeutic drug level monitoring Z51.81 [facility] [address] [place] [address] 14 Feb, 2017 Uncomplicated opioid dependence F11.20 [facility] [id number] [place] [address] 33330- 5631 14 Feb, 2017 Uncomplicated opioid dependence F11.20 [facility] [address] [place] [address] Feb, Uncomplicated opioid dependence F11.20 [facility] [address] [place] [address] Feb, [facility] [address] 54955- 1579 Feb, Uncomplicated opioid dependence F11.20 [facility] [address] [place] [address] Feb, Uncomplicated opioid dependence F11.20 [facility] [address] [place] [address] Feb, [facility] [id number] [place] [address] 96726- 9771 Feb, Uncomplicated opioid dependence F11.20 [facility] [address] [place] [address] Feb, Uncomplicated opioid dependence F11.20 [facility] [id number] [place] [address] 94546- 2024 Feb, Uncomplicated opioid dependence F11.20 [facility] [id number] [place] [address] 86282- 0733 Feb, [facility] [id number] [place] [address] 39194- 0162 Feb, Uncomplicated opioid dependence F11.20 and Substance abuse F19.10 [facility] [address] [place] [address] Feb, Substance abuse F19.10 [facility] [id number] [place] [address] 91239- 7690 Jan, Substance abuse F19.10 [facility] [address] [facility] [id number] [address] Jan, IMMUNIZATIONS No Known Immunizations SOCIAL HISTORY Never Assessed REASON FOR VISIT Suboxone RX (11/10-11/17) PLAN OF CARE VITAL SIGNS MEDICATIONS Medication Instructions Dosage Frequency Start Date End Date Duration Status Suboxone 8-2 MG Sublingual Once a day 1.5 film under the tongue and allow to dissolve 24h Active RESULTS No Results PROCEDURES No Known [...]
--- OUTSIDE RECORDS SUMMARY | 2018-05-06 21:37 | XMS REPORT ---
Author Author ANABELLA GARCIA [facility] Address [address] [place] [address] Care Team Providers Care Hoe Worker Name Role Phone ANABELLA GARCIA Unavailable PROBLEMS Type Condition ICD9-CM Code OJJ10-QN Code Onset Dates Condition Status SNOMED Code Problem Anxiety about health F41.8 Active 088383152 Problem Encounter for therapeutic drug level monitoring Z51.81 Active 015555746 Problem Uncomplicated opioid dependence F11.20 Active 68721232 Problem Substance abuse F19.10 Active [id number] ALLERGIES No Information ENCOUNTERS Encounter Location Date Diagnosis [facility] [address] [place] [address] March, [facility] [address] [address] March, Uncomplicated opioid dependence F11.20 and Anxiety about health F41.8 [facility] [id number] [place] [address] 29320- 0464 Feb, Uncomplicated opioid dependence F11.20 [facility] [id number] [place] [address] 97772- 3665 Feb, Uncomplicated opioid dependence F11.20 [facility] [address] [place] [address] Feb, Uncomplicated opioid dependence F11.20 [facility] [id number] [place] [address] 43675- 5391 Feb, Uncomplicated opioid dependence F11.20 [facility] [address] [place] [address] Feb, Uncomplicated opioid dependence F11.20 [facility] [id number] [place] [address] 77269- 4499 Feb, Uncomplicated opioid dependence F11.20 [facility] [id number] [place] [address] 87596- 9642 Feb, Uncomplicated opioid dependence F11.20 [facility] [address] [place] [address] Feb, Uncomplicated opioid dependence F11.20 [facility] [id number] [place] [address] 35818- 6000 Jan, Uncomplicated opioid dependence F11.20 [facility] [address] [place] [address] Jan, [facility] [id number] [place] [address] 22586- 5899 Jan, Uncomplicated opioid dependence F11.20 [facility] [address] [place] [address] Jan, Uncomplicated opioid dependence F11.20 [facility] [id number] [place] [address] 72290- 8519 Jan, Uncomplicated opioid dependence F11.20 [facility] [address] [place] [address] Jan, Uncomplicated opioid dependence F11.20 [facility] [id number] [place] [address] 17618- 2014 Jan, Uncomplicated opioid dependence F11.20 [facility] [address] [place] [address] Jan, Uncomplicated opioid dependence F11.20 [facility] [address] [place] [address] Jan, [facility] [id number] [place] [address] 33578- 9814 Dec, Uncomplicated opioid dependence F11.20 [facility] [address] [place] [address] Dec, Uncomplicated opioid dependence F11.20 [facility] [id number] [place] [address] 92060- 2314 15 Dec, 2017 Uncomplicated opioid dependence F11.20 [facility] [id number] [place] [address] 39932- 8828 08 Dec, 2017 Uncomplicated opioid dependence F11.20 [facility] [address] [place] [address] 08 Dec, 2017 Uncomplicated opioid dependence F11.20 [facility] [address] 6[address]- 4308 Nov, Uncomplicated opioid dependence F11.20 [facility] [address] [place] [address] Nov, Uncomplicated opioid dependence F11.20 [facility] [address] 65710- 2849 Nov, Uncomplicated opioid dependence F11.20 [facility] [address] [place] [address] Nov, Uncomplicated opioid dependence F11.20 [facility] [address] 74605- 2944 Nov, Uncomplicated opioid dependence F11.20 [facility] [address] [place] [address] Nov, Uncomplicated opioid dependence F11.20 [facility] [address] 66857- 4734 Nov, Uncomplicated opioid dependence F11.20 [facility] [address] [place] [address] Nov, Uncomplicated opioid dependence F11.20 [facility] [id number] [place] [address] 76729- 1973 Nov, Uncomplicated opioid dependence F11.20 [facility] [address] [place] [address] Nov, Uncomplicated opioid dependence F11.20 [facility] [id number] [place] [address] 89712- 9214 Oct, Uncomplicated opioid dependence F11.20 [facility] [address] [place] [address] Oct, Uncomplicated opioid dependence F11.20 [facility] [id number] [place] [address] 00302- 3686 Oct, Uncomplicated opioid dependence F11.20 [facility] [address] [place] [address] Oct, Uncomplicated opioid dependence F11.20 [facility] [id number] [place] [address] 74316- 7539 Oct, Uncomplicated opioid dependence F11.20 [facility] [id number] [place] [address] 38895- 1614 Oct, Uncomplicated opioid dependence F11.20 [facility] [address] 92398- 6098 Oct, [facility] [id number] [place] [address] 89400- 2703 Oct, Uncomplicated opioid dependence F11.20 [facility] [id number] [place] [address] 30913- 5025 Sep, Uncomplicated opioid dependence F11.20 [facility] [address] [place] [address] Sep, Uncomplicated opioid dependence F11.20 [facility] [id number] [place] [address] 44751- 1616 Sep, Uncomplicated opioid dependence F11.20 [facility] [address] [place] [address] Sep, Uncomplicated opioid dependence F11.20 [facility] [id number] [place] [address] 39035- 7959 Sep, Uncomplicated opioid dependence F11.20 [facility] [id number] [place] [address] 08349- 8380 Sep, Uncomplicated opioid dependence F11.20 [facility] [address] [place] [address] Sep, Uncomplicated opioid dependence F11.20 [facility] [id number] [place] [address] 32880- 4416 Aug, Uncomplicated opioid dependence F11.20 [facility] [id number] [place] [address] 07403- 4230 Aug, Uncomplicated opioid dependence F11.20 [facility] [address] [place] [address] Aug, Uncomplicated opioid dependence F11.20 [facility] [address] [place] [address] Aug, [facility] [address] 21016- 2667 Aug, Uncomplicated opioid dependence F11.20 [facility] [address] [place] [address] Aug, Uncomplicated opioid dependence F11.20 [facility] [address] 75833- 3730 Aug, Uncomplicated opioid dependence F11.20 [facility] [address] [place] [address] Aug, Uncomplicated opioid dependence F11.20 [facility] [address] 63698- 6219 Jul, Uncomplicated opioid dependence F11.20 [facility] [address] 98781- 2062 Jul, Uncomplicated opioid dependence F11.20 [facility] [address] [place] [address] Jul, Uncomplicated opioid dependence F11.20 [facility] [address] 86863- 8588 Jul, Uncomplicated opioid dependence F11.20 [facility] [address] 50166- 8874 Jul, Uncomplicated opioid dependence F11.20 [facility] [address] 07474- 5786 Jun, Uncomplicated opioid dependence F11.20 [facility] [address] [place] [address] Jun, Uncomplicated opioid dependence F11.20 [facility] [address] 84817- 2658 Jun, Uncomplicated opioid dependence F11.20 [facility] [address] 73547- 8868 Jun, Encounter for therapeutic drug level monitoring Z51.81 and Anxiety about health F41.8 [facility] [id number] [place] [address] 41859- 6605 May, Uncomplicated opioid dependence F11.20 [facility] [id number] [place] [address] 52561- 5471 May, [facility] [address] 67924- 2566 May, Encounter for dental examination Z01.20 [facility] [id number] [place] [address] 41190- 8235 May, Uncomplicated opioid dependence F11.20 ; Encounter for therapeutic drug level monitoring Z51.81 and Calculus of gallbladder and bile duct without cholecystitis or obstruction K80.70 [facility] [address] [place] [address] May, Uncomplicated opioid dependence F11.20 [facility] [id number] [place] [address] 51745- 3751 May, Uncomplicated opioid dependence F11.20 [facility] [address] 15473- 9335 May, [facility] [address] [place] [address] May, Uncomplicated opioid dependence F11.20 [facility] [id number] [place] [address] 55350- 2228 Apr, Uncomplicated opioid dependence F11.20 [facility] [id number] [place] [address] 28127- 2471 Apr, Uncomplicated opioid dependence F11.20 [facility] [address] [place] [address] Apr, Uncomplicated opioid dependence F11.20 [facility] [id number] [place] [address] 11722- 6966 14 Apr, 2017 Encounter for therapeutic drug level monitoring Z51.81 [facility] [id number] [place] [address] 27209- 9735 14 Apr, 2017 Uncomplicated opioid dependence F11.20 [facility] [address] [place] [address] Apr, Uncomplicated opioid dependence F11.20 [facility] [address] [place] [address] Apr, Uncomplicated opioid dependence F11.20 [facility] [id number] [place] [address] 30320- 8761 March, Uncomplicated opioid dependence F11.20 [facility] [address] [place] [address] March, Uncomplicated opioid dependence F11.20 [facility] [id number] [place] [address] 57581- 4458 March, Uncomplicated opioid dependence F11.20 [facility] [address] [place] [address] March, Uncomplicated opioid dependence F11.20 [facility] [address] [place] [address] March, Uncomplicated opioid dependence F11.20 [facility] [id number] [place] [address] 49961- 5546 March, [facility] [id number] [place] [address] 14369- 2158 March, [facility] [address] [place] [address] March, Uncomplicated opioid dependence F11.20 [facility] [id number] [place] [address] 01246- 8092 March, [facility] [address] [place] [address] March, Uncomplicated opioid dependence F11.20 [facility] [id number] [place] [address] 74084- 7741 March, Uncomplicated opioid dependence F11.20 [facility] [address] [place] [address] March, Uncomplicated opioid dependence F11.20 [facility] [id number] [place] [address] 74840- 1983 Feb, Uncomplicated opioid dependence F11.20 [facility] [id number] [place] [address] 90270- 7335 Feb, [facility] [address] [place] [address] Feb, Uncomplicated opioid dependence F11.20 [facility] [address] [place] [address] Feb, Uncomplicated opioid dependence F11.20 [facility] [id number] [place] [address] 73358- 6198 Feb, Encounter for therapeutic drug level monitoring Z51.81 and Uncomplicated opioid dependence F11.20 [facility] [address] [place] [address] Feb, Uncomplicated opioid dependence F11.20 [facility] [id number] [place] [address] 83367- 6835 Feb, [facility] [id number] [place] [address] 21778- 5884 Feb, Uncomplicated opioid dependence F11.20 [facility] [id number] [place] [address] 94122- 9381 Feb, Encounter for therapeutic drug level monitoring Z51.81 [facility] [address] [place] [address] Feb, Uncomplicated opioid dependence F11.20 [facility] [id number] [place] [address] 72045- 5454 Feb, Uncomplicated opioid dependence F11.20 and Encounter for therapeutic drug level monitoring Z51.81 [facility] [address] [place] [address] 14 Feb, 2017 Uncomplicated opioid dependence F11.20 [facility] [address] 94886- 6362 14 Feb, 2017 Uncomplicated opioid dependence F11.20 [facility] [address] [place] [address] Feb, Uncomplicated opioid dependence F11.20 [facility] [address] [place] [address] Feb, [facility] [id number] [place] [address] 16586- 9513 Feb, Uncomplicated opioid dependence F11.20 [facility] [address] [place] [address] Feb, Uncomplicated opioid dependence F11.20 [facility] [address] [place] [address] Feb, [facility] [address] 20117- 0114 Feb, Uncomplicated opioid dependence F11.20 [facility] [address] [place] [address] Feb, Uncomplicated opioid dependence F11.20 [facility] [address] 57993- 4302 Feb, Uncomplicated opioid dependence F11.20 [facility] [id number] [place] [address] 91935- 8881 Feb, [facility] [id number] [place] [address] 12042- 5910 Feb, Uncomplicated opioid dependence F11.20 and Substance abuse F19.10 [facility] [address] [id number] Feb, Substance abuse F19.10 [facility] [id number] [place] [address] 54712- 2379 Jan, Substance abuse F19.10 [facility] [address] 56353- 6906 Jan, IMMUNIZATIONS No Known Immunizations SOCIAL HISTORY Never Assessed REASON FOR VISIT Requests return call PLAN OF CARE VITAL SIGNS MEDICATIONS Medication Instructions Dosage Frequency Start Date End Date Duration Status Suboxone 8-2 MG Sublingual Once a day 1.5 application under the tongue and allow to dissolve 24h Feb, 4 days Active RESULTS No Results PROCEDURES No [...]
--- OUTSIDE RECORDS SUMMARY | 2018-05-06 21:37 | XMS REPORT ---
Author Author ANABELLA GARCIA [facility] Address [address] [place] [address] Care Team Providers Care Record Pressman Name Role Phone ANABELLA GARCIA Unavailable PROBLEMS Type Condition ICD9-CM Code FTC36-SW Code Onset Dates Condition Status SNOMED Code Problem Anxiety about health F41.8 Active 535368251 Problem Encounter for therapeutic drug level monitoring Z51.81 Active 083229230 Problem Uncomplicated opioid dependence F11.20 Active 44843648 Problem Substance abuse F19.10 Active 56841363 ALLERGIES No Information ENCOUNTERS Encounter Location Date Diagnosis [facility] [address] [place] [address] Apr, [facility] [id number] [place] [address] 30782- 6666 March, Uncomplicated opioid dependence F11.20 [facility] [id number] [place] [address] 41420- 6538 March, Uncomplicated opioid dependence F11.20 [facility] [address] [place] [address] March, Uncomplicated opioid dependence F11.20 [facility] [id number] [place] [address] 14666- 6709 March, Uncomplicated opioid dependence F11.20 [facility] [id number] [place] [address] 58678- 2970 March, [facility] [id number] [place] [address] 24206- 8939 March, Uncomplicated opioid dependence F11.20 and Anxiety about health F41.8 [facility] [id number] [place] [address] 82010- 6611 Feb, Uncomplicated opioid dependence F11.20 [facility] [id number] [place] [address] 07579- 3301 Feb, Uncomplicated opioid dependence F11.20 [facility] [address] [place] [address] Feb, Uncomplicated opioid dependence F11.20 [facility] [id number] [place] [address] 93886- 5065 Feb, Uncomplicated opioid dependence F11.20 [facility] [address] [place] [address] Feb, Uncomplicated opioid dependence F11.20 [facility] [id number] [place] [address] 56783- 7301 Feb, Uncomplicated opioid dependence F11.20 [facility] [id number] [place] [address] 93982- 1779 Feb, Uncomplicated opioid dependence F11.20 [facility] [address] [place] [address] Feb, Uncomplicated opioid dependence F11.20 [facility] [id number] [place] [address] 99224- 6667 Jan, Uncomplicated opioid dependence F11.20 [facility] [address] [place] [address] Jan, [facility] [id number] [place] [address] 36930- 2620 Jan, Uncomplicated opioid dependence F11.20 [facility] [address] [place] [address] Jan, Uncomplicated opioid dependence F11.20 [facility] [id number] [place] [address] 46120- 9038 Jan, Uncomplicated opioid dependence F11.20 [facility] [address] [place] [address] Jan, Uncomplicated opioid dependence F11.20 [facility] [id number] [place] [address] 97939- 9308 Jan, Uncomplicated opioid dependence F11.20 [facility] [address] [place] [address] Jan, Uncomplicated opioid dependence F11.20 [facility] [address] [place] [address] Jan, [facility] [id number] [place] [address] 85626- 6255 Dec, Uncomplicated opioid dependence F11.20 [facility] [address] [place] [address] Dec, Uncomplicated opioid dependence F11.20 [facility] [address] 57294- 4252 Dec, Uncomplicated opioid dependence F11.20 [facility] [address] 27736- 2839 Dec, Uncomplicated opioid dependence F11.20 [facility] [address] [place] [address] Dec, Uncomplicated opioid dependence F11.20 [facility] [address] 10921- 1287 Nov, Uncomplicated opioid dependence F11.20 [facility] [address] [place] [address] Nov, Uncomplicated opioid dependence F11.20 [facility] [address] 57546- 4306 Nov, Uncomplicated opioid dependence F11.20 [facility] [address] [place] [address] Nov, Uncomplicated opioid dependence F11.20 [facility] [id number] [place] [address] 46092- 1970 Nov, Uncomplicated opioid dependence F11.20 [facility] [address] [place] [address] Nov, Uncomplicated opioid dependence F11.20 [facility] [id number] [place] [address] 39902- 9717 Nov, Uncomplicated opioid dependence F11.20 [facility] [address] [place] [address] Nov, Uncomplicated opioid dependence F11.20 [facility] [address] [place] [address] 9[address] Nov, Uncomplicated opioid dependence F11.20 [facility] [address] [place] [address] Nov, Uncomplicated opioid dependence F11.20 [facility] [id number] [place] [address] 96534- 1322 Oct, Uncomplicated opioid dependence F11.20 [facility] [address] [place] [address] Oct, Uncomplicated opioid dependence F11.20 [facility] [address] 59613- 8995 Oct, Uncomplicated opioid dependence F11.20 [facility] [address] [place] [address] Oct, Uncomplicated opioid dependence F11.20 [facility] [id number] [place] [address] 67351- 5051 Oct, Uncomplicated opioid dependence F11.20 [facility] [id number] [place] [address] 23642- 2431 Oct, Uncomplicated opioid dependence F11.20 [facility] [id number] [place] [address] 94657- 9001 Oct, [facility] [id number] [place] [address] 19485- 5407 Oct, Uncomplicated opioid dependence F11.20 [facility] [id number] [place] [address] 75500- 3637 Sep, Uncomplicated opioid dependence F11.20 [facility] [address] [place] [address] Sep, Uncomplicated opioid dependence F11.20 [facility] [address] 33079- 6313 Sep, Uncomplicated opioid dependence F11.20 [facility] [address] [place] [address] Sep, Uncomplicated opioid dependence F11.20 [facility] [address] 27008- 2718 Sep, Uncomplicated opioid dependence F11.20 [facility] [id number] [place] [address] 39210- 8834 Sep, Uncomplicated opioid dependence F11.20 [facility] [address] [place] [address] Sep, Uncomplicated opioid dependence F11.20 [facility] [id number] [place] [address] 06344- 8273 Aug, Uncomplicated opioid dependence F11.20 [facility] [address] 89531- 6401 Aug, Uncomplicated opioid dependence F11.20 [facility] [address] [place] [address] Aug, Uncomplicated opioid dependence F11.20 [facility] [address] [place] [address] Aug, [facility] [address] 49374- 3055 Aug, Uncomplicated opioid dependence F11.20 [facility] [address] [place] [address] Aug, Uncomplicated opioid dependence F11.20 [facility] [id number] [place] [address] 73010- 3988 Aug, Uncomplicated opioid dependence F11.20 [facility] [address] [place] [address] Aug, Uncomplicated opioid dependence F11.20 [facility] [id number] [place] [address] 46827- 2996 Jul, Uncomplicated opioid dependence F11.20 [facility] [id number] [place] [address] 86006- 3779 Jul, Uncomplicated opioid dependence F11.20 [facility] [address] [place] [address] Jul, Uncomplicated opioid dependence F11.20 [facility] [id number] [place] [address] 24126- 8321 Jul, Uncomplicated opioid dependence F11.20 [facility] [address] [place] [address] 40581- 3986 Jul, Uncomplicated opioid dependence F11.20 [facility] [id number] [place] [address] 89421- 3475 Jun, Uncomplicated opioid dependence F11.20 [facility] [address] [place] [address] Jun, Uncomplicated opioid dependence F11.20 [facility] [id number] [place] [address] 37359- 6735 Jun, Uncomplicated opioid dependence F11.20 [facility] [id number] [place] [address] 57393- 2447 Jun, Encounter for therapeutic drug level monitoring Z51.81 and Anxiety about health F41.8 [facility] [id number] [place] [address] 91686- 3244 May, Uncomplicated opioid dependence F11.20 [facility] [id number] [place] [address] 84268- 0889 May, [facility] [id number] [place] [address] 06976- 8737 May, Encounter for dental examination Z01.20 [facility] [id number] [place] [address] 87384- 1926 May, Uncomplicated opioid dependence F11.20 ; Encounter for therapeutic drug level monitoring Z51.81 and Calculus of gallbladder and bile duct without cholecystitis or obstruction K80.70 [facility] [address] [place] [address] May, Uncomplicated opioid dependence F11.20 [facility] [id number] [place] [address] 70016- 9236 May, Uncomplicated opioid dependence F11.20 [facility] [id number] [place] [address] 20435- 5350 May, [facility] [address] [place] [address] May, Uncomplicated opioid dependence F11.20 [facility] [address] [address] 8[address] Apr, Uncomplicated opioid dependence F11.20 [facility] [id number] [place] [address] 48506- 2861 Apr, Uncomplicated opioid dependence F11.20 [facility] [address] [place] [address] Apr, Uncomplicated opioid dependence F11.20 [facility] [id number] [place] [address] 90470- 7065 14 Apr, 2017 Encounter for therapeutic drug level monitoring Z51.81 [facility] [id number] [place] [address] 01284- 0027 Apr, Uncomplicated opioid dependence F11.20 [facility] [address] [place] [address] Apr, Uncomplicated opioid dependence F11.20 [facility] [address] [place] [address] Apr, Uncomplicated opioid dependence F11.20 [facility] [id number] [place] [address] 01845- 7312 March, Uncomplicated opioid dependence F11.20 [facility] [address] [place] [address] March, Uncomplicated opioid dependence F11.20 [facility] [id number] [place] [address] 40984- 4908 March, Uncomplicated opioid dependence F11.20 [facility] [address] [place] [address] March, Uncomplicated opioid dependence F11.20 [facility] [address] [place] [address] March, Uncomplicated opioid dependence F11.20 [facility] [id number] [place] [address] 45055- 5637 March, [facility] [id number] [place] [address] 50123- 8068 March, [facility] [address] [place] [address] March, Uncomplicated opioid dependence F11.20 [facility] [id number] [place] [address] 80970- 1472 March, [facility] [address] [place] [address] March, Uncomplicated opioid dependence F11.20 [facility] [id number] [place] [address] 02367- 5804 March, Uncomplicated opioid dependence F11.20 [facility] [address] [place] [address] March, Uncomplicated opioid dependence F11.20 [facility] [address] 13824- 6248 Feb, Uncomplicated opioid dependence F11.20 [facility] [id number] [place] [address] 18203- 3818 Feb, [facility] [address] [place] [address] Feb, Uncomplicated opioid dependence F11.20 [facility] [address] [place] [address] Feb, Uncomplicated opioid dependence F11.20 [facility] [id number] [place] [address] 47004- 3247 Feb, Encounter for therapeutic drug level monitoring Z51.81 and Uncomplicated opioid dependence F11.20 [facility] [address] [place] [address] Feb, Uncomplicated opioid dependence F11.20 [facility] [id number] [place] [address] 60309- 3144 Feb, [facility] [id number] [place] [address] 90639- 7246 Feb, Uncomplicated opioid dependence F11.20 [facility] [id number] [place] [address] 64467- 2389 Feb, Encounter for therapeutic drug level monitoring Z51.81 [facility] [address] [place] [address] Feb, Uncomplicated opioid dependence F11.20 [facility] [id number] [place] [address] 04153- 4685 17 Feb, 2017 Uncomplicated opioid dependence F11.20 and Encounter for therapeutic drug level monitoring Z51.81 [facility] [address] [place] [address] 14 Feb, 2017 Uncomplicated opioid dependence F11.20 [facility] [id number] [place] [address] 25857- 5626 14 Feb, 2017 Uncomplicated opioid dependence F11.20 [facility] [address] [place] [address] Feb, Uncomplicated opioid dependence F11.20 [facility] [address] [place] [address] Feb, [facility] [address] 35685- 2147 Feb, Uncomplicated opioid dependence F11.20 [facility] [address] [place] [address] Feb, Uncomplicated opioid dependence F11.20 [facility] [address] [place] [address] Feb, [facility] [address] 70762- 5000 Feb, Uncomplicated opioid dependence F11.20 [facility] [address] [place] [address] Feb, Uncomplicated opioid dependence F11.20 [facility] [id number] [place] [address] 50324 2549 Feb, Uncomplicated opioid dependence F11.20 [facility] [id number] [place] [address] 18004 2545 Feb, [facility] [address] [address] 2545 Feb, Uncomplicated opioid dependence F11.20 and Substance abuse F19.10 [facility] [address] [place] [address] Feb, Substance abuse F19.10 [facility] [address] [address] Jan, Substance abuse F19.10 [facility] [address] [facility] [id number] [place] [address] Jan, IMMUNIZATIONS No Known Immunizations SOCIAL HISTORY Never Assessed REASON FOR VISIT rx PLAN OF CARE VITAL SIGNS MEDICATIONS Medication Instructions Dosage Frequency Start Date End Date Duration Status Suboxone 8-2 MG Sublingual Once a day. CHARGE TO [facility] [employer]5 application under the tongue and allow to dissolve Feb, Oct, 4 days Active RESULTS No Results PROCEDURES [...]
--- NOTE | 2018-05-06 21:38 | ED Abdominal Pain ---
General Stated Complaint: ABD PAIN Source of Information: Patient Exam Limitations: No Limitations History of Present Illness Date Seen by Provider: May 06, 2018 Time Seen by Provider: 21:35 Initial Comments To ER for further vehicle with reports of epigastric abdominal pain. This began last night. He's had some loose stools and a burning sensation when having a bowel movement. He initially thought this was heartburn but states that he has a bad gallbladder. The pain is in the epigastric region radiating to the left upper quadrant and right upper quadrant in a bandlike fashion. Timing/Duration: 1-2 Days Severity/Quality: Moderate Location: Epigastric Radiation: No Radiation Associated Symptoms: No Fever/Chills, No Nausea/Vomiting Allergies and Home Medications Allergies Coded Allergies: No Known Drug Allergies (Unverified , 06/11/09) Home Medications Hyoscyamine Sulfate 0.125 Mg Tab.subl, 1-2 TAB SL Q4H Prescribed by: GALA ARMAS on 03/08/182119 Hyoscyamine Sulfate 0.125 Mg Tab.subl, 0.25 MG SL Q6H PRN for CRAMPS Prescribed by: WILLIAM CRAIG on 05/06/182235 Ondansetron 4 Mg Tab.rapdis, 4 MG PO Q4H Prescribed by: GALA ARMAS on 03/08/182119 Pantoprazole Sodium 40 Mg Tablet.dr, 40 MG PO DAILY Prescribed by: GALA ARMAS on 03/08/182119 Patient Home Medication List Home Medication List Reviewed: Yes Review of Systems Constitutional: see HPI EENTM: No Symptoms Reported Respiratory: No Symptoms Reported Cardiovascular: No Symptoms Reported Gastrointestinal: See HPI, Abdominal Pain; Denies Constipated, Denies Diarrhea , Denies Nausea, Denies Vomiting Genitourinary: No Symptoms Reported Musculoskeletal: no symptoms reported Skin: no symptoms reported Psychiatric/Neurological: No Symptoms Reported Endocrine: No Symptoms Reported Past Tgpqsew-Jingpj-Cvuqah Hx Patient Social History 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, THC, VYVANSE/ADDERALL ABUSE Type Used: Cigarettes 2nd Hand Smoke Exposure: Yes Recent Foreign Travel: No Contact w/Someone Who Travel: No Recent Hopitalizations: No Immunizations Up To Date Tetanus Booster (TDap): Unknown Date of Influenza Vaccine: Sep 09, 2016 Seasonal Allergies Seasonal Allergies: No Past Medical History Surgeries: Yes (KIDNEY STONE REMOVAL, URETERAL STENT, COLONOSCOPY) Renal Respiratory: No Cardiac: No Neurological: No Genitourinary: Yes (KIDNEY 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 15) Kidney Stones Gastrointestinal: Yes (GALLSTONES NOTED ON CT) Gastroesophageal Reflux, Gall Bladder Disease Musculoskeletal: No Endocrine: No HEENT: No Cancer: No Psychosocial: Yes (POLYSUBSTANCE ABUSE) Anxiety Integumentary: No Blood Disorders: No Adverse Reaction/Blood Tranf: No Family Medical History No Pertinent Family Hx Physical Exam Vital Signs Vital Signs - First Documented 05/06/18 21:32 Pulse 64 Resp 20 B/P (MAP) 144/95 (111) Pulse Ox 100 O2 Delivery Room Air Capillary Refill : General Appearance: WD/WN, no apparent distress HEENT: PERRL/EOMI, normal ENT inspection Neck: non-tender, full range of motion Respiratory: normal breath sounds, no respiratory distress, no accessory muscle use Cardiovascular: regular rate, rhythm, no murmur Gastrointestinal: normal bowel sounds, non tender, soft; No guarding, No rebound, No tenderness Extremities: normal range of motion, non-tender Neurologic/Psychiatric: alert, normal mood/affect, oriented x 3 Skin: normal color, warm/dry Progress/Results/Core Measures Results/Orders Lab Results Laboratory Tests Test 05/06/18 21:48 Range/Units White Blood Count 9.9 4.3-11.0 10^3/uL Red Blood Count 5.68 4.35-5.85 10^6/uL Hemoglobin 16.2 13.3-17.7 G/DL Hematocrit 46 40-54 % Mean Corpuscular Volume 81 80-99 FL Mean Corpuscular Hemoglobin 29 25-34 PG Mean Corpuscular Hemoglobin Concent 35 32-36 G/DL Red Cell Distribution Width 12.9 10.0-14.5 % Platelet Count 247 130-400 10^3/uL Mean Platelet Volume 11.7 H 7.4-10.4 FL Neutrophils (%) (Auto) 56 42-75 % Lymphocytes (%) (Auto) 32 12-44 % Monocytes (%) (Auto) 6 0-12 % Eosinophils (%) (Auto) 5 0-10 % Basophils (%) (Auto) 0 0-10 % Neutrophils # (Auto) 5.5 1.8-7.8 X 10^3 Lymphocytes # (Auto) 3.2 1.0-4.0 X 10^3 Monocytes # (Auto) 0.6 0.0-1.0 X 10^3 Eosinophils # (Auto) 0.5 H 0.0-0.3 10^3/uL Basophils # (Auto) 0.0 0.0-0.1 10^3/uL Sodium Level 141 135-145 MMOL/L Potassium Level 4.1 3.6-5.0 MMOL/L Chloride Level 107 98-107 MMOL/L Carbon Dioxide Level 22 21-32 MMOL/L Anion Gap 12 5-14 MMOL/L Blood Urea Nitrogen 5 L 7-18 MG/DL Creatinine 0.79 0.60-1.30 MG/DL Estimat Glomerular Filtration Rate > 60 BUN/Creatinine Ratio 6 Glucose Level 100 70-105 MG/DL Calcium Level 10.2 H 8.5-10.1 MG/DL Total Bilirubin 0.3 0.1-1.0 MG/DL Aspartate Amino Transf (AST/SGOT) 16 5-34 U/L Alanine Aminotransferase (ALT/SGPT) 11 0-55 U/L Alkaline Phosphatase 88 40-136 U/L Total Protein 8.2 6.4-8.2 GM/DL Albumin 4.8 H 3.2-4.5 GM/DL Lipase 12 8-78 U/L My Orders Orders - WILLIAM CRAIG APRN Cbc With Automated Diff (05/06/18 21:51) Comprehensive Metabolic Panel (05/06/18 21:51) Lipase (05/06/18 21:51) Antacid Suspension (Mylanta Suspension (05/06/18 22:00) Lidocaine 2% Viscous 15 Ml (Xylocaine Vi (05/06/18 22:00) Medications Given in ED Current Medications Medications Dose Ordered Sig/Juan Route Start Time Stop Time Status Last Admin Dose Admin Al Hydrox/Mg Hydrox/Simethicone 30 ml ONCE ONCE PO 05/06/18 22:00 05/06/18 22:01 DC 05/06/18 22:03 30 ML Lidocaine HCl 15 ml ONCE ONCE PO 05/06/18 22:00 05/06/18 22:01 DC 05/06/18 22:03 15 ML Vital Signs/I&O 05/06/18 21:32 Pulse 64 Resp 20 B/P (MAP) 144/95 (111) Pulse Ox 100 O2 Delivery Room Air Departure Communication (Admissions) 1494- in reviewing his prior ER presentations, he's been diagnosed with cholelithiasis twice before once in April 2017 and once in February of this year. At both times he was referred to surgery for follow-up which she has not done. He was initially referred to Dr. Clinton in 2016 and never followed up, and in February, referred to Dr. Lujan from surgery in regards to the cholelithiasis. He has still not seen anyone from surgery to evaluate this. Impression Primary Impression: Gastritis Additional Impression: Cholelithiasis Disposition: HOME, SELF-CARE Condition: Stable Departure-Patient Inst. Decision time for Depature: 21:37 Referrals: [facility] (PCP/Family) Primary Care Physician BING PHILIPPE BRETT D DO JENKINS, XAVIER M MD KIDO, TAKAAKI MD Patient Instructions: Gallstones (DC), Gastritis Add. Discharge Instructions: 1. A list of the local surgeons has been provided for you. Call a surgeon of your choosing on Wednesday to make an appointment to be seen to schedule removal of your gallbladder. Scripts Hyoscyamine Sulfate (Levsin-Sl) 0.125 Mg Tab.subl 0.25 MG SL Q6H PRN for CRAMPS, #14 TAB Prov: WILLIAM CRAIG [employer]ING [employer] INST[employer]ER 05/06/18 WILLIAM CRAIG [employer] INST[employer]ER May 06, 2018 21:38
--- OUTSIDE RECORDS SUMMARY | 2018-05-06 21:38 | XMS REPORT ---
Author Author ANABELLA GARCIA [facility] Address [address] 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 Name Role Phone ANABELLA GARCIA Unavailable PROBLEMS Type Condition ICD9-CM Code IJD39-RQ Code Onset Dates Condition Status SNOMED Code Problem Anxiety about health F41.8 Active 331027751 Problem Encounter for therapeutic drug level monitoring Z51.81 Active 008075004 Problem Uncomplicated opioid dependence F11.20 Active 49708350 Problem Substance abuse F19.10 Active [id number] ALLERGIES No Information ENCOUNTERS Encounter Location Date Diagnosis [facility] [address] [place] [address] March, [facility] [address] [address] March, Uncomplicated opioid dependence F11.20 and Anxiety about health F41.8 [facility] [id number] [place] [address]30- [address]40 Feb, Uncomplicated opioid dependence F11.20 [facility] [id number] [place] [address]2980- 0650 Feb, Uncomplicated opioid dependence F11.20 [facility] [address] [place] [address] Feb, Uncomplicated opioid dependence F11.20 [facility] [id number] [place] [address]253[address] 9250 Feb, Uncomplicated opioid dependence F11.20 [facility] [address] [place] [address] Feb, Uncomplicated opioid dependence F11.20 [facility] [id number] [place] [address] 83462- 5823 Feb, Uncomplicated opioid dependence F11.20 [facility] [id number] [place] [address] 67646- 8035 Feb, Uncomplicated opioid dependence F11.20 [facility] [address] [place] [address] Feb, Uncomplicated opioid dependence F11.20 [facility] [id number] [place] [address] 79957- 2543 Jan, Uncomplicated opioid dependence F11.20 [facility] [address] [place] [address] Jan, [facility] [id number] [place] [address] 62988- 6280 Jan, Uncomplicated opioid dependence F11.20 [facility] [address] [place] [address] Jan, Uncomplicated opioid dependence F11.20 [facility] [id number] [place] [address] 34289- 3476 Jan, Uncomplicated opioid dependence F11.20 [facility] [address] [place] [address] Jan, Uncomplicated opioid dependence F11.20 [facility] [id number] [place] [address] 29652- 4233 Jan, Uncomplicated opioid dependence F11.20 [facility] [address] [place] [address] Jan, Uncomplicated opioid dependence F11.20 [facility] [address] [place] [address] Jan, [facility] [id number] [place] [address] 14845- 1259 Dec, Uncomplicated opioid dependence F11.20 [facility] [address] [place] [address] Dec, Uncomplicated opioid dependence F11.20 [facility] [id number] [place] [address] 69973- 8824 15 Dec, 2017 Uncomplicated opioid dependence F11.20 [facility] [id number] [place] [address] 51377- 0387 08 Dec, 2017 Uncomplicated opioid dependence F11.20 [facility] [address] [place] [address] 08 Dec, 2017 Uncomplicated opioid dependence F11.20 [facility] [address] [address] Nov, Uncomplicated opioid dependence F11.20 [facility] [address] [place] [address] Nov, Uncomplicated opioid dependence F11.20 [facility] [address] [address] Nov, Uncomplicated opioid dependence F11.20 [facility] [address] [place] [address] Nov, Uncomplicated opioid dependence F11.20 [facility] [address] [address] Nov, Uncomplicated opioid dependence F11.20 [facility] [address] [place] [address] Nov, Uncomplicated opioid dependence F11.20 [facility] [address] [address] Nov, Uncomplicated opioid dependence F11.20 [facility] [address] [place] [address] Nov, Uncomplicated opioid dependence F11.20 [facility] [id number] [place] [address] 86859- 5800 Nov, Uncomplicated opioid dependence F11.20 [facility] [address] [place] [address] Nov, Uncomplicated opioid dependence F11.20 [facility] [id number] [place] [address] 14119- 6826 Oct, Uncomplicated opioid dependence F11.20 [facility] [address] [place] [address] Oct, Uncomplicated opioid dependence F11.20 [facility] [id number] [place] [address] 77671- 9835 Oct, Uncomplicated opioid dependence F11.20 [facility] [address] [place] [address] Oct, Uncomplicated opioid dependence F11.20 [facility] [id number] [place] [address] 97343- 7091 Oct, Uncomplicated opioid dependence F11.20 [facility] [id number] [place] [address] 84687- 1505 Oct, Uncomplicated opioid dependence F11.20 [facility] [address] 68[address] Oct, [facility] [id number] [place] [address] 57026- 0194 Oct, Uncomplicated opioid dependence F11.20 [facility] [id number] [place] [address] 52531- 7786 Sep, Uncomplicated opioid dependence F11.20 [facility] [address] [place] [address] Sep, Uncomplicated opioid dependence F11.20 [facility] [id number] [place] [address] 01516- 7435 Sep, Uncomplicated opioid dependence F11.20 [facility] [address] [place] [address] Sep, Uncomplicated opioid dependence F11.20 [facility] [id number] [place] [address] 94849- 4155 Sep, Uncomplicated opioid dependence F11.20 [facility] [id number] [place] [address] 11497- 7534 Sep, Uncomplicated opioid dependence F11.20 [facility] [address] [place] [address] Sep, Uncomplicated opioid dependence F11.20 [facility] [id number] [place] [address] 66859- 4348 Aug, Uncomplicated opioid dependence F11.20 [facility] [id number] [place] [address] 51656- 7360 Aug, Uncomplicated opioid dependence F11.20 [facility] [address] [place] [address] Aug, Uncomplicated opioid dependence F11.20 [facility] [address] [place] [address] Aug, [facility] [address] [address] Aug, Uncomplicated opioid dependence F11.20 [facility] [address] [place] [address] Aug, Uncomplicated opioid dependence F11.20 [facility] [address] 21862[address] 9[address] Aug, Uncomplicated opioid dependence F11.20 [facility] [address] [place] [address] Aug, Uncomplicated opioid dependence F11.20 [facility] [address] 413[address]- [address] Jul, Uncomplicated opioid dependence F11.20 [facility] [address] [address]- [address] Jul, Uncomplicated opioid dependence F11.20 [facility] [address] [place] [address] Jul, Uncomplicated opioid dependence F11.20 [facility] [address] 54732- 75[address] Jul, Uncomplicated opioid dependence F11.20 [facility] [address] 53663- 6[address] Jul, Uncomplicated opioid dependence F11.20 [facility] [address] 36874- 9156 Jun, Uncomplicated opioid dependence F11.20 [facility] [address] [place] [address] Jun, Uncomplicated opioid dependence F11.20 [facility] [address] 16243- 0194 Jun, Uncomplicated opioid dependence F11.20 [facility] [address] 34107- 1737 Jun, Encounter for therapeutic drug level monitoring Z51.81 and Anxiety about health F41.8 [facility] [id number] [place] [address] 73035- 7374 May, Uncomplicated opioid dependence F11.20 [facility] [id number] [place] [address] 91305- 8930 May, [facility] [address] 812[address]- [address]17 May, Encounter for dental examination Z01.20 [facility] [id number] [place] [address] 63094- 9419 May, Uncomplicated opioid dependence F11.20 ; Encounter for therapeutic drug level monitoring Z51.81 and Calculus of gallbladder and bile duct without cholecystitis or obstruction K80.70 [facility] [address] [place] [address] May, Uncomplicated opioid dependence F11.20 [facility] [id number] [place] [address] 73858- 2116 May, Uncomplicated opioid dependence F11.20 [facility] [address] 11667- 7327 May, [facility] [address] [place] [address] May, Uncomplicated opioid dependence F11.20 [facility] [id number] [place] [address] 05722- 8222 Apr, Uncomplicated opioid dependence F11.20 [facility] [id number] [place] [address] 22893- 2301 Apr, Uncomplicated opioid dependence F11.20 [facility] [address] [place] [address] Apr, Uncomplicated opioid dependence F11.20 [facility] [id number] [place] [address] 71385- 0031 14 Apr, 2017 Encounter for therapeutic drug level monitoring Z51.81 [facility] [id number] [place] [address] 93988- 7224 14 Apr, 2017 Uncomplicated opioid dependence F11.20 [facility] [address] [place] [address] Apr, Uncomplicated opioid dependence F11.20 [facility] [address] [place] [address] Apr, Uncomplicated opioid dependence F11.20 [facility] [id number] [place] [address] 35180- 8089 March, Uncomplicated opioid dependence F11.20 [facility] [address] [place] [address] March, Uncomplicated opioid dependence F11.20 [facility] [id number] [place] [address] 62876- 3963 March, Uncomplicated opioid dependence F11.20 [facility] [address] [place] [address] March, Uncomplicated opioid dependence F11.20 [facility] [address] [place] [address] March, Uncomplicated opioid dependence F11.20 [facility] [id number] [place] [address] 42395- 0426 March, [facility] [id number] [place] [address] 64002- 8305 March, [facility] [address] [place] [address] March, Uncomplicated opioid dependence F11.20 [facility] [id number] [place] [address] 42973- 9404 March, [facility] [address] [place] [address] March, Uncomplicated opioid dependence F11.20 [facility] [id number] [place] [address] 29020- 1166 March, Uncomplicated opioid dependence F11.20 [facility] [address] [place] [address] March, Uncomplicated opioid dependence F11.20 [facility] [id number] [place] [address] 49410- 8159 Feb, Uncomplicated opioid dependence F11.20 [facility] [id number] [place] [address] 36411- 5687 Feb, [facility] [address] [place] [address] Feb, Uncomplicated opioid dependence F11.20 [facility] [address] [place] [address] Feb, Uncomplicated opioid dependence F11.20 [facility] [id number] [place] [address] 55493- 9645 Feb, Encounter for therapeutic drug level monitoring Z51.81 and Uncomplicated opioid dependence F11.20 [facility] [address] [place] [address] Feb, Uncomplicated opioid dependence F11.20 [facility] [id number] [place] [address] 63849- 5023 Feb, [facility] [id number] [place] [address] 24067- 0146 Feb, Uncomplicated opioid dependence F11.20 [facility] [id number] [place] [address] 61972- 5923 Feb, Encounter for therapeutic drug level monitoring Z51.81 [facility] [address] [place] [address] Feb, Uncomplicated opioid dependence F11.20 [facility] [id number] [place] [address] 03383- 3710 Feb, Uncomplicated opioid dependence F11.20 and Encounter for therapeutic drug level monitoring Z51.81 [facility] [address] [place] [address] 14 Feb, 2017 Uncomplicated opioid dependence F11.20 [facility] [address] 59182- 8129 14 Feb, 2017 Uncomplicated opioid dependence F11.20 [facility] [address] [place] [address] Feb, Uncomplicated opioid dependence F11.20 [facility] [address] [place] [address] Feb, [facility] [id number] [place] [address] 03428- 6904 Feb, Uncomplicated opioid dependence F11.20 [facility] [address] [place] [address] Feb, Uncomplicated opioid dependence F11.20 [facility] [address] [place] [address] Feb, [facility] [address] 87[address]- 7217 Feb, Uncomplicated opioid dependence F11.20 [facility] [address] [place] [address] Feb, Uncomplicated opioid dependence F11.20 [facility] [address] 21384- 0591 Feb, Uncomplicated opioid dependence F11.20 [facility] [id number] [place] [address] 43974- 9173 Feb, [facility] [address] 58500- 2889 Feb, Uncomplicated opioid dependence F11.20 and Substance abuse F19.10 [facility] [address] [id number] Feb, Substance abuse F19.10 [facility] [id number] [place] [address] 30532- 4194 Jan, Substance abuse F19.10 [facility] [address] [id number]- [address]13 Jan, IMMUNIZATIONS No Known Immunizations SOCIAL HISTORY Never Assessed REASON FOR VISIT Suboxone RX (08/24-08/30) PLAN OF CARE VITAL SIGNS MEDICATIONS Medication [...]
--- OUTSIDE RECORDS SUMMARY | 2018-05-06 21:39 | XMS REPORT ---
Author Author MICHELA IQBAL [facility] Address [address] [place] [address] Care Team Providers Care Drum Barker Operator Name Role Phone MICHELA IQBAL Unavailable PROBLEMS Type Condition ICD9-CM Code CYN14-RF Code Onset Dates Condition Status SNOMED Code Problem Anxiety about health F41.8 Active 883987691 Problem Encounter for therapeutic drug level monitoring Z51.81 Active 499216460 Problem Uncomplicated opioid dependence F11.20 Active 81647077 Problem Substance abuse F19.10 Active 33700600 ALLERGIES No Information ENCOUNTERS Encounter Location Date Diagnosis [facility] [address] [place] [address] Apr, [facility] [id number] [place] [address] 43129- 8651 March, Uncomplicated opioid dependence F11.20 [facility] [id number] [place] [address] 00757- 5646 March, Uncomplicated opioid dependence F11.20 [facility] [address] [place] [address] March, Uncomplicated opioid dependence F11.20 [facility] [id number] [place] [address] 80319- 0786 March, Uncomplicated opioid dependence F11.20 [facility] [id number] [place] [address] 34328- 8789 March, [facility] [id number] [place] [address] 67711- 1449 March, Uncomplicated opioid dependence F11.20 and Anxiety about health F41.8 [facility] [id number] [place] [address] 43477- 7700 Feb, Uncomplicated opioid dependence F11.20 [facility] [id number] [place] [address] 35422- 2359 Feb, Uncomplicated opioid dependence F11.20 [facility] [address] [place] [address] Feb, Uncomplicated opioid dependence F11.20 [facility] [id number] [place] [address] 54207- 3651 Feb, Uncomplicated opioid dependence F11.20 [facility] [address] [place] [address] Feb, Uncomplicated opioid dependence F11.20 [facility] [id number] [place] [address] 01246- 0919 Feb, Uncomplicated opioid dependence F11.20 [facility] [id number] [place] [address] 82300- 7814 Feb, Uncomplicated opioid dependence F11.20 [facility] [address] [place] [address] Feb, Uncomplicated opioid dependence F11.20 [facility] [id number] [place] [address] 60712- 6101 Jan, Uncomplicated opioid dependence F11.20 [facility] [address] [place] [address] Jan, [facility] [id number] [place] [address] 15629- 5143 Jan, Uncomplicated opioid dependence F11.20 [facility] [address] [place] [address] Jan, Uncomplicated opioid dependence F11.20 [facility] [id number] [place] [address] 25062- 4036 Jan, Uncomplicated opioid dependence F11.20 [facility] [address] [place] [address] Jan, Uncomplicated opioid dependence F11.20 [facility] [id number] [place] [address] 10275- 1698 Jan, Uncomplicated opioid dependence F11.20 [facility] [address] [place] [address] Jan, Uncomplicated opioid dependence F11.20 [facility] [address] [place] [address] Jan, [facility] [id number] [place] [address] 92798- 4440 Dec, Uncomplicated opioid dependence F11.20 [facility] [address] [place] [address] Dec, Uncomplicated opioid dependence F11.20 [facility] [address] 24492- 9857 Dec, Uncomplicated opioid dependence F11.20 [facility] [address] 24352- 2212 Dec, Uncomplicated opioid dependence F11.20 [facility] [address] [place] [address] Dec, Uncomplicated opioid dependence F11.20 [facility] [address] 99353- 2587 Nov, Uncomplicated opioid dependence F11.20 [facility] [address] [place] [address] Nov, Uncomplicated opioid dependence F11.20 [facility] [address] 58117- 0971 Nov, Uncomplicated opioid dependence F11.20 [facility] [address] [place] [address] Nov, Uncomplicated opioid dependence F11.20 [facility] [id number] [place] [address] 96306- 0744 Nov, Uncomplicated opioid dependence F11.20 [facility] [address] [place] [address] Nov, Uncomplicated opioid dependence F11.20 [facility] [id number] [place] [address] 29892- 7082 Nov, Uncomplicated opioid dependence F11.20 [facility] [address] [place] [address] Nov, Uncomplicated opioid dependence F11.20 [facility] [address] [place] [address] Nov, Uncomplicated opioid dependence F11.20 [facility] [address] [place] [address] Nov, Uncomplicated opioid dependence F11.20 [facility] [id number] [place] [address] 70141- 8173 Oct, Uncomplicated opioid dependence F11.20 [facility] [address] [place] [address] Oct, Uncomplicated opioid dependence F11.20 [facility] [address] 66521- 5293 Oct, Uncomplicated opioid dependence F11.20 [facility] [address] [place] [address] Oct, Uncomplicated opioid dependence F11.20 [facility] [id number] [place] [address] 45718- 3299 Oct, Uncomplicated opioid dependence F11.20 [facility] [id number] [place] [address] 57854- 7892 Oct, Uncomplicated opioid dependence F11.20 [facility] [id number] [place] [address] 98437- 4325 Oct, [facility] [id number] [place] [address] 70365- 8128 Oct, Uncomplicated opioid dependence F11.20 [facility] [id number] [place] [address] 89973- 7212 Sep, Uncomplicated opioid dependence F11.20 [facility] [address] [place] [address] Sep, Uncomplicated opioid dependence F11.20 [facility] [address] 96833- 1865 Sep, Uncomplicated opioid dependence F11.20 [facility] [address] [place] [address] Sep, Uncomplicated opioid dependence F11.20 [facility] [address] 68249- 0171 Sep, Uncomplicated opioid dependence F11.20 [facility] [id number] [place] [address] 74540- 4007 Sep, Uncomplicated opioid dependence F11.20 [facility] [address] [place] [address] Sep, Uncomplicated opioid dependence F11.20 [facility] [id number] [place] [address] 24360- 4563 Aug, Uncomplicated opioid dependence F11.20 [facility] [address] 26488- 9515 Aug, Uncomplicated opioid dependence F11.20 [facility] [address] [place] [address] Aug, Uncomplicated opioid dependence F11.20 [facility] [address] [place] [address] Aug, [facility] [address] 56872- 3983 Aug, Uncomplicated opioid dependence F11.20 [facility] [address] [place] [address] Aug, Uncomplicated opioid dependence F11.20 [facility] [id number] [place] [address] 40863- 5361 Aug, Uncomplicated opioid dependence F11.20 [facility] [address] [place] [address] Aug, Uncomplicated opioid dependence F11.20 [facility] [id number] [place] [address] 86074- 2846 Jul, Uncomplicated opioid dependence F11.20 [facility] [id number] [place] [address] 65356- 8317 Jul, Uncomplicated opioid dependence F11.20 [facility] [address] [place] [address] Jul, Uncomplicated opioid dependence F11.20 [facility] [id number] [place] [address] 64018- 5668 Jul, Uncomplicated opioid dependence F11.20 [facility] [address] [place] [address] 00182- 0762 Jul, Uncomplicated opioid dependence F11.20 [facility] [id number] [place] [address] 47862- 6181 Jun, Uncomplicated opioid dependence F11.20 [facility] [address] [place] [address] Jun, Uncomplicated opioid dependence F11.20 [facility] [id number] [place] [address] 59768- 1790 Jun, Uncomplicated opioid dependence F11.20 [facility] [id number] [place] [address] 99404- 2524 Jun, Encounter for therapeutic drug level monitoring Z51.81 and Anxiety about health F41.8 [facility] [id number] [place] [address] 26564- 3738 May, Uncomplicated opioid dependence F11.20 [facility] [id number] [place] [address] 14175- 4118 May, [facility] [id number] [place] [address] 19125- 3937 May, Encounter for dental examination Z01.20 [facility] [id number] [place] [address] 03282- 2268 May, Uncomplicated opioid dependence F11.20 ; Encounter for therapeutic drug level monitoring Z51.81 and Calculus of gallbladder and bile duct without cholecystitis or obstruction K80.70 [facility] [address] [place] [address] May, Uncomplicated opioid dependence F11.20 [facility] [id number] [place] [address] 72236- 6988 May, Uncomplicated opioid dependence F11.20 [facility] [id number] [place] [address] 43061- 9377 May, [facility] [address] [place] [address] May, Uncomplicated opioid dependence F11.20 [facility] [address] [place] [address] Apr, Uncomplicated opioid dependence F11.20 [facility] [id number] [place] [address] 75062- 8060 Apr, Uncomplicated opioid dependence F11.20 [facility] [address] [place] [address] Apr, Uncomplicated opioid dependence F11.20 [facility] [id number] [place] [address] 25146- 8576 14 Apr, 2017 Encounter for therapeutic drug level monitoring Z51.81 [facility] [id number] [place] [address] 28727- 8129 Apr, Uncomplicated opioid dependence F11.20 [facility] [address] [place] [address] Apr, Uncomplicated opioid dependence F11.20 [facility] [address] [place] [address] Apr, Uncomplicated opioid dependence F11.20 [facility] [id number] [place] [address] 21796- 7641 March, Uncomplicated opioid dependence F11.20 [facility] [address] [place] [address] March, Uncomplicated opioid dependence F11.20 [facility] [id number] [place] [address] 34113- 6223 March, Uncomplicated opioid dependence F11.20 [facility] [address] [place] [address] March, Uncomplicated opioid dependence F11.20 [facility] [address] [place] [address] March, Uncomplicated opioid dependence F11.20 [facility] [id number] [place] [address] 62167- 1302 March, [facility] [id number] [place] [address] 58076- 4273 March, [facility] [address] [place] [address] March, Uncomplicated opioid dependence F11.20 [facility] [id number] [place] [address] 05235- 1208 March, [facility] [address] [place] [address] March, Uncomplicated opioid dependence F11.20 [facility] [id number] [place] [address] 66961- 7959 March, Uncomplicated opioid dependence F11.20 [facility] [address] [place] [address] March, Uncomplicated opioid dependence F11.20 [facility] [address] 48197- 6687 Feb, Uncomplicated opioid dependence F11.20 [facility] [id number] [place] [address] 63222- 8012 Feb, [facility] [address] [place] [address] Feb, Uncomplicated opioid dependence F11.20 [facility] [address] [place] [address] Feb, Uncomplicated opioid dependence F11.20 [facility] [id number] [place] [address] 08617- 3727 Feb, Encounter for therapeutic drug level monitoring Z51.81 and Uncomplicated opioid dependence F11.20 [facility] [address] [place] [address] Feb, Uncomplicated opioid dependence F11.20 [facility] [id number] [place] [address] 87842- 2771 Feb, [facility] [id number] [place] [address] 85546- 8163 Feb, Uncomplicated opioid dependence F11.20 [facility] [id number] [place] [address] 64830- 0375 Feb, Encounter for therapeutic drug level monitoring Z51.81 [facility] [address] [place] [address] Feb, Uncomplicated opioid dependence F11.20 [facility] [id number] [place] [address] 16712- 8872 17 Feb, 2017 Uncomplicated opioid dependence F11.20 and Encounter for therapeutic drug level monitoring Z51.81 [facility] [address] [place] [address] 14 Feb, 2017 Uncomplicated opioid dependence F11.20 [facility] [id number] [place] [address] 47159- 9911 14 Feb, 2017 Uncomplicated opioid dependence F11.20 [facility] [address] [place] [address] Feb, Uncomplicated opioid dependence F11.20 [facility] [address] [place] [address] Feb, [facility] [address] 58790- 1613 Feb, Uncomplicated opioid dependence F11.20 [facility] [address] [place] [address] Feb, Uncomplicated opioid dependence F11.20 [facility] [address] [place] [address] Feb, [facility] [address] 62649- 7844 Feb, Uncomplicated opioid dependence F11.20 [facility] [address] [place] [address] Feb, Uncomplicated opioid dependence F11.20 [facility] [id number] [place] [address] 27197 2548 Feb, Uncomplicated opioid dependence F11.20 [facility] [id number] [place] [address] 85610 2542 Feb, [facility] [address] 56146 2540 Feb, Uncomplicated opioid dependence F11.20 and Substance abuse F19.10 [facility] [address] [place] [address] Feb, Substance abuse F19.10 [facility] [address] [place] [address] Jan, Substance abuse F19.10 [facility] [address] [facility] [id number] [place] [address] Jan, IMMUNIZATIONS No Known Immunizations SOCIAL HISTORY Never Assessed REASON FOR VISIT SUBAB-F/U PLAN OF CARE Activity Details Follow Up 1 Week Reason: VITAL SIGNS MEDICATIONS Unknown Medications RESULTS No Results PROCEDURES Procedure Date Ordered Result Body Site Psychotherapy, patient &/family, 30 minutes, established patient Oct 20, 2017 INSTRUCTIONS MEDICATIONS ADMINISTERED No Known Medications [...]
--- OUTSIDE RECORDS SUMMARY | 2018-05-06 21:39 | XMS REPORT ---
Author Author ANAEBLLA GARCIA [facility] Address [address] [place] [address] Care Team Providers Care Pilot Fuel Engineer Name Role Phone ANABELLA GARCIA Unavailable PROBLEMS Type Condition ICD9-CM Code IYG19-GU Code Onset Dates Condition Status SNOMED Code Problem Anxiety about health F41.8 Active 820712367 Problem Encounter for therapeutic drug level monitoring Z51.81 Active 434352077 Problem Uncomplicated opioid dependence F11.20 Active 14091623 Problem Substance abuse F19.10 Active [id number] ALLERGIES No Information ENCOUNTERS Encounter Location Date Diagnosis [facility] [address] [place] [address] Apr, [facility] [id number] [place] [address]1990[address] 9308 March, Uncomplicated opioid dependence F11.20 [facility] [id number] [place] [address] 88832- 6959 March, Uncomplicated opioid dependence F11.20 [facility] [address] [place] [address] March, Uncomplicated opioid dependence F11.20 [facility] [id number] [place] [address] 55030- 5498 March, Uncomplicated opioid dependence F11.20 [facility] [id number] [place] [address] 45621- 3181 March, [facility] [id number] [place] [address] 37299- 2775 March, Uncomplicated opioid dependence F11.20 and Anxiety about health F41.8 [facility] [id number] [place] [address] 81022- 3885 Feb, Uncomplicated opioid dependence F11.20 [facility] [id number] [place] [address] 39250- 4778 Feb, Uncomplicated opioid dependence F11.20 [facility] [address] [place] [address] Feb, Uncomplicated opioid dependence F11.20 [facility] [id number] [place] [address] 40281- 6894 Feb, Uncomplicated opioid dependence F11.20 [facility] [address] [place] [address] Feb, Uncomplicated opioid dependence F11.20 [facility] [id number] [place] [address] 12310- 2927 Feb, Uncomplicated opioid dependence F11.20 [facility] [id number] [place] [address] 04557- 6807 Feb, Uncomplicated opioid dependence F11.20 [facility] [address] [place] [address] Feb, Uncomplicated opioid dependence F11.20 [facility] [id number] [place] [address] 44404- 3747 Jan, Uncomplicated opioid dependence F11.20 [facility] [address] [place] [address] Jan, [facility] [id number] [place] [address] 77528- 1113 Jan, Uncomplicated opioid dependence F11.20 [facility] [address] [place] [address] Jan, Uncomplicated opioid dependence F11.20 [facility] [id number] [place] [address] 03582- 4054 Jan, Uncomplicated opioid dependence F11.20 [facility] [address] [place] [address] Jan, Uncomplicated opioid dependence F11.20 [facility] [id number] [place] [address] 55787- 5866 Jan, Uncomplicated opioid dependence F11.20 [facility] [address] [place] [address] Jan, Uncomplicated opioid dependence F11.20 [facility] [address] [place] [address] Jan, [facility] [id number] [place] [address] 77750- 0945 Dec, Uncomplicated opioid dependence F11.20 [facility] [address] [place] [address] Dec, Uncomplicated opioid dependence F11.20 [facility] [address] 87990- 2956 Dec, Uncomplicated opioid dependence F11.20 [facility] [address] 00920- 6485 Dec, Uncomplicated opioid dependence F11.20 [facility] [address] [place] [address] Dec, Uncomplicated opioid dependence F11.20 [facility] [address] 28219- 8029 Nov, Uncomplicated opioid dependence F11.20 [facility] [address] [place] [address] Nov, Uncomplicated opioid dependence F11.20 [facility] [address] 75829- 0254 Nov, Uncomplicated opioid dependence F11.20 [facility] [address] [place] [address] Nov, Uncomplicated opioid dependence F11.20 [facility] [id number] [place] [address] 98922- 9195 Nov, Uncomplicated opioid dependence F11.20 [facility] [address] [place] [address] Nov, Uncomplicated opioid dependence F11.20 [facility] [id number] [place] [address] 81316- 7129 Nov, Uncomplicated opioid dependence F11.20 [facility] [address] [place] [address] Nov, Uncomplicated opioid dependence F11.20 [facility] [address] [place] [address] 6[address] Nov, Uncomplicated opioid dependence F11.20 [facility] [address] [place] [address] Nov, Uncomplicated opioid dependence F11.20 [facility] [id number] [place] [address] 91572- 5017 Oct, Uncomplicated opioid dependence F11.20 [facility] [address] [place] [address] Oct, Uncomplicated opioid dependence F11.20 [facility] [address] 08802- 1830 Oct, Uncomplicated opioid dependence F11.20 [facility] [address] [place] [address] Oct, Uncomplicated opioid dependence F11.20 [facility] [id number] [place] [address] 21252- 7173 Oct, Uncomplicated opioid dependence F11.20 [facility] [id number] [place] [address] 92793- 8289 Oct, Uncomplicated opioid dependence F11.20 [facility] [id number] [place] [address] 81688- 6103 Oct, [facility] [id number] [place] [address] 19555- 8986 Oct, Uncomplicated opioid dependence F11.20 [facility] [id number] [place] [address] 28213- 7456 Sep, Uncomplicated opioid dependence F11.20 [facility] [address] [place] [address] Sep, Uncomplicated opioid dependence F11.20 [facility] [address] 08225- 6516 Sep, Uncomplicated opioid dependence F11.20 [facility] [address] [place] [address] Sep, Uncomplicated opioid dependence F11.20 [facility] [address] 82164- 1381 Sep, Uncomplicated opioid dependence F11.20 [facility] [id number] [place] [address] 47184- 7550 Sep, Uncomplicated opioid dependence F11.20 [facility] [address] [place] [address] Sep, Uncomplicated opioid dependence F11.20 [facility] [id number] [place] [address] 54072- 4933 Aug, Uncomplicated opioid dependence F11.20 [facility] [address] 96398- 1770 Aug, Uncomplicated opioid dependence F11.20 [facility] [address] [place] [address] Aug, Uncomplicated opioid dependence F11.20 [facility] [address] [place] [address] Aug, [facility] [address] 70696- 8195 Aug, Uncomplicated opioid dependence F11.20 [facility] [address] [place] [address] Aug, Uncomplicated opioid dependence F11.20 [facility] [id number] [place] [address] 98270- 0643 Aug, Uncomplicated opioid dependence F11.20 [facility] [address] [place] [address] Aug, Uncomplicated opioid dependence F11.20 [facility] [id number] [place] [address] 44158- 5521 Jul, Uncomplicated opioid dependence F11.20 [facility] [id number] [place] [address] 21885- 3967 Jul, Uncomplicated opioid dependence F11.20 [facility] [address] [place] [address] Jul, Uncomplicated opioid dependence F11.20 [facility] [id number] [place] [address] 78867- 7966 Jul, Uncomplicated opioid dependence F11.20 [facility] [id number] [place] [address] 54086- 0643 Jul, Uncomplicated opioid dependence F11.20 [facility] [id number] [place] [address] 24055- 3599 Jun, Uncomplicated opioid dependence F11.20 [facility] [address] [place] [address] Jun, Uncomplicated opioid dependence F11.20 [facility] [id number] [place] [address] 70646- 1127 Jun, Uncomplicated opioid dependence F11.20 [facility] [id number] [place] [address] 17101- 1792 Jun, Encounter for therapeutic drug level monitoring Z51.81 and Anxiety about health F41.8 [facility] [id number] [place] [address] 56532- 2541 May, Uncomplicated opioid dependence F11.20 [facility] [id number] [place] [address] 23053- 7447 May, [facility] [id number] [place] [address] 28166- 9933 May, Encounter for dental examination Z01.20 [facility] [id number] [place] [address] 86312- 9377 May, Uncomplicated opioid dependence F11.20 ; Encounter for therapeutic drug level monitoring Z51.81 and Calculus of gallbladder and bile duct without cholecystitis or obstruction K80.70 [facility] [address] [place] [address] May, Uncomplicated opioid dependence F11.20 [facility] [id number] [place] [address] 98650- 4311 May, Uncomplicated opioid dependence F11.20 [facility] [id number] [place] [address] 24861- 2168 May, [facility] [address] [place] [address] May, Uncomplicated opioid dependence F11.20 [facility] [address] [address] Apr, Uncomplicated opioid dependence F11.20 [facility] [id number] [place] [address] 19860- 3664 Apr, Uncomplicated opioid dependence F11.20 [facility] [address] [place] [address] Apr, Uncomplicated opioid dependence F11.20 [facility] [id number] [place] [address] 40595- 5313 14 Apr, 2017 Encounter for therapeutic drug level monitoring Z51.81 [facility] [id number] [place] [address] 74337- 9758 Apr, Uncomplicated opioid dependence F11.20 [facility] [address] [place] [address] Apr, Uncomplicated opioid dependence F11.20 [facility] [address] [place] [address] Apr, Uncomplicated opioid dependence F11.20 [facility] [id number] [place] [address] 45311- 3165 March, Uncomplicated opioid dependence F11.20 [facility] [address] [place] [address] March, Uncomplicated opioid dependence F11.20 [facility] [id number] [place] [address] 18706- 6805 March, Uncomplicated opioid dependence F11.20 [facility] [address] [place] [address] March, Uncomplicated opioid dependence F11.20 [facility] [address] [place] [address] March, Uncomplicated opioid dependence F11.20 [facility] [id number] [place] [address] 61776- 1087 March, [facility] [id number] [place] [address] 10782- 7900 March, [facility] [address] [place] [address] March, Uncomplicated opioid dependence F11.20 [facility] [id number] [place] [address] 43974- 2556 March, [facility] [address] [place] [address] March, Uncomplicated opioid dependence F11.20 [facility] [id number] [place] [address] 99002- 9983 March, Uncomplicated opioid dependence F11.20 [facility] [address] [place] [address] March, Uncomplicated opioid dependence F11.20 [facility] [address] 20128- 0710 Feb, Uncomplicated opioid dependence F11.20 [facility] [id number] [place] [address] 80550- 1212 Feb, [facility] [address] [place] [address] Feb, Uncomplicated opioid dependence F11.20 [facility] [address] [place] [address] Feb, Uncomplicated opioid dependence F11.20 [facility] [id number] [place] [address] 24113- 2929 Feb, Encounter for therapeutic drug level monitoring Z51.81 and Uncomplicated opioid dependence F11.20 [facility] [address] [place] [address] Feb, Uncomplicated opioid dependence F11.20 [facility] [id number] [place] [address] 15848- 8384 Feb, [facility] [id number] [place] [address] 48054- 7524 Feb, Uncomplicated opioid dependence F11.20 [facility] [id number] [place] [address] 78093- 0978 Feb, Encounter for therapeutic drug level monitoring Z51.81 [facility] [address] [place] [address] Feb, Uncomplicated opioid dependence F11.20 [facility] [id number] [place] [address] 06700- 0060 17 Feb, 2017 Uncomplicated opioid dependence F11.20 and Encounter for therapeutic drug level monitoring Z51.81 [facility] [address] [place] [address] 14 Feb, 2017 Uncomplicated opioid dependence F11.20 [facility] [id number] [place] [address] 94980- 6793 14 Feb, 2017 Uncomplicated opioid dependence F11.20 [facility] [address] [place] [address] Feb, Uncomplicated opioid dependence F11.20 [facility] [address] [place] [address] Feb, [facility] [address] 62317- 9031 Feb, Uncomplicated opioid dependence F11.20 [facility] [address] [place] [address] Feb, Uncomplicated opioid dependence F11.20 [facility] [address] [place] [address] Feb, [facility] [address] 78535- 1284 Feb, Uncomplicated opioid dependence F11.20 [facility] [address] [place] [address] Feb, Uncomplicated opioid dependence F11.20 [facility] [id number] [place] [address] 19833 2547 Feb, Uncomplicated opioid dependence F11.20 [facility] [id number] [place] [address] 39031 2543 Feb, [facility] [address] [address]30 2544 Feb, Uncomplicated opioid dependence F11.20 and Substance abuse F19.10 [facility] [address] [place] [address] Feb, Substance abuse F19.10 [facility] [address] [address] Jan, Substance abuse F19.10 [facility] [address] [facility] [id number] [id number] Jan, IMMUNIZATIONS No Known Immunizations SOCIAL HISTORY Never Assessed REASON FOR VISIT suboxone rx (10/29-11/01) PLAN OF CARE VITAL SIGNS MEDICATIONS Unknown [...]
--- OUTSIDE RECORDS SUMMARY | 2018-05-06 21:40 | XMS REPORT | Continuity of Care Document ---
Author Author [facility] Organization [facility] Address Unknown Phone Unavailable Allergies Active Description Code Type Severity Reaction Onset Reported/Identified Relationship to Patient Clinical Status Yes No Known Drug Allergies [id number] Drug Allergy Mild N/A 06/11/2009 Medications There [...] OF TEETH AND SUPPORTING STRUCTU 10/13/2016 CAROLINE RAEDR Ot F17.210 NICOTINE DEPENDENCE, CIGARETTES, UNCOMPL 10/13/2016 [...] Ot F17.210 NICOTINE DEPENDENCE, CIGARETTES, UNCOMPL 07/14/2017 CAHNDA , GALA K Ot K02.9 DENTAL CARIES, [...] APRN Ot Z96.0 PRESENCE OF UROGENITAL IMPLANTS 03/10/2018 GALA ARMAS DO Ot F17.210 NICOTINE DEPENDENCE, CIGARETTES, UNCOMPL 03/10/2018 GALA ARMAS DO Ot F19.10 OTHER PSYCHOACTIVE SUBSTANCE ABUSE, UNCO 03/10/2018 GALA ARMAS DO Ot F41.9 ANXIETY DISORDER, UNSPECIFIED 03/10/2018 GALA ARMAS DO Ot K21.9 GASTRO-ESOPHAGEAL REFLUX DISEASE WITHOUT 03/10/2018 GALA ARMAS DO Ot K80.20 CALCULUS OF GALLBLADDER W/O CHOLECYSTITI 03/10/2018 GALA ARMAS DO Ot R10.32 LEFT LOWER QUADRANT PAIN 03/10/2018 GALA ARMAS DO Ot Z96.0 PRESENCE OF UROGENITAL IMPLANTS Procedures [...] NRG Blood erythrocyte morphology finding identification NORMAL NR Complete blood count (CBC) with automated white [...] Complete urinalysis with reflex to culture - 03/08/18 20:10 Urine color determination YELLOW NRG Urine clarity [...] urobilinogen measurement by automated test strip (mass/volume) 1 mg/dL NORMAL Urine leukocyte esterase detection by dipstick [...] NO NRG Urine drug screening test - 03/08/18 20:10 Urine phencyclidine detection by screening method NEGATIVE [...] screening method NEGATIVE NEGATIVE Urine oxycodone detection POSITIVE NEGATIVE Urine propoxyphene detection NEGATIVE NEGATIVE Complete blood count (CBC) with automated white blood cell (WBC) differential - 03/08/18 20:30 Blood leukocytes automated count (number/volume) 11.1 10*3/uL 4.3-11.0 Blood erythrocytes automated count (number/volume) 5.59 10*6/uL 4.35-5.85 Venous blood hemoglobin measurement (mass/volume) 16.4 g/dL 13.3-17.7 Blood hematocrit (volume fraction) 46 % 40-54 Automated erythrocyte mean corpuscular volume 82 [foz_us] 80-99 Automated erythrocyte mean corpuscular hemoglobin (mass per erythrocyte) 29 pg 25-34 Automated erythrocyte mean corpuscular hemoglobin concentration measurement ( mass/volume) 36 g/dL 32-36 Automated erythrocyte distribution width ratio 12.9 % 10.0-14.5 Automated blood platelet count (count/volume) 251 10*3/uL 130-400 Automated blood platelet mean volume measurement 11.8 [foz_us] 7.4-10.4 Automated blood neutrophils/100 leukocytes 53 % 42-75 Automated blood lymphocytes/100 leukocytes 36 % 12-44 Blood monocytes/100 leukocytes 6 % 0-12 Automated blood eosinophils/100 leukocytes 5 % 0-10 Automated blood basophils/100 leukocytes 1 % 0-10 Blood neutrophils automated count (number/volume) 5.8 10*3 1.8-7.8 Blood lymphocytes automated count (number/volume) 4.0 10*3 1.0-4.0 Blood monocytes automated count (number/volume) 0.6 10*3 0.0-1.0 Automated eosinophil count 0.5 10*3/uL 0.0-0.3 Automated blood basophil count (count/volume) 0.1 10*3/uL 0.0-0.1 Comprehensive metabolic panel - 03/08/18 20:30 Serum or plasma sodium measurement (moles/volume) 141 mmol/L 135-145 Serum or plasma potassium measurement (moles/volume) 3.4 mmol/L 3.6-5.0 Serum or plasma chloride measurement (moles/volume) 104 mmol/L 98-107 Carbon dioxide 27 mmol/L 21-32 Serum or plasma anion gap determination (moles/volume) 10 mmol/L 5-14 Serum or plasma urea nitrogen measurement (mass/volume) 6 mg/dL 7-18 Serum or plasma creatinine measurement (mass/volume) 0.82 mg/dL 0.60-1.30 Serum or plasma urea nitrogen/creatinine mass ratio 7 NRG Serum or plasma creatinine measurement with calculation of estimated glomerular filtration rate > NRG Serum or plasma glucose measurement (mass/volume) 78 mg/dL 70-105 Serum or plasma calcium measurement (mass/volume) 10.1 mg/dL 8.5-10.1 Serum or plasma total bilirubin measurement (mass/volume) 0.7 mg/dL 0.1-1.0 Serum or plasma alkaline phosphatase measurement (enzymatic activity/volume) 85 U/L 40-136 Serum or plasma aspartate aminotransferase measurement (enzymatic activity/ volume) 20 U/L 5-34 Serum or plasma alanine aminotransferase measurement (enzymatic activity/volume ) 12 U/L 0-55 Serum or plasma protein measurement (mass/volume) 8.8 g/dL 6.4-8.2 Serum or plasma albumin measurement (mass/volume) 5.4 g/dL 3.2-4.5 Serum or plasma amylase measurement (enzymatic activity/volume) - 03/08/18 20: 30 Serum or plasma amylase measurement (enzymatic activity/volume) 43 U /L 25-125 Lipase - 03/08/18 20:30 Lipase 14 U/L 8-78 Serum or plasma ethanol measurement (mass/volume) - 03/08/18 20:30 Serum or plasma ethanol measurement (mass/volume) < mg/dL <10 PDM - AMPHETAMINES W/ REFLEX d/l ISOMERS - 03/21/18 10:43 Prescribed Drug 1 Suboxone(TM) NRG COMMENT NRG Amphetamine NEGATIVE ng/mL <250 medMATCH Amphetamine CONSISTENT NRG Methamphetamine NEGATIVE ng/mL <250 medMATCH Methamphetamine CONSISTENT NRG Encounters ACCT No. Visit Date/Time Discharge Status Pt. Type Provider Facility Loc./Unit Complaint [id number] 03/08/2018 20:00:00 03/08/2018 21:42:00 DIS Outpatient CHANDA GALA [facility] ER PAIN FROM CHEST TO BLADDER AND LOWER BACK [id number] 02/14/2018 17:06:00 02/14/2018 19:19:00 DIS Emergency WILLIAM CRAIG [employer] RECEIVER [facility] ER HEADACHE X5 DAYS [id number] 07/08/2017 02:51:00 07/08/2017 03:26:00 DIS Outpatient GALA ARMAS DO [facility] ER DENTAL PAIN [id number] 06/19/2017 05:28:00 06/19/2017 06:54:00 DIS Emergency ALICIA HARRY MD [facility] ER OVERALL BODY NUMBNESS, GETTING WORSE,PAINFUL [id number] 06/17/2017 09:15:00 06/17/2017 23:59:59 CLS Preadmit ANABELLA ROLAND MD [facility] RAD K80.70 [id number] 06/12/2017 18:28:00 06/12/2017 20:19:00 DIS Emergency WILLIAM CRAIG [employer]CE[employer] [facility] ER L SIDE NUMBNESS/TINGLING [id number] 06/12/2017 00:33:00 06/12/2017 03:17:00 DIS Emergency MALCOLM HENRY MD [facility] ER CP,PAIN IN LEFT ARM [id number] 06/07/2017 17:32:00 06/07/2017 20:46:00 DIS Emergency ALICIA HARRY MD [facility] ER LOWER BACK AND ABDOMINAL PAINS [id number] 05/09/2017 23:58:00 05/10/2017 02:09:00 DIS Emergency GALA ARMAS DO [facility] ER L HAND NUMBNESS TASTE OF IRON, FEELING HOT [id number] 05/04/2017 21:27:00 05/04/2017 23:38:00 DIS Emergency MIKE BRAVO DO [facility] ER STOMACH PAIN [id number] 10/10/2016 22:46:00 10/11/2016 01:48:00 DIS Emergency CAROLINE RADER [facility] ER MOUTH PAIN, SWELLING [id number] 04/17/2015 08:08:00 04/17/2015 11:00:00 DIS Emergency GALA ARMAS DO [facility] ER RIGHT SIDE PAIN [id number] 04/17/2015 08:08:00 Document Registration [id number] 03/02/2017 14:09:00 Document Registration [id number] 12/23/2017 10:41:00 12/23/2017 23:59:00 DIS Outpatient UNLISTED, UNLISTED [id number] 04/08/2017 13:25:00 ACT Unknown [id number] 04/09/2017 16:42:06 ACT Document Registration [id number] 04/11/2018 09:00:00 04/11/2018 23:59:59 CLS Outpatient [facility] [id number] 03/21/2018 11:30:00 Document Registration
[2018-05-06 21:58] LABS: BASOPHILS % (AUTO) 0 % (0-10); EOSINOPHILS # (AUTO) 0.5 10^3/uL (0.0-0.3); EOSINOPHILS % (AUTO) 5 % (0-10); HEMATOCRIT 46 % (40-54); HEMOGLOBIN 16.2 G/DL (13.3-17.7); LYMPHOCYTES # (AUTO) 3.2 X 10^3 (1.0-4.0); LYMPHOCYTES % (AUTO) 32 % (12-44); MEAN CORPUSCULAR HEMOGLOBIN 29 PG (25-34); MEAN CORPUSCULAR HGB CONC 35 G/DL (32-36); MEAN CORPUSCULAR VOLUME 81 FL (80-99); MEAN PLATELET VOLUME 11.7 FL (7.4-10.4); MONOCYTES # (AUTO) 0.6 X 10^3 (0.0-1.0); MONOCYTES % (AUTO) 6 % (0-12); NEUTROPHILS # (AUTO) 5.5 X 10^3 (1.8-7.8); NEUTROPHILS % (AUTO) 56 % (42-75); PLATELET COUNT 247 10^3/uL (130-400); RED BLOOD COUNT 5.68 10^6/uL (4.35-5.85); RED CELL DISTRIBUTION WIDTH 12.9 % (10.0-14.5); WHITE BLOOD COUNT 9.9 10^3/uL (4.3-11.0)
[2018-05-06] MEDS ORDERED: ANTACID SUSP 30 ML UDC (MYLANTA) PO ONE (22:00)
[2018-05-06] MEDS ORDERED: LIDOCAINE 2% VISCOUS 15 ML UDC PO ONE (22:00)
[2018-05-06 22:22] LABS: ALANINE AMINOTRANSFERASE 11 U/L (0-55); ALBUMIN 4.8 GM/DL (3.2-4.5); ALKALINE PHOSPHATASE 88 U/L (40-136); BILIRUBIN,TOTAL 0.3 MG/DL (0.1-1.0); BUN/CREATININE RATIO 6; CALCIUM 10.2 MG/DL (8.5-10.1); CARBON DIOXIDE 22 MMOL/L (21-32); CHLORIDE 107 MMOL/L (98-107); CREATININE SERUM 0.79 MG/DL (0.60-1.30); GFR ESTIMATED > 60; GLUCOSE 100 MG/DL (70-105); LIPASE 12 U/L (8-78); POTASSIUM 4.1 MMOL/L (3.6-5.0); SODIUM 141 MMOL/L (135-145); TOTAL PROTEIN 8.2 GM/DL (6.4-8.2)
[2018-05-06] MEDS ORDERED: HYOS0.1283 SL (22:36)
== END 2018-05-06 22:59 | disposition home or self-care (01) ==
LOC: EDUNIT# 21:22 → ER 21:23
DX: K29.70 Gastritis, unspecified, without bleeding (principal); K80.20 Calculus of gallbladder without cholecystitis without obstruction; K21.9 Gastro-esophageal reflux disease without esophagitis; F41.9 Anxiety disorder, unspecified; Z77.22 Contact with and (suspected) exposure to environmental tobacco smoke (acute) (chronic); Z96.0 Presence of urogenital implants; Z87.442 Personal history of urinary calculi
CPT/HCPCS: 36415; 80053; 83690; 85025; 99282

== ENCOUNTER 2021-09-04 06:12 | Emergency (ER) | payer OTHER ==
[~2021-09-04] VITALS: Ht 170 cm; Wt 72.0 kg
[~2021-09-04 06:12] MED LIST changes: -LIDO15SO2 MM; +LIDO20SO23 MM; -TAMS0.4C98 PO
[2021-09-04 06:41] LABS: BASOPHILS # (AUTO) 0.1 10^3/uL (0.0-0.1); BASOPHILS % (AUTO) 1 % (0-10); EOSINOPHILS # (AUTO) 0.7 10^3/uL (0.0-0.3); EOSINOPHILS % (AUTO) 7 % (0-10); HEMATOCRIT 47 % (40-54); LYMPHOCYTES # (AUTO) 3.7 10^3/uL (1.0-4.0); LYMPHOCYTES % (AUTO) 39 % (12-44); MEAN CORPUSCULAR HEMOGLOBIN 29 pg (25-34); MEAN CORPUSCULAR HGB CONC 34 g/dL (32-36); MEAN CORPUSCULAR VOLUME 84 fL (80-99); MEAN PLATELET VOLUME 11.3 fL (9.0-12.2); MONOCYTES # (AUTO) 0.5 10^3/uL (0.0-1.0); MONOCYTES % (AUTO) 5 % (0-12); NEUTROPHILS # (AUTO) 4.4 10^3/uL (1.8-7.8); NEUTROPHILS % (AUTO) 47 % (42-75); PLATELET COUNT 238 10^3/uL (130-400); WHITE BLOOD COUNT 9.4 10^3/uL (4.3-11.0)
--- NOTE | 2021-09-04 06:42 | ED Abdominal Pain ---
General Chief Complaint: Abdominal/GI Problems Stated Complaint: ABD PAIN Nursing Triage Note: PT TO ER WITH C/O ABD PAIN THAT BEGAN AT 0530 THIS MORNING. PT STATES HE HAS BEEN TOLD HE NEEDS HIS GALLBLADDER REMOVED BEFORE BUT DUE TO INSURANCE HAS NOT HAD THE SURGERY YET Source of Information: Patient, Old Records Exam Limitations: No Limitations History of Present Illness Date Seen by Provider: Sep 04, 2021 Time Seen by Provider: 06:13 Initial Comments This 31-year-old young man presents to the emergency room with upper abdominal pain and nausea that started about an hour prior to arrival. He has known history of cholelithiasis and ureteral stones. He states this feels like prior gallbladder attacks. He was once instructed to have his gallbladder removed but could not have cholecystectomy at the time due to his insurance status. He is afebrile at present. He declines pain medication or antiemetics at this time. He reports history of opioid abuse and present Suboxone use. He has been clean for about 4 years. Patient believes this gallbladder attack may have been triggered by drinking whole milk with his cereal last night before bed. Allergies and Home Medications Allergies Coded Allergies: No Known Drug Allergies (Unverified , 06/11/09) Patient Home Medication List Home Medication List Reviewed: Yes Buprenorphine HCl/Naloxone HCl (Suboxone 8 mg-2 mg Sl Film) 1 Each Film, (Reported) Entered as Reported by: CARLOS HANDY on 05/04/172138 Hyoscyamine Sulfate (Levsin-Sl) 0.125 Mg Tab.subl, 1-2 TAB SL Q4H Prescribed by: GALA ARMAS on 03/08/182119 Hyoscyamine Sulfate (Levsin-Sl) 0.125 Mg Tab.subl, 0.25 MG SL Q6H PRN for CRAMPS Prescribed by: WILLIAM CRAIG on 05/06/182235 Ondansetron (Zofran Odt) 4 Mg Tab.rapdis, 4 MG PO Q4H Prescribed by: GALA ARMAS on 03/08/182119 Pantoprazole Sodium (Protonix) 40 Mg Tablet.dr, 40 MG PO DAILY Prescribed by: GALA ARMAS on 03/08/182119 Review of Systems Review of Systems Constitutional: no symptoms reported EENTM: No Symptoms Reported Respiratory: No Symptoms Reported Cardiovascular: No Symptoms Reported Gastrointestinal: See HPI Genitourinary: No Symptoms Reported Musculoskeletal: no symptoms reported Skin: no symptoms reported Psychiatric/Neurological: No Symptoms Reported Endocrine: No Symptoms Reported Hematologic/Lymphatic: No Symptoms Reported Past Mvhnpxw-Ipigrv-Snodnc Hx Patient Social History Tobacco Use?: Yes Tobacco type used: Cigarettes Smoking Status: Current Everyday Smoker Substance use?: No Alcohol Use?: No Pt feels they are or have been: No Immunizations Up To Date Tetanus Booster (TDap): Unknown Influenza Vaccine Up-to-Date: No; Not Current Seasonal Allergies Seasonal Allergies: No Past Medical History Surgeries: Yes (KIDNEY STONE REMOVAL, URETERAL STENT, COLONOSCOPY) Renal Respiratory: No Cardiac: No Neurological: No Genitourinary: Yes (KIDNEY 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 15) Kidney Stones Gastrointestinal: Yes (GALLSTONES NOTED ON CT) Gastroesophageal Reflux, Gall Bladder Disease (Cholelithiasis) Musculoskeletal: No Endocrine: No HEENT: No Cancer: No Psychosocial: Yes (POLYSUBSTANCE ABUSE) Anxiety Integumentary: No Blood Disorders: No Adverse Reaction/Blood Tranf: No Family Medical History No Pertinent Family Hx Physical Exam Vital Signs Vital Signs - First Documented 09/04/21 06:18 Temp 36.4 Pulse 66 Resp 18 B/P (MAP) 176/111 (132) Pulse Ox 100 O2 Delivery Room Air Capillary Refill : Less Than 3 Seconds Height/Weight/BMI Height: 5'7.00" Weight: 160lbs. oz. 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, no motor/sensory deficits, alert, normal mood/affect, oriented x 3 Skin: normal color, warm/dry Progress/Results/Core Measures Results/Orders Lab Results Laboratory Tests Test 09/04/21 06:28 09/04/21 08:14 Range/Units White Blood Count 9.4 4.3-11.0 10^3/uL Red Blood Count 5.59 H 4.30-5.52 10^6/uL Hemoglobin 16.0 13.3-17.7 g/dL Hematocrit 47 40-54 % Mean Corpuscular Volume 84 80-99 fL Mean Corpuscular Hemoglobin 29 25-34 pg Mean Corpuscular Hemoglobin Concent 34 32-36 g/dL Red Cell Distribution Width 12.4 10.0-14.5 % Platelet Count 238 130-400 10^3/uL Mean Platelet Volume 11.3 9.0-12.2 fL Immature Granulocyte % (Auto) 0 % Neutrophils (%) (Auto) 47 42-75 % Lymphocytes (%) (Auto) 39 12-44 % Monocytes (%) (Auto) 5 0-12 % Eosinophils (%) (Auto) 7 0-10 % Basophils (%) (Auto) 1 0-10 % Neutrophils # (Auto) 4.4 1.8-7.8 10^3/uL Lymphocytes # (Auto) 3.7 1.0-4.0 10^3/uL Monocytes # (Auto) 0.5 0.0-1.0 10^3/uL Eosinophils # (Auto) 0.7 H 0.0-0.3 10^3/uL Basophils # (Auto) 0.1 0.0-0.1 10^3/uL Immature Granulocyte # (Auto) 0.0 0.0-0.1 10^3/uL Sodium Level 138 135-145 MMOL/L Potassium Level 3.2 L 3.6-5.0 MMOL/L Chloride Level 100 98-107 MMOL/L Carbon Dioxide Level 24 21-32 MMOL/L Anion Gap 14 5-14 MMOL/L Blood Urea Nitrogen 7 7-18 MG/DL Creatinine 0.85 0.60-1.30 MG/DL Estimat Glomerular Filtration Rate 106 BUN/Creatinine Ratio 8 Glucose Level 105 70-105 MG/DL Calcium Level 10.3 H 8.5-10.1 MG/DL Corrected Calcium 8.5-10.1 MG/DL Total Bilirubin 0.3 0.1-1.0 MG/DL Aspartate Amino Transf (AST/SGOT) 21 5-34 U/L Alanine Aminotransferase (ALT/SGPT) 17 0-55 U/L Alkaline Phosphatase 88 40-136 U/L C-Reactive Protein High Sensitivity 0.59 H 0.00-0.50 MG/DL Total Protein 8.1 6.4-8.2 GM/DL Albumin 4.8 H 3.2-4.5 GM/DL Lipase 19 8-78 U/L Urine Color YELLOW Urine Clarity CLEAR Urine pH 7.0 5-9 Urine Specific [place] 1.015 L 1.016-1.022 Urine Protein NEGATIVE NEGATIVE Urine Glucose (UA) NEGATIVE NEGATIVE Urine Ketones NEGATIVE NEGATIVE Urine Nitrite NEGATIVE NEGATIVE Urine Bilirubin NEGATIVE NEGATIVE Urine Urobilinogen 0.2 < = 1.0 MG/DL Urine Leukocyte Esterase NEGATIVE NEGATIVE Urine RBC (Auto) NEGATIVE NEGATIVE Urine RBC NONE /HPF Urine WBC NONE /HPF Urine Crystals NONE /LPF Urine Bacteria NEGATIVE /HPF Urine Casts NONE /LPF Urine Mucus NEGATIVE /LPF Urine Culture Indicated NO My Orders Orders - ROCHELLE PHAN MD Cbc With Automated Diff (09/04/21 06:24) Comprehensive Metabolic Panel (09/04/21 06:24) Hs C Reactive Protein (09/04/21 06:24) Lipase (09/04/21 06:24) Ua Culture If Indicated (09/04/21 06:24) Ed Iv/Invasive Line Start (09/04/21 06:24) Lactated Ringers (Lr 1000 Ml Iv Solution (09/04/21 06:45) Us Gallbladder [id number] (09/04/21 07:14) Medications Given in ED Current Medications Medications Dose Ordered Sig/Juan Route Start Time Stop Time Status Last Admin Dose Admin Lactated Ringer's 1,000 ml @ 0 mls/hr Q0M ONCE IV 09/04/21 06:45 09/04/21 06:46 DC 09/04/21 06:49 1,000 MLS/HR Vital Signs/I&O 09/04/21 09/04/21 06:18 11:14 Temp 36.4 Pulse 66 74 Resp 18 18 B/P (MAP) 176/111 (132) 125/77 Pulse Ox 100 99 O2 Delivery Room Air Room Air Blood Pressure Mean: 132 Progress Progress Note #1: Time: 06:46 Progress Note Patient was seen and examined. A liter of IV fluids has been ordered. Patient declines medications for pain or nausea. Labs are pending. Progress Note #2: Time: 09:11 Progress Note Patient's pain has dissipated to 3/10 from a 9/10 on presentation. Ultrasound revealed significant gallbladder disease. Consultation with Dr. Philippe is pending. His student has seen the patient and Dr. Philippe is in a surgical procedure at the moment. Disposition will be pending Dr. Philippe's opinion of the ultrasound. Progress Note #3: Progress Note Patient's pain greatly improved. He was evaluated by Dr. Philippe. Since he had significant improvement without treatment, patient wishes to wait until he secures financial assistance and pursue cholecystectomy as an outpatient. Disch arge instructions were reviewed with the patient. Diagnostic Imaging Diagonstic Imaging: Ultrasound Plain Films/CT/US/NM/MRI: abdomen, pelvis Comments Gallbladder ultrasound discussed with the cad technician and report reviewed. See report below: NAME: TAVARES CRAIG MED REC#: [id number] PT STATUS: REG ER : 1990 PHYSICIAN: ROCHELLE PHAN MD ADMIT DATE: 09/04/21/ER Draft Date of Exam:09/04/21 US GALLBLADDER [id number] PROCEDURE: US Gallbladder. TECHNIQUE: Multiple real-time grayscale images were obtained over the right upper quadrant in various projections. INDICATION: Nephrolithiasis with right upper quadrant pain. Multiple shadowing calculi within the gallbladder lumen present. The gallbladder wall is somewhat heterogeneously thickened up to 5 mm. The post adoption coordinator reports a positive Bauman's sign. No ascites or fluid collection. Common bile duct was 7 mm with no visualized intraductal calculus. There is no intrahepatic biliary dilatation. The partially visualized pancreas unremarkable. Portions of its tail and lower head are not well visualized. Aorta and IVC unremarkable where seen. The right kidney is unobstructed. IMPRESSION: Multiple stones within the lumen of a thick-walled gallbladder with a positive Bauman's sign. Findings suspicious for acute cholecystitis, correlate clinically. Ectatic 7 mm common bile duct without intrahepatic biliary dilatation. No other significant finding. Dictated on workstation # [id number] Dict: 09/04/21800 Trans: 09/04/21 0835 [facility] [id number] Interpreted by: KIT SAMUELS Departure Impression Primary Impression: Cholelithiasis Qualified Codes: K80.12 - Calculus of gallbladder with acute and chronic cholecystitis without obstruction Disposition: HOME, SELF-CARE Condition: Improved Departure-Patient Inst. Referrals: [facility] (PCP) Primary Care Physician ANABELLA GARCIA MD (Family) Primary Care Physician BING PHILIPPE DO Patient Instructions: Gallstones (DC) Add. Discharge Instructions: Adhere to a clear liquid diet for the remainder of the day. Drink some fluids containing potassium such as Pedialyte, Gatorade, orange juice, etc. In the morning gradually advance your diet with small quantities of bland food as tolerated. Follow-up with Dr. Philippe in the clinic. Call for an appointment time. Eat a diet low in fats, greases, and oils. You may use Tylenol (acetaminophen) up to 1000 mg every 6 hours as needed for pain. Avoid NSAIDs such as ibuprofen as this may exacerbate stomach problems. If you have more pain in the central upper abdomen (beneath the notch of your sternum) consider taking antiacid medication such as Pepcid (famotidine). Call with questions or concerns. Return to the ER if you have worsening symptoms. All discharge instructions reviewed with patient and/or family. Voiced understanding. Copy Copies To 1: BING PHILIPPE JOSHUA T MD Sep 04, 2021 06:42
[2021-09-04] MEDS ORDERED: LACTATED RINGERS 1,000 ML IV ONE (06:45)
[2021-09-04 06:54] LABS: ALBUMIN 4.8 GM/DL (3.2-4.5); CHLORIDE 100 MMOL/L (98-107); POTASSIUM 3.2 MMOL/L (3.6-5.0); SODIUM 138 MMOL/L (135-145)
[2021-09-04 06:55] LABS: CALCIUM 10.3 MG/DL (8.5-10.1)
[2021-09-04 06:56] LABS: GLUCOSE 105 MG/DL (70-105); TOTAL PROTEIN 8.1 GM/DL (6.4-8.2)
[2021-09-04 06:58] LABS: BILIRUBIN,TOTAL 0.3 MG/DL (0.1-1.0); CARBON DIOXIDE 24 MMOL/L (21-32)
[2021-09-04 07:00] LABS: ALKALINE PHOSPHATASE 88 U/L (40-136); CREATININE SERUM 0.85 MG/DL (0.60-1.30); GFR ESTIMATED 106
[2021-09-04 07:01] LABS: BUN/CREATININE RATIO 8
[2021-09-04 07:03] LABS: ALANINE AMINOTRANSFERASE 17 U/L (0-55); LIPASE 19 U/L (8-78)
[2021-09-04 08:22] LABS: BILIRUBIN,URINE NEGATIVE (NEGATIVE); CLARITY,URINE CLEAR; COLOR,URINE YELLOW; GLUCOSE, URINE (UA) NEGATIVE (NEGATIVE); KETONES,URINE NEGATIVE (NEGATIVE); LEUKOCYTE ESTERASE ,URINE NEGATIVE (NEGATIVE); NITRITE,URINE NEGATIVE (NEGATIVE); PROTEIN,URINE NEGATIVE (NEGATIVE)
--- NOTE | 2021-09-04 08:36 | Diagnostic Imaging Report ---
PROCEDURE: US Gallbladder. TECHNIQUE: Multiple real-time grayscale images were obtained over the right upper quadrant in various projections. INDICATION: Nephrolithiasis with right upper quadrant pain. Multiple shadowing calculi within the gallbladder lumen present. The gallbladder wall is somewhat heterogeneously thickened up to 5 mm. The body and frame man reports a positive Bauman's sign. No ascites or fluid collection. Common bile duct was 7 mm with no visualized intraductal calculus. There is no intrahepatic biliary dilatation. The partially visualized pancreas unremarkable. Portions of its tail and lower head are not well visualized. Aorta and IVC unremarkable where seen. The right kidney is unobstructed. IMPRESSION: Multiple stones within the lumen of a thick-walled gallbladder with a positive Bauman's sign. Findings suspicious for acute cholecystitis, correlate clinically. Ectatic 7 mm common bile duct without intrahepatic biliary dilatation. No other significant finding. Dictated on workstation # [id number]
[2021-09-04 08:47] LABS: BACTERIA,URINE NEGATIVE /HPF
--- NOTE | 2021-09-04 09:49 | Consultation - Surgery ---
LATIA HERRERA 09/04/21 0949: History of Present Illness History of Present Illness Patient Consulted On(mary/time) 09/04/21 09:42 Date Seen by Provider: Sep 04, 2021 Time Seen by Provider: 09:30 History of Present Illness PT is a 31 YO male who presented to the ED for epigastric and upper abdominal pain. PT reports a hx of epigastric pain that started when he was 16 years old and presented on and off about every month. He was first told he had gallbladder problems about 6-7 years ago. PT reports 2 weeks ago, feeling abdominal pain, but it resolved on its own. The PT reports that his current abdominal pain began this morning, after he drank milk with cereal last night. He reports this episode of pain was located in the epigastric region, upper right quadrant, and could be felt as a band around the upper abdomen. He reports the pain radiated into the mid back bilaterally. Movement makes the pain worse. Laying still makes the pain better. He had some nausea earlier thismorning associated with his pain. Currently his pain is a 3/10, but was a 10/10 earlier this morning. PT reports that he is allergic to cipro and gets a reaction of hives. Allergies and Home Medications Allergies Coded Allergies: No Known Drug Allergies (Unverified , 06/11/09) Patient Home Medication List Buprenorphine HCl/Naloxone HCl (Suboxone 8 mg-2 mg Sl Film) 1 Each Film, (Reported) Entered as Reported by: CARLOS HANDY on 05/04/172138 Hyoscyamine Sulfate (Levsin-Sl) 0.125 Mg Tab.subl, 1-2 TAB SL Q4H Prescribed by: GALA ARMAS on 03/08/182119 Hyoscyamine Sulfate (Levsin-Sl) 0.125 Mg Tab.subl, 0.25 MG SL Q6H PRN for CRAMPS Prescribed by: WILLIAM CRAIG on 05/06/182235 Ondansetron (Zofran Odt) 4 Mg Tab.rapdis, 4 MG PO Q4H Prescribed by: GALA ARMAS on 03/08/182119 Pantoprazole Sodium (Protonix) 40 Mg Tablet.dr, 40 MG PO DAILY Prescribed by: GALA ARMAS on 03/08/182119 Past Ommlgwm-Ozhibr-Lxeanj Hx Patient Social History 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, THC, VYVANSE/ADDERALL ABUSE Smoking Status: Current Everyday Smoker Type Used: Cigarettes 2nd Hand Smoke Exposure: Yes Recent Hopitalizations: No Alcohol Use?: No Have you traveled recently?: No Immunizations Up To Date Tetanus Booster (TDap): Unknown Date of Influenza Vaccine: Sep 09, 2016 Seasonal Allergies Seasonal Allergies: No Surgeries History of Surgeries: Yes (KIDNEY STONE REMOVAL, URETERAL STENT, COLONOSCOPY) Surgeries: Renal Respiratory History of Respiratory Disorde: No Cardiovascular History of Cardiac Disorders: No Neurological History of Neurological Disord: No Genitourinary History of Genitourinary Disor: Yes (KIDNEY 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 15) Genitourinary Disorders: Kidney Stones Gastrointestinal History of Gastrointestinal Di: Yes (GALLSTONES NOTED ON CT) Gastrointestinal Disorders: Gastroesophageal Reflux, Gall Bladder Disease ( Cholelithiasis) Musculoskeletal History of Musculoskeletal Dis: No Endocrine History of Endocrine Disorders: No HEENT History of HEENT Disorders: No Cancer History of Cancer: No Psychosocial History of Psychiatric Problem: Yes (POLYSUBSTANCE ABUSE) Behavioral Health Disorders: Anxiety Integumentary History of Skin or Integumenta: No Blood Transfusions History of Blood Disorders: No Adverse Reaction to a Blood Tr: No Family Medical History Other FH: Gallbladder problems reported in maternal grandfather. Gall stones reported in maternal aunt. Mother without HTN or DM Father without HTN or DM Brothers x3 without gallbladder disease Sister without gallbladder disease Review of Systems-General Constitutional: No chills, No fever EENTM: No blurred vision, No double vision Respiratory: No cough, No short of breath Cardiovascular: No chest pain, No edema Gastrointestinal: RUQ (mild tenderness on palpation ); No diarrhea Genitourinary: No dysuria, No frequency Musculoskeletal: No joint pain, No muscle pain Skin: No change in color, No change in hair/nails Psychiatric/Neurological: Denies Anxiety, Denies Depressed Physical Exam-General Problems Physical Exam Vital Signs Vital Signs - First Documented 09/04/21 06:18 Temp 36.4 Pulse 66 Resp 18 B/P (MAP) 176/111 (132) Pulse Ox 100 O2 Delivery Room Air Capillary Refill : Less Than 3 Seconds Eyes: Bilateral Eye PERRL, Bilateral Eye EOMI HEENT: PERRL/EOMI, pharynx normal, other (dental caries) Neck: non-tender, full range of motion, supple Respiratory: chest non-tender, lungs clear, normal breath sounds, no respiratory distress, no accessory muscle use Cardiovascular: normal peripheral pulses, regular rate, rhythm, no edema Peripheral Pulses: 2+ Radial Pulses (R), 2+ Radial Pulses (L) Gastrointestinal: normal bowel sounds, soft, no organomegaly, no pulsatile mass, tenderness (RUQ mild ) Rectal: deferred Extremities: normal range of motion, non-tender, no pedal edema, no calf tenderness Neurologic/Psychiatric: no motor/sensory deficits, alert, normal mood/affect, oriented x 3 Skin: normal color, warm/dry Lymphatic: no adenopathy (cervical and axillary ) Data Review Labs Laboratory Tests 09/04/21 06:28: White Blood Count 9.4, Red Blood Count 5.59H, Hemoglobin 16.0, Hematocrit 47, Mean Corpuscular Volume 84, Mean Corpuscular Hemoglobin 29, Mean Corpuscular Hemoglobin Concent 34, Red Cell Distribution Width 12.4, Platelet Count 238, Mean Platelet Volume 11.3, Immature Granulocyte % (Auto) 0, Neutrophils (%) (Auto) 47, Lymphocytes (%) (Auto) 39, Monocytes (%) (Auto) 5, Eosinophils (%) (Auto) 7, Basophils (%) (Auto) 1, Neutrophils # (Auto) 4.4, Lymphocytes # (Auto) 3.7, Monocytes # (Auto) 0.5, Eosinophils # (Auto) 0.7H, Basophils # (Auto) 0.1, Immature Granulocyte # (Auto) 0.0, Sodium Level 138, Potassium Level 3.2L, Chloride Level 100, Carbon Dioxide Level 24, Anion Gap 14, Blood Urea Nitrogen 7, Creatinine 0.85, Estimat Glomerular Filtration Rate 106, BUN/Creatinine Ratio 8, Glucose Level 105, Calcium Level 10.3H, Corrected Calcium , Total Bilirubin 0.3, Aspartate Amino Transf (AST/SGOT) 21, Alanine Aminotransferase (ALT/SGPT) 17, Alkaline Phosphatase 88, C-Reactive Protein High Sensitivity 0.59H, Total Protein 8.1, Albumin 4.8H, Lipase 19 09/04/21 08:14: Urine Color YELLOW, Urine Clarity CLEAR, Urine pH 7.0, Urine Specific [place] 1.015L, Urine Protein NEGATIVE, Urine Glucose (UA) NEGATIVE, Urine Ketones NEGATIVE, Urine Nitrite NEGATIVE, Urine Bilirubin NEGATIVE, Urine Urobilinogen 0.2, Urine Leukocyte Esterase NEGATIVE, Urine RBC (Auto) NEGATIVE, Urine RBC NONE, Urine WBC NONE, Urine Crystals NONE, Urine Bacteria NEGATIVE, Urine Casts NONE, Urine Mucus NEGATIVE, Urine Culture Indicated NO Assessment/Plan Assessment/Plan Assessment/Plan Assessment: Acute cholecystitis cholelithiasis Plan: Discussed the symptoms with the patient and their cause. Discussed treatment with the patient. PT will likely require cholecystectomy. Consent will be obtained prior to the procedure. Risks and benefits will be discussed. BING PHILIPPE DO 09/04/21 1218: History of Present Illness History of Present Illness Time Seen by Provider: 10:32 History of Present Illness Surgery asked to consult regarding RUQ pain, Cholelihtiasis. HPI per ED: This 31-year-old young man presents to the emergency room with upper abdominal pain and nausea that started about an hour prior to arrival. He has known history of cholelithiasis and ureteral stones. He states this feels like prior gallbladder attacks. He was once instructed to have his gallbladder removed but could not have cholecystectomy at the time due to his insurance status. He is afebrile at present. He declines pain medication or antiemetics at this time. He reports history of opioid abuse and present Suboxone use. He has been clean for about 4 years. Patient believes this gallbladder attack may have been triggered by drinking whole milk with his cereal last night before bed. When I spoke to pt he was basically pain free, states that the pain "just went away" about the time he was getting the US. He states he came in because the pain has never been this bad before. Usually when he has pain it lasts all day, "it's gone when I wake up the next morning." Allergies and Home Medications Allergies Coded Allergies: No Known Drug Allergies (Unverified , 06/11/09) Patient Home Medication List Home Medication List Reviewed: Yes Buprenorphine HCl/Naloxone HCl (Suboxone 8 mg-2 mg Sl Film) 1 Each Film, (Reported) Entered as Reported by: CARLOS HANDY on 05/04/172138 Hyoscyamine Sulfate (Levsin-Sl) 0.125 Mg Tab.subl, 1-2 TAB SL Q4H Prescribed by: GALA ARMAS on 03/08/182119 Hyoscyamine Sulfate (Levsin-Sl) 0.125 Mg Tab.subl, 0.25 MG SL Q6H PRN for CRAMPS Prescribed by: WILLIAM CRAIG on 05/06/182235 Ondansetron (Zofran Odt) 4 Mg Tab.rapdis, 4 MG PO Q4H Prescribed by: GALA ARMAS on 03/08/182119 Pantoprazole Sodium (Protonix) 40 Mg Tablet.dr, 40 MG PO DAILY Prescribed by: GALA ARMAS on 03/08/182119 Past Cugstgb-Xznmxc-Ydhijq Hx Patient Social History Smoking Status: Current Everyday Smoker Substance type: Opiates/Opioids Surgeries History of Surgeries: Yes (colonoscopy) Surgeries: Renal Respiratory History of Respiratory Disorde: No Cardiovascular History of Cardiac Disorders: No Neurological History of Neurological Disord: No Genitourinary History of Genitourinary Disor: Yes Genitourinary Disorders: Kidney Stones Gastrointestinal History of Gastrointestinal Di: Yes Gastrointestinal Disorders: Gastroesophageal Reflux, Gall Bladder Disease Endocrine History of Endocrine Disorders: No HEENT History of HEENT Disorders: No Loss of Vision: Denies Hearing Impairment: Denies Cancer History of Cancer: No Psychosocial History of Psychiatric Problem: Yes Behavioral Health Disorders: Anxiety Integumentary History of Skin or Integumenta: No Family Medical History Significant Family History: Diabetes (denies either parent has DM), Hypertension (denies either parent has HTN), Other Conditions/Hx (Aunt had gallbladder disease, but no one in his immediate family does) Review of Systems-General Constitutional: No chills, No fever EENTM: No blurred vision, No double vision, No mouth swelling, No epistaxis Respiratory: No cough, No short of breath Cardiovascular: No chest pain, No edema Gastrointestinal: RUQ (mild tenderness on palpation ); No diarrhea, No jaundice, No nausea, No vomiting Genitourinary: No dysuria, No frequency; other (hx of kidney stones) Musculoskeletal: No joint pain, No muscle pain Skin: No change in color, No change in hair/nails Psychiatric/Neurological: Denies Anxiety, Denies Depressed Physical Exam-General Problems Physical Exam General Appearance: WD/WN, no apparent distress Eyes: Bilateral Eye PERRL, Bilateral Eye EOMI HEENT: pharynx normal, other (dental caries) Neck: non-tender, full range of motion, supple Respiratory: chest non-tender, lungs clear, normal breath sounds, no respiratory distress, no accessory muscle use Cardiovascular: regular rate, rhythm, no edema, no murmur Gastrointestinal: normal bowel sounds, soft, no organomegaly, no pulsatile mass, tenderness (RUQ mild ) Rectal: deferred Back: no CVA tenderness, no vertebral tenderness Extremities: normal range of motion, non-tender, no pedal edema, no calf tenderness Neurologic/Psychiatric: machinery mover II-XII nml as tested, no motor/sensory deficits, alert, normal mood/affect, oriented x 3 Skin: normal color, warm/dry Lymphatic: no adenopathy (neck, axilla or groin) Data Review Radiology Date of Exam:09/04/21 US GALLBLADDER [id number] PROCEDURE: US Gallbladder. TECHNIQUE: Multiple real-time grayscale images were obtained over the right upper quadrant in various projections. INDICATION: Nephrolithiasis with right upper quadrant pain. Multiple shadowing calculi within the gallbladder lumen present. The gallbladder wall is somewhat heterogeneously thickened up to 5 mm. The vest backer reports a positive Bauman's sign. No ascites or fluid collection. Common bile duct was 7 mm with no visualized intraductal calculus. There is no intrahepatic biliary dilatation. The partially visualized pancreas unremarkable. Portions of its tail and lower head are not well visualized. Aorta and IVC unremarkable where seen. The right kidney is unobstructed. IMPRESSION: Multiple stones within the lumen of a thick-walled gallbladder with a positive Bauman's sign. Findings suspicious for acute cholecystitis, correlate clinically. Ectatic 7 mm common bile duct without intrahepatic biliary dilatation. No other significant finding. Dictated on workstation # [id number] Dict: 09/04/21 0801 Trans: 09/04/21 0835 [facility] [phone] Interpreted by: KIT SAMUELS Assessment/Plan Assessment/Plan Assessment/Plan Acute cholecystitis/cholelithiasis - appears to have resolved now Discussed the options with pt; he can have surgery now or wait and get FA (financial assistance) set up and then schedule the surgery. He does not appear to be in any distress at this point, his WBC was normal at around 9 and he had no isidro-cholecystic fluid seen on the US. I think it is very reasonable to wait until he gets the FA set-up, so that he does not have a huge bill. If he was still in severe pain, had more changes on US or wanted it removed today; we could do that. Pt will likely require cholecystectomy in the near future and I would not wait on getting that set up. He understood and all questions answered to his satisfaction. Supervisory-Addendum Brief Verification & Attestation Participated in pt care: history, MDM, physical Personally performed: exam, history, MDM, supervision of care Care discussed with: Medical Student Procedures: n/a Verification and Attestation of Medical Student E/M Service A medical student performed and documented this service. I then reviewed and verified all information documented by the medical student and made modifications to such information, when appropriate. I personally performed a physical exam, medical decision making and then discussed any differences between the notes and made revisions as necessary to create one note. Bing Philippe , 09/04/21 , 12:24 LATIA HERRERA Sep 04, 2021 09:49 BING PHILIPPE DO Sep 04, 2021 12:18
[2021-09-04 11:14] VITALS: BP 125/77
== END 2021-09-04 11:14 | disposition home or self-care (01) ==
LOC: EDUNIT# 06:12 → ER 06:16
DX: K80.20 Calculus of gallbladder without cholecystitis without obstruction (principal); K21.9 Gastro-esophageal reflux disease without esophagitis; F17.210 Nicotine dependence, cigarettes, uncomplicated; Z79.899 Other long term (current) drug therapy
CPT/HCPCS: 36415; 76705; 80053; 81000; 83690; 85025; 86141

== ENCOUNTER 2021-11-19 05:40 | Outpatient (CLI) | payer SELFPAY ==
[~2021-11-19] VITALS: Ht 170.2 cm; Wt 74.5 kg
[~2021-11-19 05:40] MED LIST changes: +CYCL10TA25 PO; -CYCL10TA9 PO
== END 2021-11-19 15:47 | disposition home or self-care (01) ==
LOC: PREOP 05:40
PROVIDERS: ATTEND Surgery
DX: Z01.818 Encounter for other preprocedural examination (principal)

== ENCOUNTER 2021-11-26 07:22 | Day surgery (SDC) | payer OTHER ==
[~2021-11-26] VITALS: Ht 170.2 cm; Wt 74.5 kg
[2021-11-26] VITALS (12 sets, daily range): BP systolic 124–144; BP diastolic 70–99
[2021-11-26] MEDS ORDERED: ceFAZolin 2 GM IV Premixed 50 ML ONE (07:53)
[2021-11-26 08:02] LABS: AMPHETAMINE SCREEN, URINE NEGATIVE (NEGATIVE); BARBITURATE SCREEN URINE NEGATIVE (NEGATIVE); BENZODIAZEPINES SCREEN URINE NEGATIVE (NEGATIVE); CANNABINOID SCREEN, URINE NEGATIVE (NEGATIVE); COCAINE SCREEN URINE NEGATIVE (NEGATIVE); METHADONE STAT NEGATIVE (NEGATIVE); METHAMPHETAMINE SCREEN URINE S NEGATIVE (NEGATIVE); OPIATE SCREEN URINE NEGATIVE (NEGATIVE); OXYCODONE STAT NEGATIVE (NEGATIVE); PROPOXYPHENE STAT NEGATIVE (NEGATIVE); TRICYCLIC ANTIDEPRESSANTS SCRE NEGATIVE (NEGATIVE)
[2021-11-26] MEDS: LACTATED RINGERS 1,000 ML IV PRN ×2 (08:05→10:08)
[2021-11-26] MEDS ORDERED: ceFAZolin 2 GM IV Premixed 50 ML IV ONE (08:15)
[2021-11-26] MEDS ORDERED: proPOfol 200 MG/20 ML (DIPRIVAN) VIAL IV ONE (08:22)
[2021-11-26] MEDS ORDERED: NEOSTIGMINE 3 MG/3 ML VIAL ONE (08:22)
[2021-11-26] MEDS ORDERED: LIDOCAINE PF 2% 5 ML (XYLOCAINE) VIAL ONE (08:22)
[2021-11-26] MEDS ORDERED: GLYCOPYRROLATE 0.2 MG/ML (ROBINUL) 2 ML VIAL ONE (08:22)
[2021-11-26] MEDS ORDERED: fentaNYL INJ 100 MCG/2 ML AMP ONE (08:22)
[2021-11-26] MEDS ORDERED: MIDAZOLAM 2 MG/2 ML (VERSED) VIAL ONE (08:22)
[2021-11-26] MEDS ORDERED: ONDANSETRON 4 MG/2 ML (SDV) Z0FRAN ONE ×2 (08:22→10:35)
--- NOTE | 2021-11-26 08:25 | Progress Note-Pre Operative ---
Pre-Operative Progress Note H&P Reviewed The H&P was reviewed, patient examined and no changes noted. Time Seen by Provider: 08:22 Date H&P Reviewed: Nov 26, 2021 Time H&P Reviewed: 08:22 Pre-Operative Diagnosis: Cholecystitis/Cholelithiasis BING PHILIPPE DO Nov 26, 2021 08:25
[2021-11-26] MEDS ORDERED: LIDOCAINE/EPI 1%-1:200,000 (XYLOCAINE) 30 ML VIAL ONE (08:57)
[2021-11-26] MEDS ORDERED: ROCURONIUM 10 MG/ML 5 ML SYRINGE IV ONE (10:05)
[2021-11-26] MEDS ORDERED: ESMOLOL 100 MG/10 ML (BREVIBLOC) VIAL ONE (10:09)
--- NOTE | 2021-11-26 10:14 | Progress Note-Post Operative ---
Post-Operative Progess Note Surgeon (s)/Recreation Facility Manager (s) Surgeon BING PHILIPPE DO Recreation Facility Manager: Herlinda Pre-Operative Diagnosis Cholecystitis/Cholelithiasis Post-Operative Diagnosis same plus adhesions small right inguinal hernia - indirect Procedure & Operative Findings Date of Procedure 11/26/21 Procedure Performed/Findings PROCEDURE: Laparoscopic cholecystectomy with intraoperative cholangiogram. COMPLICATIONS: None. PROCEDURE: The patient was taken to the operating suite and was prepped and draped in sterile fashion. A surgical pause was performed. Just superior to the umbilicus, a 12 mm incision was made. Dissection was taken down to the fascia, which was then scored and grasped with a Marva and the abdomen was then entered. A 0 Vicryl suture was placed in a [id number] fashion and a Manzo trocar was placed and secured. Pneumoperitoneum was achieved. A 5mm trochar place in the subxyphoid and 2 in the right upper quadrant. The gallbladder was noted to be very intrahepatic and there were adhesions from the omentum; these were taken down with bovie cautery. The gallbadder had been grasped at the fundus and elevated in the superior direction. Then started dissectin out the cystic duct and cystic artery; short cystic duct seen right next to common hepatic duct. Clip was placed on the distal portion of the cystic duct which was then partially transected. An arrow catheter was inserted into the duct. The cholangiogram was then performed. No filling defects and contrast made its way into the duodenum. Catheter removed and clips were placed on proximal portion of the cystic duct and then the duct was then transected. Clips had already been placed along the proximal and distal portion of the cystic artery which was then transected. Hook cautery was used to dissect the gallbladder from the gallbladder fossa achieving hemostasis. The gallbladder was placed in an Endobag and removed through the 12 mm trocar site. The abdomen was then reinspected. Copious amounts of irrigation were used to irrigate the abdomen and there were no signs of active bleeding. Hemostasis had been achieved. Had looked during the initial part of the surgery and saw an indirect inguinal hernia. The 12 mm fascial defect was then closed with 0 Vicryl suture that had been placed in a [id number] fashion. The abdomen was then desufflated, the trocars were removed. The abdomen was then washed and dried. The skin was then closed using 4-0 Monocryl in a subcuticular fashion. The abdomen was washed and dried and Skin Affix was place over incisions. Patient tolerated the procedure well without any complications and was taken to the recovery room in stable condition. Dr. Pate assisted on this helping to make incisions, close incisions, identify anatomy and hold anatomy out of the way. Anesthesia Type GET Estimated Blood Loss Estimated blood loss (mL): less than 10ml Specimens/Packing Specimens Removed GB and contents BING PHILIPPE DO Nov 26, 2021 10:14
--- NOTE | 2021-11-26 10:16 | Discharge Inst-Surgical ---
Discharge Inst-Surgical Depart Medication/Instructions New, Converted or Re-Newed RX: Other (use home Ibuproren and tylenol) Patient Instructions Follow up Appt: Make appointment for 1 week. [phone] Instructions: No lifting greater than 20 pounds. No strenuous activity. May shower in 24 hours, no tub bath or soaking. Use incentive spirometer at home as directed. No Smoking Skin/Wound Care: May remove bandages in am. You need to leave the Dermabond on incision it will fall off on it's own. Symptoms to Report: Appetite Changes, Extremity Discoloration, Numbness/Tingling, Swelling Increased, Bleeding Excessive, Eyesight Changes, Pain Increased, Urine Color Change, Constipation(Persistent), Fever over 101 degree F, Pain/Pressure in safia st, Urinating Difficulty, Cough Up/Vomit Blood, Heart Beat Irreg/Pounding, Pain/Pressure in jaw, Cramps in feet or legs, Lightheadedness, Pain/Pressure in shoulder, Diarrhea(Persistent), Memory Changes Suddenly, Questions/Concerns, Weight gain consecutive days, Dizziness/Fainting, Nausea/Vomiting, Shortness of Breath, Weight gain over 2 pounds If questions or concerns contact your physician Or seek help at emergency department. Activity Activity as Tolerated: Yes Activity Instructions: Avoid Stress to Incision Driving Instructions: No Driving/Refer to Diet Discharge Diet: Avoid Fatty Foods, Low Fat/Low Cholesterol If Any Problems/Questions/Issu: Contact Your Physician, Go to Emergency Room Skin/Wound Care Infection Signs and Symptoms: Increased Redness, Foul Odor of Wound, Increased Drainage, Skin Itchy or Has a Rash, Increased Swelling, Temperature Above 101 F Wound Care Comment: heating pad to shoulder or neck for pain tonight Bathing Instructions: Shower Stitches/Steff/Dermabond Dis: Dermabond Ice Pack: Ice On and Off Site BING PHILIPPE DO Nov 26, 2021 10:16
[2021-11-26] MEDS: fentaNYL INJ 100 MCG/2 ML AMP ONE (10:41)
[2021-11-26] MEDS ORDERED: MEPERIDINE (DEMEROL) INJ 50 MG/ML ONE (10:48)
--- NOTE | 2021-11-26 11:43 | Diagnostic Imaging Report ---
Fluoroscopy up to 1 hour. INDICATION: Abdominal pain Fluoroscopic assistance was provided for Dr. 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 11.4 seconds of fluoroscopy time was utilized. 59 spot films of the right upper quadrant were obtained. There has been opacification of the common bile duct via the cystic duct catheter. The duct is perhaps slightly dilated but there is no evidence for obstruction of the contrast from the common bile duct into the colon. There is no retained calculus visualized. Impression: Fluoroscopic assistance was provided for Dr. Diallo. Dictated by: Dictated on workstation # [id number]
--- NOTE | 2021-11-26 13:56 | Anesthesia-General Post-Op ---
General Patient Condition Mental Status/LOC: Same as Preop Cardiovascular: Satisfactory Nausea/Vomiting: Absent Respiratory: Satisfactory Pain: Controlled Complications: Absent Post Op Complications Complications None Follow Up Care/Instructions Patient Instructions None needed. Anesthesia/Patient Condition Patient Condition Patient is doing well, no complaints, stable vital signs, no apparent adverse anesthesia problems. No complications reported per nursing. DINO JEAN CRNA Nov 26, 2021 13:56
== END 2021-11-26 12:25 ==
LOC: SDC 07:22
PROVIDERS: ATTEND Surgery
DX: K80.10 Calculus of gallbladder with chronic cholecystitis without obstruction (principal); K66.0 Peritoneal adhesions (postprocedural) (postinfection); K21.9 Gastro-esophageal reflux disease without esophagitis; F41.9 Anxiety disorder, unspecified; F17.210 Nicotine dependence, cigarettes, uncomplicated; Z79.899 Other long term (current) drug therapy
CPT/HCPCS: 76000; 80306; 87081; 88304